=== PATIENT | female | born 1990 | race Caucasian/White ===

== ENCOUNTER 2016-12-13 16:06 | Emergency (ER) | payer BC ==
[2016-12-13] MEDS ORDERED: Sodium Chloride 0.9% 1000 ML 1,000 ML IV STA (16:27)
[2016-12-13 16:33] LABS: BASOPHIL % 0.3 % (0.0-0.4); Eosinophil % 1.6 % (0.00-5.0); Granulocytes % 73.7 % (36.0-66.0); Lymphocytes % 18.1 % (24.0-44.0); Mean Cell Volume 72.4 fl (78-100); Mean Platelet Volume 9.4 fl (6-9.5); Monocytes % 6.3 % (0.0-12.0); Platelet Count 329 K/mm3 (150-450); Red Blood Count 5.21 M/mm3 (4.1-5.4); White Blood Count 7.4 K/mm3 (4.0-10.5)
[2016-12-13 16:35] LABS: Mean Corpuscular Hemoglobin 22.4 pg (26-32)
[2016-12-13] MEDS ORDERED: Sodium Chloride 0.9% 1000 ML 1,000 ML ONE (16:43)
[2016-12-13] MEDS ORDERED: TORAdol 30 mg Injection IV ONE (16:50)
[2016-12-13 16:59] LABS: ALBUMIN 3.8 g/dL (3.4-5.0); ALKALINE PHOSPHATASE 100 U/L (46-116); ANION GAP 15.5 MEQ/L (5-15); BILIRUBIN,TOTAL 0.2 mg/dL (0.2-1.0); BLOOD UREA NITROGEN 15 mg/dL (9-20); CHLORIDE 106 mEq/L (98-107); Carbon Dioxide 26.1 mEq/L (21-32); Glucose 62 MG/DL (70-110); Potassium 3.8 mEq/L (3.5-5.1); SGOT/AST 14 U/L (15-37); SGPT/ALT 21 U/L (12-78); SODIUM 144 mEq/L (136-145); Total Protein 8.3 gm/dL (6.4-8.2)
--- NOTE | 2016-12-13 17:23 | ERPHSYRPT ---
- History of Present Illness Time Seen by Provider: 12/13/16 16:26 Source: patient Patient Subjective Stated Complaint: pt here for vaginal bleeding for 3 months, she states not bleed for only 9 days out of the 3 months, has seen collective bargaining specialist and put on hormones for almost 2 months, today she states she has been weak,got dizzy and fell today, and sob the last 2 hours Triage Nursing Assessment: pt states today is going through a eliezer of tampons and a box of pads in last 36 hours with clots, also co abd cramping. 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 She had prior C/S and BTL. She had a baby in Jul. Has had intermittent but mostly continued vaginal bleeding since then. She has had OCP manipulation as well as provera trial. She states the bleeding is worse, not getting better. She felt more tired and dizzy today. She is upset she can not go on like this. Could not get into office today so came to ER. Some lower abd pain for which she occasionally uses APAP. No fever or chills. Normal urination. Not . No hx of DM or sugar problems. She has been using multiple pads and tampons (was counselled against tampons by nurse). She has no chest pain or dyspnea but feels tired when up and with exertion. No injury. Timing/Duration: week(s) Severity of Pain-Max: severe Severity of Pain-Current: severe Allergies/Adverse Reactions: aspirin Adverse Reaction (Verified 12/13/16 16:28) pt states transcriber told her not to take Home Medications: Ferrous Sulfate [Ferosul] 325 mg PO BID 06/07/14 [History] Medroxyprogesterone Acetate [Provera] 5 mg DAILY 12/13/16 [History] Tranexamic Acid [Lysteda] 650 mg DAILY 12/13/16 [History] Hx Tetanus, Diphtheria Vaccination/Date Given: No Hx Influenza Vaccination/Date Given: No Hx Pneumococcal Vaccination/Date Given: No - Review of Systems Constitutional: Fatigue, Malaise, Weakness, No Fever, No Chills Eyes: No Symptoms Ears, Nose, & Throat: No Symptoms Respiratory: No Cough, No Dyspnea Cardiac: No Chest Pain Abdominal/Gastrointestinal: Abdominal Pain (lower), No Vomiting, No Diarrhea Genitourinary Symptoms: Vaginal Bleeding, No Dysuria, No Hematuria, No Musculoskeletal: No Back Pain Skin: No Rash Neurological: No Headache All Other Systems: Reviewed and Negative - Past Medical History Pertinent Past Medical History: Yes Neurological History: No Pertinent History ENT History: No Pertinent History Cardiac History: Congenital Heart Disease Respiratory History: No Pertinent History Endocrine Medical History: No Pertinent History Musculoskeletal History: Other GI Medical History: No Pertinent History History: No Pertinent History Psycho-Social History: No Pertinent History Female Reproductive Disorders: No Pertinent History Other Medical History: OPEN HEART WITH REPAIR OF HOLE--4 yrs old. anemia - Past Surgical History Past Surgical History: Yes Neuro Surgical History: No Pertinent History Cardiac: Other Respiratory: No Pertinent History Gastrointestinal: No Pertinent History Genitourinary: No Pertinent History Musculoskeletal: No Pertinent History Female Surgical History: No Pertinent History, Section, Tubal Ligation Other Surgical History: REPAIR OF HOLE IN THE HEART - Social History Smoking Status: Never smoker Exposure to second hand smoke: No Drug Use: none Patient Lives Alone: No - Female History Hx Last Menstrual Period: maurilio was last normal menstrual period Hx Now: No - Nursing Vital Signs Nursing Vital Signs: Initial Vital Signs Temperature 98.2 F Temperature Source Oral Pulse Rate 89 Respiratory Rate 16 Blood Pressure [Left Arm] 130/82 Pain Intensity 4 - Physical Exam General Appearance: alert, obese, other (pleasant lady) Eye Exam: PERRL/EOMI Ears, Nose, Throat Exam: normal ENT inspection, moist mucous membranes Neck Exam: normal inspection, non-tender, supple Respiratory Exam: normal breath sounds, lungs clear Cardiovascular Exam: regular rate/rhythm Gastrointestinal/Abdomen Exam: soft, No tenderness, No distention, No mass, No guarding Pelvic Exam: vaginal bleeding (performed by medical student with RN Minda: slow cervical bleeding consistent with heavy menses, no hermorrhage, no discharge, mild suprapubic pain.) Back Exam: normal inspection Extremity Exam: normal inspection, normal range of motion Neurologic Exam: alert, oriented x 3, cooperative, payroll coordinator II-XII nml as tested, sensation nml, No motor deficits Skin Exam: warm, dry, No rash SpO2 Interpretation: normal SpO2: 100 Oxygen Delivery: Room Air - Course Nursing assessment & vital signs reviewed: Yes Ordered Tests: Active Orders 24 hr Category Date Time Status ACCUCHECK [Accucheck] STAT Care 12/13/16 18:17 Active IV Insertion STAT Care 12/13/16 16:27 Active Orthostatic Vital Signs STAT Care 12/13/16 16:50 Active Pelvic Exam Assist STAT Care 12/13/16 16:51 Active CBC W DIFF Stat Lab 12/13/16 16:25 Completed CMP Stat Lab 12/13/16 16:25 Completed HCG QUALITATIVE,SERUM Stat Lab 12/13/16 16:25 Completed TSH [TSH, 3RD Generation] Stat Lab 12/13/16 17:03 Completed Medication Summary Discontinued Medications Generic Name Dose Route Start Last Admin Trade Name Freq PRN Reason Stop Dose Admin Sodium Chloride 1,000 mls @ 999 mls/hr 12/13/16 16:27 12/13/16 16:45 Sodium Chloride 0.9% 1000 Ml IV 12/13/16 17:27 999 mls/hr .Q1H1M STA Administration Sodium Chloride Confirm 12/13/16 16:43 Sodium Chloride 0.9% 1000 Ml Administered 12/13/16 16:44 Dose 1,000 mls @ ud .ROUTE .STK-MED ONE Ketorolac Tromethamine 30 mg 12/13/16 16:50 12/13/16 17:29 Toradol 30 Mg Injection IV 12/13/16 16:51 30 mg STAT ONE Administration Ketorolac Tromethamine Confirm 12/13/16 17:28 Toradol 30 Mg Injection Administered 12/13/16 17:29 Dose 30 mg .ROUTE .STK-MED ONE Lab/Rad Data: Laboratory Result Diagrams 12/13/16 16:25 12/13/16 16:25 Laboratory Results 12/13/16 12/13/16 12/13/16 Range/Units 17:03 16:25 16:25 WBC (4.0-10.5) K/mm3 RBC (4.1-5.4) M/mm3 Hgb (12.0-16.0) gm/dl Hct (35-47) % MCV (78-100) fl MCH (26-32) pg MCHC (32-36) g/dl RDW (11.5-14.0) % Plt Count (150-450) K/mm3 MPV (6-9.5) fl Gran % (36.0-66.0) % Lymphocytes % (24.0-44.0) % Monocytes % (0.0-12.0) % Eosinophils % (0.00-5.0) % Basophils % (0.0-0.4) % Basophils # (0-0.4) Sodium (136-145) mEq/L Potassium (3.5-5.1) mEq/L Chloride (98-107) mEq/L Carbon Dioxide (21-32) mEq/L Anion Gap (5-15) MEQ/L BUN (9-20) mg/dL Creatinine (0.55-1.30) mg/dl Estimated GFR ML/MIN Glucose (70-110) MG/DL Calcium (8.5-10.1) mg/dL Total Bilirubin (0.2-1.0) mg/dL AST (15-37) U/L ALT (12-78) U/L Alkaline Phosphatase (46-116) U/L Serum Total Protein (6.4-8.2) gm/dL Albumin (3.4-5.0) g/dL TSH 3rd Generation 1.444 (0.358-3.740) mIU/L Serum , Qual NEGATIVE (Negative) ABO Group O Rh Factor POSITIVE Antibody Screen NEGATIVE (NEGATIVE) 12/13/16 12/13/16 Range/Units 16:25 16:25 WBC 7.4 (4.0-10.5) K/mm3 RBC 5.21 (4.1-5.4) M/mm3 Hgb 11.7 L (12.0-16.0) gm/dl Hct 37.7 (35-47) % MCV 72.4 L (78-100) fl MCH 22.4 L (26-32) pg MCHC 31.0 L (32-36) g/dl RDW 17.0 H (11.5-14.0) % Plt Count 329 (150-450) K/mm3 MPV 9.4 (6-9.5) fl Gran % 73.7 H (36.0-66.0) % Lymphocytes % 18.1 L (24.0-44.0) % Monocytes % 6.3 (0.0-12.0) % Eosinophils % 1.6 (0.00-5.0) % Basophils % 0.3 (0.0-0.4) % Basophils # 0.02 (0-0.4) Sodium 144 (136-145) mEq/L Potassium 3.8 (3.5-5.1) mEq/L Chloride 106 (98-107) mEq/L Carbon Dioxide 26.1 (21-32) mEq/L Anion Gap 15.5 H (5-15) MEQ/L BUN 15 (9-20) mg/dL Creatinine 0.95 (0.55-1.30) mg/dl Estimated GFR > 60 ML/MIN Glucose 62 L (70-110) MG/DL Calcium 9.5 (8.5-10.1) mg/dL Total Bilirubin 0.2 (0.2-1.0) mg/dL AST 14 L (15-37) U/L ALT 21 (12-78) U/L Alkaline Phosphatase 100 (46-116) U/L Serum Total Protein 8.3 H (6.4-8.2) gm/dL Albumin 3.8 (3.4-5.0) g/dL TSH 3rd Generation (0.358-3.740) mIU/L Serum , Qual (Negative) ABO Group Rh Factor Antibody Screen (NEGATIVE) - Progress Progress Note: 12/13/16 17:23 Hg ok. Vitals ok. Sugar somewhat low. IVF bolus, toradol, and snack given. Advised she will need close a p supervisor follow up to consider further hormonal manipulation, D&C, ablation, hysterectomy, etc. TSH pending. 12/13/16 18:34 TSH normal. Normal orthostatics. She has ambulated to the bathroom several times. Accu check improved with snack. She now is nauseated and dizzy. She felt this way after the orange juice. Discussed her history again. She is tired of the bleeding. She felt like she would pass out this AM and fell but did not black out. No vomiting. Normal urination. Discussed her test results so far. With further symptoms advised she have EKG due to hx of congenital heart issues and dizziness, check cath UA, and phenergan for nausea/dizziness as well as addl IVF. She decided she wants to go home. She declined addl tests. She has her mother in law here to help her with kids. She lives at home with her who works rn shift mgr. She agreed to phenergan but declines other tests. She states she feels like she has a film over her eyes with some blurriness. She will be released AMA at her request. Counseled pt/family regarding: lab results, diagnosis, need for follow-up, rad results - Departure Time of Disposition: 18:40 Departure Disposition: AMA Clinical Impression: Menorrhagia, Hypoglycemia, Dizziness Condition: Stable Critical Care Time: No Instructions: Menorrhagia, Hypoglycemia Additional Instructions: No driving and stay with adult family member. Eat frequent small meals and drink plenty of fluids. Call your [employer] a p supervisor in AM for close follow up. Continue the hormone treatments as already prescribed by your graduate research assistant. Return for problems or concerns.
[2016-12-13] MEDS ORDERED: TORAdol 30 mg Injection ONE (17:28)
[2016-12-13 18:17] VITALS: BP 130/82; PULSE 89
[2016-12-13] MEDS ORDERED: Phenergan 25 MG INJ IM ONE (18:34)
[2016-12-13] MEDS ORDERED: Phenergan 25 MG INJ ONE (18:35)
[2016-12-13 18:40] VITALS: O2SAT 100
== END 2016-12-13 19:05 | disposition home or self-care (01) ==
LOC: ED 16:06
DX: N92.0 Excessive and frequent menstruation with regular cycle (principal); E16.2 Hypoglycemia, unspecified; R42 Dizziness and giddiness
CPT/HCPCS: 36000; 36415; 80053; 82962; 84443; 84703; 85025; 86850; 86900; 86901; 96360; 96361; 96372; 96374; 99284; 99285; J1885; J2550

== ENCOUNTER 2017-12-25 13:12 | Emergency (ER) | payer BC, OTHER ==
[2017-12-25 13:23] VITALS: BP 164/106; PULSE 85; O2SAT 100
[2017-12-25] MEDS ORDERED: Augmentin 875-125 Tablet PO ONE (13:48)
--- NOTE | 2017-12-25 13:54 | ERPHSYRPT ---
- History of Present Illness Time Seen by Provider: 12/25/17 13:35 Source: patient Exam Limitations: clinical condition Patient Subjective Stated Complaint: Dental Pain beginning after tooth extraction x1 week ago. Triage Nursing Assessment: Pt presents to the ED with complaints of lower dental pain. Pt states wisdom tooth extraction x4 1 week ago. Pt states pain worsening since removal. No distress noted. Denies fevers or other complaints. Physician History: PATIENT UNDERWENT MULTIPLE WISDOM TEETH EXTRACTED 1 WEEK AGO AND HAS PERSISTENT PAIN, STATES ONLY HAS A FEW NORCO LEFT. DENIES FEVER, DIFFICULTY BREATHING OR SWALLOWING. ADMITS TO ONLY HAVING 2 ANTIBIOTICS OF AMOXICILLIN LEFT. Timing/Duration: gradual onset Severity: moderate ENT Location: dental Prearrival Treatment: prescription meds Modifying Factors: Improves With: nothing Associated Symptoms: jaw pain Allergies/Adverse Reactions: aspirin Adverse Reaction (Verified 12/13/16 16:28) pt states elevator erector told her not to take Home Medications: Ferrous Sulfate [Ferosul] 325 mg PO BID 06/07/14 [History] Amoxicillin 500 mg Cap [Amoxil 500 mg] 500 mg PO TID 12/25/17 [History] Hydrocodone/Acetaminophen [Hydrocodone-Acetamin 5-325 mg] 1 each PO Q6HPRN PRN 12/25/17 [History] Hx Tetanus, Diphtheria Vaccination/Date Given: No Hx Influenza Vaccination/Date Given: No Hx Pneumococcal Vaccination/Date Given: No Immunizations Up to Date: No - Review of Systems Constitutional: No Fever, No Chills Eyes: No Symptoms Ears, Nose, & Throat: No Symptoms, Other (JAW PAIN AFTER DENTAL EXTRACTION) Respiratory: No Cough, No Dyspnea Cardiac: No Symptoms, No Chest Pain, No Edema, No Syncope Abdominal/Gastrointestinal: No Symptoms, No Abdominal Pain, No Nausea, No Vomiting, No Diarrhea Genitourinary Symptoms: No Dysuria Musculoskeletal: No Back Pain, No Neck Pain Skin: No Rash Neurological: No Dizziness, No Focal Weakness, No Sensory Changes Psychological: No Symptoms Endocrine: No Symptoms All Other Systems: Reviewed and Negative - Past Medical History Pertinent Past Medical History: Yes Neurological History: No Pertinent History ENT History: No Pertinent History Cardiac History: Congenital Heart Disease Respiratory History: No Pertinent History Endocrine Medical History: No Pertinent History Musculoskeletal History: Other GI Medical History: No Pertinent History History: No Pertinent History Psycho-Social History: No Pertinent History Female Reproductive Disorders: No Pertinent History Other Medical History: OPEN HEART WITH REPAIR OF HOLE--4 yrs old. anemia - Past Surgical History Past Surgical History: Yes Neuro Surgical History: No Pertinent History Cardiac: Other Respiratory: No Pertinent History Gastrointestinal: No Pertinent History Genitourinary: No Pertinent History Musculoskeletal: No Pertinent History Female Surgical History: No Pertinent History, Section, Tubal Ligation Other Surgical History: REPAIR OF HOLE IN THE HEART - Social History Smoking Status: Never smoker Exposure to second hand smoke: No Drug Use: none Patient Lives Alone: No - Female History Hx Last Menstrual Period: 12/10/2017 Hx Now: No - Nursing Vital Signs Nursing Vital Signs: Initial Vital Signs Temperature 98.5 F 12/25/17 13:19 Pulse Rate 85 12/25/17 13:19 Respiratory Rate 16 12/25/17 13:19 Blood Pressure 164/106 12/25/17 13:19 O2 Sat by Pulse Oximetry 100 12/25/17 13:19 Pain Scale Pain Intensity 8 - Physical Exam General Appearance: no apparent distress, alert Eye Exam: bilateral eye: PERRL, EOMI Ear Exam: bilateral ear: auricle normal, canal normal Nasal Exam: normal inspection Throat Exam: normal (BILAT UPPER AND LOWER GINGIVA TENDERNESS SITES OF WISDOM EXTRACTIONS, NO GINGIVAL SWELLING), pharynx normal (AIRWAY PATENT, NO SOFT PALATE OR UVULA SWELLING ), moist mucus membranes, No tonsillar exudate Neck Exam: normal inspection, non-tender, supple Cardiovascular/Respiratory Exam: chest non-tender, normal breath sounds, regular rate/rhythm Neurologic Exam: No motor deficits SpO2: 100 Oxygen Delivery: Room Air Ordered Tests: Medication Summary Generic Name Dose Route Start Last Admin Trade Name Chuckq PRN Reason Stop Dose Admin Amoxicillin/Clavulanate Potassium 875 mg 12/25/17 13:48 Augmentin 875-125 Tablet PO 12/25/17 13:49 STAT ONE - Progress Progress Note: 12/25/17 13:54 AUGMENTIN 875MG ORALLY Counseled pt/family regarding: diagnosis - Departure Time of Disposition: 14:10 Departure Disposition: Home Clinical Impression: POST EXTRACTION DENTALGIA Condition: Stable Critical Care Time: No Referrals: MEIR VANEGAS [Primary Care Provider] - Additional Instructions: CALL A DENTIST OR YOUR PREVIOUS DENTIST FROM LAST WEEK FOR EVALUATION AND TREATMENT. DISCONTINUE AMOXICILLIN AND BEGIN AUGMENTIN 875MG TWICE DAILY FOR 10 DAYS. PERCOGESIC EVERY 4 HOURS FOR PAIN. CONSULT YOUR PRIMARY CARE PROVIDER TOMORROW FOR A DENTAL REFERRAL. Prescriptions: Acetaminophen/Diphenhydramine [Percogesic 325-12.5 mg Tablet] 2 each PO Q4- 6HPRN PRN #20 tablet PRN Reason: Pain Amox Tr/Potass Clav. 875 mg [Augmentin 875-125 Tablet] 1 each PO BID #20 tablet
[2017-12-25] MEDS ORDERED: Augmentin 875-125 Tablet ONE (13:55)
== END 2017-12-25 14:09 | disposition home or self-care (01) ==
LOC: ED 13:12
DX: K08.89 Other specified disorders of teeth and supporting structures (principal); Z98.818 Other dental procedure status
CPT/HCPCS: 99283; A9270-GY

== ENCOUNTER 2018-01-02 20:17 | Emergency (ER) | payer OTHER ==
[2018-01-02 20:51] LABS: Lactic Acid 1.9 (0.4-2.0)
[2018-01-02] MEDS ORDERED: DUONEB 0.5-3 MG/3 ml Neb IH (20:56)
[2018-01-02] MEDS: DUONEB 0.5-3 MG/3 ml Neb IH (20:57)
[2018-01-02 20:58] LABS: BASOPHIL % 0.3 % (0.0-0.4); Basophil (Absolute #) 0.03 (0-0.4); Eosinophil (Absolute #) 0.22 (0-0.5); Granulocyte Absolute (ANC) 8.01 (1.4-6.9); Granulocytes % 73.1 % (36.0-66.0); Hemoglobin 10.5 gm/dl (12.0-16.0); Lymphocyte (Absolute #) 2.26 (1.0-4.6); Lymphocytes % 20.6 % (24.0-44.0); Mean Cell Volume 67.5 fl (78-100); Mean Corpuscular Hemoglobin 20.8 pg (26-32); Mean Corpuscular Hgb Concent. 30.9 g/dl (32-36); Monocyte (Absolute #) 0.44 (0.0-1.3); Platelet Count 383 K/mm3 (150-450); Red Blood Count 5.04 M/mm3 (4.1-5.4); Red Cell Distribution Width 16.4 % (11.5-14.0)
[2018-01-02] MEDS ORDERED: Robitussin AC Syrup Unit Dose Cup (21:00)
[2018-01-02] MEDS: Robitussin AC Syrup Unit Dose Cup PO (21:06)
[2018-01-02 21:11] LABS: ALKALINE PHOSPHATASE 100 U/L (38-126); ANION GAP 16.2 MEQ/L (5-15); BILIRUBIN,TOTAL < 0.10 mg/dL (0.2-1.3); BLOOD UREA NITROGEN 12 mg/dL (7-17); CHLORIDE 103 mmol/L (98-107); Calcium 9.2 mg/dL (8.4-10.2); Carbon Dioxide 24 mmol/L (22-30); Creatinine 1 0.77 mg/dL (0.52-1.04); EST GLOMERULAR FILTRATION RATE > 60.0 ML/MIN; Glucose 117 mg/dL (74-106); MAGNESIUM 1.9 mg/dL (1.6-2.3); Potassium 4.1 mmol/L (3.5-5.1); SGOT/AST 15 U/L (14-36); SGPT/ALT 18 U/L (0-35); SODIUM 140 mmol/L (137-145); Total Protein 7.3 g/dL (6.3-8.2)
[2018-01-02 21:19] LABS: NT PRO BNP 143 pg/mL (0-450)
[2018-01-02 21:21] LABS: INR 1.03 (0.8-3.0)
[2018-01-02 21:22] LABS: D-DIMER QUANTITATION 262 ng/mL (215-500)
[2018-01-02 21:24] LABS: TROPONIN < 0.012 ng/mL (0.000-0.034)
[2018-01-02 21:32] LABS: ADD MANUAL DIFF? NO (NO)
[2018-01-02 23:11] LABS: Lactic Acid 1.2 (0.4-2.0)
[2018-01-02 23:42] LABS: TROPONIN < 0.012 ng/mL (0.000-0.034)
== END 2018-01-03 00:39 | disposition home or self-care (01) ==
LOC: ED 01-03 00:39
CPT/HCPCS: 36000; 36415; 71046; 80053; 83605; 83735; 83880; 84484; 85025; 85379; 85610; 93005; 94150; 94640

== ENCOUNTER 2018-01-09 19:05 | Observation (INO) | payer OTHER ==
[2018-01-09] MEDS ORDERED: TYLENOL 325 MG PO PRN (19:36)
[2018-01-09] MEDS ORDERED: DUONEB 0.5-3 MG/3 ml Neb IH ONE (19:46)
[2018-01-09] MEDS ORDERED: DUONEB 0.5-3 MG/3 ml Neb IH PRN (20:11)
[2018-01-09] MEDS: Sodium Chloride 0.9% 1000 ML 1,000 ML IV SCH (20:13)
[2018-01-09] MEDS: ROCEPHIN 1 Gm-D5w 50 ml Bag** 1 G/50 ML IVPB IV SCH ×2 (20:13→22:05)
[2018-01-09] MEDS: solu-MEDROL 125 MG IV SCH (20:14)
[2018-01-09 20:23] LABS: Hematocrit 30.9 % (35-47); Hemoglobin 9.3 gm/dl (12.0-16.0); Mean Cell Volume 68.7 fl (78-100); Mean Corpuscular Hgb Concent. 30.1 g/dl (32-36); Platelet Count 302 K/mm3 (150-450); White Blood Count 8.7 K/mm3 (4.0-10.5)
[2018-01-09 20:27] LABS: Mean Corpuscular Hemoglobin 20.6 pg (26-32)
[2018-01-09 20:31] LABS: INFLUENZA A NEGATIVE (NEGATIVE); INFLUENZA B NEGATIVE (NEGATIVE); RESPIRATORY SYNCTIAL VIRUS NEGATIVE (Negative)
[2018-01-09 21:18] LABS: ALBUMIN 3.8 g/dL (3.5-5.0); ALKALINE PHOSPHATASE 88 U/L (38-126); ANION GAP 13.4 MEQ/L (5-15); BILIRUBIN,TOTAL < 0.10 mg/dL (0.2-1.3); BLOOD UREA NITROGEN 13 mg/dL (7-17); CHLORIDE 110 mmol/L (98-107); Calcium 8.9 mg/dL (8.4-10.2); Carbon Dioxide 24 mmol/L (22-30); Creatinine 1 0.78 mg/dL (0.52-1.04); Glucose 127 mg/dL (74-106); Potassium 3.7 mmol/L (3.5-5.1); SGOT/AST 16 U/L (14-36); SODIUM 143 mmol/L (137-145)
[2018-01-09 21:21] LABS: A-aADO2 29; ABG HEMOGLOBIN 9.4; ABG POTASSIUM 3.6 (3.5-5.1); ARTERIAL BLD GAS O2 SATURATION 97.4 % (95-100); ARTERIAL BLOOD GAS BASE EXCESS -0.3 (-2.0-2.0); ARTERIAL BLOOD GAS FIO2 21 %; ARTERIAL BLOOD GAS PCO2 37 mmHg (35-45); ARTERIAL BLOOD GAS PO2 74 mmHg (75-100); ARTERIAL BLOOD GAS pH 7.42 (7.35-7.45); HGB O2 SAT 93.2 g/dF (94-100); Methhemoglobin 1.3 % (1.4-1.5); paO2 pAO1 0.72
[2018-01-09 21:22] LABS: ABG SITE LEFT BRACHIAL
[2018-01-09 21:25] LABS: SGPT/ALT 18 U/L (0-35)
[2018-01-09 21:29] LABS: TROPONIN < 0.012 ng/mL (0.000-0.034)
[2018-01-09 23:20] LABS: Slide Review YES
[2018-01-10] MEDS: solu-MEDROL 125 MG IV SCH (06:43)
[2018-01-10] MEDS: Sodium Chloride 0.9% 1000 ML 1,000 ML IV SCH (06:43)
[2018-01-10 07:33] VITALS: BP 129/59; PULSE 87; O2SAT 97
--- NOTE | 2018-01-10 08:37 | XRAY ---
Indication: Bronchopneumonia. Comparison: January 02, 2018. PA/lateral chest again demonstrates normal heart and lungs with sternotomy wires. No new/acute findings.
--- NOTE | 2018-01-10 08:55 | PCM.SSS ---
History of Present Illness - Chief Complaint Chief Complaint: cough for 3 weeks History of Present Illness: see H&P - Review of Systems Constitutional: No Fever, No Chills Eyes: No Symptoms Ears, Nose, & Throat: No Symptoms Respiratory: No Cough, No Short Of Breath Cardiac: No Chest Pain, No Edema, No Syncope Abdominal/Gastrointestinal: No Abdominal Pain, No Nausea, No Vomiting, No Diarrhea Genitourinary Symptoms: No Dysuria Musculoskeletal: No Back Pain, No Neck Pain Skin: No Rash Neurological: No Dizziness, No Focal Weakness, No Sensory Changes Psychological: No Symptoms Endocrine: No Symptoms Hematologic/Lymphatic: No Symptoms Immunological/Allergic: No Symptoms Medications & Allergies Home Medications: Home Medication List Ferrous Sulfate [Ferosul] 325 mg PO BID 06/07/14 [History Confirmed 01/09/18] Codeine Phosphate/Guaifenesin [Cheratussin AC Syrup] 5 ml PO QID #120 liquid [Rx] Prednisone 5 mg [Deltasone 5 mg] 5 mg PO BID #20 tablet 01/10/18 [Rx] Allergies/Adverse Reactions: Allergies Allergy/AdvReac Type Severity Reaction Status Date / Time aspirin AdvReac Verified 01/02/18 20:38 - Past Medical History Past Medical History: Yes Neurological History: No Pertinent History ENT History: No Pertinent History Cardiac History: Congenital Heart Disease Respiratory History: Bronchitis Endocrine Medical History: No Pertinent History Musculoskelatal History: Other GI Medical History: No Pertinent History History: No Pertinent History Pyscho-Social History: No Pertinent History Reproductive Disorders: No Pertinent History Comment: OPEN HEART WITH REPAIR OF HOLE--4 yrs old. anemia - Female History Are you now?: (unknown) - Past Surgical History Past Surgical History: Yes Neuro Surgical History: No Pertinent History Cardiac History: Other Respiratory Surgery: No Pertinent History GI Surgical History: No Pertinent History Genitourinary Surgical Hx: No Pertinent History Musculskeletal Surgical Hx: No Pertinent History Female Surgical History: No Pertinent History, Section, Tubal Ligation Other Surgical History: REPAIR OF HOLE IN THE HEART - Social History Smoking Status: Never smoker Exposure to second hand smoke: Yes Alcohol: None Drug Use: none - Physical Exam Vital Signs: Vital Signs - 24 hr Temp Pulse Resp BP Pulse Ox 01/10/18 07:32 97.5 F 87 20 129/59 97 01/10/18 06:57 98 H 16 96 01/10/18 03:00 98.1 F 89 17 132/63 96 01/09/18 23:06 98.7 F 94 H 19 121/63 96 01/09/18 22:46 100 H 22 97 01/09/18 20:29 98.4 F 103 H 20 138/67 98 01/09/18 19:06 98.4 F 103 H 20 138/67 98 General Appearance: no apparent distress, alert Neurologic Exam: alert, oriented x 3, cooperative, normal mood/affect, nml cerebellar function, nml station & gait, sensation nml, No motor deficits Eye Exam: PERRL/EOMI, eyes nml inspection Ears, Nose, Throat Exam: normal ENT inspection, TMs normal, pharynx normal, moist mucous membranes Neck Exam: normal inspection, non-tender, supple, full range of motion Respiratory Exam: normal breath sounds, lungs clear, No respiratory distress Cardiovascular Exam: regular rate/rhythm, normal heart sounds, normal peripheral pulses Gastrointestinal/Abdomen Exam: soft, normal bowel sounds, No tenderness, No mass Back Exam: normal inspection, normal range of motion, No CVA tenderness, No vertebral tenderness Extremity Exam: normal inspection, normal range of motion, pelvis stable Skin Exam: normal color, warm, dry, No rash Lymphatic Exam: No adenopathy Results - Labs Lab/Micro Results: Lab Results-Last 24 Hours 01/09/18 01/09/18 01/09/18 Range/Units 19:20 20:15 20:15 WBC 8.7 (4.0-10.5) K/mm3 RBC 4.50 (4.1-5.4) M/mm3 Hgb 9.3 L (12.0-16.0) gm/dl Hct 30.9 L (35-47) % MCV 68.7 L (78-100) fl MCH 20.6 L (26-32) pg MCHC 30.1 L (32-36) g/dl RDW 17.0 H (11.5-14.0) % Plt Count 302 (150-450) K/mm3 MPV 9.0 (6-9.5) fl Puncture Site pCO2 (35-45) mmHg pO2 (75-100) mmHg Base Excess (-2.0-2.0) O2 Saturation (94-100) g/dF ABG pH (7.35-7.45) ABG HCO3 (22-28) ABG O2 Sat (Measured) (95-100) % Gonsalo Test A-a Gradient a/A Ratio Hemoglobin Carboxyhemoglobin (0.0-6.9) % THgb Methemoglobin (1.4-1.5) % Temperature C POC O2 Flow Rate % Sodium 143 (137-145) mmol/L Potassium 3.7 (3.5-5.1) mmol/L Chloride 110 H (98-107) mmol/L Carbon Dioxide 24 (22-30) mmol/L Anion Gap 13.4 (5-15) MEQ/L BUN 13 (7-17) mg/dL Creatinine 0.78 (0.52-1.04) mg/dL Estimated GFR > 60.0 ML/MIN Glucose 127 H (74-106) mg/dL Calcium 8.9 (8.4-10.2) mg/dL Total Bilirubin < 0.10 L (0.2-1.3) mg/dL AST 16 (14-36) U/L ALT 18 (0-35) U/L Alkaline Phosphatase 88 (38-126) U/L Troponin I < 0.012 (0.000-0.034) ng/mL Serum Total Protein 7.0 (6.3-8.2) g/dL Albumin 3.8 (3.5-5.0) g/dL Beta HCG, Quant mIU/ml Serum , Qual (Negative) Influenza Type A Ag NEGATIVE (NEGATIVE) Influenza Type B Ag NEGATIVE (NEGATIVE) RSV (PCR) NEGATIVE (Negative) Slides for Path Review YES 01/09/18 01/09/18 01/10/18 Range/Units 20:15 20:55 20:15 WBC (4.0-10.5) K/mm3 RBC (4.1-5.4) M/mm3 Hgb (12.0-16.0) gm/dl Hct (35-47) % MCV (78-100) fl MCH (26-32) pg MCHC (32-36) g/dl RDW (11.5-14.0) % Plt Count (150-450) K/mm3 MPV (6-9.5) fl Puncture Site LEFT BRACHIAL pCO2 37 (35-45) mmHg pO2 74 L (75-100) mmHg Base Excess -0.3 (-2.0-2.0) O2 Saturation 93.2 L (94-100) g/dF ABG pH 7.42 (7.35-7.45) ABG HCO3 24.0 (22-28) ABG O2 Sat (Measured) 97.4 (95-100) % Gonsalo Test NOT APPLICABLE A-a Gradient 29 a/A Ratio 0.72 Hemoglobin 9.4 Carboxyhemoglobin 3.0 (0.0-6.9) % THgb Methemoglobin 1.3 L (1.4-1.5) % Temperature 37.0 C POC O2 Flow Rate 21 % Sodium (137-145) mmol/L Potassium 3.6 (3.5-5.1) mmol/L Chloride (98-107) mmol/L Carbon Dioxide (22-30) mmol/L Anion Gap (5-15) MEQ/L BUN (7-17) mg/dL Creatinine (0.52-1.04) mg/dL Estimated GFR ML/MIN Glucose (74-106) mg/dL Calcium (8.4-10.2) mg/dL Total Bilirubin (0.2-1.3) mg/dL AST (14-36) U/L ALT (0-35) U/L Alkaline Phosphatase (38-126) U/L Troponin I (0.000-0.034) ng/mL Serum Total Protein (6.3-8.2) g/dL Albumin (3.5-5.0) g/dL Beta HCG, Quant < 2.39 mIU/ml Serum , Qual POSITIVE (Negative) Influenza Type A Ag (NEGATIVE) Influenza Type B Ag (NEGATIVE) RSV (PCR) (Negative) Slides for Path Review - Radiology Impressions Radiology Exams & Impressions: Radiology Procedures Category Date Time Status CHEST 2 VIEWS (PA AND LAT) Routine Exams 01/09/18 19:45 Completed - Other Procedures and Tests Respiratory Therapy 01/09/18 19:13 Respiratory Nebulizer UD Assessment/Plan (1) Bronchitis Current Visit: No Status: Acute Assessment & Plan: Patient all labs and xray are normal. it appears to be viral bronchitis, patient test for urine was positive. quantitative (2.39) will repeat serum test Code(s): J40 - BRONCHITIS, NOT SPECIFIED ACUTE OR CHRONIC Hospital Summary - Hospital Course Hospital Course: Chief Complaint Diagnosis cough for 3 weeks Allergies Allergy/AdvReac Type Severity Reaction Status Date / Time aspirin AdvReac Verified 01/02/18 20:38 Vital Signs (Last 24 hours) Temp Pulse Resp BP Pulse Ox 01/10/18 07:32 97.5 F 87 20 129/59 97 01/10/18 06:57 98 H 16 96 01/10/18 03:00 98.1 F 89 17 132/63 96 01/09/18 23:06 98.7 F 94 H 19 121/63 96 01/09/18 22:46 100 H 22 97 01/09/18 20:29 98.4 F 103 H 20 138/67 98 01/09/18 19:06 98.4 F 103 H 20 138/67 98 Current Medications Generic Name Dose Route Start Last Admin Trade Name Freq PRN Reason Stop Dose Admin Acetaminophen 650 mg 01/09/18 19:36 01/09/18 22:05 Tylenol 325 Mg PO 02/08/18 19:35 650 mg Q4H PRN PRN Administration PAIN AND/OR FEVER Albuterol/Ipratropium 3 ml 01/09/18 20:11 01/09/18 19:54 Duoneb 0.5-3 Mg/3 Ml Neb IH 02/08/18 20:10 3 ml QID PRN PRN Administration SHORTNESS OF BREATH Ceftriaxone Sodium/Dextrose 1 g in 50 mls @ 100 mls/hr 01/09/18 22:00 22:05 Rocephin 1 Gm-D5w 50 Ml Bag IV 02/08/18 21:59 100 mls/hr Q24H10 TIM Administration Sodium Chloride 1,000 mls @ 100 mls/hr 01/09/18 19:45 01/10/18 06:43 Sodium Chloride 0.9% 1000 Ml IV 02/08/18 19:44 100 mls/hr .Q10H TIM Administration Methylprednisolone Sodium Succinate 60 mg 01/09/18 21:00 01/10/18 06:43 Solu-Medrol 125 Mg IV 02/08/18 20:59 60 mg Q8H TIM Administration Discontinued Medications Generic Name Dose Route Start Last Admin Trade Name Freq PRN Reason Stop Dose Admin Albuterol/Ipratropium Confirm 01/09/18 19:46 Duoneb 0.5-3 Mg/3 Ml Neb Administered 01/09/18 19:47 Dose 3 ml IH .STK-MED ONE Intake & Output (Last 24 hours) 01/07/18 01/08/18 01/09/18 01/10/18 11:59 11:59 11:59 11:59 Intake Total 1697 Output Total 900 Balance 797 Weight 129.3 kg Microbiology Results (Last 24 hours) 01/09/18 21:00 Blood Blood Culture Gram Stain - Pending 01/09/18 21:00 Blood Blood Culture - Pending 01/09/18 20:15 Blood Blood Culture Gram Stain - Pending 01/09/18 20:15 Blood Blood Culture - Pending Laboratory Results (Last 24 hours) 01/10/18 01/09/18 01/09/18 20:15 20:55 20:15 WBC RBC Hgb Hct MCV MCH MCHC RDW Plt Count MPV Puncture Site LEFT BRACHIAL pCO2 37 pO2 74 L Base Excess -0.3 O2 Saturation 93.2 L ABG pH 7.42 ABG HCO3 24.0 ABG O2 Sat (Measured) 97.4 Gonsalo Test NOT APPLICABLE A-a Gradient 29 a/A Ratio 0.72 Hemoglobin 9.4 Carboxyhemoglobin 3.0 Methemoglobin 1.3 L Temperature 37.0 POC O2 Flow Rate 21 Sodium Potassium 3.6 Chloride Carbon Dioxide Anion Gap BUN Creatinine Estimated GFR Glucose Calcium Total Bilirubin AST ALT Alkaline Phosphatase Troponin I Serum Total Protein Albumin Beta HCG, Quant < 2.39 Serum , Qual POSITIVE Influenza Type A Ag Influenza Type B Ag RSV (PCR) Slides for Path Review 01/09/18 01/09/18 01/09/18 20:15 20:15 19:20 WBC 8.7 RBC 4.50 Hgb 9.3 L Hct 30.9 L MCV 68.7 L MCH 20.6 L MCHC 30.1 L RDW 17.0 H Plt Count 302 MPV 9.0 Puncture Site pCO2 pO2 Base Excess O2 Saturation ABG pH ABG HCO3 ABG O2 Sat (Measured) Gonsalo Test A-a Gradient a/A Ratio Hemoglobin Carboxyhemoglobin Methemoglobin Temperature POC O2 Flow Rate Sodium 143 Potassium 3.7 Chloride 110 H Carbon Dioxide 24 Anion Gap 13.4 BUN 13 Creatinine 0.78 Estimated GFR > 60.0 Glucose 127 H Calcium 8.9 Total Bilirubin < 0.10 L AST 16 ALT 18 Alkaline Phosphatase 88 Troponin I < 0.012 Serum Total Protein 7.0 Albumin 3.8 Beta HCG, Quant Serum , Qual Influenza Type A Ag NEGATIVE Influenza Type B Ag NEGATIVE RSV (PCR) NEGATIVE Slides for Path Review YES Orders (Last 24 hours) Category Date Time Status IV Insertion ROUTINE Care 01/09/18 19:13 Active Miscellaneous Nursing Order ROUTINE Care 01/09/18 19:[address] in Observation Care 01/09/18 19:05 Active SCD's [Sequential Compression Device] Q6H Care 01/09/18 19:16 Active Regular Diet Diet 01/09/18 Dinner Active CHEST 2 VIEWS (PA AND LAT) Routine Exams 01/09/18 19:45 Completed ARTERIAL BLOOD GASES Urgent Lab 01/09/18 20:55 Completed BLOOD CULTURE Urgent Lab 01/09/18 21:00 Received CBC Urgent Lab 01/09/18 20:15 Completed CMP Urgent Lab 01/09/18 20:15 Completed HCG QUALITATIVE,SERUM Urgent Lab 01/09/18 20:15 Completed HCG, Quantitative (Inhouse) Routine Lab 01/10/18 20:15 Completed HCG,QUALITATIVE SERUM Stat Lab 01/10/18 Ordered Respiratory Panel Urgent Lab 01/09/18 19:20 Completed TROPONIN Urgent Lab 01/09/18 20:15 Completed Acetaminophen 325 mg [Tylenol 325 mg] Med 01/09/18 19:36 Active 650 mg PO Q4H PRN PRN Albuterol/Ipratropium 3ml Neb* [DUONEB 0.5-3 MG/3 ml Med 01/09/18 19:46 Discontinued Neb] 3 ml IH .STK-MED ONE Albuterol/Ipratropium 3ml Neb* [DUONEB 0.5-3 MG/3 ml Med 01/09/18 20:11 Active Neb] 3 ml IH QID PRN PRN Ceftriaxone 1 GM/50 ML PREMIX* [ROCEPHIN 1 Gm-D5w 50 ml Med 01/09/18 22:00 Active Bag] 1 g in 50 ml IV Q24H10 Methylprednis Sod Succ 125 mg* [solu-MEDROL 125 MG] Med 01/09/18 21:00 Active 60 mg IV Q8H NaCl 0.9% 1000 ml [Sodium Chloride 0.9% 1000 ML] 1,000 Med 01/09/18 19:45 Active ml IV 100 mls/hr EKG ROUTINE RT 01/09/18 19:20 Completed Respiratory Nebulizer UD RT 01/09/18 19:13 Active Patient Care Notes (Last 24 hours) 01/10/18 06:22 Nursing Note by Tory Rubin Dr. (investigation manager for Dr. Vanegas) to report positive serum qualitative test. Initialized on 01/10/18 06:22 - END OF NOTE all labs are WNL, plan to d/c home after repeat serum test. - Vitals & Intake/Output Vital Signs: Vital Signs Temperature 97.5 F 01/10/18 07:32 Pulse Rate 87 01/10/18 07:32 Respiratory Rate 20 01/10/18 07:32 Blood Pressure 129/59 01/10/18 07:32 O2 Sat by Pulse Oximetry 97 01/10/18 07:32 Intake & Output: Intake & Output 01/07/18 01/08/18 01/09/18 01/10/18 11:59 11:59 11:59 11:59 Intake Total 1697 Output Total 900 Balance 797 Weight 129.3 kg - Lab Result Diagrams: 01/09/18 20:15 01/09/18 20:15 Lab Results-Last 24 Hrs: Lab Results-Last 24 Hours 01/09/18 01/09/18 01/09/18 Range/Units 19:20 20:15 20:15 WBC 8.7 (4.0-10.5) K/mm3 RBC 4.50 (4.1-5.4) M/mm3 Hgb 9.3 L (12.0-16.0) gm/dl Hct 30.9 L (35-47) % MCV 68.7 L (78-100) fl MCH 20.6 L (26-32) pg MCHC 30.1 L (32-36) g/dl RDW 17.0 H (11.5-14.0) % Plt Count 302 (150-450) K/mm3 MPV 9.0 (6-9.5) fl Puncture Site pCO2 (35-45) mmHg pO2 (75-100) mmHg Base Excess (-2.0-2.0) O2 Saturation (94-100) g/dF ABG pH (7.35-7.45) ABG HCO3 (22-28) ABG O2 Sat (Measured) (95-100) % Gonsalo Test A-a Gradient a/A Ratio Hemoglobin Carboxyhemoglobin (0.0-6.9) % THgb Methemoglobin (1.4-1.5) % Temperature C POC O2 Flow Rate % Sodium 143 (137-145) mmol/L Potassium 3.7 (3.5-5.1) mmol/L Chloride 110 H (98-107) mmol/L Carbon Dioxide 24 (22-30) mmol/L Anion Gap 13.4 (5-15) MEQ/L BUN 13 (7-17) mg/dL Creatinine 0.78 (0.52-1.04) mg/dL Estimated GFR > 60.0 ML/MIN Glucose 127 H (74-106) mg/dL Calcium 8.9 (8.4-10.2) mg/dL Total Bilirubin < 0.10 L (0.2-1.3) mg/dL AST 16 (14-36) U/L ALT 18 (0-35) U/L Alkaline Phosphatase 88 (38-126) U/L Troponin I < 0.012 (0.000-0.034) ng/mL Serum Total Protein 7.0 (6.3-8.2) g/dL Albumin 3.8 (3.5-5.0) g/dL Beta HCG, Quant mIU/ml Serum , Qual (Negative) Influenza Type A Ag NEGATIVE (NEGATIVE) Influenza Type B Ag NEGATIVE (NEGATIVE) RSV (PCR) NEGATIVE (Negative) Slides for Path Review YES 01/09/18 01/09/18 01/10/18 Range/Units 20:15 20:55 20:15 WBC (4.0-10.5) K/mm3 RBC (4.1-5.4) M/mm3 Hgb (12.0-16.0) gm/dl Hct (35-47) % MCV (78-100) fl MCH (26-32) pg MCHC (32-36) g/dl RDW (11.5-14.0) % Plt Count (150-450) K/mm3 MPV (6-9.5) fl Puncture Site LEFT BRACHIAL pCO2 37 (35-45) mmHg pO2 74 L (75-100) mmHg Base Excess -0.3 (-2.0-2.0) O2 Saturation 93.2 L (94-100) g/dF ABG pH 7.42 (7.35-7.45) ABG HCO3 24.0 (22-28) ABG O2 Sat (Measured) 97.4 (95-100) % Gonsalo Test NOT APPLICABLE A-a Gradient 29 a/A Ratio 0.72 Hemoglobin 9.4 Carboxyhemoglobin 3.0 (0.0-6.9) % THgb Methemoglobin 1.3 L (1.4-1.5) % Temperature 37.0 C POC O2 Flow Rate 21 % Sodium (137-145) mmol/L Potassium 3.6 (3.5-5.1) mmol/L Chloride (98-107) mmol/L Carbon Dioxide (22-30) mmol/L Anion Gap (5-15) MEQ/L BUN (7-17) mg/dL Creatinine (0.52-1.04) mg/dL Estimated GFR ML/MIN Glucose (74-106) mg/dL Calcium (8.4-10.2) mg/dL Total Bilirubin (0.2-1.3) mg/dL AST (14-36) U/L ALT (0-35) U/L Alkaline Phosphatase (38-126) U/L Troponin I (0.000-0.034) ng/mL Serum Total Protein (6.3-8.2) g/dL Albumin (3.5-5.0) g/dL Beta HCG, Quant < 2.39 mIU/ml Serum , Qual POSITIVE (Negative) Influenza Type A Ag (NEGATIVE) Influenza Type B Ag (NEGATIVE) RSV (PCR) (Negative) Slides for Path Review - Radiology Exams Ordered Rad Exams-Entire Visit: Radiology Procedures Category Date Time Status CHEST 2 VIEWS (PA AND LAT) Routine Exams 01/09/18 19:45 Completed - Procedures and Test Procedures and Tests throughout Hospitalization: Therapy Orders & Screens 01/09/18 19:13 Respiratory Nebulizer UD Comment: Dionne QID PRN Diagnosis: Bronchopneumonia 01/09/18 19:20 EKG ROUTINE Comment: Diagnosis: Bronchopneumonia - Discharge Discharge Date: 01/10/18 Disposition: Home, Self-Care Condition: Stable Prescriptions: New Prednisone 5 mg [Deltasone 5 mg] 5 mg PO BID #20 tablet Codeine Phosphate/Guaifenesin [Cheratussin AC Syrup] 5 ml PO QID #120 liquid Continue Ferrous Sulfate [Ferosul] 325 mg PO BID Follow up with: MEIR VANEGAS [Primary Care Provider] - 1 Week
[2018-01-10] MEDS: ROCEPHIN 1 Gm-D5w 50 ml Bag** 1 G/50 ML IVPB IV SCH (09:07)
[2018-01-10] MEDS ORDERED: FEOSOL 325 MG PO SCH (10:00)
== END 2018-01-10 11:20 | disposition home or self-care (01) ==
LOC: MED SURG 19:05
PROVIDERS: ADMIT General Practice; ATTEND General Practice
DX: J40 Bronchitis, not specified as acute or chronic (principal)
CPT/HCPCS: 36415; 36600; 71046; 80053; 82375; 82803; 84484; 84702; 84703; 85027; 87040; 87631; 93005; 94150; 94640; 94760; G0378; J0696; J2930; A9270-GY

== ENCOUNTER 2019-01-23 22:09 | Emergency (ER) | payer SELFPAY ==
[2019-01-23] MEDS ORDERED: Nitrostat 0.4 MG (ED) SL ONE ×2 (22:39→22:50)
[2019-01-23] MEDS ORDERED: Zofran 4 MG/2 ML VIAL IV ONE (22:41)
--- NOTE | 2019-01-23 22:43 | ERPHSYRPT ---
- History of Present Illness Time Seen by Provider: 01/23/19 22:30 Historian: patient Exam Limitations: clinical condition Patient Subjective Stated Complaint: Chest pain Triage Nursing Assessment: Patient ambulated back to ED and transferred self to bed. Patient A+O X 3. Patient's skin pink, warm and dry. Patient complains of sharp, stabbing chest pain for one hour and half. Patient states she is nauseous. Patient denies sob. Patient's lungs clear a/p edgardo. Patients Heart tones audible. Physician History: PATIENT WITH A HISTORY OF TETRALOGY OF FALLOT SURGICAL AT AGE 4, COMPLAINS OF SUBSTERNAL CHEST TIGHTNESS, AND SHARP PAINS UPON INSPIRATION. DENIES DYSPNEA, COUGH, FEVER, DIAPHORESIS OR PALPITATIONS, RADIATION OF PAIN TO NECK, JAW OR ARMS. 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 Home Medications: Ferrous Sulfate [Ferosul] 325 mg PO BID 06/07/14 [History] Hx Tetanus, Diphtheria Vaccination/Date Given: No Hx Influenza Vaccination/Date Given: No Hx Pneumococcal Vaccination/Date Given: No Immunizations Up to Date: Yes - Review of Systems Constitutional: No Fever, No Chills Eyes: No Symptoms Ears, Nose, & Throat: No Symptoms Respiratory: No Symptoms, No Cough, No Dyspnea Cardiac: No Chest Pain, No Edema, No Syncope Abdominal/Gastrointestinal: No Symptoms, No Abdominal Pain, No Nausea, No Vomiting, No Diarrhea Genitourinary Symptoms: No Symptoms, No Dysuria Musculoskeletal: No Symptoms, No Back Pain, No Neck Pain Skin: No Symptoms, No Rash Neurological: No Dizziness, No Focal Weakness, No Sensory Changes Psychological: No Symptoms Endocrine: No Symptoms All Other Systems: Reviewed and Negative - Past Medical History Pertinent Past Medical History: Yes Neurological History: No Pertinent History ENT History: No Pertinent History Cardiac History: Congenital Heart Disease Respiratory History: Bronchitis Endocrine Medical History: No Pertinent History Musculoskeletal History: Other GI Medical History: No Pertinent History History: No Pertinent History Psycho-Social History: No Pertinent History Female Reproductive Disorders: No Pertinent History Other Medical History: OPEN HEART WITH REPAIR OF HOLE--4 yrs old. anemia - Past Surgical History Past Surgical History: Yes Neuro Surgical History: No Pertinent History Cardiac: Other Respiratory: No Pertinent History Gastrointestinal: No Pertinent History Genitourinary: No Pertinent History Musculoskeletal: No Pertinent History Female Surgical History: Dilation & Curettage, Section, Tubal Ligation Other Surgical History: REPAIR OF HOLE IN THE HEART - Social History Smoking Status: Never smoker Exposure to second hand smoke: No Drug Use: none Patient Lives Alone: No - Female History Hx Last Menstrual Period: few weeks ago Hx Now: (NO, TUBAL LIGATION) - Nursing Vital Signs Nursing Vital Signs: Initial Vital Signs Temperature 98.2 F 01/23/19 22:18 Pulse Rate 91 H 01/23/19 22:18 Respiratory Rate 18 01/23/19 22:18 Blood Pressure 132/96 01/23/19 22:18 O2 Sat by Pulse Oximetry 96 01/23/19 22:18 Pain Scale Pain Intensity 7 - Physical Exam General Appearance: no apparent distress, alert Eye Exam: PERRL/EOMI, eyes nml inspection Ears, Nose, Throat Exam: normal ENT inspection, moist mucous membranes Neck Exam: normal inspection, non-tender, supple, full range of motion Respiratory Exam: normal breath sounds, chest tenderness (LEFT PARASTERNAL CHEST WALL TENDERNESSS), lungs clear, No respiratory distress Cardiovascular Exam: regular rate/rhythm, normal heart sounds Gastrointestinal/Abdomen Exam: soft, normal bowel sounds, No tenderness, No mass Back Exam: normal inspection, No CVA tenderness, No vertebral tenderness Extremity Exam: normal inspection, normal range of motion Neurologic Exam: alert, oriented x 3, cooperative, normal mood/affect, sensation nml, No motor deficits Skin Exam: normal color, warm, dry SpO2: 96 - Course EKG Interpreted by Me: RATE, Sinus Rhythm, NORMAL AXIS (RATE 78, INCOMPLETE RIGHT BUNDLE BRANCH BLOCK) - Radiology Exams Chest X-ray Interpretation: Interpreted by me, Negative, No Infiltrates (MILD CARDIOMEGALY, PREVIOUS STERNOTOMY) Ordered Tests: Active Orders 24 hr Category Date Time Status Financial Services Specialist STAT Care 01/23/19 22:41 Active EKG-ER Only STAT Care 01/23/19 22:39 Active IV Insertion STAT Care 01/23/19 22:39 Active Oxygen-ED Only Nasal Cannula 2 lpm Care 01/23/19 22:39 Active CHEST 1 VIEW (PORTABLE) Stat Exams 01/23/19 22:40 Taken CBC W DIFF Stat Lab 01/23/19 22:45 Completed CMP Stat Lab 01/23/19 22:45 Completed D-DIMER QUANTITATION Stat Lab 01/23/19 23:40 Completed NT PRO BNP Stat Lab 01/23/19 22:45 Completed PROTIME WITH INR Stat Lab 01/23/19 22:45 Completed TROPONIN Q3H Lab 01/23/19 22:45 Completed TROPONIN Q3H Lab 01/24/19 01:45 Ordered TROPONIN Q3H Lab 01/24/19 04:45 Ordered TROPONIN Q3H Lab 01/24/19 07:45 Ordered TROPONIN Q3H Lab 01/24/19 10:45 Ordered Peak Expiratory Flow Rate ONCE RT 01/23/19 23:37 Active Respiratory Therapy Assessment DAILY RT 01/23/19 23:47 Active Medication Summary Generic Name Dose Route Start Last Admin Trade Name Freq PRN Reason Stop Dose Admin Sodium Chloride 1,000 mls @ 100 mls/hr 01/23/19 22:45 01/23/19 23:00 Sodium Chloride 0.9% 1000 Ml IV 02/22/19 22:44 100 mls/hr .Q10H TIM Administration Discontinued Medications Generic Name Dose Route Start Last Admin Trade Name Freq PRN Reason Stop Dose Admin Albuterol/Ipratropium 3 ml 01/23/19 23:37 01/23/19 23:47 Duoneb 0.5-3 Mg/3 Ml Neb IH 01/23/19 23:38 3 ml STAT ONE Administration Albuterol/Ipratropium Confirm 01/23/19 23:42 Duoneb 0.5-3 Mg/3 Ml Neb Administered 01/23/19 23:43 Dose 3 ml IH .STK-MED ONE Nitroglycerin 0.4 mg 01/23/19 22:39 01/23/19 22:55 Nitrostat 0.4 Mg (Ed) SL 01/23/19 22:40 0.4 mg STAT ONE Administration Nitroglycerin Confirm 01/23/19 22:50 Nitrostat 0.4 Mg (Ed) Administered 01/23/19 22:51 Dose 0.4 mg SL .STK-MED ONE Ondansetron HCl 4 mg 01/23/19 22:41 01/23/19 22:54 Zofran 4 Mg/2 Ml Vial IV 01/23/19 22:42 4 mg STAT ONE Administration Ondansetron HCl Confirm 01/23/19 22:50 Zofran 4 Mg/2 Ml Vial Administered 01/23/19 22:51 Dose 4 mg .ROUTE .STK-MED ONE Lab/Rad Data: Laboratory Result Diagrams 01/23/19 22:45 01/23/19 22:45 Laboratory Results 01/23/19 01/23/19 01/23/19 Range/Units 23:40 22:45 22:45 WBC (4.0-10.5) K/mm3 RBC (4.1-5.4) M/mm3 Hgb (12.0-16.0) gm/dl Hct (35-47) % MCV (78-100) fl MCH (26-32) pg MCHC (32-36) g/dl RDW (11.5-14.0) % Plt Count (150-450) K/mm3 MPV (6-9.5) fl Gran % (36.0-66.0) % Eos # (Auto) (0-0.5) Absolute Lymphs (auto) (1.0-4.6) Absolute Monos (auto) (0.0-1.3) Lymphocytes % (24.0-44.0) % Monocytes % (0.0-12.0) % Eosinophils % (0.00-5.0) % Basophils % (0.0-0.4) % Absolute Granulocytes (1.4-6.9) Basophils # (0-0.4) PT 12.4 H (9.95-12.35) SECONDS INR 1.07 (0.8-3.0) D-Dimer < 123 L (215-500) ng/mL Sodium (137-145) mmol/L Potassium (3.5-5.1) mmol/L Chloride (98-107) mmol/L Carbon Dioxide (22-30) mmol/L Anion Gap (5-15) MEQ/L BUN (7-17) mg/dL Creatinine (0.52-1.04) mg/dL Estimated GFR ML/MIN Glucose (74-106) mg/dL Calcium (8.4-10.2) mg/dL Total Bilirubin (0.2-1.3) mg/dL AST (14-36) U/L ALT (0-35) U/L Alkaline Phosphatase (38-126) U/L Troponin I < 0.012 (0.000-0.034) ng/mL NT-Pro-B Natriuret Pep (0-450) pg/mL Serum Total Protein (6.3-8.2) g/dL Albumin (3.5-5.0) g/dL 01/23/19 01/23/19 Range/Units 22:45 22:45 WBC 9.4 (4.0-10.5) K/mm3 RBC 4.91 (4.1-5.4) M/mm3 Hgb 12.8 (12.0-16.0) gm/dl Hct 39.5 (35-47) % MCV 80.4 (78-100) fl MCH 26.1 (26-32) pg MCHC 32.4 (32-36) g/dl RDW 15.4 H (11.5-14.0) % Plt Count 315 (150-450) K/mm3 MPV 9.6 H (6-9.5) fl Gran % 70.2 H (36.0-66.0) % Eos # (Auto) 0.12 (0-0.5) Absolute Lymphs (auto) 2.16 (1.0-4.6) Absolute Monos (auto) 0.49 (0.0-1.3) Lymphocytes % 23.1 L (24.0-44.0) % Monocytes % 5.2 (0.0-12.0) % Eosinophils % 1.3 (0.00-5.0) % Basophils % 0.2 (0.0-0.4) % Absolute Granulocytes 6.58 (1.4-6.9) Basophils # 0.02 (0-0.4) PT (9.95-12.35) SECONDS INR (0.8-3.0) D-Dimer (215-500) ng/mL Sodium 142 (137-145) mmol/L Potassium 4.0 (3.5-5.1) mmol/L Chloride 104 (98-107) mmol/L Carbon Dioxide 26 (22-30) mmol/L Anion Gap 15.6 H (5-15) MEQ/L BUN 15 (7-17) mg/dL Creatinine 0.79 (0.52-1.04) mg/dL Estimated GFR > 60.0 ML/MIN Glucose 101 (74-106) mg/dL Calcium 9.3 (8.4-10.2) mg/dL Total Bilirubin 0.30 (0.2-1.3) mg/dL AST 18 (14-36) U/L ALT 20 (0-35) U/L Alkaline Phosphatase 93 (38-126) U/L Troponin I (0.000-0.034) ng/mL NT-Pro-B Natriuret Pep 60.2 (0-450) pg/mL Serum Total Protein 7.9 (6.3-8.2) g/dL Albumin 4.1 (3.5-5.0) g/dL - Progress Progress Note: 01/24/19 00:35 PEAK FLOW 320, DUONEB AEROSOL Blood Culture(s) Obtained: No Antibiotics given: No - Departure Departure Disposition: Home Clinical Impression: PLEURISY Condition: Stable Critical Care Time: No Referrals: MEIR VANEGAS [Primary Care Provider] - Additional Instructions: [place]CO 5/325 EVERY 6 HOURS NEEDED FOR PAIN. FOLLOWUP WITH YOUR PRIMARY CARE PROVIDER AND SHIPPING LEAD PERSON IN 3-4 DAYS. Prescriptions: Hydrocodone/APAP 10/325 mg [[place] 10/325 MG Tablet] 1 tab PO Q6H PRN PRN # 6 tablet MDD 4 PRN Reason: Pain
[2019-01-23] MEDS ORDERED: Sodium Chloride 0.9% 1000 ML 1,000 ML IV SCH (22:45)
[2019-01-23 22:47] LABS: BASOPHIL % 0.2 % (0.0-0.4); Basophil (Absolute #) 0.02 (0-0.4); Eosinophil % 1.3 % (0.00-5.0); Eosinophil (Absolute #) 0.12 (0-0.5); Granulocyte Absolute (ANC) 6.58 (1.4-6.9); Granulocytes % 70.2 % (36.0-66.0); Hematocrit 39.5 % (35-47); Hemoglobin 12.8 gm/dl (12.0-16.0); Lymphocyte (Absolute #) 2.16 (1.0-4.6); Lymphocytes % 23.1 % (24.0-44.0); Mean Cell Volume 80.4 fl (78-100); Mean Corpuscular Hemoglobin 26.1 pg (26-32); Mean Corpuscular Hgb Concent. 32.4 g/dl (32-36); Mean Platelet Volume 9.6 fl (6-9.5); Monocyte (Absolute #) 0.49 (0.0-1.3); Monocytes % 5.2 % (0.0-12.0); Platelet Count 315 K/mm3 (150-450); Red Blood Count 4.91 M/mm3 (4.1-5.4); Red Cell Distribution Width 15.4 % (11.5-14.0); White Blood Count 9.4 K/mm3 (4.0-10.5)
[2019-01-23] MEDS ORDERED: Zofran 4 MG/2 ML VIAL ONE (22:50)
[2019-01-23] MEDS ORDERED: Sodium Chloride 0.9% 1000 ML 1,000 ML ONE (22:50)
[2019-01-23 22:53] LABS: INR 1.07 (0.8-3.0); PROTIME 12.4 SECONDS (9.95-12.35)
[2019-01-23 23:07] LABS: ALBUMIN 4.1 g/dL (3.5-5.0); ALKALINE PHOSPHATASE 93 U/L (38-126); ANION GAP 15.6 MEQ/L (5-15); BLOOD UREA NITROGEN 15 mg/dL (7-17); CHLORIDE 104 mmol/L (98-107); Calcium 9.3 mg/dL (8.4-10.2); Carbon Dioxide 26 mmol/L (22-30); Creatinine 1 0.79 mg/dL (0.52-1.04); Glucose 101 mg/dL (74-106); NT PRO BNP 60.2 pg/mL (0-450); SGOT/AST 18 U/L (14-36); SGPT/ALT 20 U/L (0-35); SODIUM 142 mmol/L (137-145); Total Protein 7.9 g/dL (6.3-8.2)
[2019-01-23] MEDS ORDERED: DUONEB 0.5-3 MG/3 ml Neb IH ONE ×2 (23:37→23:42)
[2019-01-23 23:50] VITALS: PULSE 81
[2019-01-24 00:35] VITALS: BP 107/77; O2SAT 96
[2019-01-24] MEDS ORDERED: NORCO 5/325 MG PO ONE (00:39)
[2019-01-24] MEDS ORDERED: NORCO 5/325 MG ONE (00:40)
--- NOTE | 2019-01-24 08:16 | XRAY ---
Indication: Chest pain/tightness. Comparison: January 09, 2018. Portable chest remains clear. Heart is upper limits normal for AP portable technique. Bony thorax intact again with sternotomy wires. No new/acute findings.
== END 2019-01-24 00:50 | disposition home or self-care (01) ==
LOC: ED 22:09
DX: R09.1 Pleurisy (principal); R07.9 Chest pain, unspecified; Z86.79 Personal history of other diseases of the circulatory system
CPT/HCPCS: 36000; 36415; 71045; 80053; 83880; 84484; 85025; 85379; 85610; 93005; 93041; 94150; 94640; 96360; 96361; 99284; J2405; A9270-GY

== ENCOUNTER 2019-02-17 11:37 | Emergency (ER) | payer SELFPAY ==
--- NOTE | 2019-02-17 11:46 | ERPHSYRPT ---
- History of Present Illness Time Seen by Provider: 02/17/19 11:46 Historian: patient Exam Limitations: no limitations Physician History: 28 y/o white female who completed her lmp 2 days ago, presents with 2 episodes of lower abd cramping followed by small amt diarrheal stools and blood clots. pt with h/o post hemorrhoids in past. no perianal pain. pt has no h/o colitis or diverticulitis. pt is not taking any new medications. no anticoag tx , no asa or ibuprofen and no liver dz. no bleeding or clotting d/o Timing/Duration: day(s) (1) Quality: cramping Abdominal Pain Onset Location: suprapubic Pain Radiation: no radiation Severity of Pain-Max: mild Severity of Pain-Current: none Modifying Factors: Improves With: defecating. 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 Home Medications: Ferrous Sulfate [Ferosul] 325 mg PO BID 06/07/14 [History] Hx Tetanus, Diphtheria Vaccination/Date Given: No Hx Influenza Vaccination/Date Given: No Hx Pneumococcal Vaccination/Date Given: No - Review of Systems Constitutional: No Symptoms Eyes: No Symptoms Ears, Nose, & Throat: No Symptoms Respiratory: No Symptoms Cardiac: No Symptoms Abdominal/Gastrointestinal: Abdominal Pain (lower suprapubic cramping), Hematochezia Genitourinary Symptoms: No Symptoms Musculoskeletal: No Symptoms Skin: No Symptoms Neurological: No Symptoms Psychological: No Symptoms Endocrine: No Symptoms Hematologic/Lymphatic: No Symptoms Immunological/Allergic: No Symptoms All Other Systems: Reviewed and Negative - Past Medical History Pertinent Past Medical History: Yes Neurological History: No Pertinent History ENT History: No Pertinent History Cardiac History: Congenital Heart Disease Respiratory History: Bronchitis Endocrine Medical History: No Pertinent History Musculoskeletal History: Other GI Medical History: No Pertinent History History: No Pertinent History Psycho-Social History: No Pertinent History Female Reproductive Disorders: No Pertinent History Other Medical History: OPEN HEART WITH REPAIR OF HOLE--4 yrs old. anemia - Past Surgical History Past Surgical History: Yes Neuro Surgical History: No Pertinent History Cardiac: Other Respiratory: No Pertinent History Gastrointestinal: No Pertinent History Genitourinary: No Pertinent History Musculoskeletal: No Pertinent History Female Surgical History: Dilation & Curettage, Section, Tubal Ligation Other Surgical History: REPAIR OF HOLE IN THE HEART - Social History Smoking Status: Never smoker Exposure to second hand smoke: No Drug Use: none Patient Lives Alone: No - Nursing Vital Signs Nursing Vital Signs: Initial Vital Signs Temperature 98.9 F 02/17/19 11:37 Pulse Rate 87 02/17/19 11:37 Respiratory Rate 16 02/17/19 11:37 Blood Pressure 153/90 02/17/19 11:37 O2 Sat by Pulse Oximetry 98 02/17/19 11:37 Pain Scale Pain Intensity 4 - Physical Exam General Appearance: no apparent distress, alert, anxiety Eye Exam: PERRL/EOMI, eyes nml inspection Ears, Nose, Throat Exam: normal ENT inspection, moist mucous membranes Neck Exam: normal inspection, non-tender, supple, full range of motion Respiratory Exam: normal breath sounds, lungs clear, airway intact, No chest tenderness, No respiratory distress Cardiovascular Exam: regular rate/rhythm, normal heart sounds, normal peripheral pulses Gastrointestinal/Abdomen Exam: soft, normal bowel sounds, No tenderness, No guarding Pelvic Exam: not done Rectal Exam: not done Back Exam: normal inspection, normal range of motion, No CVA tenderness, No vertebral tenderness Extremity Exam: normal inspection, normal range of motion, pelvis stable Neurologic Exam: alert, oriented x 3, cooperative, 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 Skin Exam: normal color, warm, dry Lymphatic Exam: No adenopathy SpO2 Interpretation: normal O2 Delivery: Room Air - Course Nursing assessment & vital signs reviewed: Yes Ordered Tests: Active Orders 24 hr Category Date Time Status Senior Svp STAT Care 02/17/19 12:03 Active IV Insertion STAT Care 02/17/19 12:02 Active ABDOMEN AND PELVIS W/0 CONTRAS [CT] Stat Exams 02/17/19 12:02 Ordered CBC W DIFF Stat Lab 02/17/19 12:15 Completed CMP Stat Lab 02/17/19 12:15 Completed HCG QUALITATIVE,SERUM Stat Lab 02/17/19 12:15 Completed PROTIME WITH INR Stat Lab 02/17/19 12:15 Completed Lab/Rad Data: Laboratory Result Diagrams 02/17/19 12:15 02/17/19 12:15 Laboratory Results 07/10/0702/17/19 02/17/19 Range/Units 12:15 12:15 12:15 WBC (4.0-10.5) K/mm3 RBC (4.1-5.4) M/mm3 Hgb (12.0-16.0) gm/dl Hct (35-47) % MCV (78-100) fl MCH (26-32) pg MCHC (32-36) g/dl RDW (11.5-14.0) % Plt Count (150-450) K/mm3 MPV (6-9.5) fl Gran % (36.0-66.0) % Eos # (Auto) (0-0.5) Absolute Lymphs (auto) (1.0-4.6) Absolute Monos (auto) (0.0-1.3) Lymphocytes % (24.0-44.0) % Monocytes % (0.0-12.0) % Eosinophils % (0.00-5.0) % Basophils % (0.0-0.4) % Absolute Granulocytes (1.4-6.9) Basophils # (0-0.4) PT 11.7 (9.95-12.35) SECONDS INR 1.03 (0.8-3.0) Sodium 142 (137-145) mmol/L Potassium 4.2 (3.5-5.1) mmol/L Chloride 106 (98-107) mmol/L Carbon Dioxide 25 (22-30) mmol/L Anion Gap 15.6 H (5-15) MEQ/L BUN 13 (7-17) mg/dL Creatinine 0.77 (0.52-1.04) mg/dL Estimated GFR > 60.0 ML/MIN Glucose 91 (74-106) mg/dL Calcium 9.5 (8.4-10.2) mg/dL Total Bilirubin 0.50 (0.2-1.3) mg/dL AST 19 (14-36) U/L ALT 24 (0-35) U/L Alkaline Phosphatase 91 (38-126) U/L Serum Total Protein 8.2 (6.3-8.2) g/dL Albumin 4.3 (3.5-5.0) g/dL Serum , Qual POSITIVE (Negative) 02/17/19 Range/Units 12:15 WBC 8.3 (4.0-10.5) K/mm3 RBC 5.03 (4.1-5.4) M/mm3 Hgb 13.1 (12.0-16.0) gm/dl Hct 40.0 (35-47) % MCV 79.5 (78-100) fl MCH 26.0 (26-32) pg MCHC 32.8 (32-36) g/dl RDW 15.1 H (11.5-14.0) % Plt Count 311 (150-450) K/mm3 MPV 9.3 (6-9.5) fl Gran % 73.2 H (36.0-66.0) % Eos # (Auto) 0.11 (0-0.5) Absolute Lymphs (auto) 1.69 (1.0-4.6) Absolute Monos (auto) 0.42 (0.0-1.3) Lymphocytes % 20.3 L (24.0-44.0) % Monocytes % 5.0 (0.0-12.0) % Eosinophils % 1.3 (0.00-5.0) % Basophils % 0.2 (0.0-0.4) % Absolute Granulocytes 6.08 (1.4-6.9) Basophils # 0.02 (0-0.4) PT (9.95-12.35) SECONDS INR (0.8-3.0) Sodium (137-145) mmol/L Potassium (3.5-5.1) mmol/L Chloride (98-107) mmol/L Carbon Dioxide (22-30) mmol/L Anion Gap (5-15) MEQ/L BUN (7-17) mg/dL Creatinine (0.52-1.04) mg/dL Estimated GFR ML/MIN Glucose (74-106) mg/dL Calcium (8.4-10.2) mg/dL Total Bilirubin (0.2-1.3) mg/dL AST (14-36) U/L ALT (0-35) U/L Alkaline Phosphatase (38-126) U/L Serum Total Protein (6.3-8.2) g/dL Albumin (3.5-5.0) g/dL Serum , Qual (Negative) - Progress Progress: unchanged Progress Note: 02/17/19 13:26 had d/w pt regarding positive serum test. i discussed risks, benefits and alternatives of and for the ct scan of abd/pelvis. she has had a btl and uterine ablation and does not see how she could be . i told her this could be a false positive test. this is the second time this has occurred. pt desires to cancel ct abd/pelvis and will follow up with her pcp. Counseled pt/family regarding: lab results, diagnosis, need for follow-up - Departure Departure Disposition: Home Clinical Impression: Rectal bleeding Condition: Stable Critical Care Time: No Referrals: JOSE ROQUE MD [Primary Care Provider] - Additional Instructions: drink plenty of fluids. increase fiber in your diet. follow up with primary doctor today to arrange appointment. return to ED if symptoms worsen.
[2019-02-17 12:05] VITALS: O2SAT 98
[2019-02-17 12:31] LABS: INR 1.03 (0.8-3.0); PROTIME 11.7 SECONDS (9.95-12.35)
[2019-02-17 12:37] LABS: ALBUMIN 4.3 g/dL (3.5-5.0); ALKALINE PHOSPHATASE 91 U/L (38-126); ANION GAP 15.6 MEQ/L (5-15); BLOOD UREA NITROGEN 13 mg/dL (7-17); CHLORIDE 106 mmol/L (98-107); Calcium 9.5 mg/dL (8.4-10.2); Carbon Dioxide 25 mmol/L (22-30); Creatinine 1 0.77 mg/dL (0.52-1.04); Glucose 91 mg/dL (74-106); Potassium 4.2 mmol/L (3.5-5.1); SGOT/AST 19 U/L (14-36); SGPT/ALT 24 U/L (0-35); SODIUM 142 mmol/L (137-145); Total Protein 8.2 g/dL (6.3-8.2)
[2019-02-17 12:38] LABS: BASOPHIL % 0.2 % (0.0-0.4); Basophil (Absolute #) 0.02 (0-0.4); Eosinophil % 1.3 % (0.00-5.0); Eosinophil (Absolute #) 0.11 (0-0.5); Granulocyte Absolute (ANC) 6.08 (1.4-6.9); Granulocytes % 73.2 % (36.0-66.0); Hemoglobin 13.1 gm/dl (12.0-16.0); Lymphocyte (Absolute #) 1.69 (1.0-4.6); Lymphocytes % 20.3 % (24.0-44.0); Mean Cell Volume 79.5 fl (78-100); Mean Corpuscular Hgb Concent. 32.8 g/dl (32-36); Mean Platelet Volume 9.3 fl (6-9.5); Monocyte (Absolute #) 0.42 (0.0-1.3); Platelet Count 311 K/mm3 (150-450); Red Blood Count 5.03 M/mm3 (4.1-5.4); Red Cell Distribution Width 15.1 % (11.5-14.0); White Blood Count 8.3 K/mm3 (4.0-10.5)
[2019-02-17 13:08] VITALS: BP 142/79; PULSE 86
[2019-02-17 14:51] LABS: Appearance SLIGHTLY CLOUDY (CLEAR); Bacteria FEW /HPF (NEGATIVE); Bilirubin NEGATIVE (NEGATIVE); Blood SMALL Ery/ul (0-5); Epithelial Cells FEW /HPF (FEW); Glucose NEGATIVE (NEGATIVE); Ketones NEGATIVE (NEGATIVE); Leukocyte Esterase NEGATIVE (NEGATIVE); Mucus MODERATE /HPF (NEGATIVE); Nitrite NEGATIVE (NEGATIVE); Protein,Urine Dip NEGATIVE (Negative); RBC 0-2 /HPF (0-2); Specific Gravity 1.025 (1.005-1.025); Urobilinogen NEGATIVE mg/dL (0-1); WBC 0-2 /HPF (0-5)
== END 2019-02-17 13:45 | disposition home or self-care (01) ==
LOC: ED 11:37
DX: K62.5 Hemorrhage of anus and rectum (principal); R10.30 Lower abdominal pain, unspecified
CPT/HCPCS: 36000; 36415; 80053; 81001; 81025; 84703; 85025; 85610; 93041; 99284

== ENCOUNTER 2019-06-25 16:39 | Observation (INO) | payer OTHER ==
[2019-06-25] MEDS ORDERED: Sodium Chloride 0.9% 1000 ML 1,000 ML IV STA (19:53)
--- NOTE | 2019-06-25 19:57 | PCM.HP.ADD ---
Addendum to History & Physical - History & Physical Addendum Addendum to History & Physical: This certifies that the History & Physical in the electronic chart reflects the current health status of the patient. If there are changes in the H&P these changes/exceptions are listed as follows.
[2019-06-25 20:46] LABS: Absolute Neutrophil Ct (ANC) 8.37 (1.4-6.9); BASOPHIL % 0.2 % (0.0-0.4); Basophil (Absolute #) 0.02 (0-0.4); Eosinophil % 1.4 % (0.00-5.0); Eosinophil (Absolute #) 0.16 (0-0.5); Hemoglobin 12.9 gm/dl (12.0-16.0); Lymphocyte (Absolute #) 2.06 (1.0-4.6); Lymphocytes % 18.5 % (24.0-44.0); Mean Cell Volume 81.9 fl (78-100); Mean Corpuscular Hemoglobin 27.1 pg (26-32); Mean Corpuscular Hgb Concent. 33.1 g/dl (32-36); Monocyte (Absolute #) 0.52 (0.0-1.3); Monocytes % 4.7 % (0.0-12.0); Neutrophil % 75.2 % (36.0-66.0); Platelet Count 336 K/mm3 (150-450); Red Blood Count 4.76 M/mm3 (4.1-5.4); White Blood Count 11.1 K/mm3 (4.0-10.5)
[2019-06-25 21:00] LABS: ALBUMIN 4.3 g/dL (3.5-5.0); ALKALINE PHOSPHATASE 80 U/L (38-126); ANION GAP 15.6 MEQ/L (5-15); BLOOD UREA NITROGEN 16 mg/dL (7-17); CHLORIDE 105 mmol/L (98-107); Calcium 9.5 mg/dL (8.4-10.2); Carbon Dioxide 24 mmol/L (22-30); Creatinine 1 0.82 mg/dL (0.52-1.04); Glucose 119 mg/dL (74-106); Potassium 4.2 mmol/L (3.5-5.1); SGOT/AST 30 U/L (14-36); SGPT/ALT 25 U/L (0-35); SODIUM 141 mmol/L (137-145)
[2019-06-25] MEDS ORDERED: ROCEPHIN 1 Gm-D5w 50 ml Bag** 1 G/50 ML IVPB IV ONE (21:01)
[2019-06-25] MEDS: solu-MEDROL 40 MG IV SCH (21:19)
[2019-06-25] MEDS: Sodium Chloride 0.9% 1000 ML 1,000 ML IV SCH (22:17)
[2019-06-25] MEDS ORDERED: DUONEB 0.5-3 MG/3 ml Neb IH ONE (22:50)
[2019-06-25 22:52] LABS: Appearance CLEAR (CLEAR); Bilirubin NEGATIVE (NEGATIVE); Blood MODERATE Ery/ul (0-5); Epithelial Cells RARE /HPF (FEW); Glucose NEGATIVE (NEGATIVE); Ketones NEGATIVE (NEGATIVE); Leukocyte Esterase NEGATIVE (NEGATIVE); Mucus SLIGHT /HPF (NEGATIVE); Nitrite NEGATIVE (NEGATIVE); Protein,Urine Dip NEGATIVE (Negative); Specific Gravity 1.012 (1.005-1.025); Urobilinogen NEGATIVE mg/dL (0-1)
[2019-06-25] MEDS: DUONEB 0.5-3 MG/3 ml Neb IH SCH (23:10)
[2019-06-26] MEDS ORDERED: DUONEB 0.5-3 MG/3 ml Neb IH SCH (01:00)
[2019-06-26] MEDS: solu-MEDROL 40 MG IV SCH ×3 (04:32→20:37)
[2019-06-26] MEDS: DUONEB 0.5-3 MG/3 ml Neb IH SCH ×4 (07:24→19:21)
[2019-06-26] MEDS: PATIENT OWN MEDICATION IH SCH ×6 (07:30→19:20)
--- NOTE | 2019-06-26 08:31 | PCM.NOTE ---
Date and Time: 06/26/19827 Subjective Assessment: doing little better - Review of Systems Constitutional: No Fever, No Chills Eyes: No Symptoms Ears, Nose, & Throat: No Symptoms Respiratory: Cough, Orthopnea, Wheezing, No Short Of Breath Cardiac: No Chest Pain, No Edema, No Syncope Abdominal/Gastrointestinal: No Abdominal Pain, No Nausea, No Vomiting, No Diarrhea Genitourinary Symptoms: No Dysuria Musculoskeletal: No Back Pain, No Neck Pain Skin: No Rash Neurological: No Dizziness, No Focal Weakness, No Sensory Changes Psychological: No Symptoms Endocrine: No Symptoms Hematologic/Lymphatic: No Symptoms Immunological/Allergic: No Symptoms Objective Exam General Appearance: no apparent distress, alert Neurologic Exam: alert, oriented x 3, cooperative, normal mood/affect, nml cerebellar function, sensation nml, No motor deficits Skin Exam: normal color, warm, dry Eye Exam: PERRL, EOMI, eyes nml inspection Ears, Nose, Throat Exam: normal ENT inspection, pharynx normal, moist mucous membranes Neck Exam: normal inspection, non-tender, supple, full range of motion Respiratory Exam: diminished breath sounds, crackles/rales, rhonchi, wheezing, No respiratory distress Cardiovascular Exam: regular rate/rhythm, normal heart sounds Gastrointestinal/Abdomen Exam: soft, No tenderness, No mass Extremity Exam: normal inspection, normal range of motion Back Exam: normal inspection, normal range of motion, No CVA tenderness, No vertebral tenderness Pelvic Exam: deferred Rectal Exam: deferred OBJECTIVE DATA Vital Signs: Vital Signs - 24 hr Temp Pulse Resp BP Pulse Ox 06/26/19 08:00 97.7 F 93 H 16 116/71 94 L 06/26/19 07:32 92 H 18 98 06/26/19 04:00 97.9 F 86 18 124/70 95 06/25/19 23:59 98.1 F 88 18 121/74 94 L 06/25/19 23:16 87 20 97 06/25/19 20:41 97.9 F 93 H 20 131/63 95 Pain Assessment - Last Documented Pain Intensity 5 Pain Scale Used [facility] Intake and Output: Intake & Output 06/23/19 06/24/19 06/25/19 06/26/19 11:59 11:59 11:59 11:59 Intake Total 2861 Output Total 700 Balance 2161 Weight 131.1 kg Lab Results: Lab Results-Last 24 Hours 06/25/19 06/25/19 06/25/19 Range/Units 20:40 20:40 21:00 WBC 11.1 H (4.0-10.5) K/mm3 RBC 4.76 (4.1-5.4) M/mm3 Hgb 12.9 (12.0-16.0) gm/dl Hct 39.0 (35-47) % MCV 81.9 (78-100) fl MCH 27.1 (26-32) pg MCHC 33.1 (32-36) g/dl RDW 15.0 H (11.5-14.0) % Plt Count 336 (150-450) K/mm3 MPV 9.0 (6-9.5) fl Gran % 75.2 H (36.0-66.0) % Eos # (Auto) 0.16 (0-0.5) Absolute Lymphs (auto) 2.06 (1.0-4.6) Absolute Monos (auto) 0.52 (0.0-1.3) Lymphocytes % 18.5 L (24.0-44.0) % Monocytes % 4.7 (0.0-12.0) % Eosinophils % 1.4 (0.00-5.0) % Basophils % 0.2 (0.0-0.4) % Absolute Granulocytes 8.37 H (1.4-6.9) Basophils # 0.02 (0-0.4) Sodium 141 (137-145) mmol/L Potassium 4.2 (3.5-5.1) mmol/L Chloride 105 (98-107) mmol/L Carbon Dioxide 24 (22-30) mmol/L Anion Gap 15.6 H (5-15) MEQ/L BUN 16 (7-17) mg/dL Creatinine 0.82 (0.52-1.04) mg/dL Estimated GFR > 60.0 ML/MIN Glucose 119 H (74-106) mg/dL Calcium 9.5 (8.4-10.2) mg/dL Total Bilirubin 0.30 (0.2-1.3) mg/dL AST 30 (14-36) U/L ALT 25 (0-35) U/L Alkaline Phosphatase 80 (38-126) U/L Serum Total Protein 8.0 (6.3-8.2) g/dL Albumin 4.3 (3.5-5.0) g/dL Urine Color STRAW (YELLOW) Urine Appearance CLEAR (CLEAR) Urine pH 7.0 (5-6) Ur Specific [place] 1.012 (1.005-1.025) Urine Protein NEGATIVE (Negative) Urine Ketones NEGATIVE (NEGATIVE) Urine Blood MODERATE (0-5) [place]/ul Urine Nitrite NEGATIVE (NEGATIVE) Urine Bilirubin NEGATIVE (NEGATIVE) Urine Urobilinogen NEGATIVE (0-1) mg/dL Ur Leukocyte Esterase NEGATIVE (NEGATIVE) Urine WBC (Auto) NONE (0-5) /HPF Urine RBC (Auto) 3-5 (0-2) /HPF U Epithel Cells (Auto) RARE (FEW) /HPF Urine Bacteria (Auto) NONE (NEGATIVE) /HPF Urine Mucus (Auto) SLIGHT (NEGATIVE) /HPF Urine Culture Reflexed NO (NO) Urine Glucose NEGATIVE (NEGATIVE) mg/dL Radiology Exams: Radiology Procedures Category Date Time Status CHEST 2 VIEWS (PA AND LAT) Stat Exams 06/25/19 20:21 Taken Assessment/Plan (1) Acute exacerbation of chronic bronchitis Current Visit: Yes Status: Acute Assessment & Plan: Chief Complaint Diagnosis bronchitis Allergies Allergy/AdvReac Type Severity Reaction Status Date / Time aspirin AdvReac Verified 01/23/19 22:17 Vital Signs (Last 24 hours) Temp Pulse Resp BP Pulse Ox 06/26/19 08:00 97.7 F 93 H 16 116/71 94 L 06/26/19 07:32 92 H 18 98 06/26/19 04:00 97.9 F 86 18 124/70 95 06/25/19 23:59 98.1 F 88 18 121/74 94 L 06/25/19 23:16 87 20 97 06/25/19 20:41 97.9 F 93 H 20 131/63 95 Home Medications Medication Instructions Recorded Confirmed Last Taken Type No Reportable Medications [No 06/26/19 06/26/19 Unknown History Reported Medications] Current Medications Generic Name Dose Route Start Last Admin Trade Name Freq PRN Reason Stop Dose Admin Acetaminophen 325 mg 06/25/19 19:53 Tylenol 325 Mg PO 07/25/19 19:52 Q4H PRN PRN PAIN, FEVER, HEADACHE Albuterol/Ipratropium 3 ml 06/26/19 07:00 06/26/19 07:24 Duoneb 0.5-3 Mg/3 Ml Neb IH 07/26/19 06:59 3 ml QIDRT TIM Administration Sodium Chloride 1,000 mls @ 100 mls/hr 06/25/19 20:00 06/25/19 22:17 Sodium Chloride 0.9% 1000 Ml IV 07/25/19 19:59 100 mls/hr .Q10H TIM Administration Ceftriaxone Sodium/Dextrose 1 g in 50 mls @ 100 mls/hr 06/26/19 22:00 Rocephin 1 Gm-D5w 50 Ml Bag IV 07/26/19 21:59 Q24H22 TIM Methylprednisolone Sodium Succinate 40 mg 06/25/19 20:00 06/26/19 04:32 Solu-Medrol 40 Mg IV 07/25/19 19:59 40 mg Q8H TIM Administration Patient Own Med : 0 each 06/26/19 07:00 06/26/19 07:31 Albuterol Hfa IH 07/26/19 06:59 Not Given QID TIM Patient Own Med : 0 each 06/26/19 07:00 06/26/19 07:30 Spiriva Respimat IH 07/26/19 06:59 Not Given DAILY TIM Discontinued Medications Generic Name Dose Route Start Last Admin Trade Name Freq PRN Reason Stop Dose Admin Albuterol/Ipratropium 3 ml 06/26/19 01:00 Duoneb 0.5-3 Mg/3 Ml Neb IH 07/26/19 00:59 Q6HRT TIM Albuterol/Ipratropium Confirm 06/25/19 22:50 Duoneb 0.5-3 Mg/3 Ml Neb Administered 06/25/19 22:51 Dose 3 ml IH .STK-MED ONE Ceftriaxone Sodium/Dextrose 1 g in 50 mls @ 100 mls/hr 06/26/19 10:00 21:20 Rocephin 1 Gm-D5w 50 Ml Bag IV 07/26/19 09:59 100 mls/hr Q24H10 TIM Administration Sodium Chloride 1,000 mls @ 999 mls/hr 06/25/19 19:53 06/25/19 21:19 Sodium Chloride 0.9% 1000 Ml IV 06/25/19 20:53 999 mls/hr .Q1H1M STA Administration Ceftriaxone Sodium/Dextrose Confirm 06/25/19 21:01 Rocephin 1 Gm-D5w 50 Ml Bag Administered 06/25/19 21:02 Dose 1 g in 50 mls @ ud IV .STK-MED ONE Intake & Output (Last 24 hours) 06/23/19 06/24/19 06/25/19 06/26/19 11:59 11:59 11:59 11:59 Intake Total 2861 Output Total 700 Balance 2161 Weight 131.1 kg Laboratory Results (Last 24 hours) 06/25/19 06/25/19 06/25/19 21:00 20:40 20:40 WBC 11.1 H RBC 4.76 Hgb 12.9 Hct 39.0 MCV 81.9 MCH 27.1 MCHC 33.1 RDW 15.0 H Plt Count 336 MPV 9.0 Gran % 75.2 H Eos # (Auto) 0.16 Absolute Lymphs (auto) 2.06 Absolute Monos (auto) 0.52 Lymphocytes % 18.5 L Monocytes % 4.7 Eosinophils % 1.4 Basophils % 0.2 Absolute Granulocytes 8.37 H Basophils # 0.02 Sodium 141 Potassium 4.2 Chloride 105 Carbon Dioxide 24 Anion Gap 15.6 H BUN 16 Creatinine 0.82 Estimated GFR > 60.0 Glucose 119 H Calcium 9.5 Total Bilirubin 0.30 AST 30 ALT 25 Alkaline Phosphatase 80 Serum Total Protein 8.0 Albumin 4.3 Urine Color STRAW Urine Appearance CLEAR Urine pH 7.0 Ur Specific [place] 1.012 Urine Protein NEGATIVE Urine Ketones NEGATIVE Urine Blood MODERATE Urine Nitrite NEGATIVE Urine Bilirubin NEGATIVE Urine Urobilinogen NEGATIVE Ur Leukocyte Esterase NEGATIVE Urine WBC (Auto) NONE Urine RBC (Auto) 3-5 U Epithel Cells (Auto) RARE Urine Bacteria (Auto) NONE Urine Mucus (Auto) SLIGHT Urine Culture Reflexed NO Urine Glucose NEGATIVE Orders (Last 24 hours) Category Date Time Status Up Ad Beba TOLERATED Activity 06/25/19 19:[address] in Observation ROUTINE Care 06/25/19 19:53 Active Regular Diet Diet 06/26/19 Breakfast Active CHEST 2 VIEWS (PA AND LAT) Stat Exams 06/25/19 20:21 Taken CBC W DIFF Stat Lab 06/25/19 20:40 Completed CMP Stat Lab 06/25/19 20:40 Completed UA W/RFX UR CULTURE Stat Lab 06/25/19 21:00 Completed Acetaminophen 325 mg [Tylenol 325 mg] Med 06/25/19 19:53 Active 325 mg PO Q4H PRN PRN Albuterol/Ipratropium 3ml Neb* [DUONEB 0.5-3 MG/3 ml Med 06/25/19 22:50 Discontinued Neb] 3 ml IH .STK-MED ONE Albuterol/Ipratropium 3ml Neb* [DUONEB 0.5-3 MG/3 ml Med 06/26/19 01:00 Discontinued Neb] 3 ml IH Q6HRT Albuterol/Ipratropium 3ml Neb* [DUONEB 0.5-3 MG/3 ml Med 06/26/19 07:00 Active Neb] 3 ml IH QIDRT Ceftriaxone 1 GM/50 ML PREMIX* [ROCEPHIN 1 Gm-D5w 50 ml Med 06/26/19 10:00 Discontinued Bag] 1 g in 50 ml IV Q24H10 Ceftriaxone 1 GM/50 ML PREMIX* [ROCEPHIN 1 Gm-D5w 50 ml Med 06/26/19 22:00 Active Bag] 1 g in 50 ml IV Q24H22 Ceftriaxone 1 GM/50 ML PREMIX* [ROCEPHIN 1 Gm-D5w 50 ml Med 06/25/19 21:01 Discontinued Bag] 1 g in 50 ml IV UD Methylprednisolone Sod Suc 40M [solu-MEDROL 40 MG] Med 06/25/19 20:00 Active 40 mg IV Q8H NaCl 0.9% 1000 ml [Sodium Chloride 0.9% 1000 ML] 1,000 Med 06/25/19 20:00 Active ml IV 100 mls/hr NaCl 0.9% 1000 ml [Sodium Chloride 0.9% 1000 ML] 1,000 Med 06/25/19 19:53 Discontinued ml IV 999 mls/hr Patient Own Med [Patient Own Medication] Med 06/26/19 07:00 Active See Dose Instructions IH DAILY Patient Own Med [Patient Own Medication] Med 06/26/19 07:00 Active See Dose Instructions IH QID Oxygen Nasal Cannula 2 lpm RT 06/25/19 19:53 Active Peak Expiratory Flow Rate ONCE RT 06/25/19 22:10 Active Pulse Oximetry .spot check RT 06/25/19 22:10 Active Respiratory MDI DAILY RT 06/26/19 07:00 Active Respiratory MDI QID RT 06/26/19 07:00 Active Respiratory Therapy Assessment DAILY RT 06/25/19 22:10 Active Respiratory Therapy Consult ROUTINE RT 06/25/19 19:53 Completed Code(s): J20.9 - ACUTE BRONCHITIS, UNSPECIFIED; J42 - UNSPECIFIED CHRONIC BRONCHITIS (2) Bronchitis Current Visit: Yes Status: Acute Code(s): J40 - BRONCHITIS, NOT SPECIFIED ACUTE OR CHRONIC
--- NOTE | 2019-06-26 08:41 | XRAY ---
Indication: Cough and asthma. Comparison: January 23, 2019. PA/lateral chest remains clear. Heart and mediastinal structures within normal limits. Bony thorax intact again with sternotomy wires. No new/acute findings.
[2019-06-26] MEDS ORDERED: ROCEPHIN 1 Gm-D5w 50 ml Bag** 1 G/50 ML IVPB IV SCH ×2 (10:00→22:00)
--- NOTE | 2019-06-26 10:33 | XRAY ---
Indication: Back spasms. Comparison: None 5 views of the lumbar spine demonstrates 5 lumbar vertebral segments with minimal levoscoliosis, minimal chronic appearing L1 anterior wedging, minimal L5-S1 disc space narrowing, and minimal bilateral L5 and S1 degenerative facet hypertrophy. No other bony, articular, or soft tissue abnormalities. Impression: Nonacute lumbar spine with chronic features.
[2019-06-26] MEDS: Cyclobenzaprine 10 MG PO SCH ×3 (10:49→23:20)
[2019-06-26] MEDS: Sodium Chloride 0.9% 1000 ML 1,000 ML IV SCH ×2 (11:00→20:37)
[2019-06-26] MEDS: TYLENOL 325 MG PO PRN ×2 (15:37→20:44)
[2019-06-26] MEDS: MOTRIN 600 MG PO PRN (22:19)
[2019-06-27] MEDS: solu-MEDROL 40 MG IV SCH (03:29)
[2019-06-27 07:24] VITALS: BP 116/65
--- NOTE | 2019-06-27 08:18 | PCM.DS ---
Discharge Summary Date of Admission: 06/25/19 19:31 Admitting Physician: JOSE ROQUE Primary Care Provider: JOSE ROQUE Allergies Allergies aspirin Adverse Reaction (Verified 01/23/19 22:17) pt states switchboard clerk told her not to take Hospital Summary - Hospital Course Hospital Course: Chief Complaint Diagnosis bronchitis Allergies Allergy/AdvReac Type Severity Reaction Status Date / Time aspirin AdvReac Verified 01/23/19 22:17 Vital Signs (Last 24 hours) Temp Pulse Resp BP Pulse Ox 06/27/19 07:23 97.7 F 90 20 116/65 94 L 06/27/19 04:15 98.2 F 98 H 18 111/62 94 L 06/26/19 23:37 98.1 F 101 H 17 120/60 96 06/26/19 20:00 98.1 F 112 H 18 138/55 94 L 06/26/19 19:23 114 H 18 96 06/26/19 16:00 98 F 113 H 20 122/58 92 L 06/26/19 15:43 106 H 18 95 06/26/19 14:39 102 H 18 96 06/26/19 11:56 97.8 F 107 H 20 127/60 90 L Home Medications Medication Instructions Recorded Confirmed Last Taken Type No Reportable Medications [No 06/26/19 06/26/19 Unknown History Reported Medications] Current Medications Generic Name Dose Route Start Last Admin Trade Name Freq PRN Reason Stop Dose Admin Acetaminophen 325 mg 06/25/19 19:53 06/26/19 20:44 Tylenol 325 Mg PO 07/25/19 19:52 325 mg Q4H PRN PRN Administration PAIN, FEVER, HEADACHE Albuterol/Ipratropium 3 ml 06/26/19 07:00 06/26/19 19:21 Duoneb 0.5-3 Mg/3 Ml Neb IH 07/26/19 06:59 Not Given QIDRT TIM Cyclobenzaprine HCl 5 mg 06/26/19 10:00 06/26/19 23:20 Cyclobenzaprine 10 Mg PO 07/26/19 09:59 Not Given TID TIM Sodium Chloride 1,000 mls @ 100 mls/hr 06/25/19 20:00 06/26/19 20:37 Sodium Chloride 0.9% 1000 Ml IV 07/25/19 19:59 100 mls/hr .Q10H TIM Administration Ceftriaxone Sodium/Dextrose 1 g in 50 mls @ 100 mls/hr 06/26/19 22:00 22:20 Rocephin 1 Gm-D5w 50 Ml Bag IV 07/26/19 21:59 100 mls/hr Q24H22 TIM Administration Ibuprofen 600 mg 06/26/19 20:59 06/26/19 22:19 Motrin 600 Mg PO 07/26/19 20:58 600 mg Q6H PRN PRN Administration MODERATE PAIN Methylprednisolone Sodium Succinate 40 mg 06/25/19 20:00 06/27/19 03:29 Solu-Medrol 40 Mg IV 07/25/19 19:59 40 mg Q8H TIM Administration Patient Own Med : 0 each 06/26/19 07:00 06/26/19 19:20 Albuterol Hfa IH 07/26/19 06:59 2 each QID TIM Administration Patient Own Med : 0 each 06/26/19 07:00 06/26/19 10:00 Spiriva Respimat IH 07/26/19 06:59 Not Given DAILY TIM Discontinued Medications Generic Name Dose Route Start Last Admin Trade Name Freq PRN Reason Stop Dose Admin Albuterol/Ipratropium 3 ml 06/26/19 01:00 Duoneb 0.5-3 Mg/3 Ml Neb IH 07/26/19 00:59 Q6HRT TIM Albuterol/Ipratropium Confirm 06/25/19 22:50 Duoneb 0.5-3 Mg/3 Ml Neb Administered 06/25/19 22:51 Dose 3 ml IH .STK-MED ONE Ceftriaxone Sodium/Dextrose 1 g in 50 mls @ 100 mls/hr 06/26/19 10:00 21:20 Rocephin 1 Gm-D5w 50 Ml Bag IV 07/26/19 09:59 100 mls/hr Q24H10 TIM Administration Sodium Chloride 1,000 mls @ 999 mls/hr 06/25/19 19:53 06/25/19 21:19 Sodium Chloride 0.9% 1000 Ml IV 06/25/19 20:53 999 mls/hr .Q1H1M STA Administration Ceftriaxone Sodium/Dextrose Confirm 06/25/19 21:01 Rocephin 1 Gm-D5w 50 Ml Bag Administered 06/25/19 21:02 Dose 1 g in 50 mls @ ud IV .STK-MED ONE Intake & Output (Last 24 hours) 06/24/19 06/25/19 06/26/19 06/27/19 11:59 11:59 11:59 11:59 Intake Total 3341 3382 Output Total 1300 1650 Balance 2040 1732 Weight 131.1 kg Orders (Last 24 hours) Category Date Time Status LUMBAR COMPLETE (MIN 4 VIEWS) Routine Exams 06/26/19 10:20 Completed Ceftriaxone 1 GM/50 ML PREMIX* [ROCEPHIN 1 Gm-D5w 50 ml Med 06/26/19 10:00 Discontinued Bag] 1 g in 50 ml IV Q24H10 Ceftriaxone 1 GM/50 ML PREMIX* [ROCEPHIN 1 Gm-D5w 50 ml Med 06/26/19 22:00 Active Bag] 1 g in 50 ml IV Q24H22 Cyclobenzaprine HCl 10 mg [Cyclobenzaprine 10 MG] Med 06/26/19 10:00 Active 5 mg PO TID Ibuprofen 600 mg [Motrin 600 mg] Med 06/26/19 20:59 Active 600 mg PO Q6H PRN PRN - Vitals & Intake/Output Vital Signs: Vital Signs Temperature 97.7 F 06/27/19 07:23 Pulse Rate 90 06/27/19 07:23 Respiratory Rate 20 06/27/19 07:23 Blood Pressure 116/65 06/27/19 07:23 O2 Sat by Pulse Oximetry 94 L 06/27/19 07:23 Intake & Output: Intake & Output 06/24/19 06/25/19 06/26/19 06/27/19 11:59 11:59 11:59 11:59 Intake Total 3341 3382 Output Total 1300 1650 Balance 2040 1732 Weight 131.1 kg - Lab Result Diagrams: 06/25/19 20:40 06/25/19 20:40 - Radiology Exams Ordered Rad Exams-Entire Visit: Radiology Procedures Category Date Time Status CHEST 2 VIEWS (PA AND LAT) Stat Exams 06/25/19 20:21 Completed LUMBAR COMPLETE (MIN 4 VIEWS) Routine Exams 06/26/19 10:20 Completed - Procedures and Test Procedures and Tests throughout Hospitalization: Therapy Orders & Screens 06/25/19 19:53 Oxygen Nasal Cannula 2 lpm Comment: Respiratory Therapy Consult ROUTINE Comment: Reason For Exam: 06/25/19 22:10 Peak Expiratory Flow Rate ONCE Comment: Reason For Exam: Diagnosis: bronchitis Respiratory Therapy Assessment DAILY Comment: Diagnosis: bronchitis 06/26/19 07:00 Respiratory MDI DAILY Comment: SPIRIVA - PT OWN Diagnosis: bronchitis Respiratory MDI QID Comment: ALBUTEROL MDI - PT OWN Diagnosis: bronchitis Discharge Exam General Appearance: no apparent distress, alert Neurologic Exam: alert, oriented x 3, cooperative, normal mood/affect, nml cerebellar function, sensation nml, No motor deficits Eye Exam: PERRL, EOMI, eyes nml inspection Ears, Nose, Throat Exam: normal ENT inspection, pharynx normal, moist mucous membranes Neck Exam: normal inspection, non-tender, supple, full range of motion Respiratory Exam: normal breath sounds, lungs clear, No respiratory distress Cardiovascular Exam: regular rate/rhythm, normal heart sounds Gastrointestinal/Abdomen Exam: soft, No tenderness, No mass Pelvic Exam: deferred Rectal Exam: deferred Back Exam: normal inspection, normal range of motion, No CVA tenderness, No vertebral tenderness Extremity Exam: normal inspection, normal range of motion Skin Exam: normal color, warm, dry Final Diagnosis/Problem List - Final Discharge Diagnosis/Problem (1) Acute exacerbation of chronic bronchitis Current Visit: Yes Status: Resolved Assessment & Plan: Last Vital Signs Temp 97.7 F 06/27/19 07:23 Pulse 90 06/27/19 07:23 Resp 20 06/27/19 07:23 BP 116/65 06/27/19 07:23 Pulse Ox 94 L 06/27/19 07:23 Allergies aspirin Adverse Reaction (Verified 01/23/19 22:17) pt states switchboard clerk told her not to take Active Medications Acetaminophen (Tylenol 325 Mg) 325 mg PO Q4H PRN PRN PRN Reason: PAIN, FEVER, HEADACHE Stop: 07/25/19 19:52 Last Admin: 06/26/19 20:44 Dose: 325 mg Albuterol/Ipratropium (Duoneb 0.5-3 Mg/3 Ml Neb) 3 ml IH QIDRT [facility] Stop: 07/26/19 06:59 Last Admin: 06/26/19 19:21 Dose: Not Given Cyclobenzaprine HCl (Cyclobenzaprine 10 Mg) 5 mg PO TID [facility] Stop: 07/26/19 09:59 Last Admin: 06/26/19 23:20 Dose: Not Given Sodium Chloride (Sodium Chloride 0.9% 1000 Ml) 1,000 mls @ 100 mls/hr IV .Q10H [facility] Stop: 07/25/19 19:59 Last Admin: 06/26/19 20:37 Dose: 100 mls/hr Ceftriaxone Sodium/Dextrose (Rocephin 1 Gm-D5w 50 Ml Bag) 1 g in 50 mls @ 100 mls/hr IV Q24H22 [facility] Stop: 07/26/19 21:59 Last Admin: 06/26/19 22:20 Dose: 100 mls/hr Ibuprofen (Motrin 600 Mg) 600 mg PO Q6H PRN PRN PRN Reason: MODERATE PAIN Stop: 07/26/19 20:58 Last Admin: 06/26/19 22:19 Dose: 600 mg Methylprednisolone Sodium Succinate (Solu-Medrol 40 Mg) 40 mg IV Q8H [facility] Stop: 07/25/19 19:59 Last Admin: 06/27/19 03:29 Dose: 40 mg Patient Own Med : (Albuterol Hfa) 0 each IH QID [facility] Stop: 07/26/19 06:59 Last Admin: 06/26/19 19:20 Dose: 2 each Patient Own Med : (Spiriva Respimat) 0 each IH DAILY [facility] Stop: 07/26/19 06:59 Last Admin: 06/26/19 10:00 Dose: Not Given Intake & Output 06/26/19 06/27/19 11:59 11:59 Intake Total 3341 3382 Output Total 1300 1650 Balance 2041 1732 Weight 131.1 kg Orders 06/26/19 10:00 Cyclobenzaprine HCl 10 mg [Cyclobenzaprine 10 MG] 5 mg PO TID 06/26/19 20:59 Ibuprofen 600 mg [Motrin 600 mg] 600 mg PO Q6H PRN PRN 06/26/19 22:00 Ceftriaxone 1 GM/50 ML PREMIX* [ROCEPHIN 1 Gm-D5w 50 ml Bag] 1 g in 50 ml IV Q24H22 Code(s): J20.9 - ACUTE BRONCHITIS, UNSPECIFIED; J42 - UNSPECIFIED CHRONIC BRONCHITIS (2) Bronchitis Current Visit: Yes Status: Resolved Code(s): J40 - BRONCHITIS, NOT SPECIFIED ACUTE OR CHRONIC - Discharge Discharge Date: 06/27/19 Disposition: Home, Self-Care Condition: Stable Prescriptions: New Methylprednisolone Packet [Medrol Dosepack] 4 mg PO UD #30 packet Azithromycin [Zithromax Tri-Danny] 500 mg PO DAILY #3 tablet Follow up with: JOSE ROQUE MD [Primary Care Provider] - 07/03/19 10:15 am (at [place])
[2019-06-27] MEDS: MOTRIN 600 MG PO PRN (08:24)
[2019-06-27 10:59] VITALS: PULSE 86; O2SAT 97
== END 2019-06-27 10:58 | disposition home or self-care (01) ==
LOC: MED SURG 19:31
PROVIDERS: ADMIT General Practice; ATTEND General Practice
DX: J20.9 Acute bronchitis, unspecified (principal); J42 Unspecified chronic bronchitis
CPT/HCPCS: 36415; 71046; 72110; 80053; 81001; 85025; 94150; 94640; 94760; G0378; J0696; J2920; A9270-GY

== ENCOUNTER 2019-08-14 22:25 | Emergency (ER) | payer OTHER ==
[2019-08-14] MEDS ORDERED: BUMEX 1 MG PO STA (22:49)
--- NOTE | 2019-08-14 22:54 | ERPHSYRPT ---
- History of Present Illness Time Seen by Provider: 08/14/19 22:52 Source: patient Exam Limitations: no limitations Patient Subjective Stated Complaint: pt states that she has had increased swelling to rt leg since saturday, pt states that swelling increases around 2300, pt states that yesterday she had to cut her pants off due to increase swelling to rt leg, pt states that rt calf is sore, pt states that she has been having migrains, pt states that she is to have a valve replacement next year Triage Nursing Assessment: pt ambulated into the ER, pt is axo x4, pt is hypertensive, pt has edema to BLE, rt calf measures 48 cm and left calf 51 cm Physician History: patient is a 29 years old female states that she has had increased swelling to right leg since saturday, She states that swelling increases around 2300, pt states that yesterday she had to cut her pants off due to increase swelling to rt leg, pt states that rt calf is sore, pt states that she has been having migraines, pt states that she is to have a valve replacement next year Timing/Duration: today Associated Symptoms: denies symptoms Allergies/Adverse Reactions: aspirin Adverse Reaction (Verified 01/23/19 22:17) 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 Home Medications: Albuterol Sulfate [Albuterol Sulfate Hfa] 2 puff IH Q4H PRN 08/14/19 [History] Budesonide/Formoterol Fumarate [Symbicort 160-4.5 Mcg Inhaler] 2 puff IH HS [History] Tiotropium [place] [Spiriva Respimat] 2 puff IH DAILY 08/14/19 [History] Hx Tetanus, Diphtheria Vaccination/Date Given: Yes Hx Influenza Vaccination/Date Given: No Hx Pneumococcal Vaccination/Date Given: No - Review of Systems Constitutional: No Fever, No Chills Eyes: No Symptoms Ears, Nose, & Throat: No Symptoms Respiratory: No Cough, No Dyspnea Cardiac: Edema, No Chest Pain, No Syncope Abdominal/Gastrointestinal: No Abdominal Pain, No Nausea, No Vomiting, No Diarrhea Genitourinary Symptoms: No Dysuria Musculoskeletal: No Back Pain, No Neck Pain Skin: No Rash Neurological: No Dizziness, No Focal Weakness, No Sensory Changes Psychological: No Symptoms Endocrine: No Symptoms All Other Systems: Reviewed and Negative - Past Medical History Pertinent Past Medical History: Yes Neurological History: No Pertinent History ENT History: No Pertinent History Cardiac History: Congenital Heart Disease, Hypertension Respiratory History: Bronchitis Endocrine Medical History: No Pertinent History Musculoskeletal History: Osteoarthritis, Other GI Medical History: No Pertinent History History: No Pertinent History Psycho-Social History: No Pertinent History Female Reproductive Disorders: No Pertinent History Other Medical History: OPEN HEART WITH REPAIR OF HOLE--4 yrs old. anemia - Past Surgical History Past Surgical History: Yes Neuro Surgical History: No Pertinent History Cardiac: Other Respiratory: No Pertinent History Gastrointestinal: No Pertinent History Genitourinary: No Pertinent History Musculoskeletal: No Pertinent History Female Surgical History: Dilation & Curettage, Section, Tubal Ligation Other Surgical History: REPAIR OF HOLE IN THE HEART - Social History Smoking Status: Never smoker Exposure to second hand smoke: No Drug Use: none Patient Lives Alone: No - Female History Hx Last Menstrual Period: 07/31/19 Hx Now: No - Nursing Vital Signs Nursing Vital Signs: Initial Vital Signs Temperature 98.0 F 08/14/19 22:31 Pulse Rate 102 H 08/14/19 22:31 Blood Pressure 147/103 08/14/19 22:31 O2 Sat by Pulse Oximetry 99 08/14/19 22:31 - Physical Exam General Appearance: no apparent distress, alert Eye Exam: PERRL/EOMI, eyes nml inspection Ears, Nose, Throat Exam: normal ENT inspection, TMs normal, pharynx normal, moist mucous membranes Neck Exam: normal inspection, non-tender, supple, full range of motion Respiratory Exam: normal breath sounds, lungs clear, No respiratory distress Cardiovascular Exam: regular rate/rhythm, normal heart sounds, normal peripheral pulses, edema (1+ right leg up to mid ankle) Gastrointestinal/Abdomen Exam: soft, normal bowel sounds, No tenderness, No mass Back Exam: normal inspection, normal range of motion, No CVA tenderness, No vertebral tenderness Extremity Exam: normal inspection, normal range of motion, pelvis stable Neurologic Exam: alert, oriented x 3, cooperative, normal mood/affect, nml cerebellar function, nml station & gait, sensation nml, No motor deficits Skin Exam: normal color, warm, dry, No rash Lymphatic Exam: No adenopathy SpO2: 99 - Course Nursing assessment & vital signs reviewed: Yes - Radiology Exams Chest X-ray Interpretation: Reviewed by me Ordered Tests: Active Orders 24 hr Category Date Time Status EKG-ER Only STAT Care 08/14/19 22:55 Active CHEST 2 VIEWS (PA AND LAT) Stat Exams 08/14/19 23:38 Taken CBC W DIFF Stat Lab 08/14/19 23:18 Completed CMP Stat Lab 08/14/19 23:18 Completed D-DIMER QUANTITATIVE Stat Lab 08/14/19 23:18 Completed MAGNESIUM Stat Lab 08/14/19 23:18 Completed NT PRO BNP Stat Lab 08/14/19 23:18 Completed TROPONIN Q3H Lab 08/14/19 23:18 Completed UA W/RFX UR CULTURE Stat Lab 08/15/19 00:15 Ordered Urine Triage Profile Stat Lab 08/15/19 00:15 Ordered Medication Summary Discontinued Medications Generic Name Dose Route Start Last Admin Trade Name Freq PRN Reason Stop Dose Admin Bumetanide 1 mg 08/14/19 22:49 08/14/19 23:16 Bumex 1 Mg PO 08/14/19 22:50 1 mg DAILY STA Administration Lab/Rad Data: Laboratory Result Diagrams 08/14/19 23:18 08/14/19 23:18 Laboratory Results 08/14/19 08/14/19 08/14/19 Range/Units 23:18 23:18 23:18 WBC (4.0-10.5) K/mm3 RBC (4.1-5.4) M/mm3 Hgb (12.0-16.0) gm/dl Hct (35-47) % MCV (78-100) fl MCH (26-32) pg MCHC (32-36) g/dl RDW (11.5-14.0) % Plt Count (150-450) K/mm3 MPV (6-9.5) fl Gran % (36.0-66.0) % Eos # (Auto) (0-0.5) Absolute Lymphs (auto) (1.0-4.6) Absolute Monos (auto) (0.0-1.3) Lymphocytes % (24.0-44.0) % Monocytes % (0.0-12.0) % Eosinophils % (0.00-5.0) % Basophils % (0.0-0.4) % Absolute Granulocytes (1.4-6.9) Basophils # (0-0.4) D-Dimer < 132 L (215-500) ng/mL Sodium 140 (137-145) mmol/L Potassium 3.8 (3.5-5.1) mmol/L Chloride 104 (98-107) mmol/L Carbon Dioxide 29 (22-30) mmol/L Anion Gap 11.0 (5-15) MEQ/L BUN 12 (7-17) mg/dL Creatinine 0.72 (0.52-1.04) mg/dL Estimated GFR > 60.0 ML/MIN Glucose 103 (74-106) mg/dL Calcium 9.6 (8.4-10.2) mg/dL Magnesium 2.0 (1.6-2.3) mg/dL Total Bilirubin 0.40 (0.2-1.3) mg/dL AST 22 (14-36) U/L ALT 22 (0-35) U/L Alkaline Phosphatase 68 (38-126) U/L Troponin I < 0.012 (0.000-0.034) ng/mL NT-Pro-B Natriuret Pep 65.8 (0-450) pg/mL Serum Total Protein 8.0 (6.3-8.2) g/dL Albumin 4.3 (3.5-5.0) g/dL 08/14/19 Range/Units 23:18 WBC 9.1 (4.0-10.5) K/mm3 RBC 4.75 (4.1-5.4) M/mm3 Hgb 12.8 (12.0-16.0) gm/dl Hct 39.3 (35-47) % MCV 82.7 (78-100) fl MCH 26.9 (26-32) pg MCHC 32.6 (32-36) g/dl RDW 15.2 H (11.5-14.0) % Plt Count 341 (150-450) K/mm3 MPV 9.4 (6-9.5) fl Gran % 74.2 H (36.0-66.0) % Eos # (Auto) 0.12 (0-0.5) Absolute Lymphs (auto) 1.73 (1.0-4.6) Absolute Monos (auto) 0.47 (0.0-1.3) Lymphocytes % 19.1 L (24.0-44.0) % Monocytes % 5.2 (0.0-12.0) % Eosinophils % 1.3 (0.00-5.0) % Basophils % 0.2 (0.0-0.4) % Absolute Granulocytes 6.74 (1.4-6.9) Basophils # 0.02 (0-0.4) D-Dimer (215-500) ng/mL Sodium (137-145) mmol/L Potassium (3.5-5.1) mmol/L Chloride (98-107) mmol/L Carbon Dioxide (22-30) mmol/L Anion Gap (5-15) MEQ/L BUN (7-17) mg/dL Creatinine (0.52-1.04) mg/dL Estimated GFR ML/MIN Glucose (74-106) mg/dL Calcium (8.4-10.2) mg/dL Magnesium (1.6-2.3) mg/dL Total Bilirubin (0.2-1.3) mg/dL AST (14-36) U/L ALT (0-35) U/L Alkaline Phosphatase (38-126) U/L Troponin I (0.000-0.034) ng/mL NT-Pro-B Natriuret Pep (0-450) pg/mL Serum Total Protein (6.3-8.2) g/dL Albumin (3.5-5.0) g/dL - Progress Progress: improved Counseled pt/family regarding: lab results, diagnosis, need for follow-up, rad results - Departure Departure Disposition: Home Clinical Impression: Leg edema, right Condition: Stable Critical Care Time: No Referrals: JOSE ROQUE MD [Primary Care Provider] - Instructions: Dependent Edema (DC), Peripheral Edema -- Bilateral Additional Instructions: Discharge/Care Plan IVANNA STEIN was seen on 08/15/19 in the Emergency Room. The patient was counseled regarding Diagnosis,Lab results, Imaging studies, need for follow up and when to return to the Emergency Room. Prescriptions given: Discharge Note I have spoken with the patient and/or caregivers. I have explained the patient' s condition, diagnosis and treatment plan based on the information available to me at this time. I have answered the patient's and/or caregiver's questions and addressed any concerns. The patient and/or caregivers have as good understanding of the patient's diagnosis, condition and treatment plan as can be expected at this point. The vital signs have been stable. The patient's condition is stable and appropriate for discharge from the emergency department. The patient will pursue further outpatient evaluation with the primary care physician or other designated or consulting physician as outlined in the discharge instructions. The patient and/or caregivers are agreeable to this plan of care and follow-up instructions have been explained in detail. The patient and/or caregivers have received these instruction. The patient/and or caregivers are aware that any significant change in condition or worsening of symptoms should prompt an immediate return to this or the closest emergency department or call 911. Prescriptions: Bumetanide 1 mg [Bumex 1 mg] 1 mg PO DAILY #30 tablet
[2019-08-14 23:19] LABS: Absolute Neutrophil Ct (ANC) 6.74 (1.4-6.9); BASOPHIL % 0.2 % (0.0-0.4); Basophil (Absolute #) 0.02 (0-0.4); Eosinophil % 1.3 % (0.00-5.0); Eosinophil (Absolute #) 0.12 (0-0.5); Hematocrit 39.3 % (35-47); Hemoglobin 12.8 gm/dl (12.0-16.0); Lymphocyte (Absolute #) 1.73 (1.0-4.6); Lymphocytes % 19.1 % (24.0-44.0); Mean Cell Volume 82.7 fl (78-100); Mean Corpuscular Hemoglobin 26.9 pg (26-32); Mean Corpuscular Hgb Concent. 32.6 g/dl (32-36); Mean Platelet Volume 9.4 fl (6-9.5); Monocyte (Absolute #) 0.47 (0.0-1.3); Monocytes % 5.2 % (0.0-12.0); Neutrophil % 74.2 % (36.0-66.0); Platelet Count 341 K/mm3 (150-450); Red Blood Count 4.75 M/mm3 (4.1-5.4); Red Cell Distribution Width 15.2 % (11.5-14.0); White Blood Count 9.1 K/mm3 (4.0-10.5)
[2019-08-14 23:33] VITALS: PULSE 84
[2019-08-14 23:39] LABS: ALBUMIN 4.3 g/dL (3.5-5.0); ALKALINE PHOSPHATASE 68 U/L (38-126); BLOOD UREA NITROGEN 12 mg/dL (7-17); CHLORIDE 104 mmol/L (98-107); Calcium 9.6 mg/dL (8.4-10.2); Carbon Dioxide 29 mmol/L (22-30); Creatinine 1 0.72 mg/dL (0.52-1.04); Glucose 103 mg/dL (74-106); NT PRO BNP 65.8 pg/mL (0-450); Potassium 3.8 mmol/L (3.5-5.1); SGOT/AST 22 U/L (14-36); SGPT/ALT 22 U/L (0-35); SODIUM 140 mmol/L (137-145)
[2019-08-15 01:03] LABS: Appearance CLEAR (CLEAR); Bilirubin NEGATIVE (NEGATIVE); Blood SMALL Ery/ul (0-5); Epithelial Cells RARE /HPF (FEW); Glucose NEGATIVE (NEGATIVE); Ketones NEGATIVE (NEGATIVE); Leukocyte Esterase NEGATIVE (NEGATIVE); Mucus SLIGHT /HPF (NEGATIVE); Nitrite NEGATIVE (NEGATIVE); Protein,Urine Dip NEGATIVE (Negative); Specific Gravity 1.005 (1.005-1.025); Urobilinogen NEGATIVE mg/dL (0-1)
[2019-08-15 01:05] VITALS: BP 133/87; O2SAT 98
[2019-08-15 01:15] LABS: Amphetamine,Urine NEGATIVE (NEGATIVE); Barbiturate,Urine NEGATIVE (NEGATIVE); Benzodiazepine,Urine NEGATIVE (NEGATIVE); Cocaine,Urine NEGATIVE (NEGATIVE); Methadone,Urine NEGATIVE (NEGATIVE); Opiate,Urine NEGATIVE (NEGATIVE); PCP,Urine NEGATIVE (NEGATIVE); THC,Urine NEGATIVE (NEGATIVE)
--- NOTE | 2019-08-15 11:32 | XRAY ---
Indication: Right leg swelling. Comparison: June 25, 2019. PA/lateral chest again demonstrates normal heart, lungs, and bony thorax with sternotomy wires. No new/acute findings.
== END 2019-08-15 01:00 | disposition home or self-care (01) ==
LOC: ED 22:25
DX: M79.89 Other specified soft tissue disorders (principal); I10 Essential (primary) hypertension
CPT/HCPCS: 36415; 71046; 80053; 80307; 81001; 83735; 83880; 84484; 85025; 85379; 93005; 99284; A9270-GY

== ENCOUNTER 2019-11-17 03:21 | Emergency (ER) | payer OTHER ==
[2019-11-17] MEDS ORDERED: Sodium Chloride 0.9% 1000 ML 1,000 ML IV STA (03:58)
[2019-11-17] MEDS ORDERED: Sodium Chloride 0.9% 1000 ML 1,000 ML ONE (03:59)
[2019-11-17 04:15] LABS: Appearance SLIGHTLY CLOUDY (CLEAR); Bacteria RARE /HPF (NEGATIVE); Bilirubin NEGATIVE (NEGATIVE); Blood NEGATIVE Ery/ul (0-5); Epithelial Cells MANY /HPF (FEW); Glucose NEGATIVE (NEGATIVE); Ketones NEGATIVE (NEGATIVE); Leukocyte Esterase NEGATIVE (NEGATIVE); Mucus SLIGHT /HPF (NEGATIVE); Nitrite NEGATIVE (NEGATIVE); Protein,Urine Dip NEGATIVE (Negative); Specific Gravity 1.021 (1.005-1.025); Urobilinogen NEGATIVE mg/dL (0-1)
[2019-11-17 04:24] LABS: ALKALINE PHOSPHATASE 108 U/L (38-126); ANION GAP 11.1 MEQ/L (5-15); BLOOD UREA NITROGEN 13 mg/dL (7-17); CHLORIDE 106 mmol/L (98-107); Calcium 8.9 mg/dL (8.4-10.2); Carbon Dioxide 25 mmol/L (22-30); Creatinine 1 0.66 mg/dL (0.52-1.04); Glucose 176 mg/dL (74-106); SGOT/AST 20 U/L (14-36); SGPT/ALT 20 U/L (0-35); SODIUM 138 mmol/L (137-145); Total Protein 7.6 g/dL (6.3-8.2)
[2019-11-17 04:27] LABS: Absolute Neutrophil Ct (ANC) 8.33 (1.4-6.9); BASOPHIL % 0.2 % (0.0-0.4); Basophil (Absolute #) 0.02 (0-0.4); Eosinophil % 1.8 % (0.00-5.0); Eosinophil (Absolute #) 0.21 (0-0.5); Hematocrit 38.2 % (35-47); Hemoglobin 12.5 gm/dl (12.0-16.0); Lymphocyte (Absolute #) 2.48 (1.0-4.6); Lymphocytes % 21.2 % (24.0-44.0); Mean Cell Volume 83.4 fl (78-100); Mean Corpuscular Hemoglobin 27.3 pg (26-32); Mean Corpuscular Hgb Concent. 32.7 g/dl (32-36); Mean Platelet Volume 9.7 fl (7.5-11.0); Monocyte (Absolute #) 0.67 (0.0-1.3); Monocytes % 5.7 % (0.0-12.0); Neutrophil % 71.1 % (36.0-66.0); Platelet Count 304 K/mm3 (150-450); Red Blood Count 4.58 M/mm3 (4.1-5.4); White Blood Count 11.7 K/mm3 (4.0-10.5)
[2019-11-17 05:00] VITALS: O2SAT 97
--- NOTE | 2019-11-17 05:23 | ERPHSYRPT ---
- History of Present Illness Time Seen by Provider: 11/17/19 04:17 Source: patient Patient Subjective Stated Complaint: pt c/o dizziness x2 days, syncopal episode at 0130, short of breath, chest pain to left side of chest which is not new. Triage Nursing Assessment: pt arrived to ER c/o dizziness x2 days. Pt went on to inform me that she had a syncopal episode at 0130 going down her stairs but caught herself. Pt denies hitting her head, she landed on her back. Pt now c/ o chest pain to left side of chest, non radiating but pt states this is not new. Pt has hx of tertalogy of fallot. Pt c/o sob as well. Physician History: 29 years old female with history of tetralogy of Fallot repair in the past needing another repair soon presented in the ER with chief complaint of dizziness/lightheadedness for the last 2 to 3 days. Patient reports she has been recently started on Lasix and lisinopril and since then [place] and is feeling lightheaded occasionally. It is progressively worsening for 2 days. Prior to arrival around 1:30 AM she was coming down a stair, felt lightheaded and fell with near syncopal episode. No loss of consciousness. She was able to get up and ambulate, denies any spinning sensation. No numbness tingling or focal weakness reported. Patient reports dizziness is more with ambulation and whenever he tries to stand up. She has occasional chest pain which is not any different than usual. Denies any shortness of breath. No abdominal pain nausea or vomiting. Denies any visual disturbance. 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 Home Medications: Albuterol Sulfate [Albuterol Sulfate Hfa] 2 puff IH Q4H PRN 08/14/19 [History] Budesonide/Formoterol Fumarate [Symbicort 160-4.5 Mcg Inhaler] 2 puff IH DAILY PRN PRN 08/14/19 [History] Tiotropium [place] [Spiriva Respimat] 2 puff IH DAILY 08/14/19 [History] Ferrous Sulfate 325 mg PO BID 11/17/19 [History] Furosemide [Lasix] 20 mg PO DAILY 11/17/19 [History] Ibuprofen 800 mg PO TID 11/17/19 [History] lisinopriL [Lisinopril] 5 mg PO DAILY 11/17/19 [History] Hx Tetanus, Diphtheria Vaccination/Date Given: Yes Hx Influenza Vaccination/Date Given: No Hx Pneumococcal Vaccination/Date Given: No Immunizations Up to Date: Yes Travel Risk - International Travel Have you traveled outside of the country in past 3 weeks: No Have you or anyone close to you been diagnosed with or: No Do your reside in a community with a known COVID-19 case?: Yes If Yes where:: [facility] - Coronavirus Screening Has patient experienced Coronavirus symptoms: No - Review of Systems Constitutional: Fatigue Eyes: No Symptoms Ears, Nose, & Throat: No Symptoms Respiratory: No Symptoms Cardiac: Chest Pain Abdominal/Gastrointestinal: No Symptoms Genitourinary Symptoms: No Symptoms Musculoskeletal: No Symptoms Skin: No Symptoms Neurological: No Symptoms Psychological: No Symptoms Endocrine: No Symptoms Hematologic/Lymphatic: No Symptoms Immunological/Allergic: No Symptoms - Past Medical History Pertinent Past Medical History: Yes Neurological History: No Pertinent History ENT History: No Pertinent History Cardiac History: Congenital Heart Disease, Hypertension Respiratory History: Bronchitis Endocrine Medical History: No Pertinent History Musculoskeletal History: Osteoarthritis, Other GI Medical History: No Pertinent History History: No Pertinent History Psycho-Social History: No Pertinent History Female Reproductive Disorders: No Pertinent History Other Medical History: OPEN HEART WITH REPAIR OF HOLE--4 yrs old. anemia - Past Surgical History Past Surgical History: Yes Neuro Surgical History: No Pertinent History Cardiac: Other Respiratory: No Pertinent History Gastrointestinal: No Pertinent History Genitourinary: No Pertinent History Musculoskeletal: No Pertinent History Female Surgical History: Dilation & Curettage, Section, Tubal Ligation Other Surgical History: REPAIR OF HOLE IN THE HEART - Social History Smoking Status: Never smoker Exposure to second hand smoke: No Drug Use: none Patient Lives Alone: No - Female History Hx Now: No - Nursing Vital Signs Nursing Vital Signs: Initial Vital Signs Temperature 98.6 F 11/17/19 03:27 Pulse Rate 95 H 11/17/19 03:27 Respiratory Rate 22 11/17/19 03:27 Blood Pressure 116/69 11/17/19 03:27 O2 Sat by Pulse Oximetry 98 11/17/19 03:27 Pain Scale Pain Intensity 4 - [place] Coma Scale Best Eye Response (Irvin): (4) open spontaneously Best Verbal Response (Irvin): (5) oriented Best Motor Response (Irvin): (6) obeys commands Irvin Total: 15 - Physical Exam General Appearance: no apparent distress Eye Exam: bilateral eye: normal inspection, PERRL, EOMI Ears, Nose, Throat Exam: normal ENT inspection, TMs normal, pharynx normal, moist mucous membranes Neck Exam: normal inspection, non-tender, supple, full range of motion Respiratory: normal breath sounds, lungs clear, No respiratory distress Cardiovascular: regular rate/rhythm, normal heart sounds, normal peripheral pulses Gastrointestinal: soft, normal bowel sounds, No tenderness, No distention Pelvic Exam: not done Back Exam: normal inspection, normal range of motion Extremity Exam: normal inspection, normal range of motion Mental Status: alert, oriented x 3, 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 Exam: normal hearing, normal speech, PERRL Coordination/Gait: normal finger to nose, normal cerebellar function Motor/Sensory: no motor deficit, no sensory deficit, no pronator drift, negative Babinski's sign Skin Exam: normal color SpO2 Interpretation: normal SpO2: 97 O2 Delivery: Room Air - Course Nursing assessment & vital signs reviewed: Yes EKG Interpreted by Me: RATE (91), NORMAL INTERVALS, Right Bundle Branch Block, Non-specific ST Changes Ordered Tests: Active Orders 24 hr Category Date Time Status CHEST 1 VIEW (PORTABLE) Stat Exams 11/17/19 04:00 Taken CBC W DIFF Stat Lab 11/17/19 03:50 Completed CMP Stat Lab 11/17/19 03:50 Completed CULTURE,URINE Stat Lab 11/17/19 03:50 Received HCG,QUALITATIVE URINE Stat Lab 11/17/19 03:20 Completed TROPONIN Q3H Lab 11/17/19 03:50 Completed TROPONIN Q3H Lab 11/17/19 07:00 Ordered TROPONIN Q3H Lab 11/17/19 10:00 Ordered TROPONIN Q3H Lab 11/17/19 13:00 Ordered TROPONIN Q3H Lab 11/17/19 16:00 Ordered TROPONIN Q3H Lab 11/17/19 19:00 Ordered TROPONIN Q3H Lab 11/17/19 22:00 Ordered UA W/RFX UR CULTURE Stat Lab 11/17/19 03:50 Completed Medication Summary Discontinued Medications Generic Name Dose Route Start Last Admin Trade Name Dhara PRN Reason Stop Dose Admin Sodium Chloride 1,000 mls @ 999 mls/hr 11/17/19 03:58 11/17/19 04:04 Sodium Chloride 0.9% 1000 Ml IV 11/17/19 04:58 999 mls/hr .Q1H1M STA Administration Sodium Chloride Confirm 11/17/19 03:59 Sodium Chloride 0.9% 1000 Ml Administered 11/17/19 04:00 Dose 1,000 mls @ ud .ROUTE .STK-MED ONE Lab/Rad Data: Laboratory Result Diagrams 11/17/19 03:50 11/17/19 03:50 Laboratory Results 11/17/19 11/17/19 11/17/19 Range/Units 03:50 03:50 03:50 WBC (4.0-10.5) K/mm3 RBC (4.1-5.4) M/mm3 Hgb (12.0-16.0) gm/dl Hct (35-47) % MCV (78-100) fl MCH (26-32) pg MCHC (32-36) g/dl RDW (11.5-14.0) % Plt Count (150-450) K/mm3 MPV (7.5-11.0) fl Gran % (36.0-66.0) % Eos # (Auto) (0-0.5) Absolute Lymphs (auto) (1.0-4.6) Absolute Monos (auto) (0.0-1.3) Lymphocytes % (24.0-44.0) % Monocytes % (0.0-12.0) % Eosinophils % (0.00-5.0) % Basophils % (0.0-0.4) % Absolute Granulocytes (1.4-6.9) Basophils # (0-0.4) Sodium 138 (137-145) mmol/L Potassium 4.0 (3.5-5.1) mmol/L Chloride 106 (98-107) mmol/L Carbon Dioxide 25 (22-30) mmol/L Anion Gap 11.1 (5-15) MEQ/L BUN 13 (7-17) mg/dL Creatinine 0.66 (0.52-1.04) mg/dL Estimated GFR > 60.0 ML/MIN Glucose 176 H (74-106) mg/dL Calcium 8.9 (8.4-10.2) mg/dL Total Bilirubin 0.30 (0.2-1.3) mg/dL AST 20 (14-36) U/L ALT 20 (0-35) U/L Alkaline Phosphatase 108 (38-126) U/L Troponin I < 0.012 (0.000-0.034) ng/mL Serum Total Protein 7.6 (6.3-8.2) g/dL Albumin 4.0 (3.5-5.0) g/dL Urine Color YELLOW (YELLOW) Urine Appearance SLIGHTLY CLOUDY (CLEAR) Urine pH 6.0 (5-6) Ur Specific [place] 1.021 (1.005-1.025) Urine Protein NEGATIVE (Negative) Urine Ketones NEGATIVE (NEGATIVE) Urine Blood NEGATIVE (0-5) Dalton/ul Urine Nitrite NEGATIVE (NEGATIVE) Urine Bilirubin NEGATIVE (NEGATIVE) Urine Urobilinogen NEGATIVE (0-1) mg/dL Ur Leukocyte Esterase NEGATIVE (NEGATIVE) Urine WBC (Auto) 6-10 (0-5) /HPF U Epithel Cells (Auto) MANY (FEW) /HPF Urine Bacteria (Auto) RARE (NEGATIVE) /HPF Urine Mucus (Auto) SLIGHT (NEGATIVE) /HPF Urine Culture Reflexed YES (NO) Urine Glucose NEGATIVE (NEGATIVE) mg/dL Urine HCG, Qual (Negative) 11/17/19 11/17/19 Range/Units 03:50 03:20 WBC 11.7 H (4.0-10.5) K/mm3 RBC 4.58 (4.1-5.4) M/mm3 Hgb 12.5 (12.0-16.0) gm/dl Hct 38.2 (35-47) % MCV 83.4 (78-100) fl MCH 27.3 (26-32) pg MCHC 32.7 (32-36) g/dl RDW 15.0 H (11.5-14.0) % Plt Count 304 (150-450) K/mm3 MPV 9.7 (7.5-11.0) fl Gran % 71.1 H (36.0-66.0) % Eos # (Auto) 0.21 (0-0.5) Absolute Lymphs (auto) 2.48 (1.0-4.6) Absolute Monos (auto) 0.67 (0.0-1.3) Lymphocytes % 21.2 L (24.0-44.0) % Monocytes % 5.7 (0.0-12.0) % Eosinophils % 1.8 (0.00-5.0) % Basophils % 0.2 (0.0-0.4) % Absolute Granulocytes 8.33 H (1.4-6.9) Basophils # 0.02 (0-0.4) Sodium (137-145) mmol/L Potassium (3.5-5.1) mmol/L Chloride (98-107) mmol/L Carbon Dioxide (22-30) mmol/L Anion Gap (5-15) MEQ/L BUN (7-17) mg/dL Creatinine (0.52-1.04) mg/dL Estimated GFR ML/MIN Glucose (74-106) mg/dL Calcium (8.4-10.2) mg/dL Total Bilirubin (0.2-1.3) mg/dL AST (14-36) U/L ALT (0-35) U/L Alkaline Phosphatase (38-126) U/L Troponin I (0.000-0.034) ng/mL Serum Total Protein (6.3-8.2) g/dL Albumin (3.5-5.0) g/dL Urine Color (YELLOW) Urine Appearance (CLEAR) Urine pH (5-6) Ur Specific Ferdinand (1.005-1.025) Urine Protein (Negative) Urine Ketones (NEGATIVE) Urine Blood (0-5) Dalton/ul Urine Nitrite (NEGATIVE) Urine Bilirubin (NEGATIVE) Urine Urobilinogen (0-1) mg/dL Ur Leukocyte Esterase (NEGATIVE) Urine WBC (Auto) (0-5) /HPF U Epithel Cells (Auto) (FEW) /HPF Urine Bacteria (Auto) (NEGATIVE) /HPF Urine Mucus (Auto) (NEGATIVE) /HPF Urine Culture Reflexed (NO) Urine Glucose (NEGATIVE) mg/dL Urine HCG, Qual NEGATIVE (Negative) - Progress Progress: improved, re-examined Progress Note: 11/17/19 05:58 29 years old is evaluated for lightheadedness/dizziness with presyncopal episode. Her symptoms are more with standing up/ambulation and started after she was placed on lisinopril/Lasix. She is given fluid and feeling better on reevaluation. EKG did not show any acute ST elevations and is not any change from previous. Negative initial troponins. No acute electrolyte abnormality. Her symptoms I believe are secondary to recent start of these medications causing her to have some orthostatics and some element of dehydration. I have advised to continue with these medications as it would help her with fluid retention which she seems to have some with cardiomegaly and pulmonary venous congestion. She has a nonfocal neuro exam, do not think she needs a CT head. I do not think patient needs any further work-up and is stable for discharge with outpatient cardiology follow-up. Signs symptoms of worsening needing return to ER which he seems understanding. Stable for discharge. 11/17/19 06:03 Counseled pt/family regarding: lab results, diagnosis, need for follow-up, rad results - Departure Departure Disposition: Home Clinical Impression: Intermittent lightheadedness Condition: Stable Critical Care Time: No Referrals: JOSE ROQUE MD [Primary Care Provider] - (1-2 days for re evaluation) Instructions: Dizziness, Nonvertigo, (DC) Additional Instructions: Follow-up with your paper supervisor in 1 to 2 days for reevaluation. Return to ER for any worsening. Continue with Lasix and lisinopril as recommended by cardiology.
[2019-11-17 06:06] VITALS: BP 90/77; PULSE 86
--- NOTE | 2019-11-17 08:51 | XRAY ---
Indication: Short of breath. Comparison: August 14, 2019. Portable chest again demonstrates borderline cardiomegaly. Lungs are inflated and clear. Bony thorax intact again with sternotomy wires. Impression: Nonacute chest with chronic features.
== END 2019-11-17 06:11 | disposition home or self-care (01) ==
LOC: ED 03:21
DX: R42 Dizziness and giddiness (principal); I51.9 Heart disease, unspecified; I51.7 Cardiomegaly; I10 Essential (primary) hypertension
CPT/HCPCS: 36000; 36415; 71045; 80053; 81001; 84484; 84703; 85025; 87086; 93005; 96360; 99284

== ENCOUNTER 2020-04-06 12:50 | Emergency (ER) | payer OTHER ==
--- NOTE | 2020-04-06 12:54 | ERPHSYRPT ---
- History of Present Illness Time Seen by Provider: 04/06/20 12:54 Historian: patient Exam Limitations: no limitations Physician History: This is a morbidly obese white female who is 30 years of age and has a history of asthma and presents with 5-day history of fever, cough and vomiting. She denies headache and she denies neck pain. She denies chest pain. She has mild shortness of breath and associated wheezing. This mild shortness of breath and wheezing is chronic for her. She has not been exposed anyone that she is aware of with COVID-19 virus. She had the COVID-19 test on Saturday prior to this evaluation and it returned negative. Patient symptoms have not improved. She did take ibuprofen approximately 8:00 this morning. She presents with the above symptoms and a fever of 101 F. 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 Home Medications: Albuterol Sulfate [Albuterol Sulfate Hfa] 2 puff IH Q4H PRN 08/14/19 [History] Tiotropium [place] [Spiriva Respimat] 2 puff IH DAILY 08/14/19 [History] Furosemide [Lasix] 20 mg PO DAILY 11/17/19 [History] Ibuprofen 800 mg PO TID 11/17/19 [History] lisinopriL [Lisinopril] 10 mg PO DAILY 11/17/19 [History] Gabapentin 1 tab PO BID 04/06/20 [History] Hx Tetanus, Diphtheria Vaccination/Date Given: Yes Hx Influenza Vaccination/Date Given: No Hx Pneumococcal Vaccination/Date Given: No Travel Risk - International Travel Have you traveled outside of the country in past 3 weeks: No - Coronavirus Screening Are you exhibiting any of the following symptoms?: Yes Symptoms: Cough: New Onset, Vomiting/Diarrhea - Review of Systems Constitutional: Fever, Weakness Eyes: No Symptoms Ears, Nose, & Throat: No Symptoms Respiratory: Cough, Wheezing (Mild bilateral) Cardiac: No Symptoms Abdominal/Gastrointestinal: Nausea, Vomiting Genitourinary Symptoms: No Symptoms Musculoskeletal: No Symptoms Skin: No Symptoms Neurological: No Symptoms Psychological: No Symptoms Endocrine: No Symptoms Hematologic/Lymphatic: No Symptoms Immunological/Allergic: No Symptoms All Other Systems: Reviewed and Negative - Past Medical History Pertinent Past Medical History: Yes Neurological History: No Pertinent History ENT History: No Pertinent History Cardiac History: Congenital Heart Disease, Hypertension Respiratory History: Bronchitis Endocrine Medical History: No Pertinent History Musculoskeletal History: Osteoarthritis, Other GI Medical History: No Pertinent History History: No Pertinent History Psycho-Social History: No Pertinent History Female Reproductive Disorders: No Pertinent History Other Medical History: OPEN HEART WITH REPAIR OF HOLE--4 yrs old. anemia - Past Surgical History Past Surgical History: Yes Neuro Surgical History: No Pertinent History Cardiac: Other Respiratory: No Pertinent History Gastrointestinal: No Pertinent History Genitourinary: No Pertinent History Musculoskeletal: No Pertinent History Female Surgical History: Dilation & Curettage, Section, Tubal Ligation Other Surgical History: REPAIR OF HOLE IN THE HEART - Social History Smoking Status: Never smoker Exposure to second hand smoke: No Drug Use: none Patient Lives Alone: No - Nursing Vital Signs Nursing Vital Signs: Initial Vital Signs Temperature 100.7 F 04/06/20 13:17 Pulse Rate 98 H 04/06/20 13:17 Respiratory Rate 20 04/06/20 13:17 Blood Pressure 119/85 04/06/20 13:17 O2 Sat by Pulse Oximetry 97 04/06/20 13:17 Pain Scale Pain Intensity 0 - Physical Exam General Appearance: mild distress, alert, anxiety, obese Eye Exam: PERRL/EOMI Ears, Nose, Throat Exam: normal ENT inspection, moist mucous membranes Neck Exam: normal inspection, non-tender, supple, full range of motion, No meningismus Respiratory Exam: airway intact, wheezing, No chest tenderness, No respiratory distress Cardiovascular Exam: regular rate/rhythm (Wound bilateral), normal heart sounds, normal peripheral pulses Gastrointestinal/Abdomen Exam: soft, normal bowel sounds, No tenderness, No guarding, No rebound Pelvic Exam: not done Rectal Exam: not done Back Exam: normal inspection, normal range of motion, No CVA tenderness, No vertebral tenderness Extremity Exam: normal inspection, normal range of motion, pelvis stable Neurologic Exam: alert, oriented x 3, cooperative, clay grinder II-XII nml as tested, normal mood/affect, nml cerebellar function, nml station & gait, sensation nml Skin Exam: normal color, warm, dry Lymphatic Exam: No adenopathy SpO2 Interpretation: normal O2 Delivery: Room Air Ordered Tests: Active Orders 24 hr Category Date Time Status IV Insertion STAT Care 04/06/20 13:29 Active Pulse Oximetry (ED) STAT Care 04/06/20 13:29 Active CHEST 1 VIEW (PORTABLE) Stat Exams 04/06/20 13:30 Completed BLOOD CULTURE Stat Lab 04/06/20 13:50 Received CBC W DIFF Stat Lab 04/06/20 13:30 Completed CMP Stat Lab 04/06/20 13:30 Completed CULTURE,URINE Stat Lab 04/06/20 13:36 Received HCG,QUALITATIVE URINE Stat Lab 04/06/20 13:36 Completed Lactic Acid Stat Lab 04/06/20 13:29 Completed [place] Screen Stat Lab 04/06/20 13:30 Completed UA W/RFX UR CULTURE Stat Lab 04/06/20 13:36 Completed Medication Summary Generic Name Dose Route Start Last Admin Trade Name Freq PRN Reason Stop Dose Admin Ceftriaxone Sodium/Dextrose 1 g in 50 mls @ 100 mls/hr 04/06/20 15:36 04/06/20 15:42 Rocephin 1 Gm-D5w 50 Ml Bag IV 04/06/20 16:05 100 ml/hr STAT STA 100 mls/hr Administration Discontinued Medications Generic Name Dose Route Start Last Admin Trade Name Freq PRN Reason Stop Dose Admin Hydrocodone Bitart/Acetaminophen 15 ml 04/06/20 13:31 04/06/20 13:44 Hydrocodone-Acetamin 2.5-108/5 Ml Solution PO 04/06/20 13:32 15 ml STAT STA Administration Hydrocodone Bitart/Acetaminophen Confirm 04/06/20 13:38 Hydrocodone-Acetamin 2.5-108/5 Ml Solution Administered 04/06/20 13:39 Dose 15 ml .ROUTE .STK-MED ONE Sodium Chloride 1,000 mls @ 999 mls/hr 04/06/20 13:29 04/06/20 14:50 Sodium Chloride 0.9% 1000 Ml IV 04/06/20 14:29 Infused .Q1H1M STA Infusion Sodium Chloride Confirm 04/06/20 13:38 Sodium Chloride 0.9% 1000 Ml Administered 04/06/20 13:39 Dose 1,000 mls @ ud .ROUTE .STK-MED ONE Ceftriaxone Sodium/Dextrose Confirm 04/06/20 15:39 Rocephin 1 Gm-D5w 50 Ml Bag Administered 04/06/20 15:40 Dose 1 g in 50 mls @ ud IV .STK-MED ONE Ibuprofen 600 mg 04/06/20 13:29 04/06/20 13:43 Motrin 600 Mg PO 04/06/20 13:30 600 mg STAT STA Administration Ibuprofen Confirm 04/06/20 13:37 Motrin 600 Mg Administered 04/06/20 13:38 Dose 600 mg .ROUTE .STK-MED ONE Ondansetron HCl 4 mg 04/06/20 13:29 04/06/20 13:44 Zofran 4 Mg/2 Ml Vial IV 04/06/20 13:30 4 mg STAT STA Administration Ondansetron HCl Confirm 04/06/20 13:37 Zofran 4 Mg/2 Ml Vial Administered 04/06/20 13:38 Dose 4 mg .ROUTE .STK-MED ONE Lab/Rad Data: Laboratory Result Diagrams 04/06/20 13:30 04/06/20 13:30 Laboratory Results 04/06/20 04/06/20 04/06/20 Range/Units 14:00 13:36 13:36 WBC (4.0-10.5) K/mm3 RBC (4.1-5.4) M/mm3 Hgb (12.0-16.0) gm/dl Hct (35-47) % MCV (78-100) fl MCH (26-32) pg MCHC (32-36) g/dl RDW (11.5-14.0) % Plt Count (150-450) K/mm3 MPV (7.5-11.0) fl Gran % (36.0-66.0) % Eos # (Auto) (0-0.5) Absolute Lymphs (auto) (1.0-4.6) Absolute Monos (auto) (0.0-1.3) Lymphocytes % (24.0-44.0) % Monocytes % (0.0-12.0) % Eosinophils % (0.00-5.0) % Basophils % (0.0-0.4) % Absolute Granulocytes (1.4-6.9) Basophils # (0-0.4) Sodium (137-145) mmol/L Potassium (3.5-5.1) mmol/L Chloride (98-107) mmol/L Carbon Dioxide (22-30) mmol/L Anion Gap (5-15) MEQ/L BUN (7-17) mg/dL Creatinine (0.52-1.04) mg/dL Estimated GFR ML/MIN Glucose (74-106) mg/dL Lactic Acid (0.4-2.0) Calcium (8.4-10.2) mg/dL Total Bilirubin (0.2-1.3) mg/dL AST (14-36) U/L ALT (0-35) U/L Alkaline Phosphatase (38-126) U/L Serum Total Protein (6.3-8.2) g/dL Albumin (3.5-5.0) g/dL Urine Color YELLOW (YELLOW) Urine Appearance SLIGHTLY CLOUDY (CLEAR) Urine pH 5.0 (5-6) Ur Specific [place] 1.020 (1.005-1.025) Urine Protein NEGATIVE (Negative) Urine Ketones NEGATIVE (NEGATIVE) Urine Blood LARGE (0-5) Dalton/ul Urine Nitrite NEGATIVE (NEGATIVE) Urine Bilirubin NEGATIVE (NEGATIVE) Urine Urobilinogen NEGATIVE (0-1) mg/dL Ur Leukocyte Esterase TRACE (NEGATIVE) Urine WBC (Auto) 3-5 (0-5) /HPF Urine RBC (Auto) 0-2 (0-2) /HPF U Epithel Cells (Auto) FEW (FEW) /HPF Urine Bacteria (Auto) NONE (NEGATIVE) /HPF Urine Mucus (Auto) SLIGHT (NEGATIVE) /HPF Urine Culture Reflexed YES (NO) Urine Glucose NEGATIVE (NEGATIVE) mg/dL Urine HCG, Qual NEGATIVE (Negative) Monoscreen (Negative) Influenza Type A Ag NEGATIVE (NEGATIVE) Influenza Type B Ag NEGATIVE (NEGATIVE) RSV (PCR) NEGATIVE (Negative) Group A Strep Antibody NOT DETECTED (NEGATIVE) 04/06/20 04/06/20 04/06/20 Range/Units 13:30 13:30 13:30 WBC 9.3 (4.0-10.5) K/mm3 RBC 4.89 (4.1-5.4) M/mm3 Hgb 13.0 (12.0-16.0) gm/dl Hct 40.6 (35-47) % MCV 83.0 (78-100) fl MCH 26.6 (26-32) pg MCHC 32.0 (32-36) g/dl RDW 15.1 H (11.5-14.0) % Plt Count 293 (150-450) K/mm3 MPV 9.4 (7.5-11.0) fl Gran % 74.4 H (36.0-66.0) % Eos # (Auto) 0.25 (0-0.5) Absolute Lymphs (auto) 1.45 (1.0-4.6) Absolute Monos (auto) 0.66 (0.0-1.3) Lymphocytes % 15.6 L (24.0-44.0) % Monocytes % 7.1 (0.0-12.0) % Eosinophils % 2.7 (0.00-5.0) % Basophils % 0.2 (0.0-0.4) % Absolute Granulocytes 6.92 H (1.4-6.9) Basophils # 0.02 (0-0.4) Sodium 139 (137-145) mmol/L Potassium 4.1 (3.5-5.1) mmol/L Chloride 105 (98-107) mmol/L Carbon Dioxide 26 (22-30) mmol/L Anion Gap 12.3 (5-15) MEQ/L BUN 8 (7-17) mg/dL Creatinine 0.75 (0.52-1.04) mg/dL Estimated GFR > 60.0 ML/MIN Glucose 105 (74-106) mg/dL Lactic Acid (0.4-2.0) Calcium 9.2 (8.4-10.2) mg/dL Total Bilirubin 0.50 (0.2-1.3) mg/dL AST 26 (14-36) U/L ALT 27 (0-35) U/L Alkaline Phosphatase 83 (38-126) U/L Serum Total Protein 7.8 (6.3-8.2) g/dL Albumin 4.1 (3.5-5.0) g/dL Urine Color (YELLOW) Urine Appearance (CLEAR) Urine pH (5-6) Ur Specific [place] (1.005-1.025) Urine Protein (Negative) Urine Ketones (NEGATIVE) Urine Blood (0-5) Dalton/ul Urine Nitrite (NEGATIVE) Urine Bilirubin (NEGATIVE) Urine Urobilinogen (0-1) mg/dL Ur Leukocyte Esterase (NEGATIVE) Urine WBC (Auto) (0-5) /HPF Urine RBC (Auto) (0-2) /HPF U Epithel Cells (Auto) (FEW) /HPF Urine Bacteria (Auto) (NEGATIVE) /HPF Urine Mucus (Auto) (NEGATIVE) /HPF Urine Culture Reflexed (NO) Urine Glucose (NEGATIVE) mg/dL Urine HCG, Qual (Negative) Monoscreen NEGATIVE (Negative) Influenza Type A Ag (NEGATIVE) Influenza Type B Ag (NEGATIVE) RSV (PCR) (Negative) Group A Strep Antibody (NEGATIVE) 04/06/20 Range/Units 13:29 WBC (4.0-10.5) K/mm3 RBC (4.1-5.4) M/mm3 Hgb (12.0-16.0) gm/dl Hct (35-47) % MCV (78-100) fl MCH (26-32) pg MCHC (32-36) g/dl RDW (11.5-14.0) % Plt Count (150-450) K/mm3 MPV (7.5-11.0) fl Gran % (36.0-66.0) % Eos # (Auto) (0-0.5) Absolute Lymphs (auto) (1.0-4.6) Absolute Monos (auto) (0.0-1.3) Lymphocytes % (24.0-44.0) % Monocytes % (0.0-12.0) % Eosinophils % (0.00-5.0) % Basophils % (0.0-0.4) % Absolute Granulocytes (1.4-6.9) Basophils # (0-0.4) Sodium (137-145) mmol/L Potassium (3.5-5.1) mmol/L Chloride (98-107) mmol/L Carbon Dioxide (22-30) mmol/L Anion Gap (5-15) MEQ/L BUN (7-17) mg/dL Creatinine (0.52-1.04) mg/dL Estimated GFR ML/MIN Glucose (74-106) mg/dL Lactic Acid 1.5 (0.4-2.0) Calcium (8.4-10.2) mg/dL Total Bilirubin (0.2-1.3) mg/dL AST (14-36) U/L ALT (0-35) U/L Alkaline Phosphatase (38-126) U/L Serum Total Protein (6.3-8.2) g/dL Albumin (3.5-5.0) g/dL Urine Color (YELLOW) Urine Appearance (CLEAR) Urine pH (5-6) Ur Specific [place] (1.005-1.025) Urine Protein (Negative) Urine Ketones (NEGATIVE) Urine Blood (0-5) Dalton/ul Urine Nitrite (NEGATIVE) Urine Bilirubin (NEGATIVE) Urine Urobilinogen (0-1) mg/dL Ur Leukocyte Esterase (NEGATIVE) Urine WBC (Auto) (0-5) /HPF Urine RBC (Auto) (0-2) /HPF U Epithel Cells (Auto) (FEW) /HPF Urine Bacteria (Auto) (NEGATIVE) /HPF Urine Mucus (Auto) (NEGATIVE) /HPF Urine Culture Reflexed (NO) Urine Glucose (NEGATIVE) mg/dL Urine HCG, Qual (Negative) Monoscreen (Negative) Influenza Type A Ag (NEGATIVE) Influenza Type B Ag (NEGATIVE) RSV (PCR) (Negative) Group A Strep Antibody (NEGATIVE) - Progress Progress: improved, pain not gone completely, re-examined Progress Note: 04/06/20 14:46 cxr-no acute process 04/06/20 15:45 Patient clinically is feeling better. She is afebrile. Her test results are negative for mono and influenza a and B as well as negative for RSV. She does have a mild urinary tract infection. I believe she also has bronchitis. We will discharge her to home with a prescription that will cover both urinary tract infection and bronchitis, hydrocodone for her cough, steroid for her cough and Zofran as an antiemetic. Counseled pt/family regarding: lab results, diagnosis, need for follow-up, rad results - Departure Departure Disposition: Home Clinical Impression: UTI (urinary tract infection), Bronchitis Condition: Stable Critical Care Time: No Referrals: JOSE ROQUE MD [Primary Care Provider] - Additional Instructions: Drink plenty of clear liquids prior to advancing your diet. Take your medication as prescribed. Follow-up with your primary care for persistent symptoms. Return to the emergency department if your symptoms worsen. Prescriptions: Smz/Tmp Ds Tablet [Bactrim Ds Tablet] 1 udtab PO BID #14 tablet Prednisone 10 mg [Deltasone 10 mg] 10 mg PO TID #12 tablet Hydrocodone Bit/Acetaminophen [Hydrocodone-Acetaminophen Soln] 10 ml PO Q6H #120 ml Ondansetron HCl [Zofran] 4 mg PO TID PRN #10 tablet PRN Reason: Nausea/Vomiting
[2020-04-06] MEDS ORDERED: Zofran 4 MG/2 ML VIAL IV STA (13:29)
[2020-04-06] MEDS ORDERED: MOTRIN 600 MG PO STA (13:29)
[2020-04-06] MEDS ORDERED: Sodium Chloride 0.9% 1000 ML 1,000 ML IV STA (13:29)
[2020-04-06] MEDS ORDERED: HYDROCODONE-ACETAMIN 2.5-108/5 ML SOLUTION PO STA (13:31)
[2020-04-06] MEDS ORDERED: Zofran 4 MG/2 ML VIAL ONE (13:37)
[2020-04-06] MEDS ORDERED: MOTRIN 600 MG ONE (13:37)
[2020-04-06] MEDS ORDERED: HYDROCODONE-ACETAMIN 2.5-108/5 ML SOLUTION ONE (13:38)
[2020-04-06] MEDS ORDERED: Sodium Chloride 0.9% 1000 ML 1,000 ML ONE (13:38)
[2020-04-06 14:02] LABS: Appearance SLIGHTLY CLOUDY (CLEAR); Bilirubin NEGATIVE (NEGATIVE); Blood LARGE Ery/ul (0-5); Epithelial Cells FEW /HPF (FEW); Glucose NEGATIVE (NEGATIVE); Ketones NEGATIVE (NEGATIVE); Leukocyte Esterase TRACE (NEGATIVE); Mucus SLIGHT /HPF (NEGATIVE); Nitrite NEGATIVE (NEGATIVE); Protein,Urine Dip NEGATIVE (Negative); RBC 0-2 /HPF (0-2); Urobilinogen NEGATIVE mg/dL (0-1)
[2020-04-06 14:05] LABS: Absolute Neutrophil Ct (ANC) 6.92 (1.4-6.9); BASOPHIL % 0.2 % (0.0-0.4); Basophil (Absolute #) 0.02 (0-0.4); Eosinophil % 2.7 % (0.00-5.0); Eosinophil (Absolute #) 0.25 (0-0.5); Hematocrit 40.6 % (35-47); Lymphocyte (Absolute #) 1.45 (1.0-4.6); Lymphocytes % 15.6 % (24.0-44.0); Mean Corpuscular Hemoglobin 26.6 pg (26-32); Mean Platelet Volume 9.4 fl (7.5-11.0); Monocyte (Absolute #) 0.66 (0.0-1.3); Monocytes % 7.1 % (0.0-12.0); Neutrophil % 74.4 % (36.0-66.0); Platelet Count 293 K/mm3 (150-450); Red Blood Count 4.89 M/mm3 (4.1-5.4); Red Cell Distribution Width 15.1 % (11.5-14.0); White Blood Count 9.3 K/mm3 (4.0-10.5)
[2020-04-06 14:07] VITALS: O2SAT 97
[2020-04-06 14:25] LABS: ALBUMIN 4.1 g/dL (3.5-5.0); ALKALINE PHOSPHATASE 83 U/L (38-126); ANION GAP 12.3 MEQ/L (5-15); BLOOD UREA NITROGEN 8 mg/dL (7-17); CHLORIDE 105 mmol/L (98-107); Calcium 9.2 mg/dL (8.4-10.2); Carbon Dioxide 26 mmol/L (22-30); Creatinine 1 0.75 mg/dL (0.52-1.04); Glucose 105 mg/dL (74-106); Potassium 4.1 mmol/L (3.5-5.1); SGOT/AST 26 U/L (14-36); SGPT/ALT 27 U/L (0-35); SODIUM 139 mmol/L (137-145); Total Protein 7.8 g/dL (6.3-8.2)
[2020-04-06 14:41] LABS: INFLUENZA A NEGATIVE (NEGATIVE); INFLUENZA B NEGATIVE (NEGATIVE); RESPIRATORY SYNCTIAL VIRUS NEGATIVE (Negative)
--- NOTE | 2020-04-06 14:45 | XRAY ---
Indication: Fever, cough, congestion, and short of breath. Comparison: November 17, 2019. Portable chest remains clear. Heart remains borderline enlarged. Bony thorax intact again with sternotomy wires. Impression: Continued nonacute chest with chronic features.
[2020-04-06] MEDS ORDERED: ROCEPHIN 1 Gm-D5w 50 ml Bag** 1 G/50 ML IVPB IV STA (15:36)
[2020-04-06] MEDS ORDERED: ROCEPHIN 1 Gm-D5w 50 ml Bag** 1 G/50 ML IVPB IV ONE (15:39)
[2020-04-06 15:53] VITALS: BP 109/59; PULSE 84
== END 2020-04-06 16:01 | disposition home or self-care (01) ==
LOC: ED 12:50
DX: N39.0 Urinary tract infection, site not specified (principal); J40 Bronchitis, not specified as acute or chronic
CPT/HCPCS: 36000; 36415; 71045; 80053; 81001; 83605; 84703; 85025; 86308; 87040; 87086; 87631; 87651; 94760; 96360; 96374; 99284; J0696; J2405; A9270-GY

== ENCOUNTER 2020-04-12 21:21 | Emergency (ER) | payer OTHER ==
--- NOTE | 2020-04-12 22:03 | ERPHSYRPT ---
- History of Present Illness Time Seen by Provider: 04/12/20 22:10 Exam Limitations: no limitations Physician History: Patient is a 30-year-old female who presents to our ED with complaints of cough and shortness of breath that has been ongoing for 1 week. Patient has been treated with antibiotics and steroids and states that her symptoms have not improved. Patient was tested for COVID. Testing occurred on April 01 and resulted as negative. Patient states that her symptoms are ongoing. Patient states she is coughing so much that her chest wall is becoming sore. Patient's throat feels scratchy. No posttussive emesis. No fever. No tachycardia. No heart palpitations. Patient states she is otherwise healthy. Patient up-to-date with all vaccinations. Patient voices no other complaints at this time. 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 maid told her not to take Home Medications: Albuterol Sulfate [Albuterol Sulfate Hfa] 2 puff IH Q4H PRN 08/14/19 [History] Tiotropium [place] [Spiriva Respimat] 2 puff IH DAILY 08/14/19 [History] Furosemide [Lasix] 20 mg PO DAILY 11/17/19 [History] Ibuprofen 800 mg PO TID 11/17/19 [History] lisinopriL [Lisinopril] 10 mg PO DAILY 11/17/19 [History] Gabapentin 1 tab PO BID 04/06/20 [History] Amlodipine Besylate 5 mg [Norvasc 5 mg] 2.5 mg PO DAILY 04/12/20 [History] Cyclobenzaprine HCl 5 mg PO HS 04/12/20 [History] Montelukast Sodium 10 mg [Singulair 10 MG] 10 mg PO DAILY 04/12/20 [History] Hx Tetanus, Diphtheria Vaccination/Date Given: Yes Hx Influenza Vaccination/Date Given: No Hx Pneumococcal Vaccination/Date Given: No Travel Risk - International Travel Have you traveled outside of the country in past 3 weeks: No - Coronavirus Screening Are you exhibiting any of the following symptoms?: Yes - Review of Systems Constitutional: No Symptoms, No Fever, No Chills Eyes: No Symptoms Ears, Nose, & Throat: No Symptoms Respiratory: No Symptoms, No Cough, No Dyspnea Cardiac: No Symptoms, No Chest Pain, No Edema, No Syncope Abdominal/Gastrointestinal: No Symptoms, No Abdominal Pain, No Nausea, No Vomiting, No Diarrhea Genitourinary Symptoms: No Symptoms, No Dysuria Musculoskeletal: No Symptoms, No Back Pain, No Neck Pain Skin: No Symptoms, No Rash Neurological: No Symptoms, No Dizziness, No Focal Weakness, No Sensory Changes Psychological: No Symptoms Endocrine: No Symptoms Hematologic/Lymphatic: No Symptoms Immunological/Allergic: No Symptoms All Other Systems: Reviewed and Negative - Past Medical History Pertinent Past Medical History: Yes Neurological History: No Pertinent History ENT History: No Pertinent History Cardiac History: Congenital Heart Disease, Hypertension Respiratory History: Bronchitis Endocrine Medical History: No Pertinent History Musculoskeletal History: Osteoarthritis, Other GI Medical History: No Pertinent History History: No Pertinent History Psycho-Social History: No Pertinent History Female Reproductive Disorders: No Pertinent History Other Medical History: OPEN HEART WITH REPAIR OF HOLE--4 yrs old. anemia - Past Surgical History Past Surgical History: Yes Neuro Surgical History: No Pertinent History Cardiac: Other Respiratory: No Pertinent History Gastrointestinal: No Pertinent History Genitourinary: No Pertinent History Musculoskeletal: No Pertinent History Female Surgical History: Dilation & Curettage, Section, Tubal Ligation Other Surgical History: REPAIR OF HOLE IN THE HEART - Social History Smoking Status: Never smoker Exposure to second hand smoke: No Drug Use: none Patient Lives Alone: No - Nursing Vital Signs Nursing Vital Signs: Initial Vital Signs Temperature 98.4 F 04/12/20 22:02 Pulse Rate 93 H 04/12/20 22:02 Respiratory Rate 20 04/12/20 22:02 Blood Pressure 126/85 04/12/20 22:02 O2 Sat by Pulse Oximetry 97 04/12/20 22:02 Pain Scale Pain Intensity 5 - Physical Exam General Appearance: no apparent distress, alert Eye Exam: PERRL/EOMI, eyes nml inspection Ears, Nose, Throat Exam: normal ENT inspection, TMs normal, pharynx normal, moist mucous membranes Neck Exam: normal inspection, non-tender, supple, full range of motion Respiratory Exam: normal breath sounds, lungs clear, No respiratory distress Cardiovascular Exam: regular rate/rhythm, normal heart sounds Gastrointestinal/Abdomen Exam: soft, No tenderness Back Exam: normal inspection, No CVA tenderness, No vertebral tenderness Extremity Exam: normal inspection, normal range of motion Neurologic Exam: alert, oriented x 3, cooperative, normal mood/affect, sensation nml, No motor deficits Skin Exam: normal color, warm, dry, No rash Lymphatic Exam: No adenopathy SpO2 Interpretation: normal SpO2: 97 O2 Delivery: Room Air - Course Nursing assessment & vital signs reviewed: Yes EKG Interpreted by Me: RATE (92), Sinus Rhythm, NORMAL AXIS, NORMAL INTERVALS Ordered Tests: Active Orders 24 hr Category Date Time Status Director Of Radio Services STAT Care 04/12/20 22:31 Active IV Insertion STAT Care 04/12/20 22:30 Active Pulse Oximetry (ED) STAT Care 04/12/20 22:30 Active CHEST 1 VIEW (PORTABLE) Stat Exams 04/12/20 22:26 Taken CBC W DIFF Stat Lab 04/12/20 22:37 Completed CMP Stat Lab 04/12/20 22:37 Completed D-DIMER QUANTITATIVE Stat Lab 04/12/20 22:37 Completed HCG,QUALITATIVE URINE Stat Lab 04/12/20 22:45 Completed MAGNESIUM Stat Lab 04/12/20 22:37 Completed TROPONIN Q3H Lab 04/12/20 22:37 Completed TROPONIN Q3H Lab 04/13/20 01:45 Ordered TROPONIN Q3H Lab 04/13/20 04:45 Ordered TROPONIN Q3H Lab 04/13/20 07:45 Ordered TROPONIN Q3H Lab 04/13/20 10:45 Ordered UA W/RFX UR CULTURE Stat Lab 04/12/20 22:45 Completed Respiratory Therapy Assessment DAILY RT 04/13/20 00:33 Active Medication Summary Discontinued Medications Generic Name Dose Route Start Last Admin Trade Name Freq PRN Reason Stop Dose Admin Albuterol/Ipratropium 3 ml 04/12/20 22:30 04/12/20 22:51 Duoneb 0.5-3 Mg/3 Ml Neb IH 04/12/20 22:31 3 ml STAT ONE Administration Albuterol/Ipratropium Confirm 04/12/20 22:49 Duoneb 0.5-3 Mg/3 Ml Neb Administered 04/12/20 22:50 Dose 3 ml IH .STK-MED ONE Lab/Rad Data: Laboratory Result Diagrams 04/12/20 22:37 04/12/20 22:37 Laboratory Results 04/12/20 04/12/20 04/12/20 Range/Units 22:52 22:45 22:45 WBC (4.0-10.5) K/mm3 RBC (4.1-5.4) M/mm3 Hgb (12.0-16.0) gm/dl Hct (35-47) % MCV (78-100) fl MCH (26-32) pg MCHC (32-36) g/dl RDW (11.5-14.0) % Plt Count (150-450) K/mm3 MPV (7.5-11.0) fl Gran % (36.0-66.0) % Eos # (Auto) (0-0.5) Absolute Lymphs (auto) (1.0-4.6) Absolute Monos (auto) (0.0-1.3) Lymphocytes % (24.0-44.0) % Monocytes % (0.0-12.0) % Eosinophils % (0.00-5.0) % Basophils % (0.0-0.4) % Absolute Granulocytes (1.4-6.9) Basophils # (0-0.4) D-Dimer (215-500) ng/mL Sodium (137-145) mmol/L Potassium (3.5-5.1) mmol/L Chloride (98-107) mmol/L Carbon Dioxide (22-30) mmol/L Anion Gap (5-15) MEQ/L BUN (7-17) mg/dL Creatinine (0.52-1.04) mg/dL Estimated GFR ML/MIN Glucose (74-106) mg/dL Calcium (8.4-10.2) mg/dL Magnesium (1.6-2.3) mg/dL Total Bilirubin (0.2-1.3) mg/dL AST (14-36) U/L ALT (0-35) U/L Alkaline Phosphatase (38-126) U/L Troponin I (0.000-0.034) ng/mL Serum Total Protein (6.3-8.2) g/dL Albumin (3.5-5.0) g/dL Urine Color YELLOW (YELLOW) Urine Appearance SLIGHTLY CLOUDY (CLEAR) Urine pH 7.0 (5-6) Ur Specific Douglas 1.016 (1.005-1.025) Urine Protein NEGATIVE (Negative) Urine Ketones NEGATIVE (NEGATIVE) Urine Blood NEGATIVE (0-5) Dalton/ul Urine Nitrite NEGATIVE (NEGATIVE) Urine Bilirubin NEGATIVE (NEGATIVE) Urine Urobilinogen NEGATIVE (0-1) mg/dL Ur Leukocyte Esterase NEGATIVE (NEGATIVE) Urine WBC (Auto) 3-5 (0-5) /HPF Urine RBC (Auto) 0-2 (0-2) /HPF U Epithel Cells (Auto) RARE (FEW) /HPF Urine Bacteria (Auto) NONE (NEGATIVE) /HPF Urine Mucus (Auto) SLIGHT (NEGATIVE) /HPF Urine Culture Reflexed NO (NO) Urine Glucose NEGATIVE (NEGATIVE) mg/dL Urine HCG, Qual NEGATIVE (Negative) Influenza Type A Ag NEGATIVE (NEGATIVE) Influenza Type B Ag NEGATIVE (NEGATIVE) RSV (PCR) NEGATIVE (Negative) 04/12/20 04/12/20 04/12/20 Range/Units 22:37 22:37 22:37 WBC (4.0-10.5) K/mm3 RBC (4.1-5.4) M/mm3 Hgb (12.0-16.0) gm/dl Hct (35-47) % MCV (78-100) fl MCH (26-32) pg MCHC (32-36) g/dl RDW (11.5-14.0) % Plt Count (150-450) K/mm3 MPV (7.5-11.0) fl Gran % (36.0-66.0) % Eos # (Auto) (0-0.5) Absolute Lymphs (auto) (1.0-4.6) Absolute Monos (auto) (0.0-1.3) Lymphocytes % (24.0-44.0) % Monocytes % (0.0-12.0) % Eosinophils % (0.00-5.0) % Basophils % (0.0-0.4) % Absolute Granulocytes (1.4-6.9) Basophils # (0-0.4) D-Dimer 320 (215-500) ng/mL Sodium 139 (137-145) mmol/L Potassium 4.1 (3.5-5.1) mmol/L Chloride 102 (98-107) mmol/L Carbon Dioxide 27 (22-30) mmol/L Anion Gap 13.0 (5-15) MEQ/L BUN 12 (7-17) mg/dL Creatinine 0.82 (0.52-1.04) mg/dL Estimated GFR > 60.0 ML/MIN Glucose 106 (74-106) mg/dL Calcium 9.6 (8.4-10.2) mg/dL Magnesium 2.3 (1.6-2.3) mg/dL Total Bilirubin 0.40 (0.2-1.3) mg/dL AST 30 (14-36) U/L ALT 29 (0-35) U/L Alkaline Phosphatase 91 (38-126) U/L Troponin I < 0.012 (0.000-0.034) ng/mL Serum Total Protein 8.1 (6.3-8.2) g/dL Albumin 4.4 (3.5-5.0) g/dL Urine Color (YELLOW) Urine Appearance (CLEAR) Urine pH (5-6) Ur Specific Douglas (1.005-1.025) Urine Protein (Negative) Urine Ketones (NEGATIVE) Urine Blood (0-5) Dalton/ul Urine Nitrite (NEGATIVE) Urine Bilirubin (NEGATIVE) Urine Urobilinogen (0-1) mg/dL Ur Leukocyte Esterase (NEGATIVE) Urine WBC (Auto) (0-5) /HPF Urine RBC (Auto) (0-2) /HPF U Epithel Cells (Auto) (FEW) /HPF Urine Bacteria (Auto) (NEGATIVE) /HPF Urine Mucus (Auto) (NEGATIVE) /HPF Urine Culture Reflexed (NO) Urine Glucose (NEGATIVE) mg/dL Urine HCG, Qual (Negative) Influenza Type A Ag (NEGATIVE) Influenza Type B Ag (NEGATIVE) RSV (PCR) (Negative) 04/12/20 Range/Units 22:37 WBC 11.5 H (4.0-10.5) K/mm3 RBC 5.15 (4.1-5.4) M/mm3 Hgb 13.6 (12.0-16.0) gm/dl Hct 42.0 (35-47) % MCV 81.6 (78-100) fl MCH 26.4 (26-32) pg MCHC 32.4 (32-36) g/dl RDW 14.9 H (11.5-14.0) % Plt Count 390 (150-450) K/mm3 MPV 9.1 (7.5-11.0) fl Gran % 72.2 H (36.0-66.0) % Eos # (Auto) 0.27 (0-0.5) Absolute Lymphs (auto) 2.27 (1.0-4.6) Absolute Monos (auto) 0.64 (0.0-1.3) Lymphocytes % 19.7 L (24.0-44.0) % Monocytes % 5.5 (0.0-12.0) % Eosinophils % 2.3 (0.00-5.0) % Basophils % 0.3 (0.0-0.4) % Absolute Granulocytes 8.33 H (1.4-6.9) Basophils # 0.03 (0-0.4) D-Dimer (215-500) ng/mL Sodium (137-145) mmol/L Potassium (3.5-5.1) mmol/L Chloride (98-107) mmol/L Carbon Dioxide (22-30) mmol/L Anion Gap (5-15) MEQ/L BUN (7-17) mg/dL Creatinine (0.52-1.04) mg/dL Estimated GFR ML/MIN Glucose (74-106) mg/dL Calcium (8.4-10.2) mg/dL Magnesium (1.6-2.3) mg/dL Total Bilirubin (0.2-1.3) mg/dL AST (14-36) U/L ALT (0-35) U/L Alkaline Phosphatase (38-126) U/L Troponin I (0.000-0.034) ng/mL Serum Total Protein (6.3-8.2) g/dL Albumin (3.5-5.0) g/dL Urine Color (YELLOW) Urine Appearance (CLEAR) Urine pH (5-6) Ur Specific [place] (1.005-1.025) Urine Protein (Negative) Urine Ketones (NEGATIVE) Urine Blood (0-5) Dalton/ul Urine Nitrite (NEGATIVE) Urine Bilirubin (NEGATIVE) Urine Urobilinogen (0-1) mg/dL Ur Leukocyte Esterase (NEGATIVE) Urine WBC (Auto) (0-5) /HPF Urine RBC (Auto) (0-2) /HPF U Epithel Cells (Auto) (FEW) /HPF Urine Bacteria (Auto) (NEGATIVE) /HPF Urine Mucus (Auto) (NEGATIVE) /HPF Urine Culture Reflexed (NO) Urine Glucose (NEGATIVE) mg/dL Urine HCG, Qual (Negative) Influenza Type A Ag (NEGATIVE) Influenza Type B Ag (NEGATIVE) RSV (PCR) (Negative) - Progress Progress: improved Air Movement: good Progress Note: 04/13/20 00:58 Patient reassessed. Work-up essentially negative. D-dimer negative. Troponin negative. X-ray negative for acute pathology. Patient continues to cough. Patient completed a course of antibiotics. Patient has inhaler at home. Patient has taken [id number] antitussives. Patient also just recently completed a course of steroids. No further indication for work-up at this time. Patient follow-up with her primary care doctor within 48 hours for evaluation. Blood Culture(s) Obtained: No Antibiotics given: No Counseled pt/family regarding: lab results, diagnosis, need for follow-up, rad results - Departure Departure Disposition: Home Clinical Impression: Bronchitis, Cough Condition: Stable Critical Care Time: No Referrals: JOSE ROQUE MD [Primary Care Provider] - Additional Instructions: Discharge/Care Plan IVANNA STEIN was seen on 04/13/20 in the Emergency Room. The patient was counseled regarding Diagnosis,Lab results, Imaging studies, need for follow up and when to return to the Emergency Room. Prescriptions given: Discharge Note I have spoken with the patient and/or caregivers. I have explained the patient's condition, diagnosis and treatment plan based on the information available to me at this time. I have answered the patient's and/or caregiver's questions and addressed any concerns. The patient and/or caregivers have as good understanding of the patient's diagnosis, condition and treatment plan as can be expected at this point. The vital signs have been stable. The patient's condition is stable and appropriate for discharge from the emergency department. The patient will pursue further outpatient evaluation with the primary care physician or other designated or consulting physician as outlined in the discharge instructions. The patient and/or caregivers are agreeable to this plan of care and follow-up instructions have been explained in detail. The patient and/or caregivers have received these instruction. The patient/and or caregivers are aware that any significant change in condition or worsening of symptoms should prompt an immediate return to this or the closest emergency department or call 911. Prescriptions: Benzonatate [Tessalon Perle] 200 mg PO TID #12 capsule
[2020-04-12] MEDS ORDERED: DUONEB 0.5-3 MG/3 ml Neb IH ONE ×2 (22:30→22:49)
[2020-04-12 22:41] LABS: Absolute Neutrophil Ct (ANC) 8.33 (1.4-6.9); BASOPHIL % 0.3 % (0.0-0.4); Basophil (Absolute #) 0.03 (0-0.4); Eosinophil % 2.3 % (0.00-5.0); Eosinophil (Absolute #) 0.27 (0-0.5); Hemoglobin 13.6 gm/dl (12.0-16.0); Lymphocyte (Absolute #) 2.27 (1.0-4.6); Lymphocytes % 19.7 % (24.0-44.0); Mean Cell Volume 81.6 fl (78-100); Mean Corpuscular Hemoglobin 26.4 pg (26-32); Mean Corpuscular Hgb Concent. 32.4 g/dl (32-36); Mean Platelet Volume 9.1 fl (7.5-11.0); Monocyte (Absolute #) 0.64 (0.0-1.3); Monocytes % 5.5 % (0.0-12.0); Neutrophil % 72.2 % (36.0-66.0); Platelet Count 390 K/mm3 (150-450); Red Blood Count 5.15 M/mm3 (4.1-5.4); Red Cell Distribution Width 14.9 % (11.5-14.0); White Blood Count 11.5 K/mm3 (4.0-10.5)
[2020-04-12 22:51] LABS: ALBUMIN 4.4 g/dL (3.5-5.0); ALKALINE PHOSPHATASE 91 U/L (38-126); BLOOD UREA NITROGEN 12 mg/dL (7-17); CHLORIDE 102 mmol/L (98-107); Calcium 9.6 mg/dL (8.4-10.2); Carbon Dioxide 27 mmol/L (22-30); Creatinine 1 0.82 mg/dL (0.52-1.04); EST GLOMERULAR FILTRATION RATE > 60.0 ML/MIN; Glucose 106 mg/dL (74-106); MAGNESIUM 2.3 mg/dL (1.6-2.3); Potassium 4.1 mmol/L (3.5-5.1); SGOT/AST 30 U/L (14-36); SGPT/ALT 29 U/L (0-35); SODIUM 139 mmol/L (137-145); Total Protein 8.1 g/dL (6.3-8.2)
[2020-04-12 23:02] LABS: Appearance SLIGHTLY CLOUDY (CLEAR); Bilirubin NEGATIVE (NEGATIVE); Blood NEGATIVE Ery/ul (0-5); Epithelial Cells RARE /HPF (FEW); Glucose NEGATIVE (NEGATIVE); Ketones NEGATIVE (NEGATIVE); Leukocyte Esterase NEGATIVE (NEGATIVE); Mucus SLIGHT /HPF (NEGATIVE); Nitrite NEGATIVE (NEGATIVE); Protein,Urine Dip NEGATIVE (Negative); RBC 0-2 /HPF (0-2); Specific Gravity 1.016 (1.005-1.025); Urobilinogen NEGATIVE mg/dL (0-1)
[2020-04-12 23:29] LABS: INFLUENZA A NEGATIVE (NEGATIVE); INFLUENZA B NEGATIVE (NEGATIVE); RESPIRATORY SYNCTIAL VIRUS NEGATIVE (Negative)
[2020-04-13 01:09] VITALS: BP 120/69; PULSE 85; O2SAT 100
--- NOTE | 2020-04-13 09:05 | XRAY ---
Indication: Fever and cough. Suspect Covid 19. Comparison: April 06, 2020. Portable apical lordotic chest again demonstrates normal heart and lungs. Bony thorax intact again with sternotomy wires. Comment: Preliminary interpretation was made by [facility]. No critical discrepancy.
== END 2020-04-13 01:13 | disposition home or self-care (01) ==
LOC: ED 21:21
DX: J40 Bronchitis, not specified as acute or chronic (principal); R05 Cough
CPT/HCPCS: 36000; 36415; 71045; 80053; 81001; 83735; 84484; 84703; 85025; 85379; 87631; 93005; 93041; 94640; 94760; 99284; A9270-GY

== ENCOUNTER 2020-08-15 15:33 | Observation (INO) | payer OTHER ==
[2020-08-15 16:05] LABS: BASOPHIL % 0.1 % (0.0-0.4); Basophil (Absolute #) 0.01 (0-0.4); Eosinophil % 1.4 % (0.00-5.0); Eosinophil (Absolute #) 0.12 (0-0.5); Hematocrit 37.1 % (35-47); Lymphocyte (Absolute #) 1.55 (1.0-4.6); Lymphocytes % 18.1 % (24.0-44.0); Mean Corpuscular Hemoglobin 26.2 pg (26-32); Mean Corpuscular Hgb Concent. 32.3 g/dl (32-36); Mean Platelet Volume 9.1 fl (7.5-11.0); Monocyte (Absolute #) 0.29 (0.0-1.3); Monocytes % 3.4 % (0.0-12.0); Platelet Count 323 K/mm3 (150-450); Red Blood Count 4.58 M/mm3 (4.1-5.4); Red Cell Distribution Width 14.9 % (11.5-14.0); White Blood Count 8.6 K/mm3 (4.0-10.5)
[2020-08-15 16:13] LABS: ALBUMIN 3.9 g/dL (3.5-5.0); ALKALINE PHOSPHATASE 76 U/L (38-126); ANION GAP 10.2 MEQ/L (5-15); BLOOD UREA NITROGEN 10 mg/dL (7-17); CHLORIDE 105 mmol/L (98-107); Carbon Dioxide 26 mmol/L (22-30); Creatinine 1 0.64 mg/dL (0.52-1.04); EST GLOMERULAR FILTRATION RATE > 60.0 ML/MIN; Glucose 130 mg/dL (74-106); Potassium 3.7 mmol/L (3.5-5.1); SGOT/AST 22 U/L (14-36); SGPT/ALT 22 U/L (0-35); SODIUM 138 mmol/L (137-145); Total Protein 7.5 g/dL (6.3-8.2)
--- NOTE | 2020-08-15 16:20 | XRAY ---
Indication: Chest pain. Comparison: April 12, 2020. Portable chest demonstrates new bilateral hazy interstitial alveolar opacities without consolidation/large effusion. Heart is not enlarged. Bony thorax intact again with sternotomy wires.
--- NOTE | 2020-08-15 16:35 | ERPHSYRPT ---
- History of Present Illness Time Seen by Provider: 08/15/20 15:40 Historian: patient Exam Limitations: no limitations Patient Subjective Stated Complaint: pt here for chest pain and sob since last night,she was here last month for same thing, she had testing done, and she has sleep apnea Triage Nursing Assessment: pt alert, walked in, resp labored with excertion, face mask in place, abd soft, able to undress self Physician History: Patient is a 30-year-old female with a history of Tetralogy of Fallot who presents to our ED with complaints of chest pain shortness of breath. Symptoms started last night. Patient states when she attempted to walk up her stairs she was extremely fatigued. Patient called her operations plant attendant who advised her to come to our ED for an evaluation. Patient states that her shortness of breath is significantly worse with exertion. No associated nausea or vomiting. No diaphoresis. No fever. No rash. Symptoms are progressive. Symptoms are moderate in intensity. Patient voices no other complaints or concerns at this time. Timing/Duration: yesterday, day(s) Quality: aching Location: substernal Chest Pain Radiation: no radiation Severity of Pain-Max: moderate Severity of Pain-Current: mild Modifying Factors: Improves With: movement Associated Symptoms: shortness of breath, No nausea, No vomiting, No palpitations, No abdominal pain, No cough, No hurts to breathe, No diaphoresis, No fever, No fatigue, No weakness, No swelling/lump in chest, No syncope, No rash, No headache, No dizziness Prior Chest Pain/Cardiac Workup: no prior chest pain Nitro Today/Relief: no nitro taken today Aspirin Treatment Today: no aspirin today Allergies/Adverse Reactions: No Known Drug Allergies Allergy (Unverified 08/15/20 15:48) Home Medications: Albuterol Sulfate [Albuterol Sulfate Hfa] 2 puff IH Q4H PRN 08/14/19 [History] Tiotropium [place] [Spiriva Respimat] 2 puff IH DAILY 08/14/19 [History] Furosemide [Lasix] 20 mg PO DAILY 11/17/19 [History] Ibuprofen 800 mg PO TID 11/17/19 [History] lisinopriL [Lisinopril] 10 mg PO DAILY 11/17/19 [History] Gabapentin 1 tab PO BID 04/06/20 [History] Amlodipine Besylate 5 mg [Norvasc 5 mg] 2.5 mg PO DAILY 04/12/20 [History] Cyclobenzaprine HCl 5 mg PO HS 04/12/20 [History] Montelukast Sodium 10 mg [Singulair 10 MG] 10 mg PO DAILY 04/12/20 [History] Hx Tetanus, Diphtheria Vaccination/Date Given: Yes Hx Influenza Vaccination/Date Given: No Hx Pneumococcal Vaccination/Date Given: No Immunizations Up to Date: Yes Travel Risk - International Travel Have you traveled outside of the country in past 3 weeks: No - Coronavirus Screening Are you exhibiting any of the following symptoms?: No Close contact with a COVID-19 positive Pt in past 14-21 Days: No - Review of Systems Constitutional: No Symptoms, No Fever, No Chills Eyes: No Symptoms Ears, Nose, & Throat: No Symptoms Respiratory: No Symptoms, No Cough, No Dyspnea Cardiac: No Symptoms, No Chest Pain, No Edema, No Syncope Abdominal/Gastrointestinal: No Symptoms, No Abdominal Pain, No Nausea, No Vomiting, No Diarrhea Genitourinary Symptoms: No Symptoms, No Dysuria Musculoskeletal: No Symptoms, No Back Pain, No Neck Pain Skin: No Symptoms, No Rash Neurological: No Symptoms, No Dizziness, No Focal Weakness, No Sensory Changes Psychological: No Symptoms Endocrine: No Symptoms Hematologic/Lymphatic: No Symptoms Immunological/Allergic: No Symptoms All Other Systems: Reviewed and Negative - Past Medical History Pertinent Past Medical History: Yes Neurological History: No Pertinent History ENT History: No Pertinent History Cardiac History: Congenital Heart Disease, Hypertension Respiratory History: Bronchitis, Sleep Apnea Endocrine Medical History: No Pertinent History Musculoskeletal History: Osteoarthritis, Other GI Medical History: No Pertinent History History: No Pertinent History Psycho-Social History: No Pertinent History Female Reproductive Disorders: No Pertinent History Other Medical History: OPEN HEART WITH REPAIR OF HOLE--4 yrs old. anemia - Past Surgical History Past Surgical History: Yes Neuro Surgical History: No Pertinent History Cardiac: Other Respiratory: No Pertinent History Gastrointestinal: No Pertinent History Genitourinary: No Pertinent History Musculoskeletal: No Pertinent History Female Surgical History: Dilation & Curettage, Section, Tubal Ligation Other Surgical History: REPAIR OF HOLE IN THE HEART - Social History Smoking Status: Never smoker Exposure to second hand smoke: No Drug Use: none Patient Lives Alone: No - Female History Hx Last Menstrual Period: 2 weeks ago Hx Now: No - Nursing Vital Signs Nursing Vital Signs: Initial Vital Signs Temperature 97.0 F 08/15/20 15:34 Pulse Rate 94 H 08/15/20 15:34 Respiratory Rate 20 08/15/20 15:34 Blood Pressure 118/83 08/15/20 15:34 O2 Sat by Pulse Oximetry 98 08/15/20 15:34 Pain Scale Pain Intensity 5 - Physical Exam General Appearance: no apparent distress, alert Eye Exam: PERRL/EOMI, eyes nml inspection Ears, Nose, Throat Exam: normal ENT inspection, moist mucous membranes Neck Exam: normal inspection, non-tender, supple, full range of motion Respiratory Exam: normal breath sounds, wheezing (Faint expiratory wheezing bilateral bases.), No respiratory distress Cardiovascular Exam: regular rate/rhythm, normal heart sounds Gastrointestinal/Abdomen Exam: soft, No tenderness, No mass Back Exam: normal inspection, No CVA tenderness, No vertebral tenderness Extremity Exam: normal inspection, normal range of motion Neurologic Exam: alert, oriented x 3, cooperative, normal mood/affect, sensation nml, No motor deficits Skin Exam: normal color, warm, dry SpO2 Interpretation: normal SpO2: 98 O2 Delivery: Room Air - Course Nursing assessment & vital signs reviewed: Yes EKG Interpreted by Me: RATE (95), Sinus Rhythm, NORMAL AXIS, NORMAL INTERVALS, Right Bundle Branch Block - Radiology Exams Chest X-ray Interpretation: Teleradiologist Report (Lateral hazy interstitial alveolar opacities without consolidation or large effusion.) Ordered Tests: Active Orders 24 hr Category Date Time Status Glove Operator STAT Care 08/15/20 15:42 Active EKG-ER Only STAT Care 08/15/20 15:41 Active IV Insertion STAT Care 08/15/20 15:41 Active Pulse Oximetry (ED) STAT Care 08/15/20 15:41 Active CHEST 1 VIEW (PORTABLE) Stat Exams 08/15/20 15:42 Completed CBC W DIFF Stat Lab 08/15/20 15:40 Completed CMP Stat Lab 08/15/20 15:40 Completed MAGNESIUM Stat Lab 08/15/20 15:40 Completed TROPONIN Q3H Lab 08/15/20 15:40 Completed TROPONIN Q3H Lab 08/15/20 19:15 Completed TROPONIN Q3H Lab 08/15/20 21:45 Ordered TROPONIN Q3H Lab 08/16/20 00:45 Ordered TROPONIN Q3H Lab 08/16/20 03:45 Ordered UA W/RFX UR CULTURE Stat Lab 08/15/20 15:42 Completed Urine Triage Profile Stat Lab 08/15/20 15:42 Completed Transfer Order Routine Transfer 08/15/20 Ordered Medication Summary Discontinued Medications Generic Name Dose Route Start Last Admin Trade Name Chuckq PRN Reason Stop Dose Admin Albuterol/Ipratropium 3 ml 08/15/20 20:13 Duoneb 0.5-3 Mg/3 Ml Neb IH 08/15/20 20:14 STAT ONE Methylprednisolone Sodium Succinate 125 mg 08/15/20 20:13 08/15/20 20:20 Solu-Medrol 125 Mg IV 08/15/20 20:14 125 mg STAT ONE Administration Methylprednisolone Sodium Succinate Confirm 08/15/20 20:16 Solu-Medrol 125 Mg Administered 08/15/20 20:17 Dose 125 mg .ROUTE .STK-MED ONE Lab/Rad Data: Laboratory Result Diagrams 08/15/20 15:40 08/15/20 15:40 Laboratory Results 08/15/20 08/15/20 08/15/20 Range/Units 19:15 18:15 15:42 WBC (4.0-10.5) K/mm3 RBC (4.1-5.4) M/mm3 Hgb (12.0-16.0) gm/dl Hct (35-47) % MCV (78-100) fl MCH (26-32) pg MCHC (32-36) g/dl RDW (11.5-14.0) % Plt Count (150-450) K/mm3 MPV (7.5-11.0) fl Gran % (36.0-66.0) % Eos # (Auto) (0-0.5) Absolute Lymphs (auto) (1.0-4.6) Absolute Monos (auto) (0.0-1.3) Lymphocytes % (24.0-44.0) % Monocytes % (0.0-12.0) % Eosinophils % (0.00-5.0) % Basophils % (0.0-0.4) % Absolute Granulocytes (1.4-6.9) Basophils # (0-0.4) Sodium (137-145) mmol/L Potassium (3.5-5.1) mmol/L Chloride (98-107) mmol/L Carbon Dioxide (22-30) mmol/L Anion Gap (5-15) MEQ/L BUN (7-17) mg/dL Creatinine (0.52-1.04) mg/dL Estimated GFR ML/MIN Glucose (74-106) mg/dL Calcium (8.4-10.2) mg/dL Magnesium (1.6-2.3) mg/dL Total Bilirubin (0.2-1.3) mg/dL AST (14-36) U/L ALT (0-35) U/L Alkaline Phosphatase (38-126) U/L Troponin I < 0.012 (0.000-0.034) ng/mL Serum Total Protein (6.3-8.2) g/dL Albumin (3.5-5.0) g/dL Urine Color (YELLOW) Urine Appearance (CLEAR) Urine pH (5-6) Ur Specific [place] (1.005-1.025) Urine Protein (Negative) Urine Ketones (NEGATIVE) Urine Blood (0-5) Dalton/ul Urine Nitrite (NEGATIVE) Urine Bilirubin (NEGATIVE) Urine Urobilinogen (0-1) mg/dL Ur Leukocyte Esterase (NEGATIVE) Urine WBC (Auto) (0-5) /HPF Urine RBC (Auto) (0-2) /HPF U Epithel Cells (Auto) (FEW) /HPF Urine Bacteria (Auto) (NEGATIVE) /HPF Amorphous Crystals (NEGATIVE) /HPF Urine Mucus (Auto) (NEGATIVE) /HPF Urine Culture Reflexed (NO) Urine Glucose (NEGATIVE) mg/dL Urine Opiates Level NEGATIVE (NEGATIVE) Ur Methadone NEGATIVE (NEGATIVE) Urine Barbiturates NEGATIVE (NEGATIVE) Ur Phencyclidine (PCP) NEGATIVE (NEGATIVE) Urine Amphetamine NEGATIVE (NEGATIVE) U Benzodiazepine Level NEGATIVE (NEGATIVE) Urine Cocaine NEGATIVE (NEGATIVE) Urine Marijuana (THC) NEGATIVE (NEGATIVE) SARS-CoV-2 (PCR) NEGATIVE (NEGATIVE) 08/15/20 08/15/20 08/15/20 Range/Units 15:42 15:40 15:40 WBC (4.0-10.5) K/mm3 RBC (4.1-5.4) M/mm3 Hgb (12.0-16.0) gm/dl Hct (35-47) % MCV (78-100) fl MCH (26-32) pg MCHC (32-36) g/dl RDW (11.5-14.0) % Plt Count (150-450) K/mm3 MPV (7.5-11.0) fl Gran % (36.0-66.0) % Eos # (Auto) (0-0.5) Absolute Lymphs (auto) (1.0-4.6) Absolute Monos (auto) (0.0-1.3) Lymphocytes % (24.0-44.0) % Monocytes % (0.0-12.0) % Eosinophils % (0.00-5.0) % Basophils % (0.0-0.4) % Absolute Granulocytes (1.4-6.9) Basophils # (0-0.4) Sodium 138 (137-145) mmol/L Potassium 3.7 (3.5-5.1) mmol/L Chloride 105 (98-107) mmol/L Carbon Dioxide 26 (22-30) mmol/L Anion Gap 10.2 (5-15) MEQ/L BUN 10 (7-17) mg/dL Creatinine 0.64 (0.52-1.04) mg/dL Estimated GFR > 60.0 ML/MIN Glucose 130 H (74-106) mg/dL Calcium 9.0 (8.4-10.2) mg/dL Magnesium 2.0 (1.6-2.3) mg/dL Total Bilirubin 0.30 (0.2-1.3) mg/dL AST 22 (14-36) U/L ALT 22 (0-35) U/L Alkaline Phosphatase 76 (38-126) U/L Troponin I < 0.012 (0.000-0.034) ng/mL Serum Total Protein 7.5 (6.3-8.2) g/dL Albumin 3.9 (3.5-5.0) g/dL Urine Color YELLOW (YELLOW) Urine Appearance CLOUDY (CLEAR) Urine pH 7.0 (5-6) Ur Specific [place] 1.017 (1.005-1.025) Urine Protein NEGATIVE (Negative) Urine Ketones NEGATIVE (NEGATIVE) Urine Blood NEGATIVE (0-5) Dalton/ul Urine Nitrite NEGATIVE (NEGATIVE) Urine Bilirubin NEGATIVE (NEGATIVE) Urine Urobilinogen NEGATIVE (0-1) mg/dL Ur Leukocyte Esterase NEGATIVE (NEGATIVE) Urine WBC (Auto) 3-5 (0-5) /HPF Urine RBC (Auto) 11-15 (0-2) /HPF U Epithel Cells (Auto) FEW (FEW) /HPF Urine Bacteria (Auto) FEW (NEGATIVE) /HPF Amorphous Crystals FEW (NEGATIVE) /HPF Urine Mucus (Auto) SLIGHT (NEGATIVE) /HPF Urine Culture Reflexed NO (NO) Urine Glucose NEGATIVE (NEGATIVE) mg/dL Urine Opiates Level (NEGATIVE) Ur Methadone (NEGATIVE) Urine Barbiturates (NEGATIVE) Ur Phencyclidine (PCP) (NEGATIVE) Urine Amphetamine (NEGATIVE) U Benzodiazepine Level (NEGATIVE) Urine Cocaine (NEGATIVE) Urine Marijuana (THC) (NEGATIVE) SARS-CoV-2 (PCR) (NEGATIVE) 08/15/20 Range/Units 15:40 WBC 8.6 (4.0-10.5) K/mm3 RBC 4.58 (4.1-5.4) M/mm3 Hgb 12.0 (12.0-16.0) gm/dl Hct 37.1 (35-47) % MCV 81.0 (78-100) fl MCH 26.2 (26-32) pg MCHC 32.3 (32-36) g/dl RDW 14.9 H (11.5-14.0) % Plt Count 323 (150-450) K/mm3 MPV 9.1 (7.5-11.0) fl Gran % 77.0 H (36.0-66.0) % Eos # (Auto) 0.12 (0-0.5) Absolute Lymphs (auto) 1.55 (1.0-4.6) Absolute Monos (auto) 0.29 (0.0-1.3) Lymphocytes % 18.1 L (24.0-44.0) % Monocytes % 3.4 (0.0-12.0) % Eosinophils % 1.4 (0.00-5.0) % Basophils % 0.1 (0.0-0.4) % Absolute Granulocytes 6.60 (1.4-6.9) Basophils # 0.01 (0-0.4) Sodium (137-145) mmol/L Potassium (3.5-5.1) mmol/L Chloride (98-107) mmol/L Carbon Dioxide (22-30) mmol/L Anion Gap (5-15) MEQ/L BUN (7-17) mg/dL Creatinine (0.52-1.04) mg/dL Estimated GFR ML/MIN Glucose (74-106) mg/dL Calcium (8.4-10.2) mg/dL Magnesium (1.6-2.3) mg/dL Total Bilirubin (0.2-1.3) mg/dL AST (14-36) U/L ALT (0-35) U/L Alkaline Phosphatase (38-126) U/L Troponin I (0.000-0.034) ng/mL Serum Total Protein (6.3-8.2) g/dL Albumin (3.5-5.0) g/dL Urine Color (YELLOW) Urine Appearance (CLEAR) Urine pH (5-6) Ur Specific [place] (1.005-1.025) Urine Protein (Negative) Urine Ketones (NEGATIVE) Urine Blood (0-5) Dalton/ul Urine Nitrite (NEGATIVE) Urine Bilirubin (NEGATIVE) Urine Urobilinogen (0-1) mg/dL Ur Leukocyte Esterase (NEGATIVE) Urine WBC (Auto) (0-5) /HPF Urine RBC (Auto) (0-2) /HPF U Epithel Cells (Auto) (FEW) /HPF Urine Bacteria (Auto) (NEGATIVE) /HPF Amorphous Crystals (NEGATIVE) /HPF Urine Mucus (Auto) (NEGATIVE) /HPF Urine Culture Reflexed (NO) Urine Glucose (NEGATIVE) mg/dL Urine Opiates Level (NEGATIVE) Ur Methadone (NEGATIVE) Urine Barbiturates (NEGATIVE) Ur Phencyclidine (PCP) (NEGATIVE) Urine Amphetamine (NEGATIVE) U Benzodiazepine Level (NEGATIVE) Urine Cocaine (NEGATIVE) Urine Marijuana (THC) (NEGATIVE) SARS-CoV-2 (PCR) (NEGATIVE) - Progress Progress: improved Air Movement: fair Progress Note: 08/15/20 20:27 Covid negative. We tried contacting patient's operations plant attendant [phone]. Physician responded. He states that no indication to transfer patient at this time. However his group is available 24 hours a day if they have any questions or if we decided to transfer patient. Case discussed with Dr. Roque, our patient's primary care physician who accepts admission to observation. Plan of care discussed with patient who accepts admission to observation. Patient received a treatment of albuterol and a dose of Solu- Medrol.. Her vital stable. No tachycardia or hypotension observed. Oxygen saturation at rest is on room air 08/15/20 20:29 08/15/20 20:31 Blood Culture(s) Obtained: No Antibiotics given: No Discussed with : Neo Will see patient in: hospital (observation) Counseled pt/family regarding: lab results, diagnosis, rad results - Departure Departure Disposition: Observation Clinical Impression: SOB (shortness of breath), Asthma exacerbation Condition: Stable Critical Care Time: No Referrals: JOSE ROQUE MD [Primary Care Provider] -
[2020-08-15 16:37] LABS: Amphetamine,Urine NEGATIVE (NEGATIVE); Barbiturate,Urine NEGATIVE (NEGATIVE); Benzodiazepine,Urine NEGATIVE (NEGATIVE); Cocaine,Urine NEGATIVE (NEGATIVE); Methadone,Urine NEGATIVE (NEGATIVE); Opiate,Urine NEGATIVE (NEGATIVE); PCP,Urine NEGATIVE (NEGATIVE); THC,Urine NEGATIVE (NEGATIVE)
[2020-08-15 16:40] LABS: Amourphous Crystal FEW /HPF (NEGATIVE); Appearance CLOUDY (CLEAR); Bacteria FEW /HPF (NEGATIVE); Bilirubin NEGATIVE (NEGATIVE); Blood NEGATIVE Ery/ul (0-5); Epithelial Cells FEW /HPF (FEW); Glucose NEGATIVE (NEGATIVE); Ketones NEGATIVE (NEGATIVE); Leukocyte Esterase NEGATIVE (NEGATIVE); Mucus SLIGHT /HPF (NEGATIVE); Nitrite NEGATIVE (NEGATIVE); Protein,Urine Dip NEGATIVE (Negative); Specific Gravity 1.017 (1.005-1.025); Urobilinogen NEGATIVE mg/dL (0-1)
[2020-08-15] MEDS ORDERED: solu-MEDROL 125 MG IV ONE (20:13)
[2020-08-15] MEDS ORDERED: DUONEB 0.5-3 MG/3 ml Neb IH ONE ×2 (20:13→20:42)
[2020-08-15] MEDS ORDERED: solu-MEDROL 125 MG ONE (20:16)
[2020-08-15] MEDS ORDERED: MOTRIN 400 MG PO PRN (22:08)
[2020-08-15] MEDS ORDERED: ZOFRAN ODT 4 MG PO PRN (22:08)
[2020-08-15] MEDS ORDERED: DUONEB 0.5-3 MG/3 ml Neb IH PRN (22:10)
[2020-08-15] MEDS: NEURONTIN 300 MG PO SCH (22:50)
[2020-08-15] MEDS: Cyclobenzaprine 10 MG PO SCH (22:50)
[2020-08-16] MEDS: solu-MEDROL 125 MG IV SCH ×3 (04:20→21:04)
[2020-08-16 04:32] LABS: Hematocrit 40.5 % (35-47); Hemoglobin 12.9 gm/dl (12.0-16.0); Mean Cell Volume 81.2 fl (78-100); Mean Corpuscular Hemoglobin 25.9 pg (26-32); Mean Corpuscular Hgb Concent. 31.9 g/dl (32-36); Mean Platelet Volume 9.1 fl (7.5-11.0); Platelet Count 352 K/mm3 (150-450); Red Blood Count 4.99 M/mm3 (4.1-5.4); Red Cell Distribution Width 14.9 % (11.5-14.0); White Blood Count 10.6 K/mm3 (4.0-10.5)
[2020-08-16 04:38] LABS: BLOOD UREA NITROGEN 10 mg/dL (7-17); CHLORIDE 104 mmol/L (98-107); Calcium 9.5 mg/dL (8.4-10.2); Carbon Dioxide 23 mmol/L (22-30); Creatinine 1 0.59 mg/dL (0.52-1.04); EST GLOMERULAR FILTRATION RATE > 60.0 ML/MIN; Glucose 190 mg/dL (74-106); Potassium 4.3 mmol/L (3.5-5.1); SODIUM 135 mmol/L (137-145)
[2020-08-16] MEDS ORDERED: PROVENTIL 2.5 MG/3 ML NEB IH SCH (07:00)
[2020-08-16] MEDS ORDERED: PATIENT OWN MEDICATION IH SCH ×3 (07:00→10:00)
[2020-08-16] MEDS ORDERED: PATIENT OWN MEDICATION IH PRN (07:00)
[2020-08-16] MEDS ORDERED: PROVENTIL 2.5 MG/3 ML NEB IH ONE (07:12)
[2020-08-16] MEDS ORDERED: TIOTROPIUM BROMIDE IH SCH (10:00)
[2020-08-16] MEDS ORDERED: Spiriva 18 Mcg/Cap Inhaler IH SCH (10:00)
--- NOTE | 2020-08-16 10:24 | PCM.HP ---
History of Present Illness - Chief Complaint Chief Complaint: ASTHMA, SHORTNESS OF BREATH History of Present Illness: is a 30-year-old female with a history of Tetralogy of Fallot who presents to our ED with complaints of chest pain shortness of breath. Symptoms started last night. Patient states when she attempted to walk up her stairs she was extremely fatigued. 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 Patient states that her shortness of breath is significantly worse with exertion. No associated nausea or vomiting. No diaphoresis. No fever. No rash. Symptoms are progressive. Symptoms are moderate in intensity. Patient voices no other complaints or concerns at this time. - Review of Systems Constitutional: No Fever, No Chills Eyes: No Symptoms Ears, Nose, & Throat: No Symptoms Respiratory: Cough, Orthopnea, Short Of Breath, Wheezing Cardiac: No Chest Pain, No Edema, No Syncope Abdominal/Gastrointestinal: No Abdominal Pain, No Nausea, No Vomiting, No Diarrhea Genitourinary Symptoms: No Dysuria Musculoskeletal: No Back Pain, No Neck Pain Skin: No Rash Neurological: No Dizziness, No Focal Weakness, No Sensory Changes Psychological: No Symptoms Endocrine: No Symptoms Hematologic/Lymphatic: No Symptoms Immunological/Allergic: No Symptoms Medications & Allergies Home Medications: Home Medication List Albuterol Sulfate [Albuterol Sulfate Hfa] 2 puff IH Q4HPRN PRN 08/14/19 [History Confirmed 08/15/20] Tiotropium [place] [Spiriva Respimat] 2 puff IH DAILY 08/14/19 [History Confirmed 08/15/20] Furosemide [Lasix] 20 mg PO DAILY 11/17/19 [History Confirmed 08/15/20] Ibuprofen 800 mg PO TIDPRN PRN 11/17/19 [History Confirmed 08/15/20] lisinopriL [Lisinopril] 10 mg PO DAILY 11/17/19 [History Confirmed 08/15/20] Gabapentin 300 tab PO BID 04/06/20 [History Confirmed 08/15/20] Cyclobenzaprine HCl 5 mg PO HS 04/12/20 [History Confirmed 08/15/20] Montelukast Sodium 10 mg [Singulair 10 MG] 10 mg PO DAILY 04/12/20 [History Confirmed 08/15/20] Albuterol/Ipratropium 3ml Neb* [DUONEB 0.5-3 MG/3 ml Neb] 1 neb IH BID 08/15/20 [History Confirmed 08/15/20] Budesonide/Formoterol Fumarate [Symbicort 160-4.5 Mcg Inhaler] 1 puff IH DAILY 08/15/20 [History Confirmed 08/15/20] Ondansetron HCl [Zofran] 4 mg PO TIDPRN PRN 08/15/20 [History Confirmed 08/15/20] Allergies/Adverse Reactions: Allergies Allergy/AdvReac Type Severity Reaction Status Date / Time No Known Drug Allergies Allergy Verified 08/15/20 21:44 - Past Medical History Past Medical History: Yes Neurological History: No Pertinent History ENT History: No Pertinent History Cardiac History: Congenital Heart Disease, Hypertension Respiratory History: Asthma, Bronchitis, Sleep Apnea Endocrine Medical History: No Pertinent History Musculoskelatal History: Osteoarthritis, Other GI Medical History: No Pertinent History History: No Pertinent History Pyscho-Social History: No Pertinent History Reproductive Disorders: No Pertinent History Comment: OPEN HEART WITH REPAIR OF HOLE--4 yrs old. anemia - Female History Hx Last Menstrual Period: 2 weeks ago Are you now?: No - Past Surgical History Past Surgical History: Yes Neuro Surgical History: No Pertinent History Cardiac History: Other Respiratory Surgery: No Pertinent History GI Surgical History: No Pertinent History Genitourinary Surgical Hx: No Pertinent History Musculskeletal Surgical Hx: No Pertinent History Female Surgical History: Dilation & Curettage, Section, Tubal Ligation Other Surgical History: REPAIR OF HOLE IN THE HEART - Social History Smoking Status: Never smoker Exposure to second hand smoke: No Alcohol: Rarely Drug Use: none - Physical Exam Vital Signs: Vital Signs - 24 hr Temp Pulse Resp BP Pulse Ox 08/16/20 07:26 97.8 F 90 16 131/75 94 L 08/16/20 07:05 93 L 08/16/20 04:00 98.6 F 87 18 124/68 95 08/16/20 01:00 93 H 20 96 08/16/20 00:00 97.4 F 93 H 20 123/64 96 08/15/20 21:30 98.2 F 86 20 128/70 92 L 08/15/20 20:54 83 20 113/82 98 12/28/20 20:45 83 24 98 08/15/20 20:33 98 08/15/20 19:25 92 H 18 120/76 100 08/15/20 18:36 93 H 15 127/78 99 08/15/20 17:07 88 16 139/67 99 08/15/20 16:46 95 H 16 115/85 96 08/15/20 15:45 97 08/15/20 15:34 97.0 F 94 H 20 118/83 98 General Appearance: no apparent distress, alert Neurologic Exam: alert, oriented x 3, cooperative, normal mood/affect, nml cerebellar function, nml station & gait, sensation nml, No motor deficits Eye Exam: PERRL/EOMI, eyes nml inspection Ears, Nose, Throat Exam: normal ENT inspection, TMs normal, pharynx normal, moist mucous membranes Neck Exam: normal inspection, non-tender, supple, full range of motion Respiratory Exam: diminished breath sounds, crackles/rales, rhonchi, wheezing, No respiratory distress Cardiovascular Exam: regular rate/rhythm, normal heart sounds, normal peripheral pulses Gastrointestinal/Abdomen Exam: soft, normal bowel sounds, No tenderness, No mass Back Exam: normal inspection, normal range of motion, No CVA tenderness, No vertebral tenderness Extremity Exam: normal inspection, normal range of motion, pelvis stable Skin Exam: normal color, warm, dry, No rash Lymphatic Exam: No adenopathy Results - Labs Lab/Micro Results: Lab Results-Last 24 Hours 08/15/20 08/15/20 08/15/20 Range/Units 15:40 15:40 15:40 WBC 8.6 (4.0-10.5) K/mm3 RBC 4.58 (4.1-5.4) M/mm3 Hgb 12.0 (12.0-16.0) gm/dl Hct 37.1 (35-47) % MCV 81.0 (78-100) fl MCH 26.2 (26-32) pg MCHC 32.3 (32-36) g/dl RDW 14.9 H (11.5-14.0) % Plt Count 323 (150-450) K/mm3 MPV 9.1 (7.5-11.0) fl Gran % 77.0 H (36.0-66.0) % Eos # (Auto) 0.12 (0-0.5) Absolute Lymphs (auto) 1.55 (1.0-4.6) Absolute Monos (auto) 0.29 (0.0-1.3) Lymphocytes % 18.1 L (24.0-44.0) % Monocytes % 3.4 (0.0-12.0) % Eosinophils % 1.4 (0.00-5.0) % Basophils % 0.1 (0.0-0.4) % Absolute Granulocytes 6.60 (1.4-6.9) Basophils # 0.01 (0-0.4) Sodium 138 (137-145) mmol/L Potassium 3.7 (3.5-5.1) mmol/L Chloride 105 (98-107) mmol/L Carbon Dioxide 26 (22-30) mmol/L Anion Gap 10.2 (5-15) MEQ/L BUN 10 (7-17) mg/dL Creatinine 0.64 (0.52-1.04) mg/dL Estimated GFR > 60.0 ML/MIN Glucose 130 H (74-106) mg/dL Calcium 9.0 (8.4-10.2) mg/dL Magnesium 2.0 (1.6-2.3) mg/dL Total Bilirubin 0.30 (0.2-1.3) mg/dL AST 22 (14-36) U/L ALT 22 (0-35) U/L Alkaline Phosphatase 76 (38-126) U/L Troponin I < 0.012 (0.000-0.034) ng/mL Serum Total Protein 7.5 (6.3-8.2) g/dL Albumin 3.9 (3.5-5.0) g/dL Urine Color (YELLOW) Urine Appearance (CLEAR) Urine pH (5-6) Ur Specific Turner (1.005-1.025) Urine Protein (Negative) Urine Ketones (NEGATIVE) Urine Blood (0-5) Dalton/ul Urine Nitrite (NEGATIVE) Urine Bilirubin (NEGATIVE) Urine Urobilinogen (0-1) mg/dL Ur Leukocyte Esterase (NEGATIVE) Urine WBC (Auto) (0-5) /HPF Urine RBC (Auto) (0-2) /HPF U Epithel Cells (Auto) (FEW) /HPF Urine Bacteria (Auto) (NEGATIVE) /HPF Amorphous Crystals (NEGATIVE) /HPF Urine Mucus (Auto) (NEGATIVE) /HPF Urine Culture Reflexed (NO) Urine Glucose (NEGATIVE) mg/dL Urine Opiates Level (NEGATIVE) Ur Methadone (NEGATIVE) Urine Barbiturates (NEGATIVE) Ur Phencyclidine (PCP) (NEGATIVE) Urine Amphetamine (NEGATIVE) U Benzodiazepine Level (NEGATIVE) Urine Cocaine (NEGATIVE) Urine Marijuana (THC) (NEGATIVE) SARS-CoV-2 (PCR) (NEGATIVE) 08/15/20 08/15/20 08/15/20 Range/Units 15:42 15:42 18:15 WBC (4.0-10.5) K/mm3 RBC (4.1-5.4) M/mm3 Hgb (12.0-16.0) gm/dl Hct (35-47) % MCV (78-100) fl MCH (26-32) pg MCHC (32-36) g/dl RDW (11.5-14.0) % Plt Count (150-450) K/mm3 MPV (7.5-11.0) fl Gran % (36.0-66.0) % Eos # (Auto) (0-0.5) Absolute Lymphs (auto) (1.0-4.6) Absolute Monos (auto) (0.0-1.3) Lymphocytes % (24.0-44.0) % Monocytes % (0.0-12.0) % Eosinophils % (0.00-5.0) % Basophils % (0.0-0.4) % Absolute Granulocytes (1.4-6.9) Basophils # (0-0.4) Sodium (137-145) mmol/L Potassium (3.5-5.1) mmol/L Chloride (98-107) mmol/L Carbon Dioxide (22-30) mmol/L Anion Gap (5-15) MEQ/L BUN (7-17) mg/dL Creatinine (0.52-1.04) mg/dL Estimated GFR ML/MIN Glucose (74-106) mg/dL Calcium (8.4-10.2) mg/dL Magnesium (1.6-2.3) mg/dL Total Bilirubin (0.2-1.3) mg/dL AST (14-36) U/L ALT (0-35) U/L Alkaline Phosphatase (38-126) U/L Troponin I (0.000-0.034) ng/mL Serum Total Protein (6.3-8.2) g/dL Albumin (3.5-5.0) g/dL Urine Color YELLOW (YELLOW) Urine Appearance CLOUDY (CLEAR) Urine pH 7.0 (5-6) Ur Specific Turner 1.017 (1.005-1.025) Urine Protein NEGATIVE (Negative) Urine Ketones NEGATIVE (NEGATIVE) Urine Blood NEGATIVE (0-5) Dalton/ul Urine Nitrite NEGATIVE (NEGATIVE) Urine Bilirubin NEGATIVE (NEGATIVE) Urine Urobilinogen NEGATIVE (0-1) mg/dL Ur Leukocyte Esterase NEGATIVE (NEGATIVE) Urine WBC (Auto) 3-5 (0-5) /HPF Urine RBC (Auto) 11-15 (0-2) /HPF U Epithel Cells (Auto) FEW (FEW) /HPF Urine Bacteria (Auto) FEW (NEGATIVE) /HPF Amorphous Crystals FEW (NEGATIVE) /HPF Urine Mucus (Auto) SLIGHT (NEGATIVE) /HPF Urine Culture Reflexed NO (NO) Urine Glucose NEGATIVE (NEGATIVE) mg/dL Urine Opiates Level NEGATIVE (NEGATIVE) Ur Methadone NEGATIVE (NEGATIVE) Urine Barbiturates NEGATIVE (NEGATIVE) Ur Phencyclidine (PCP) NEGATIVE (NEGATIVE) Urine Amphetamine NEGATIVE (NEGATIVE) U Benzodiazepine Level NEGATIVE (NEGATIVE) Urine Cocaine NEGATIVE (NEGATIVE) Urine Marijuana (THC) NEGATIVE (NEGATIVE) SARS-CoV-2 (PCR) NEGATIVE (NEGATIVE) 08/15/20 08/15/20 08/16/20 Range/Units 19:15 22:40 00:50 WBC (4.0-10.5) K/mm3 RBC (4.1-5.4) M/mm3 Hgb (12.0-16.0) gm/dl Hct (35-47) % MCV (78-100) fl MCH (26-32) pg MCHC (32-36) g/dl RDW (11.5-14.0) % Plt Count (150-450) K/mm3 MPV (7.5-11.0) fl Gran % (36.0-66.0) % Eos # (Auto) (0-0.5) Absolute Lymphs (auto) (1.0-4.6) Absolute Monos (auto) (0.0-1.3) Lymphocytes % (24.0-44.0) % Monocytes % (0.0-12.0) % Eosinophils % (0.00-5.0) % Basophils % (0.0-0.4) % Absolute Granulocytes (1.4-6.9) Basophils # (0-0.4) Sodium (137-145) mmol/L Potassium (3.5-5.1) mmol/L Chloride (98-107) mmol/L Carbon Dioxide (22-30) mmol/L Anion Gap (5-15) MEQ/L BUN (7-17) mg/dL Creatinine (0.52-1.04) mg/dL Estimated GFR ML/MIN Glucose (74-106) mg/dL Calcium (8.4-10.2) mg/dL Magnesium (1.6-2.3) mg/dL Total Bilirubin (0.2-1.3) mg/dL AST (14-36) U/L ALT (0-35) U/L Alkaline Phosphatase (38-126) U/L Troponin I < 0.012 < 0.012 < 0.012 (0.000-0.034) ng/mL Serum Total Protein (6.3-8.2) g/dL Albumin (3.5-5.0) g/dL Urine Color (YELLOW) Urine Appearance (CLEAR) Urine pH (5-6) Ur Specific Turner (1.005-1.025) Urine Protein (Negative) Urine Ketones (NEGATIVE) Urine Blood (0-5) Dalton/ul Urine Nitrite (NEGATIVE) Urine Bilirubin (NEGATIVE) Urine Urobilinogen (0-1) mg/dL Ur Leukocyte Esterase (NEGATIVE) Urine WBC (Auto) (0-5) /HPF Urine RBC (Auto) (0-2) /HPF U Epithel Cells (Auto) (FEW) /HPF Urine Bacteria (Auto) (NEGATIVE) /HPF Amorphous Crystals (NEGATIVE) /HPF Urine Mucus (Auto) (NEGATIVE) /HPF Urine Culture Reflexed (NO) Urine Glucose (NEGATIVE) mg/dL Urine Opiates Level (NEGATIVE) Ur Methadone (NEGATIVE) Urine Barbiturates (NEGATIVE) Ur Phencyclidine (PCP) (NEGATIVE) Urine Amphetamine (NEGATIVE) U Benzodiazepine Level (NEGATIVE) Urine Cocaine (NEGATIVE) Urine Marijuana (THC) (NEGATIVE) SARS-CoV-2 (PCR) (NEGATIVE) 08/16/20 08/16/20 08/16/20 Range/Units 04:08 04:08 04:08 WBC 10.6 H (4.0-10.5) K/mm3 RBC 4.99 (4.1-5.4) M/mm3 Hgb 12.9 (12.0-16.0) gm/dl Hct 40.5 (35-47) % MCV 81.2 (78-100) fl MCH 25.9 L (26-32) pg MCHC 31.9 L (32-36) g/dl RDW 14.9 H (11.5-14.0) % Plt Count 352 (150-450) K/mm3 MPV 9.1 (7.5-11.0) fl Gran % (36.0-66.0) % Eos # (Auto) (0-0.5) Absolute Lymphs (auto) (1.0-4.6) Absolute Monos (auto) (0.0-1.3) Lymphocytes % (24.0-44.0) % Monocytes % (0.0-12.0) % Eosinophils % (0.00-5.0) % Basophils % (0.0-0.4) % Absolute Granulocytes (1.4-6.9) Basophils # (0-0.4) Sodium 135 L (137-145) mmol/L Potassium 4.3 (3.5-5.1) mmol/L Chloride 104 (98-107) mmol/L Carbon Dioxide 23 (22-30) mmol/L Anion Gap 12.0 (5-15) MEQ/L BUN 10 (7-17) mg/dL Creatinine 0.59 (0.52-1.04) mg/dL Estimated GFR > 60.0 ML/MIN Glucose 190 H (74-106) mg/dL Calcium 9.5 (8.4-10.2) mg/dL Magnesium (1.6-2.3) mg/dL Total Bilirubin (0.2-1.3) mg/dL AST (14-36) U/L ALT (0-35) U/L Alkaline Phosphatase (38-126) U/L Troponin I < 0.012 (0.000-0.034) ng/mL Serum Total Protein (6.3-8.2) g/dL Albumin (3.5-5.0) g/dL Urine Color (YELLOW) Urine Appearance (CLEAR) Urine pH (5-6) Ur Specific [place] (1.005-1.025) Urine Protein (Negative) Urine Ketones (NEGATIVE) Urine Blood (0-5) Dalton/ul Urine Nitrite (NEGATIVE) Urine Bilirubin (NEGATIVE) Urine Urobilinogen (0-1) mg/dL Ur Leukocyte Esterase (NEGATIVE) Urine WBC (Auto) (0-5) /HPF Urine RBC (Auto) (0-2) /HPF U Epithel Cells (Auto) (FEW) /HPF Urine Bacteria (Auto) (NEGATIVE) /HPF Amorphous Crystals (NEGATIVE) /HPF Urine Mucus (Auto) (NEGATIVE) /HPF Urine Culture Reflexed (NO) Urine Glucose (NEGATIVE) mg/dL Urine Opiates Level (NEGATIVE) Ur Methadone (NEGATIVE) Urine Barbiturates (NEGATIVE) Ur Phencyclidine (PCP) (NEGATIVE) Urine Amphetamine (NEGATIVE) U Benzodiazepine Level (NEGATIVE) Urine Cocaine (NEGATIVE) Urine Marijuana (THC) (NEGATIVE) SARS-CoV-2 (PCR) (NEGATIVE) - Radiology Impressions Radiology Exams & Impressions: Radiology Procedures Category Date Time Status CHEST 1 VIEW (PORTABLE) Stat Exams 08/15/20 15:42 Completed - Other Procedures and Tests Respiratory Therapy 08/15/20 20:54 Respiratory Therapy Assessment DAILY Assessment/Plan (1) Asthma exacerbation Current Visit: Yes Status: Acute Qualifiers: Asthma severity: moderate Assessment & Plan: Chief Complaint Diagnosis ASTHMA, SHORTNESS OF BREATH Allergies Allergy/AdvReac Type Severity Reaction Status Date / Time No Known Drug Allergies Allergy Verified 08/15/20 21:44 Vital Signs (Last 24 hours) Temp Pulse Resp BP Pulse Ox 08/16/20 07:26 97.8 F 90 16 131/75 94 L 08/16/20 07:05 93 L 08/16/20 04:00 98.6 F 87 18 124/68 95 08/16/20 01:00 93 H 20 96 08/16/20 00:00 97.4 F 93 H 20 123/64 96 08/15/20 21:30 98.2 F 86 20 128/70 92 L 08/15/20 20:54 83 20 113/82 98 08/15/20 20:45 83 24 98 08/15/20 20:33 98 08/15/20 19:25 92 H 18 120/76 100 08/15/20 18:36 93 H 15 127/78 99 08/15/20 17:07 88 16 139/67 99 08/15/20 16:46 95 H 16 115/85 96 08/15/20 15:45 97 08/15/20 15:34 97.0 F 94 H 20 118/83 98 Home Medications Medication Instructions Recorded Confirmed Last Taken Type Albuterol/Ipratropium 3ml Neb* 1 neb IH BID 08/15/20 08/15/20 08/15/20 History [DUONEB 0.5-3 MG/3 ml Neb] Budesonide/Formoterol Fumarate 1 puff IH DAILY 08/15/20 08/15/20 08/15/20 History [Symbicort 160-4.5 Mcg Inhaler] Ondansetron HCl [Zofran] 4 mg PO TIDPRN PRN 08/15/20 08/15/20 Unknown History Current Medications Generic Name Dose Route Start Last Admin Trade Name Freq PRN Reason Stop Dose Admin Albuterol Sulfate 2.5 mg 08/16/20 07:00 08/16/20 07:05 Proventil 2.5 Mg/3 Ml Neb IH 09/15/20 06:59 2.5 mg BIDRT TIM Administration Albuterol/Ipratropium 3 ml 08/15/20 22:10 Duoneb 0.5-3 Mg/3 Ml Neb IH 09/14/20 22:09 Q4HPRN PRN SHORTNESS OF BREATH/WHEEZING Cyclobenzaprine HCl 5 mg 08/15/20 22:30 08/15/20 22:50 Cyclobenzaprine 10 Mg PO 09/14/20 22:29 5 mg HS TIM Administration Furosemide 20 mg 08/16/20 10:00 Lasix 20 Mg PO 09/15/20 09:59 DAILY TIM Gabapentin 300 mg 08/15/20 22:30 08/15/20 22:50 Neurontin 300 Mg PO 09/14/20 22:29 300 mg BID TIM Administration Ibuprofen 800 mg 08/15/20 22:08 08/16/20 07:46 Motrin 400 Mg PO 09/14/20 22:07 800 mg TIDP PRN Administration PAIN Lisinopril 10 mg 08/16/20 10:00 Zestril 5 Mg PO 09/15/20 09:59 DAILY TIM Methylprednisolone Sodium Succinate 80 mg 08/16/20 04:00 08/16/20 04:20 Solu-Medrol 125 Mg IV 09/15/20 03:59 80 mg Q8H TIM Administration Montelukast Sodium 10 mg 08/16/20 10:00 Singulair 10 Mg PO 09/15/20 09:59 DAILY TIM Ondansetron HCl 4 mg 08/15/20 22:08 Zofran Odt 4 Mg PO 09/14/20 22:07 TID PRN PRN NAUSEA/VOMITING Patient Own Med ( 0 each 08/16/20 07:00 Albuterol) 09/15/20 06:59 Q4HPRN PRN SHORTNESS OF BREATH Patient Own Med ( 0 each 08/16/20 08:15 Synbicort) 09/15/20 06:59 DAILY TIM Tiotropium [place] 1 ea 08/16/20 10:00 Spiriva 18 Mcg/Cap Inhaler 09/15/20 09:59 DAILY TIM Discontinued Medications Generic Name Dose Route Start Last Admin Trade Name Freq PRN Reason Stop Dose Admin Albuterol Sulfate Confirm 08/16/20 07:12 Proventil 2.5 Mg/3 Ml Neb Administered 08/16/20 07:13 Dose 2.5 mg IH .STK-MED ONE Albuterol/Ipratropium 3 ml 08/15/20 20:13 08/15/20 20:45 Duoneb 0.5-3 Mg/3 Ml Neb IH 08/15/20 20:14 3 ml STAT ONE Administration Albuterol/Ipratropium Confirm 08/15/20 20:42 Duoneb 0.5-3 Mg/3 Ml Neb Administered 08/15/20 20:43 Dose 3 ml IH .STK-MED ONE Methylprednisolone Sodium Succinate 125 mg 08/15/20 20:13 08/15/20 20:20 Solu-Medrol 125 Mg IV 08/15/20 20:14 125 mg STAT ONE Administration Methylprednisolone Sodium Succinate Confirm 08/15/20 20:16 Solu-Medrol 125 Mg Administered 08/15/20 20:17 Dose 125 mg .ROUTE .STK-MED ONE Patient Own Medication 1 each 08/16/20 10:00 Patient Own Medication 09/15/20 09:59 DAILY TIM Patient Own Medication 1 each 08/16/20 07:00 08/16/20 07:05 Patient Own Medication 09/15/20 06:59 2 each DAILY TIM Administration Intake & Output (Last 24 hours) 08/13/20 08/14/20 08/15/20 08/16/20 11:59 11:59 11:59 11:59 Intake Total 1320 Balance 1320 Weight 139.9 kg Laboratory Results (Last 24 hours) 08/16/20 08/16/20 08/16/20 04:08 04:08 04:08 WBC 10.6 H RBC 4.99 Hgb 12.9 Hct 40.5 MCV 81.2 MCH 25.9 L MCHC 31.9 L RDW 14.9 H Plt Count 352 MPV 9.1 Gran % Eos # (Auto) Absolute Lymphs (auto) Absolute Monos (auto) Lymphocytes % Monocytes % Eosinophils % Basophils % Absolute Granulocytes Basophils # Sodium 135 L Potassium 4.3 Chloride 104 Carbon Dioxide 23 Anion Gap 12.0 BUN 10 Creatinine 0.59 Estimated GFR > 60.0 Glucose 190 H Calcium 9.5 Magnesium Total Bilirubin AST ALT Alkaline Phosphatase Troponin I < 0.012 Serum Total Protein Albumin Urine Color Urine Appearance Urine pH Ur Specific Turner Urine Protein Urine Ketones Urine Blood Urine Nitrite Urine Bilirubin Urine Urobilinogen Ur Leukocyte Esterase Urine WBC (Auto) Urine RBC (Auto) U Epithel Cells (Auto) Urine Bacteria (Auto) Amorphous Crystals Urine Mucus (Auto) Urine Culture Reflexed Urine Glucose Urine Opiates Level Ur Methadone Urine Barbiturates Ur Phencyclidine (PCP) Urine Amphetamine U Benzodiazepine Level Urine Cocaine Urine Marijuana (THC) SARS-CoV-2 (PCR) 08/16/20 08/15/20 08/15/20 00:50 22:40 19:15 WBC RBC Hgb Hct MCV MCH MCHC RDW Plt Count MPV Gran % Eos # (Auto) Absolute Lymphs (auto) Absolute Monos (auto) Lymphocytes % Monocytes % Eosinophils % Basophils % Absolute Granulocytes Basophils # Sodium Potassium Chloride Carbon Dioxide Anion Gap BUN Creatinine Estimated GFR Glucose Calcium Magnesium Total Bilirubin AST ALT Alkaline Phosphatase Troponin I < 0.012 < 0.012 < 0.012 Serum Total Protein Albumin Urine Color Urine Appearance Urine pH Ur Specific Turner Urine Protein Urine Ketones Urine Blood Urine Nitrite Urine Bilirubin Urine Urobilinogen Ur Leukocyte Esterase Urine WBC (Auto) Urine RBC (Auto) U Epithel Cells (Auto) Urine Bacteria (Auto) Amorphous Crystals Urine Mucus (Auto) Urine Culture Reflexed Urine Glucose Urine Opiates Level Ur Methadone Urine Barbiturates Ur Phencyclidine (PCP) Urine Amphetamine U Benzodiazepine Level Urine Cocaine Urine Marijuana (THC) SARS-CoV-2 (PCR) 08/15/20 08/15/20 08/15/20 18:15 15:42 15:42 WBC RBC Hgb Hct MCV MCH MCHC RDW Plt Count MPV Gran % Eos # (Auto) Absolute Lymphs (auto) Absolute Monos (auto) Lymphocytes % Monocytes % Eosinophils % Basophils % Absolute Granulocytes Basophils # Sodium Potassium Chloride Carbon Dioxide Anion Gap BUN Creatinine Estimated GFR Glucose Calcium Magnesium Total Bilirubin AST ALT Alkaline Phosphatase Troponin I Serum Total Protein Albumin Urine Color YELLOW Urine Appearance CLOUDY Urine pH 7.0 Ur Specific Turner 1.017 Urine Protein NEGATIVE Urine Ketones NEGATIVE Urine Blood NEGATIVE Urine Nitrite NEGATIVE Urine Bilirubin NEGATIVE Urine Urobilinogen NEGATIVE Ur Leukocyte Esterase NEGATIVE Urine WBC (Auto) 3-5 Urine RBC (Auto) 11-15 U Epithel Cells (Auto) FEW Urine Bacteria (Auto) FEW Amorphous Crystals FEW Urine Mucus (Auto) SLIGHT Urine Culture Reflexed NO Urine Glucose NEGATIVE Urine Opiates Level NEGATIVE Ur Methadone NEGATIVE Urine Barbiturates NEGATIVE Ur Phencyclidine (PCP) NEGATIVE Urine Amphetamine NEGATIVE U Benzodiazepine Level NEGATIVE Urine Cocaine NEGATIVE Urine Marijuana (THC) NEGATIVE SARS-CoV-2 (PCR) NEGATIVE 08/15/20 08/15/20 08/15/20 15:40 15:40 15:40 WBC 8.6 RBC 4.58 Hgb 12.0 Hct 37.1 MCV 81.0 MCH 26.2 MCHC 32.3 RDW 14.9 H Plt Count 323 MPV 9.1 Gran % 77.0 H Eos # (Auto) 0.12 Absolute Lymphs (auto) 1.55 Absolute Monos (auto) 0.29 Lymphocytes % 18.1 L Monocytes % 3.4 Eosinophils % 1.4 Basophils % 0.1 Absolute Granulocytes 6.60 Basophils # 0.01 Sodium 138 Potassium 3.7 Chloride 105 Carbon Dioxide 26 Anion Gap 10.2 BUN 10 Creatinine 0.64 Estimated GFR > 60.0 Glucose 130 H Calcium 9.0 Magnesium 2.0 Total Bilirubin 0.30 AST 22 ALT 22 Alkaline Phosphatase 76 Troponin I < 0.012 Serum Total Protein 7.5 Albumin 3.9 Urine Color Urine Appearance Urine pH Ur Specific Turner Urine Protein Urine Ketones Urine Blood Urine Nitrite Urine Bilirubin Urine Urobilinogen Ur Leukocyte Esterase Urine WBC (Auto) Urine RBC (Auto) U Epithel Cells (Auto) Urine Bacteria (Auto) Amorphous Crystals Urine Mucus (Auto) Urine Culture Reflexed Urine Glucose Urine Opiates Level Ur Methadone Urine Barbiturates Ur Phencyclidine (PCP) Urine Amphetamine U Benzodiazepine Level Urine Cocaine Urine Marijuana (THC) SARS-CoV-2 (PCR) Orders (Last 24 hours) Category Date Time Status Up With Assistance ROUTINE Activity 08/15/20 21:23 Active Novelties Sales Representative STAT Care 08/15/20 15:42 Completed Code Status Order ROUTINE Care 08/15/20 21:23 Active EKG-ER Only STAT Care 08/15/20 15:41 Completed IV Care Q6H Care 08/15/20 21:23 Active IV Insertion STAT Care 08/15/20 15:[address] in Observation ROUTINE Care 08/15/20 21:23 Active Pulse Oximetry (ED) STAT Care 08/15/20 15:41 Completed Adis Joe, Apply ROUTINE Care 08/15/20 21:23 Active Telemetry Q12H Care 08/15/20 21:23 Active Weight,Daily 0600 Care 08/15/20 21:23 Active Clear Liquid Diet 08/15/20 Dinner Completed House Regular Diet Diet 08/15/20 Dinner Active CHEST 1 VIEW (PORTABLE) Stat Exams 08/15/20 15:42 Completed BMP AM.LAB Lab 08/16/20 04:08 Completed CBC AM.LAB Lab 08/16/20 04:08 Completed CBC W DIFF Stat Lab 08/15/20 15:40 Completed CMP Stat Lab 08/15/20 15:40 Completed MAGNESIUM Stat Lab 08/15/20 15:40 Completed TROPONIN Q3H Lab 08/15/20 15:40 Completed TROPONIN Q3H Lab 08/15/20 19:15 Completed TROPONIN Q3H Lab 08/15/20 22:40 Completed TROPONIN Q3H Lab 08/16/20 00:50 Completed TROPONIN Q3H Lab 08/16/20 04:08 Completed UA W/RFX UR CULTURE Stat Lab 08/15/20 15:42 Completed Urine Triage Profile Stat Lab 08/15/20 15:42 Completed Albuterol 2.5 mg/3 ml Neb [Proventil 2.5 mg/3 ml Neb Med 08/16/20 07:12 Discontinued ] 2.5 mg IH .STK-MED ONE Albuterol 2.5 mg/3 ml Neb [Proventil 2.5 mg/3 ml Neb Med 08/16/20 07:00 Active ] 2.5 mg IH BIDRT Albuterol/Ipratropium 3ml Neb* [DUONEB 0.5-3 MG/3 ml Med 08/15/20 20:42 Discontinued Neb] 3 ml IH .STK-MED ONE Albuterol/Ipratropium 3ml Neb* [DUONEB 0.5-3 MG/3 ml Med 08/15/20 22:10 Active Neb] 3 ml IH Q4HPRN PRN Albuterol/Ipratropium 3ml Neb* [DUONEB 0.5-3 MG/3 ml Med 08/15/20 20:13 Discontinued Neb] 3 ml IH STAT ONE Cyclobenzaprine HCl 10 mg [Cyclobenzaprine 10 MG] Med 08/15/20 22:30 Active 5 mg PO HS Furosemide 20 mg [Lasix 20 mg] Med 08/16/20 10:00 Active 20 mg PO DAILY Gabapentin 300 mg [Neurontin 300 mg] Med 08/15/20 22:30 Active 300 mg PO BID Ibuprofen 400 mg [Motrin 400 mg] Med 08/15/20 22:08 Active 800 mg PO TIDP PRN Lisinopril 5 mg [Zestril 5 MG] Med 08/16/20 10:00 Active 10 mg PO DAILY Methylprednis Sod Succ 125 mg* [solu-MEDROL 125 MG] Med 08/15/20 20:16 Discontinued 125 mg .ROUTE .STK-MED ONE Methylprednis Sod Succ 125 mg* [solu-MEDROL 125 MG] Med 08/15/20 20:13 Discontinued 125 mg IV STAT ONE Methylprednis Sod Succ 125 mg* [solu-MEDROL 125 MG] Med 08/16/20 04:00 Active 80 mg IV Q8H Montelukast Sodium 10 mg [Singulair 10 MG] Med 08/16/20 10:00 Active 10 mg PO DAILY Ondansetron ODT 4 MG [Zofran Odt 4 mg] Med 08/15/20 22:08 Active 4 mg PO TID PRN PRN Patient Own Med [Patient Own Medication] Med 08/16/20 08:15 Active 0 each IH DAILY Patient Own Med [Patient Own Medication] Med 08/16/20 07:00 Active 0 each IH Q4HPRN PRN Patient Own Med [Patient Own Medication] Med 08/16/20 07:00 Discontinued 1 each IH DAILY Patient Own Med [Patient Own Medication] Med 08/16/20 10:00 Discontinued 1 each IH DAILY Tiotropium [place] Inhaler [Spiriva 18 Mcg/Cap Med 08/16/20 10:00 Active Inhaler] 1 ea IH DAILY Pulse Oximetry Q4H RT 08/15/20 21:23 Active Respiratory Therapy Assessment DAILY RT 08/15/20 20:54 Active Code(s): J45.901 - UNSPECIFIED ASTHMA WITH (ACUTE) EXACERBATION (2) SOB (shortness of breath) Current Visit: Yes Status: Acute Code(s): R06.02 - SHORTNESS OF BREATH
[2020-08-16] MEDS: NEURONTIN 300 MG PO SCH ×2 (11:11→21:07)
[2020-08-16] MEDS: LASIX 20 MG PO SCH (11:11)
[2020-08-16] MEDS: Zestril 5 MG PO SCH (11:12)
[2020-08-16] MEDS: Singulair 10 MG PO SCH (11:12)
[2020-08-16] MEDS ORDERED: DUONEB 0.5-3 MG/3 ml Neb IH ONE (13:27)
[2020-08-16] MEDS ORDERED: TORAdol 30 mg Injection IV ONE (14:36)
[2020-08-16] MEDS ORDERED: MORPHINE SULFATE 4 MG INJ IV PRN (16:45)
[2020-08-16] MEDS ORDERED: Ativan 2 MG/1 ML VIAL IV PRN (17:59)
[2020-08-16] MEDS ORDERED: Sodium Chloride 3 ML UD NEBULES IH ONE (18:59)
[2020-08-16] MEDS ORDERED: Xopenex 1.25 MG/0.5 ML UD NEBULE IH ONE (18:59)
[2020-08-16] MEDS ORDERED: Xopenex 1.25 MG/0.5 ML UD NEBULE IH SCH (19:00)
[2020-08-16] MEDS: Cyclobenzaprine 10 MG PO SCH (21:02)
[2020-08-17] MEDS: solu-MEDROL 125 MG IV SCH (05:47)
[2020-08-17] MEDS ORDERED: PATIENT OWN MEDICATION IH SCH (07:00)
[2020-08-17 07:37] VITALS: O2SAT 97
[2020-08-17 08:09] VITALS: PULSE 98
[2020-08-17 09:14] LABS: Hemoglobin 12.3 gm/dl (12.0-16.0); Mean Cell Volume 84.2 fl (78-100); Mean Corpuscular Hemoglobin 26.6 pg (26-32); Mean Corpuscular Hgb Concent. 31.5 g/dl (32-36); Mean Platelet Volume 9.3 fl (7.5-11.0); Platelet Count 389 K/mm3 (150-450); Red Blood Count 4.63 M/mm3 (4.1-5.4); Red Cell Distribution Width 15.3 % (11.5-14.0); White Blood Count 19.8 K/mm3 (4.0-10.5)
[2020-08-17 09:48] LABS: ALKALINE PHOSPHATASE 74 U/L (38-126); ANION GAP 13.7 MEQ/L (5-15); BLOOD UREA NITROGEN 16 mg/dL (7-17); CHLORIDE 109 mmol/L (98-107); Calcium 9.1 mg/dL (8.4-10.2); Carbon Dioxide 22 mmol/L (22-30); Creatinine 1 0.61 mg/dL (0.52-1.04); EST GLOMERULAR FILTRATION RATE > 60.0 ML/MIN; Glucose 199 mg/dL (74-106); Potassium 4.6 mmol/L (3.5-5.1); SGOT/AST 18 U/L (14-36); SGPT/ALT 24 U/L (0-35); SODIUM 139 mmol/L (137-145); Total Protein 7.5 g/dL (6.3-8.2)
[2020-08-17] MEDS ORDERED: ROCEPHIN 1 Gm-D5w 50 ml Bag** 1 G/50 ML IVPB IV SCH (10:00)
--- NOTE | 2020-08-17 10:11 | XRAY ---
Indication: Left chest pain, short of breath, and lightheaded. Multiple contiguous axial images obtained through the chest prior to and following 80 cc Isovue 370 contrast as ordered. Comparison: None Lungs are inflated and clear. Heart is not enlarged. Aorta is normal in course and caliber. No pathologic mediastinal lymphadenopathy. Bony thorax intact with incidental sternotomy wires. Limited upper abdomen demonstrates fatty hepatomegaly and 15 cm splenomegaly. Impression: 1. Incidental fatty hepatomegaly and splenomegaly. 2. Remaining CT chest with and without contrast exam is negative.
[2020-08-17] MEDS: NEURONTIN 300 MG PO SCH (10:27)
[2020-08-17] MEDS: Zestril 5 MG PO SCH (10:27)
[2020-08-17] MEDS: LASIX 20 MG PO SCH (10:27)
[2020-08-17] MEDS: Singulair 10 MG PO SCH (10:27)
--- NOTE | 2020-08-17 10:52 | PCM.DS ---
Discharge Summary Date of Admission: 08/15/20 20:44 Admitting Physician: JOSE CARRERA Primary Care Provider: JOSE CARRERA Allergies Allergies No Known Drug Allergies Allergy (Verified 08/15/20 21:44) Hospital Summary - Hospital Course Hospital Course: Chief Complaint Diagnosis ASTHMA, SHORTNESS OF BREATH Allergies Allergy/AdvReac Type Severity Reaction Status Date / Time No Known Drug Allergies Allergy Verified 08/15/20 21:44 Vital Signs (Last 24 hours) Temp Pulse Resp BP Pulse Ox 08/17/20 07:35 97 08/17/20 07:00 98.6 F 98 H 16 115/62 96 08/17/20 03:00 98.5 F 103 H 19 103/59 95 08/16/20 23:00 98.3 F 108 H 20 92/50 94 L 08/16/20 19:48 98.3 F 110 H 23 120/59 97 08/16/20 19:02 110 H 23 97 08/16/20 19:00 97 08/16/20 17:53 113 H 134/60 08/16/20 16:00 97.2 F 111 H 16 94/45 98 08/16/20 15:00 98 08/16/20 13:31 107 H 20 97 08/16/20 12:00 97.8 F 101 H 16 127/75 96 08/16/20 11:00 98 Home Medications Medication Instructions Recorded Confirmed Last Taken Type Albuterol/Ipratropium 3ml Neb* 1 neb IH BID 08/15/20 08/15/20 08/15/20 History [DUONEB 0.5-3 MG/3 ml Neb] Budesonide/Formoterol Fumarate 1 puff IH DAILY 08/15/20 08/15/20 08/15/20 History [Symbicort 160-4.5 Mcg Inhaler] Ondansetron HCl [Zofran] 4 mg PO TIDPRN PRN 08/15/20 08/15/20 Unknown History Current Medications Generic Name Dose Route Start Last Admin Trade Name Freq PRN Reason Stop Dose Admin Cyclobenzaprine HCl 5 mg 08/15/20 22:30 08/16/20 21:02 Cyclobenzaprine 10 Mg PO 09/14/20 22:29 5 mg HS TIM Administration Furosemide 20 mg 08/16/20 10:00 08/17/20 10:27 Lasix 20 Mg PO 09/15/20 09:59 20 mg DAILY TIM Administration Gabapentin 300 mg 08/15/20 22:30 08/17/20 10:27 Neurontin 300 Mg PO 09/14/20 22:29 300 mg BID TIM Administration Ceftriaxone Sodium/Dextrose 1 g in 50 mls @ 100 mls/hr 08/17/20 10:00 08/17/20 10:27 Rocephin 1 Gm-D5w 50 Ml Bag IV 09/16/20 09:59 100 mls/hr Q24H10 TIM Administration Ibuprofen 800 mg 08/15/20 22:08 08/16/20 07:46 Motrin 400 Mg PO 09/14/20 22:07 800 mg TIDP PRN Administration PAIN Lisinopril 10 mg 08/16/20 10:00 08/17/20 10:27 Zestril 5 Mg PO 09/15/20 09:59 10 mg DAILY TIM Administration Lorazepam 1 mg 08/16/20 17:59 08/16/20 18:05 Ativan 2 Mg/1 Ml Vial IV 09/15/20 17:58 1 mg Q4H PRN PRN Administration ANXIETY/AGITATION Methylprednisolone Sodium Succinate 80 mg 08/16/20 04:00 08/17/20 05:47 Solu-Medrol 125 Mg IV 09/15/20 03:59 80 mg Q8H TIM Administration Montelukast Sodium 10 mg 08/16/20 10:00 08/17/20 10:27 Singulair 10 Mg PO 09/15/20 09:59 10 mg DAILY TIM Administration Morphine Sulfate 4 mg 08/16/20 16:45 08/16/20 17:03 Morphine Sulfate 4 Mg Inj IV 08/21/20 16:44 4 mg Q4H PRN PRN Administration PAIN Ondansetron HCl 4 mg 08/15/20 22:08 Zofran Odt 4 Mg PO 09/14/20 22:07 TID PRN PRN NAUSEA/VOMITING Patient Own Med ( 0 each 08/16/20 07:00 Albuterol) IH 09/15/20 06:59 Q4HPRN PRN SHORTNESS OF BREATH Patient Own Med ( 0 each 08/16/20 08:15 08/17/20 07:15 Synbicort) 09/15/20 06:59 1 each DAILY TIM Administration Patient Own Med ( 2 each 08/17/20 07:00 08/17/20 07:15 Albuterol Mdi) IH 09/16/20 06:59 2 each BIDRT TIM Administration Tiotropium [place] 1 ea 08/16/20 10:00 Spiriva 18 Mcg/Cap Inhaler 09/15/20 09:59 DAILY TIM Discontinued Medications Generic Name Dose Route Start Last Admin Trade Name Freq PRN Reason Stop Dose Admin Albuterol Sulfate Confirm 08/16/20 07:12 Proventil 2.5 Mg/3 Ml Neb Administered 08/16/20 07:13 Dose 2.5 mg IH .STK-MED ONE Albuterol Sulfate 2.5 mg 08/16/20 07:00 08/16/20 07:05 Proventil 2.5 Mg/3 Ml Neb 09/15/20 06:59 2.5 mg BIDRT TIM Administration Albuterol/Ipratropium 3 ml 08/15/20 20:13 08/15/20 20:45 Duoneb 0.5-3 Mg/3 Ml Neb IH 08/15/20 20:14 3 ml STAT ONE Administration Albuterol/Ipratropium Confirm 08/15/20 20:42 Duoneb 0.5-3 Mg/3 Ml Neb Administered 08/15/20 20:43 Dose 3 ml IH .STK-MED ONE Albuterol/Ipratropium 3 ml 08/15/20 22:10 08/16/20 13:30 Duoneb 0.5-3 Mg/3 Ml Neb IH 09/14/20 22:09 3 ml Q4HPRN PRN Administration SHORTNESS OF BREATH/WHEEZING Albuterol/Ipratropium Confirm 08/16/20 13:27 Duoneb 0.5-3 Mg/3 Ml Neb Administered 08/16/20 13:28 Dose 3 ml IH .STK-MED ONE Ketorolac Tromethamine 30 mg 08/16/20 14:36 08/16/20 14:45 Toradol 30 Mg Injection IV 08/16/20 14:37 30 mg 1XONLY ONE Administration Levalbuterol HCl 1.25 mg 08/16/20 19:00 08/16/20 19:02 Xopenex 1.25 Mg/0.5 Ml Ud Nebule 09/15/20 18:59 1.25 mg BIDRT TIM Administration Levalbuterol HCl Confirm 08/16/20 18:59 Xopenex 1.25 Mg/0.5 Ml Ud Nebule Administered 08/16/20 19:00 Dose 1.25 mg IH .STK-MED ONE Methylprednisolone Sodium Succinate 125 mg 08/15/20 20:13 08/15/20 20:20 Solu-Medrol 125 Mg IV 08/15/20 20:14 125 mg STAT ONE Administration Methylprednisolone Sodium Succinate Confirm 08/15/20 20:16 Solu-Medrol 125 Mg Administered 08/15/20 20:17 Dose 125 mg .ROUTE .STK-MED ONE Patient Own Medication 1 each 08/16/20 10:00 Patient Own Medication 09/15/20 09:59 DAILY TIM Patient Own Medication 1 each 08/16/20 07:00 08/16/20 07:05 Patient Own Medication 09/15/20 06:59 2 each DAILY TIM Administration Sodium Chloride Confirm 08/16/20 18:59 Sodium Chloride 3 Ml Ud Nebules Administered 08/16/20 19:00 Dose 3 ml IH .STK-MED ONE Intake & Output (Last 24 hours) 08/14/20 08/15/20 08/16/20 08/17/20 11:59 11:59 11:59 11:59 Intake Total 1320 2400 Output Total 400 Balance 1320 2000 Weight 139.9 kg 140.5 kg Laboratory Results (Last 24 hours) 08/17/20 08/17/20 08/17/20 09:06 09:06 09:06 WBC 19.8 H RBC 4.63 Hgb 12.3 Hct 39.0 MCV 84.2 MCH 26.6 MCHC 31.5 L RDW 15.3 H Plt Count 389 MPV 9.3 D-Dimer < 215 L Sodium 139 Potassium 4.6 Chloride 109 H Carbon Dioxide 22 Anion Gap 13.7 BUN 16 Creatinine 0.61 Estimated GFR > 60.0 Glucose 199 H Calcium 9.1 Total Bilirubin 0.20 AST 18 ALT 24 Alkaline Phosphatase 74 Troponin I Serum Total Protein 7.5 Albumin 4.0 08/16/20 14:42 WBC RBC Hgb Hct MCV MCH MCHC RDW Plt Count MPV D-Dimer Sodium Potassium Chloride Carbon Dioxide Anion Gap BUN Creatinine Estimated GFR Glucose Calcium Total Bilirubin AST ALT Alkaline Phosphatase Troponin I < 0.012 Serum Total Protein Albumin Orders (Last 24 hours) Category Date Time Status NPO Diet 08/17/20 08:58 Active CHEST W/WO CONTRAST [CT] Urgent Exams 08/17/20 09:15 Completed CBC Urgent Lab 08/17/20 09:06 Completed CMP Urgent Lab 08/17/20 09:06 Completed D-DIMER QUANTITATIVE Urgent Lab 08/17/20 09:06 Completed TROPONIN Stat Lab 08/16/20 14:42 Completed Albuterol/Ipratropium 3ml Neb* [DUONEB 0.5-3 MG/3 ml Med 08/16/20 13:27 Discontinued Neb] 3 ml IH .STK-MED ONE Ceftriaxone 1 GM/50 ML PREMIX* [ROCEPHIN 1 Gm-D5w 50 ml Med 08/17/20 10:00 Active Bag] 1 g in 50 ml IV Q24H10 Furosemide 20 mg [Lasix 20 mg] Med 08/16/20 10:00 Active 20 mg PO DAILY KETOROLAC trometh 30 mg Inj [TORAdol 30 mg Injection Med 08/16/20 14:36 Discontinued ] 30 mg IV 1XONLY ONE Levalbuterol HCl 1.25 MG/0.5M* [Xopenex 1.25 MG/0.5 ML Med 08/16/20 18:59 Discontinued UD NEBULE] 1.25 mg IH .STK-MED ONE Levalbuterol HCl 1.25 MG/0.5M* [Xopenex 1.25 MG/0.5 ML Med 08/16/20 19:00 Discontinued UD NEBULE] 1.25 mg IH BIDRT Lisinopril 5 mg [Zestril 5 MG] Med 08/16/20 10:00 Active 10 mg PO DAILY Lorazepam 2 mg/1 ml [Ativan 2 MG/1 ML VIAL] Med 08/16/20 17:59 Active 1 mg IV Q4H PRN PRN Montelukast Sodium 10 mg [Singulair 10 MG] Med 08/16/20 10:00 Active 10 mg PO DAILY Morphine Sulfate 4 mg Inj Med 08/16/20 16:45 Active 4 mg IV Q4H PRN PRN NaCl 3Ml For Inhalation [Sodium Chloride 3 ML UD Med 08/16/20 18:59 Discontinued NEBULES] 3 ml IH .STK-MED ONE Patient Own Med [Patient Own Medication] Med 08/16/20 10:00 Discontinued 1 each IH DAILY Patient Own Med [Patient Own Medication] Med 08/17/20 07:00 Active 2 each IH BIDRT Tiotropium [place] Inhaler [Spiriva 18 Mcg/Cap Med 08/16/20 10:00 Active Inhaler] 1 ea IH DAILY EKG ROUTINE RT 08/16/20 14:04 Completed Respiratory MDI BID RT 08/17/20 07:00 Active Patient Care Notes (Last 24 hours) 08/16/20 23:20 Respiratory Note by Vandana Meza 08/16/20 19:15 I WENT IN TO GIVE THIS PATIENT A NEBULIZER TX, AND SHE STATED THAT THE NEB TX SHE WAS GIVEN THIS MORNING WITH ALBUTEROL MADE HER HEART RATE INCREASE AND MADE HER SHAKY. SHE HAD TOLD A PREVIOUS THERAPIST THAT SHE TAKES ALBUTEROL NEB TXS BID AT HOME, SO THAT WAS THE ORDER WRITTEN IN HER CHART FOR TREATMENTS. I DISCUSSED XOPENEX WITH HER, AND SHE AGREED TO TRY IT IN HOPES THAT IT WOULD BE EASIER ON HER HEART RATE. SHE DID GREAT WITH THE XOPENEX, AND HER H EART RATE STAYED WITHIN 5 BEATS OF HER INITIAL HEART RATE. NO SHAKINESS WAS NOTED. HOWEVER, SHE LATER TOLD SELINA, HER RN, THAT THE XOPENEX GAVE HER ANXIETY. FOR THESE REASONS, I DISCONTINUED HER NEBULIZER TXS PER R.T. PROTOCOL AND JUST ORDERED HER HOME ALBUTEROL MDI TO BID AND PRN. Initialized on 08/16/20 23:20 - END OF NOTE 08/16/20 20:24 SBAR Note by Ruthie Pepper I am calling about IVANNA STEIN the patient's code status is Full Code The problem I am calling about is: pt wants to be transferred to [facility] where her property controller is, stated that it is nothing against us, that we have done all we could, and that she just knows how she feels and it is "not right" and would be more comfortable to be where her property controller is. ASSESSMENT RECOMMENDATION Physician notified at 2023 New Orders received: stated that was not possible tonight, we could work on that in the morning if they had beds available. spoke with pt and she is ok with that for now as long as she does not get to feeling any worse. Vital Signs (Last 4 hours) Temp Pulse Resp BP Pulse Ox 08/16/20 19:48 98.3 F 110 H 23 120/59 97 08/16/20 17:53 113 H 134/60 Diagnois, Code Status Date of Arrival on Unit 08/15/20 Admitted From Emergency Dept Diagnosis ASTHMA, SHORTNESS OF BREATH Resucitation Status Full Code Intake and Output 24 Hours 08/16/20 08/17/20 06:59 06:59 Intake Total 840 1440 Output Total 400 Balance 840 1040 Weight 139.9 kg Intake: Intake, Oral Amount 840 1440 Output: Output, Urine Amount 400 Other: Number of Voids 1 Physical Assessment Anxiety Level None,at ease,Awake,Calm Mental Status Alert Patient Orientation Person,Place,Time Coma Scale Total 15 Breath Sounds [Anterior/ Clear Posterior Bilateral Throughout ] Cardiac Rhythm-[facility] Sinus Rhythm Change from Baseline: No Bowel Sounds [All Quadrants] Present,Active Abdomen Description Soft,Large,Non-Tender Urine Appearance Not Assessed Skin Color [place] Skin Temperature Warm Pain Scale (Last 24 Hours) Pain Intensity 8 Pain Intensity 8 Pain Intensity 7 Pain Intensity 4 Pain Intensity 7 Pain Intensity 7 Pain Intensity 0 Pain Intensity 0 Pain Intensity 0 Pain Intensity 5 Pain Intensity 5 Pain Intensity 3 PAST MEDICAL HISTORY Neurological History No Pertinent History ENT History No Pertinent History Endocrine Medical History No Pertinent History Respiratory History Asthma,Bronchitis,Sleep Apnea Cardiac History Congenital Heart Disease,Hypertension GI Medical History No Pertinent History History No Pertinent History Reproductive Disorders No Pertinent History Pyscho-Social History No Pertinent History Communicable Disease No Pertinent History Comment OPEN HEART WITH REPAIR OF HOLE--4 yrs old anemia Lab Results (Last 24 Hours) 08/16/20 08/16/20 08/16/20 Range/Units 14:42 04:08 04:08 WBC 10.6 H (4.0-10.5) K/mm3 RBC 4.99 (4.1-5.4) M/mm3 Hgb 12.9 (12.0-16.0) gm/dl Hct 40.5 (35-47) % MCV 81.2 (78-100) fl MCH 25.9 L (26-32) pg MCHC 31.9 L (32-36) g/dl RDW 14.9 H (11.5-14.0) % Plt Count 352 (150-450) K/mm3 MPV 9.1 (7.5-11.0) fl Sodium 135 L (137-145) mmol/L Potassium 4.3 (3.5-5.1) mmol/L Chloride 104 (98-107) mmol/L Carbon Dioxide 23 (22-30) mmol/L Anion Gap 12.0 (5-15) MEQ/L BUN 10 (7-17) mg/dL Creatinine 0.59 (0.52-1.04) mg/dL Estimated GFR > 60.0 ML/MIN Glucose 190 H (74-106) mg/dL Calcium 9.5 (8.4-10.2) mg/dL Troponin I < 0.012 (0.000-0.034) ng/mL 08/16/20 08/16/20 08/15/20 Range/Units 04:08 00:50 22:40 WBC (4.0-10.5) K/mm3 RBC (4.1-5.4) M/mm3 Hgb (12.0-16.0) gm/dl Hct (35-47) % MCV (78-100) fl MCH (26-32) pg MCHC (32-36) g/dl RDW (11.5-14.0) % Plt Count (150-450) K/mm3 MPV (7.5-11.0) fl Sodium (137-145) mmol/L Potassium (3.5-5.1) mmol/L Chloride (98-107) mmol/L Carbon Dioxide (22-30) mmol/L Anion Gap (5-15) MEQ/L BUN (7-17) mg/dL Creatinine (0.52-1.04) mg/dL Estimated GFR ML/MIN Glucose (74-106) mg/dL Calcium (8.4-10.2) mg/dL Troponin I < 0.012 < 0.012 < 0.012 (0.000-0.034) ng/mL Orders (Last 24 Hours) Category Date Time Status Up With Assistance ROUTINE Activity 08/15/20 21:23 Active Code Status Order ROUTINE Care 08/15/20 21:23 Active IV Care Q6H Care 08/15/20 21:[address] in Observation ROUTINE Care 08/15/20 21:23 Active Adis Joe, Apply ROUTINE Care 08/15/20 21:23 Active Telemetry Q12H Care 08/15/20 21:23 Active Weight,Daily 0600 Care 08/15/20 21:23 Active Cyclobenzaprine HCl 10 mg [Cyclobenzaprine 10 MG] Med 08/15/20 22:30 Active 5 mg PO HS Furosemide 20 mg [Lasix 20 mg] Med 08/16/20 10:00 Active 20 mg PO DAILY Gabapentin 300 mg [Neurontin 300 mg] Med 08/15/20 22:30 Active 300 mg PO BID Ibuprofen 400 mg [Motrin 400 mg] Med 08/15/20 22:08 Active 800 mg PO TIDP PRN Levalbuterol HCl 1.25 MG/0.5M* [Xopenex 1.25 MG/0.5 ML Med 08/16/20 19:00 Ordered UD NEBULE] 1.25 mg IH BIDRT Lisinopril 5 mg [Zestril 5 MG] Med 08/16/20 10:00 Active 10 mg PO DAILY Lorazepam 2 mg/1 ml [Ativan 2 MG/1 ML VIAL] Med 08/16/20 17:59 Ordered 1 mg IV Q4H PRN PRN Methylprednis Sod Succ 125 mg* [solu-MEDROL 125 MG] Med 08/16/20 04:00 Active 80 mg IV Q8H Montelukast Sodium 10 mg [Singulair 10 MG] Med 08/16/20 10:00 Active 10 mg PO DAILY Morphine Sulfate 4 mg Inj Med 08/16/20 16:45 Active 4 mg IV Q4H PRN PRN Ondansetron ODT 4 MG [Zofran Odt 4 mg] Med 08/15/20 22:08 Active 4 mg PO TID PRN PRN Patient Own Med [Patient Own Medication] Med 08/16/20 08:15 Active 0 each IH DAILY Patient Own Med [Patient Own Medication] Med 08/16/20 07:00 Active 0 each IH Q4HPRN PRN Tiotropium [place] Inhaler [Spiriva 18 Mcg/Cap Med 08/16/20 10:00 Active Inhaler] 1 ea IH DAILY Pulse Oximetry Q4H RT 08/15/20 21:23 Active Respiratory Therapy Assessment DAILY RT 08/15/20 20:54 Active Nursing Notes (Last 12 hours) 08/16/20 17:58 SBAR Note by Selina Valente SITUATION I am calling about IVANNA STEIN the patient's code status is Full Code The problem I am calling about is: pt reports morphine has not helped her discomfort at all. pt breathing does appear a little more relaxed but pt states pain is still 8 of 10 and heart is still "pounding out of my chest". ASSESSMENT RECOMMENDATION Physician notified at 1758 New Orders received: ativan 1mg iv q4hprn for anxiety Vital Signs (Last 4 hours) Temp Pulse Resp BP Pulse Ox 08/16/20 17:53 113 H 134/60 08/16/20 16:00 97.2 F 111 H 16 94/45 98 08/16/20 15:00 98 Diagnois, Code Status Date of Arrival on Unit 08/15/20 Admitted From Emergency Dept Diagnosis ASTHMA, SHORTNESS OF BREATH Resucitation Status Full Code Intake and Output 24 Hours 08/16/20 08/17/20 06:59 06:59 Intake Total 840 960 Balance 840 960 Weight 139.9 kg Intake: Intake, Oral Amount 840 960 Other: Number of Voids 1 Physical Assessment Anxiety Level None,at ease,Awake,Calm Mental Status Alert Patient Orientation Person,Place,Time Coma Scale Total 15 Breath Sounds [Anterior/ Clear Posterior Bilateral Throughout ] Cardiac Rhythm-[facility] Sinus Rhythm Change from Baseline: No Bowel Sounds [All Quadrants] Present,Active Abdomen Description Soft,Large,Non-Tender Urine Appearance Not Assessed Skin Color [place] Skin Temperature Warm Pain Scale (Last 24 Hours) Pain Intensity 8 Pain Intensity 8 Pain Intensity 7 Pain Intensity 4 Pain Intensity 7 Pain Intensity 7 Pain Intensity 0 Pain Intensity 0 Pain Intensity 0 Pain Intensity 5 Pain Intensity 5 Pain Intensity 3 Pain Intensity 5 Pain Intensity 7 Pain Intensity 7 PAST MEDICAL HISTORY Neurological History No Pertinent History ENT History No Pertinent History Endocrine Medical History No Pertinent History Respiratory History Asthma,Bronchitis,Sleep Apnea Cardiac History Congenital Heart Disease,Hypertension GI Medical History No Pertinent History History No Pertinent History Reproductive Disorders No Pertinent History Pyscho-Social History No Pertinent History Communicable Disease No Pertinent History Comment OPEN HEART WITH REPAIR OF HOLE--4 yrs old anemia Lab Results (Last 24 Hours) 08/16/20 08/16/20 08/16/20 Range/Units 14:42 04:08 04:08 WBC 10.6 H (4.0-10.5) K/mm3 RBC 4.99 (4.1-5.4) M/mm3 Hgb 12.9 (12.0-16.0) gm/dl Hct 40.5 (35-47) % MCV 81.2 (78-100) fl MCH 25.9 L (26-32) pg MCHC 31.9 L (32-36) g/dl RDW 14.9 H (11.5-14.0) % Plt Count 352 (150-450) K/mm3 MPV 9.1 (7.5-11.0) fl Sodium 135 L (137-145) mmol/L Potassium 4.3 (3.5-5.1) mmol/L Chloride 104 (98-107) mmol/L Carbon Dioxide 23 (22-30) mmol/L Anion Gap 12.0 (5-15) MEQ/L BUN 10 (7-17) mg/dL Creatinine 0.59 (0.52-1.04) mg/dL Estimated GFR > 60.0 ML/MIN Glucose 190 H (74-106) mg/dL Calcium 9.5 (8.4-10.2) mg/dL Troponin I < 0.012 (0.000-0.034) ng/mL SARS-CoV-2 (PCR) (NEGATIVE) 08/16/20 08/16/20 08/15/20 Range/Units 04:08 00:50 22:40 WBC (4.0-10.5) K/mm3 RBC (4.1-5.4) M/mm3 Hgb (12.0-16.0) gm/dl Hct (35-47) % MCV (78-100) fl MCH (26-32) pg MCHC (32-36) g/dl RDW (11.5-14.0) % Plt Count (150-450) K/mm3 MPV (7.5-11.0) fl Sodium (137-145) mmol/L Potassium (3.5-5.1) mmol/L Chloride (98-107) mmol/L Carbon Dioxide (22-30) mmol/L Anion Gap (5-15) MEQ/L BUN (7-17) mg/dL Creatinine (0.52-1.04) mg/dL Estimated GFR ML/MIN Glucose (74-106) mg/dL Calcium (8.4-10.2) mg/dL Troponin I < 0.012 < 0.012 < 0.012 (0.000-0.034) ng/mL SARS-CoV-2 (PCR) (NEGATIVE) 08/15/20 08/15/20 Range/Units 19:15 18:15 WBC (4.0-10.5) K/mm3 RBC (4.1-5.4) M/mm3 Hgb (12.0-16.0) gm/dl Hct (35-47) % MCV (78-100) fl MCH (26-32) pg MCHC (32-36) g/dl RDW (11.5-14.0) % Plt Count (150-450) K/mm3 MPV (7.5-11.0) fl Sodium (137-145) mmol/L Potassium (3.5-5.1) mmol/L Chloride (98-107) mmol/L Carbon Dioxide (22-30) mmol/L Anion Gap (5-15) MEQ/L BUN (7-17) mg/dL Creatinine (0.52-1.04) mg/dL Estimated GFR ML/MIN Glucose (74-106) mg/dL Calcium (8.4-10.2) mg/dL Troponin I < 0.012 (0.000-0.034) ng/mL SARS-CoV-2 (PCR) NEGATIVE (NEGATIVE) Orders (Last 24 Hours) Category Date Time Status Up With Assistance ROUTINE Activity 08/15/20 21:23 Active Code Status Order ROUTINE Care 08/15/20 21:23 Active IV Care Q6H Care 08/15/20 21:[address] in Observation ROUTINE Care 08/15/20 21:23 Active Adis Joe, Apply ROUTINE Care 08/15/20 21:23 Active Telemetry Q12H Care 08/15/20 21:23 Active Weight,Daily 0600 Care 08/15/20 21:23 Active Albuterol 2.5 mg/3 ml Neb [Proventil 2.5 mg/3 ml Neb Med 08/16/20 07:00 Active ] 2.5 mg IH BIDRT Albuterol/Ipratropium 3ml Neb* [DUONEB 0.5-3 MG/3 ml Med 08/15/20 22:10 Active Neb] 3 ml IH Q4HPRN PRN Cyclobenzaprine HCl 10 mg [Cyclobenzaprine 10 MG] Med 08/15/20 22:30 Active 5 mg PO HS Furosemide 20 mg [Lasix 20 mg] Med 08/16/20 10:00 Active 20 mg PO DAILY Gabapentin 300 mg [Neurontin 300 mg] Med 08/15/20 22:30 Active 300 mg PO BID Ibuprofen 400 mg [Motrin 400 mg] Med 08/15/20 22:08 Active 800 mg PO TIDP PRN Lisinopril 5 mg [Zestril 5 MG] Med 08/16/20 10:00 Active 10 mg PO DAILY Methylprednis Sod Succ 125 mg* [solu-MEDROL 125 MG] Med 08/16/20 04:00 Active 80 mg IV Q8H Montelukast Sodium 10 mg [Singulair 10 MG] Med 08/16/20 10:00 Active 10 mg PO DAILY Morphine Sulfate 4 mg Inj Med 08/16/20 16:45 Active 4 mg IV Q4H PRN PRN Ondansetron ODT 4 MG [Zofran Odt 4 mg] Med 08/15/20 22:08 Active 4 mg PO TID PRN PRN Patient Own Med [Patient Own Medication] Med 08/16/20 08:15 Active 0 each IH DAILY Patient Own Med [Patient Own Medication] Med 08/16/20 07:00 Active 0 each IH Q4HPRN PRN Tiotropium [place] Inhaler [Spiriva 18 Mcg/Cap Med 08/16/20 10:00 Active Inhaler] 1 ea IH DAILY Pulse Oximetry Q4H RT 08/15/20 21:23 Active Respiratory Therapy Assessment DAILY RT 08/15/20 20:54 Active Nursing Notes (Last 12 hours) 08/16/20 16:47 SBAR Note by Selina Valente SITUATION I am calling about IVANNA STEIN the patient's code status is Full Code The problem I am calling about is: pt reports pain is not any better and she is now having dizziness. ctni was negative ASSESSMENT RECOMMENDATION Physician notified at 1647 New Orders received: morphine 4mg iv q4hprn Vital Signs (Last 4 hours) Temp Pulse Resp BP Pulse Ox 08/16/20 16:00 97.2 F 111 H 16 94/45 98 08/16/20 13:31 107 H 20 97 Diagnois, Code Status Date of Arrival on Unit 08/15/20 Admitted From Emergency Dept Diagnosis ASTHMA, SHORTNESS OF BREATH Resucitation Status Full Code Intake and Output 24 Hours 08/16/20 08/17/20 06:59 06:59 Intake Total 840 960 Balance 840 960 Weight 139.9 kg Intake: Intake, Oral Amount 840 960 Other: Number of Voids 1 Physical Assessment Anxiety Level None,at ease,Awake,Calm Mental Status Alert Patient Orientation Person,Place,Time Coma Scale Total 15 Breath Sounds [Anterior/ Clear Posterior Bilateral Throughout ] Cardiac Rhythm-[facility] Sinus Rhythm Change from Baseline: No Bowel Sounds [All Quadrants] Present,Active Abdomen Description Soft,Large,Non-Tender Urine Appearance Not Assessed Skin Color [place] Skin Temperature Warm Pain Scale (Last 24 Hours) Pain Intensity 7 Pain Intensity 4 Pain Intensity 7 Pain Intensity 7 Pain Intensity 0 Pain Intensity 0 Pain Intensity 0 Pain Intensity 5 Pain Intensity 5 Pain Intensity 3 Pain Intensity 5 Pain Intensity 7 Pain Intensity 7 Pain Intensity 7 Pain Intensity 7 PAST MEDICAL HISTORY Neurological History No Pertinent History ENT History No Pertinent History Endocrine Medical History No Pertinent History Respiratory History Asthma,Bronchitis,Sleep Apnea Cardiac History Congenital Heart Disease,Hypertension GI Medical History No Pertinent History History No Pertinent History Reproductive Disorders No Pertinent History Pyscho-Social History No Pertinent History Communicable Disease No Pertinent History Comment OPEN HEART WITH REPAIR OF HOLE--4 yrs old anemia Diet Order (Last 24 Hours) 08/15/20 Dinner House Regular Diet Lab Results (Last 24 Hours) 08/16/20 08/16/20 08/16/20 Range/Units 14:42 04:08 04:08 WBC 10.6 H (4.0-10.5) K/mm3 RBC 4.99 (4.1-5.4) M/mm3 Hgb 12.9 (12.0-16.0) gm/dl Hct 40.5 (35-47) % MCV 81.2 (78-100) fl MCH 25.9 L (26-32) pg MCHC 31.9 L (32-36) g/dl RDW 14.9 H (11.5-14.0) % Plt Count 352 (150-450) K/mm3 MPV 9.1 (7.5-11.0) fl Sodium 135 L (137-145) mmol/L Potassium 4.3 (3.5-5.1) mmol/L Chloride 104 (98-107) mmol/L Carbon Dioxide 23 (22-30) mmol/L Anion Gap 12.0 (5-15) MEQ/L BUN 10 (7-17) mg/dL Creatinine 0.59 (0.52-1.04) mg/dL Estimated GFR > 60.0 ML/MIN Glucose 190 H (74-106) mg/dL Calcium 9.5 (8.4-10.2) mg/dL Troponin I < 0.012 (0.000-0.034) ng/mL SARS-CoV-2 (PCR) (NEGATIVE) 08/16/20 08/16/20 08/15/20 Range/Units 04:08 00:50 22:40 WBC (4.0-10.5) K/mm3 RBC (4.1-5.4) M/mm3 Hgb (12.0-16.0) gm/dl Hct (35-47) % MCV (78-100) fl MCH (26-32) pg MCHC (32-36) g/dl RDW (11.5-14.0) % Plt Count (150-450) K/mm3 MPV (7.5-11.0) fl Sodium (137-145) mmol/L Potassium (3.5-5.1) mmol/L Chloride (98-107) mmol/L Carbon Dioxide (22-30) mmol/L Anion Gap (5-15) MEQ/L BUN (7-17) mg/dL Creatinine (0.52-1.04) mg/dL Estimated GFR ML/MIN Glucose (74-106) mg/dL Calcium (8.4-10.2) mg/dL Troponin I < 0.012 < 0.012 < 0.012 (0.000-0.034) ng/mL SARS-CoV-2 (PCR) (NEGATIVE) 08/15/20 08/15/20 Range/Units 19:15 18:15 WBC (4.0-10.5) K/mm3 RBC (4.1-5.4) M/mm3 Hgb (12.0-16.0) gm/dl Hct (35-47) % MCV (78-100) fl MCH (26-32) pg MCHC (32-36) g/dl RDW (11.5-14.0) % Plt Count (150-450) K/mm3 MPV (7.5-11.0) fl Sodium (137-145) mmol/L Potassium (3.5-5.1) mmol/L Chloride (98-107) mmol/L Carbon Dioxide (22-30) mmol/L Anion Gap (5-15) MEQ/L BUN (7-17) mg/dL Creatinine (0.52-1.04) mg/dL Estimated GFR ML/MIN Glucose (74-106) mg/dL Calcium (8.4-10.2) mg/dL Troponin I < 0.012 (0.000-0.034) ng/mL SARS-CoV-2 (PCR) NEGATIVE (NEGATIVE) Orders (Last 24 Hours) Category Date Time Status Up With Assistance ROUTINE Activity 08/15/20 21:23 Active Code Status Order ROUTINE Care 08/15/20 21:23 Active IV Care Q6H Care 08/15/20 21:[address] in Observation ROUTINE Care 08/15/20 21:23 Active Catarina Alarcon ROUTINE Care 08/15/20 21:23 Active Telemetry Q12H Care 08/15/20 21:23 Active Weight,Daily 0600 Care 08/15/20 21:23 Active House Regular Diet Diet 08/15/20 Dinner Active Albuterol 2.5 mg/3 ml Neb [Proventil 2.5 mg/3 ml Neb Med 08/16/20 07:00 Active ] 2.5 mg IH BIDRT Albuterol/Ipratropium 3ml Neb* [DUONEB 0.5-3 MG/3 ml Med 08/15/20 22:10 Active Neb] 3 ml IH Q4HPRN PRN Cyclobenzaprine HCl 10 mg [Cyclobenzaprine 10 MG] Med 08/15/20 22:30 Active 5 mg PO HS Furosemide 20 mg [Lasix 20 mg] Med 08/16/20 10:00 Active 20 mg PO DAILY Gabapentin 300 mg [Neurontin 300 mg] Med 08/15/20 22:30 Active 300 mg PO BID Ibuprofen 400 mg [Motrin 400 mg] Med 08/15/20 22:08 Active 800 mg PO TIDP PRN Lisinopril 5 mg [Zestril 5 MG] Med 08/16/20 10:00 Active 10 mg PO DAILY Methylprednis Sod Succ 125 mg* [solu-MEDROL 125 MG] Med 08/16/20 04:00 Active 80 mg IV Q8H Montelukast Sodium 10 mg [Singulair 10 MG] Med 08/16/20 10:00 Active 10 mg PO DAILY Morphine Sulfate 4 mg Inj Med 08/16/20 16:45 Ordered 4 mg IV Q4H PRN PRN Ondansetron ODT 4 MG [Zofran Odt 4 mg] Med 08/15/20 22:08 Active 4 mg PO TID PRN PRN Patient Own Med [Patient Own Medication] Med 08/16/20 08:15 Active 0 each IH DAILY Patient Own Med [Patient Own Medication] Med 08/16/20 07:00 Active 0 each IH Q4HPRN PRN Tiotropium [place] Inhaler [Spiriva 18 Mcg/Cap Med 08/16/20 10:00 Active Inhaler] 1 ea IH DAILY Pulse Oximetry Q4H RT 08/15/20 21:23 Active Respiratory Therapy Assessment DAILY RT 08/15/20 20:54 Active Nursing Notes (Last 12 hours) 08/16/20 14:36 Nursing Note by Selina Valente pt c/o heaviness in chest that radiates up left neck. pt reports her heart is pounding and she is short of breath. 115/56, 119, 95% on ra. ekg and troponin ordered stat. ekg faxed to dr. carrera's office and doesn't appear to have any changes from previous one. reported all symptoms and interventions to dr. carrera and new order obtained for toradol 30mg iv 1xonly Initialized on 08/16/20 14:36 - END OF NOTE 08/16/20 14:25 Nursing Note by Tessa Vazquez I FAXED EKG TO OFFICE AT [place]. Initialized on 08/16/20 14:25 - END OF NOTE Active Visit Medications Generic Name Dose Route Start Last Admin Trade Name Freq PRN Reason Stop Dose Admin Albuterol Sulfate 2.5 mg 08/16/20 07:00 08/16/20 07:05 Proventil 2.5 Mg/3 Ml Neb IH 09/15/20 06:59 2.5 mg BIDRT TIM Administration Albuterol/Ipratropium 3 ml 08/15/20 22:10 08/16/20 13:30 Duoneb 0.5-3 Mg/3 Ml Neb IH 09/14/20 22:09 3 ml Q4HPRN PRN Administration SHORTNESS OF BREATH/WHEEZING Cyclobenzaprine HCl 5 mg 08/15/20 22:30 08/15/20 22:50 Cyclobenzaprine 10 Mg PO 09/14/20 22:29 5 mg HS TIM Administration Furosemide 20 mg 08/16/20 10:00 08/16/20 11:11 Lasix 20 Mg PO 09/15/20 09:59 20 mg DAILY TIM Administration Gabapentin 300 mg 08/15/20 22:30 08/16/20 11:11 Neurontin 300 Mg PO 09/14/20 22:29 300 mg BID TIM Administration Ibuprofen 800 mg 08/15/20 22:08 08/16/20 07:46 Motrin 400 Mg PO 09/14/20 22:07 800 mg TIDP PRN Administration PAIN Lisinopril 10 mg 08/16/20 10:00 08/16/20 11:12 Zestril 5 Mg PO 09/15/20 09:59 10 mg DAILY [facility] Administration Methylprednisolone Sodium Succinate 80 mg 08/16/20 04:00 08/16/20 11:15 Solu-Medrol 125 Mg IV 09/15/20 03:59 80 mg Q8H TIM Administration Montelukast Sodium 10 mg 08/16/20 10:00 08/16/20 11:12 Singulair 10 Mg PO 09/15/20 09:59 10 mg DAILY TIM Administration Morphine Sulfate 4 mg 08/16/20 16:45 Morphine Sulfate 4 Mg Inj IV 08/21/20 16:44 Q4H PRN PRN PAIN Ondansetron HCl 4 mg 08/15/20 22:08 Zofran Odt 4 Mg PO 09/14/20 22:07 TID PRN PRN NAUSEA/VOMITING Patient Own Med ( 0 each 08/16/20 07:00 Albuterol) 09/15/20 06:59 Q4HPRN PRN SHORTNESS OF BREATH Patient Own Med ( 0 each 08/16/20 08:15 Synbicort) 09/15/20 06:59 DAILY [facility] Tiotropium [place] 1 ea 08/16/20 10:00 Spiriva 18 Mcg/Cap Inhaler 09/15/20 09:59 DAILY [facility] Home Medications Medication Instructions Recorded Confirmed Last Taken Type Albuterol/Ipratropium 3ml Neb* 1 neb IH BID 08/15/20 08/15/20 08/15/20 History [DUONEB 0.5-3 MG/3 ml Neb] Budesonide/Formoterol Fumarate 1 puff IH DAILY 08/15/20 08/15/20 08/15/20 History [Symbicort 160-4.5 Mcg Inhaler] Ondansetron HCl [Zofran] 4 mg PO TIDPRN PRN 08/15/20 08/15/20 Unknown History Initialized on 08/16/20 16:47 - END OF NOTE 08/16/20 14:36 Nursing Note by Selina Valente pt c/o heaviness in chest that radiates up left neck. pt reports her heart is pounding and she is short of breath. 115/56, 119, 95% on ra. ekg and troponin ordered stat. ekg faxed to dr. carrera's office and doesn't appear to have any changes from previous one. reported all symptoms and interventions to dr. carrera and new order obtained for toradol 30mg iv 1xonly Initialized on 08/16/20 14:36 - END OF NOTE 08/16/20 14:25 Nursing Note by Tessa Vazquez I FAXED EKG TO OFFICE AT [place]. Initialized on 08/16/20 14:25 - END OF NOTE Active Visit Medications Generic Name Dose Route Start Last Admin Trade Name Freq PRN Reason Stop Dose Admin Albuterol Sulfate 2.5 mg 08/16/20 07:00 08/16/20 07:05 Proventil 2.5 Mg/3 Ml Neb IH 09/15/20 06:59 2.5 mg BIDRT TIM Administration Albuterol/Ipratropium 3 ml 08/15/20 22:10 08/16/20 13:30 Duoneb 0.5-3 Mg/3 Ml Neb IH 09/14/20 22:09 3 ml Q4HPRN PRN Administration SHORTNESS OF BREATH/WHEEZING Cyclobenzaprine HCl 5 mg 08/15/20 22:30 08/15/20 22:50 Cyclobenzaprine 10 Mg PO 09/14/20 22:29 5 mg HS TIM Administration Furosemide 20 mg 08/16/20 10:00 08/16/20 11:11 Lasix 20 Mg PO 09/15/20 09:59 20 mg DAILY TIM Administration Gabapentin 300 mg 08/15/20 22:30 08/16/20 11:11 Neurontin 300 Mg PO 09/14/20 22:29 300 mg BID TIM Administration Ibuprofen 800 mg 08/15/20 22:08 08/16/20 07:46 Motrin 400 Mg PO 09/14/20 22:07 800 mg TIDP PRN Administration PAIN Lisinopril 10 mg 08/16/20 10:00 08/16/20 11:12 Zestril 5 Mg PO 09/15/20 09:59 10 mg DAILY TIM Administration Methylprednisolone Sodium Succinate 80 mg 08/16/20 04:00 08/16/20 11:15 Solu-Medrol 125 Mg IV 09/15/20 03:59 80 mg Q8H TIM Administration Montelukast Sodium 10 mg 08/16/20 10:00 08/16/20 11:12 Singulair 10 Mg PO 09/15/20 09:59 10 mg DAILY TIM Administration Morphine Sulfate 4 mg 08/16/20 16:45 08/16/20 17:03 Morphine Sulfate 4 Mg Inj IV 08/21/20 16:44 4 mg Q4H PRN PRN Administration PAIN Ondansetron HCl 4 mg 08/15/20 22:08 Zofran Odt 4 Mg PO 09/14/20 22:07 TID PRN PRN NAUSEA/VOMITING Patient Own Med ( 0 each 08/16/20 07:00 Albuterol) 09/15/20 06:59 Q4HPRN PRN SHORTNESS OF BREATH Patient Own Med ( 0 each 08/16/20 08:15 Synbicort) 09/15/20 06:59 DAILY [facility] Tiotropium [place] 1 ea 08/16/20 10:00 Spiriva 18 Mcg/Cap Inhaler IH 09/15/20 09:59 DAILY [facility] Home Medications Medication Instructions Recorded Confirmed Last Taken Type Albuterol/Ipratropium 3ml Neb* 1 neb IH BID 08/15/20 08/15/20 08/15/20 History [DUONEB 0.5-3 MG/3 ml Neb] Budesonide/Formoterol Fumarate 1 puff IH DAILY 08/15/20 08/15/20 08/15/20 History [Symbicort 160-4.5 Mcg Inhaler] Ondansetron HCl [Zofran] 4 mg PO TIDPRN PRN 08/15/20 08/15/20 Unknown History Initialized on 08/16/20 17:58 - END OF NOTE 08/16/20 16:47 SBAR Note by Selina Valente SITUATION I am calling about IVANNA STEIN the patient's code status is Full Code The problem I am calling about is: pt reports pain is not any better and she is now having dizziness. ctni was negative ASSESSMENT RECOMMENDATION Physician notified at 1647 New Orders received: morphine 4mg iv q4hprn Vital Signs (Last 4 hours) Temp Pulse Resp BP Pulse Ox 08/16/20 16:00 97.2 F 111 H 16 94/45 98 08/16/20 13:31 107 H 20 97 Diagnois, Code Status Date of Arrival on Unit 08/15/20 Admitted From Emergency Dept Diagnosis ASTHMA, SHORTNESS OF BREATH Resucitation Status Full Code Intake and Output 24 Hours 08/16/20 08/17/20 06:59 06:59 Intake Total 840 960 Balance 840 960 Weight 139.9 kg Intake: Intake, Oral Amount 840 960 Other: Number of Voids 1 Physical Assessment Anxiety Level None,at ease,Awake,Calm Mental Status Alert Patient Orientation Person,Place,Time Coma Scale Total 15 Breath Sounds [Anterior/ Clear Posterior Bilateral Throughout ] Cardiac Rhythm-SCCH Sinus Rhythm Change from Baseline: No Bowel Sounds [All Quadrants] Present,Active Abdomen Description Soft,Large,Non-Tender Urine Appearance Not Assessed Skin Color [place] Skin Temperature Warm Pain Scale (Last 24 Hours) Pain Intensity 7 Pain Intensity 4 Pain Intensity 7 Pain Intensity 7 Pain Intensity 0 Pain Intensity 0 Pain Intensity 0 Pain Intensity 5 Pain Intensity 5 Pain Intensity 3 Pain Intensity 5 Pain Intensity 7 Pain Intensity 7 Pain Intensity 7 Pain Intensity 7 PAST MEDICAL HISTORY Neurological History No Pertinent History ENT History No Pertinent History Endocrine Medical History No Pertinent History Respiratory History Asthma,Bronchitis,Sleep Apnea Cardiac History Congenital Heart Disease,Hypertension GI Medical History No Pertinent History History No Pertinent History Reproductive Disorders No Pertinent History Pyscho-Social History No Pertinent History Communicable Disease No Pertinent History Comment OPEN HEART WITH REPAIR OF HOLE--4 yrs old anemia Diet Order (Last 24 Hours) 08/15/20 Dinner House Regular Diet Lab Results (Last 24 Hours) 08/16/20 08/16/20 08/16/20 Range/Units 14:42 04:08 04:08 WBC 10.6 H (4.0-10.5) K/mm3 RBC 4.99 (4.1-5.4) M/mm3 Hgb 12.9 (12.0-16.0) gm/dl Hct 40.5 (35-47) % MCV 81.2 (78-100) fl MCH 25.9 L (26-32) pg MCHC 31.9 L (32-36) g/dl RDW 14.9 H (11.5-14.0) % Plt Count 352 (150-450) K/mm3 MPV 9.1 (7.5-11.0) fl Sodium 135 L (137-145) mmol/L Potassium 4.3 (3.5-5.1) mmol/L Chloride 104 (98-107) mmol/L Carbon Dioxide 23 (22-30) mmol/L Anion Gap 12.0 (5-15) MEQ/L BUN 10 (7-17) mg/dL Creatinine 0.59 (0.52-1.04) mg/dL Estimated GFR > 60.0 ML/MIN Glucose 190 H (74-106) mg/dL Calcium 9.5 (8.4-10.2) mg/dL Troponin I < 0.012 (0.000-0.034) ng/mL SARS-CoV-2 (PCR) (NEGATIVE) 08/16/20 08/16/20 08/15/20 Range/Units 04:08 00:50 22:40 WBC (4.0-10.5) K/mm3 RBC (4.1-5.4) M/mm3 Hgb (12.0-16.0) gm/dl Hct (35-47) % MCV (78-100) fl MCH (26-32) pg MCHC (32-36) g/dl RDW (11.5-14.0) % Plt Count (150-450) K/mm3 MPV (7.5-11.0) fl Sodium (137-145) mmol/L Potassium (3.5-5.1) mmol/L Chloride (98-107) mmol/L Carbon Dioxide (22-30) mmol/L Anion Gap (5-15) MEQ/L BUN (7-17) mg/dL Creatinine (0.52-1.04) mg/dL Estimated GFR ML/MIN Glucose (74-106) mg/dL Calcium (8.4-10.2) mg/dL Troponin I < 0.012 < 0.012 < 0.012 (0.000-0.034) ng/mL SARS-CoV-2 (PCR) (NEGATIVE) 08/15/20 08/15/20 Range/Units 19:15 18:15 WBC (4.0-10.5) K/mm3 RBC (4.1-5.4) M/mm3 Hgb (12.0-16.0) gm/dl Hct (35-47) % MCV (78-100) fl MCH (26-32) pg MCHC (32-36) g/dl RDW (11.5-14.0) % Plt Count (150-450) K/mm3 MPV (7.5-11.0) fl Sodium (137-145) mmol/L Potassium (3.5-5.1) mmol/L Chloride (98-107) mmol/L Carbon Dioxide (22-30) mmol/L Anion Gap (5-15) MEQ/L BUN (7-17) mg/dL Creatinine (0.52-1.04) mg/dL Estimated GFR ML/MIN Glucose (74-106) mg/dL Calcium (8.4-10.2) mg/dL Troponin I < 0.012 (0.000-0.034) ng/mL SARS-CoV-2 (PCR) NEGATIVE (NEGATIVE) Orders (Last 24 Hours) Category Date Time Status Up With Assistance ROUTINE Activity 08/15/20 21:23 Active Code Status Order ROUTINE Care 08/15/20 21:23 Active IV Care Q6H Care 08/15/20 21:[address] in Observation ROUTINE Care 08/15/20 21:23 Active Catarina Alarcon ROUTINE Care 08/15/20 21:23 Active Telemetry Q12H Care 08/15/20 21:23 Active Weight,Daily 0600 Care 08/15/20 21:23 Active House Regular Diet Diet 08/15/20 Dinner Active Albuterol 2.5 mg/3 ml Neb [Proventil 2.5 mg/3 ml Neb Med 08/16/20 07:00 Active ] 2.5 mg IH BIDRT Albuterol/Ipratropium 3ml Neb* [DUONEB 0.5-3 MG/3 ml Med 08/15/20 22:10 Active Neb] 3 ml IH Q4HPRN PRN Cyclobenzaprine HCl 10 mg [Cyclobenzaprine 10 MG] Med 08/15/20 22:30 Active 5 mg PO HS Furosemide 20 mg [Lasix 20 mg] Med 08/16/20 10:00 Active 20 mg PO DAILY Gabapentin 300 mg [Neurontin 300 mg] Med 08/15/20 22:30 Active 300 mg PO BID Ibuprofen 400 mg [Motrin 400 mg] Med 08/15/20 22:08 Active 800 mg PO TIDP PRN Lisinopril 5 mg [Zestril 5 MG] Med 08/16/20 10:00 Active 10 mg PO DAILY Methylprednis Sod Succ 125 mg* [solu-MEDROL 125 MG] Med 08/16/20 04:00 Active 80 mg IV Q8H Montelukast Sodium 10 mg [Singulair 10 MG] Med 08/16/20 10:00 Active 10 mg PO DAILY Morphine Sulfate 4 mg Inj Med 08/16/20 16:45 Ordered 4 mg IV Q4H PRN PRN Ondansetron ODT 4 MG [Zofran Odt 4 mg] Med 08/15/20 22:08 Active 4 mg PO TID PRN PRN Patient Own Med [Patient Own Medication] Med 08/16/20 08:15 Active 0 each IH DAILY Patient Own Med [Patient Own Medication] Med 08/16/20 07:00 Active 0 each IH Q4HPRN PRN Tiotropium [place] Inhaler [Spiriva 18 Mcg/Cap Med 08/16/20 10:00 Active Inhaler] 1 ea IH DAILY Pulse Oximetry Q4H RT 08/15/20 21:23 Active Respiratory Therapy Assessment DAILY RT 08/15/20 20:54 Active Nursing Notes (Last 12 hours) 08/16/20 14:36 Nursing Note by Selina Valente pt c/o heaviness in chest that radiates up left neck. pt reports her heart is pounding and she is short of breath. 115/56, 119, 95% on ra. ekg and troponin ordered stat. ekg faxed to dr. carrera's office and doesn't appear to have any changes from previous one. reported all symptoms and interventions to dr. carrera and new order obtained for toradol 30mg iv 1xonly Initialized on 08/16/20 14:36 - END OF NOTE 08/16/20 14:25 Nursing Note by Tessa Vazquez I FAXED EKG TO OFFICE AT [place]. Initialized on 08/16/20 14:25 - END OF NOTE Active Visit Medications Generic Name Dose Route Start Last Admin Trade Name Freq PRN Reason Stop Dose Admin Albuterol Sulfate 2.5 mg 08/16/20 07:00 08/16/20 07:05 Proventil 2.5 Mg/3 Ml Neb IH 09/15/20 06:59 2.5 mg BIDRT TIM Administration Albuterol/Ipratropium 3 ml 08/15/20 22:10 08/16/20 13:30 Duoneb 0.5-3 Mg/3 Ml Neb IH 09/14/20 22:09 3 ml Q4HPRN PRN Administration SHORTNESS OF BREATH/WHEEZING Cyclobenzaprine HCl 5 mg 08/15/20 22:30 08/15/20 22:50 Cyclobenzaprine 10 Mg PO 09/14/20 22:29 5 mg HS TIM Administration Furosemide 20 mg 08/16/20 10:00 08/16/20 11:11 Lasix 20 Mg PO 09/15/20 09:59 20 mg DAILY TIM Administration Gabapentin 300 mg 08/15/20 22:30 08/16/20 11:11 Neurontin 300 Mg PO 09/14/20 22:29 300 mg BID TIM Administration Ibuprofen 800 mg 08/15/20 22:08 08/16/20 07:46 Motrin 400 Mg PO 09/14/20 22:07 800 mg TIDP PRN Administration PAIN Lisinopril 10 mg 08/16/20 10:00 08/16/20 11:12 Zestril 5 Mg PO 09/15/20 09:59 10 mg DAILY TIM Administration Methylprednisolone Sodium Succinate 80 mg 08/16/20 04:00 08/16/20 11:15 Solu-Medrol 125 Mg IV 09/15/20 03:59 80 mg Q8H TIM Administration Montelukast Sodium 10 mg 08/16/20 10:00 08/16/20 11:12 Singulair 10 Mg PO 09/15/20 09:59 10 mg DAILY TIM Administration Morphine Sulfate 4 mg 08/16/20 16:45 Morphine Sulfate 4 Mg Inj IV 08/21/20 16:44 Q4H PRN PRN PAIN Ondansetron HCl 4 mg 08/15/20 22:08 Zofran Odt 4 Mg PO 09/14/20 22:07 TID PRN PRN NAUSEA/VOMITING Patient Own Med ( 0 each 08/16/20 07:00 Albuterol) 09/15/20 06:59 Q4HPRN PRN SHORTNESS OF BREATH Patient Own Med ( 0 each 08/16/20 08:15 Synbicort) 09/15/20 06:59 DAILY [facility] Tiotropium [place] 1 ea 08/16/20 10:00 Spiriva 18 Mcg/Cap Inhaler IH 09/15/20 09:59 DAILY [facility] Home Medications Medication Instructions Recorded Confirmed Last Taken Type Albuterol/Ipratropium 3ml Neb* 1 neb IH BID 08/15/20 08/15/20 08/15/20 History [DUONEB 0.5-3 MG/3 ml Neb] Budesonide/Formoterol Fumarate 1 puff IH DAILY 08/15/20 08/15/20 08/15/20 History [Symbicort 160-4.5 Mcg Inhaler] Ondansetron HCl [Zofran] 4 mg PO TIDPRN PRN 08/15/20 08/15/20 Unknown History Initialized on 08/16/20 16:47 - END OF NOTE 08/16/20 14:36 Nursing Note by Selina Valente pt c/o heaviness in chest that radiates up left neck. pt reports her heart is pounding and she is short of breath. 115/56, 119, 95% on ra. ekg and troponin ordered stat. ekg faxed to dr. carrera's office and doesn't appear to have any changes from previous one. reported all symptoms and interventions to dr. carrera and new order obtained for toradol 30mg iv 1xonly Initialized on 08/16/20 14:36 - END OF NOTE 08/16/20 14:25 Nursing Note by Tessa Vazquez I FAXED EKG TO OFFICE AT [place]. Initialized on 08/16/20 14:25 - END OF NOTE Active Visit Medications Generic Name Dose Route Start Last Admin Trade Name Freq PRN Reason Stop Dose Admin Cyclobenzaprine HCl 5 mg 08/15/20 22:30 08/15/20 22:50 Cyclobenzaprine 10 Mg PO 09/14/20 22:29 5 mg HS TIM Administration Furosemide 20 mg 08/16/20 10:00 08/16/20 11:11 Lasix 20 Mg PO 09/15/20 09:59 20 mg DAILY TIM Administration Gabapentin 300 mg 08/15/20 22:30 08/16/20 11:11 Neurontin 300 Mg PO 09/14/20 22:29 300 mg BID TIM Administration Ibuprofen 800 mg 08/15/20 22:08 08/16/20 07:46 Motrin 400 Mg PO 09/14/20 22:07 800 mg TIDP PRN Administration PAIN Levalbuterol HCl 1.25 mg 08/16/20 19:00 08/16/20 19:02 Xopenex 1.25 Mg/0.5 Ml Ud Nebule IH 09/15/20 18:59 1.25 mg BIDRT TIM Administration Lisinopril 10 mg 08/16/20 10:00 08/16/20 11:12 Zestril 5 Mg PO 09/15/20 09:59 10 mg DAILY TIM Administration Lorazepam 1 mg 08/16/20 17:59 08/16/20 18:05 Ativan 2 Mg/1 Ml Vial IV 09/15/20 17:58 1 mg Q4H PRN PRN Administration ANXIETY/AGITATION Methylprednisolone Sodium Succinate 80 mg 08/16/20 04:00 08/16/20 11:15 Solu-Medrol 125 Mg IV 09/15/20 03:59 80 mg Q8H TIM Administration Montelukast Sodium 10 mg 08/16/20 10:00 08/16/20 11:12 Singulair 10 Mg PO 09/15/20 09:59 10 mg DAILY TIM Administration Morphine Sulfate 4 mg 08/16/20 16:45 08/16/20 17:03 Morphine Sulfate 4 Mg Inj IV 08/21/20 16:44 4 mg Q4H PRN PRN Administration PAIN Ondansetron HCl 4 mg 08/15/20 22:08 Zofran Odt 4 Mg PO 09/14/20 22:07 TID PRN PRN NAUSEA/VOMITING Patient Own Med ( 0 each 08/16/20 07:00 Albuterol) 09/15/20 06:59 Q4HPRN PRN SHORTNESS OF BREATH Patient Own Med ( 0 each 08/16/20 08:15 Synbicort) 09/15/20 06:59 DAILY TIM Tiotropium [place] 1 ea 08/16/20 10:00 Spiriva 18 Mcg/Cap Inhaler IH 09/15/20 09:59 DAILY [facility] Home Medications Medication Instructions Recorded Confirmed Last Taken Type Albuterol/Ipratropium 3ml Neb* 1 neb IH BID 08/15/20 08/15/20 08/15/20 History [DUONEB 0.5-3 MG/3 ml Neb] Budesonide/Formoterol Fumarate 1 puff IH DAILY 08/15/20 08/15/20 08/15/20 History [Symbicort 160-4.5 Mcg Inhaler] Ondansetron HCl [Zofran] 4 mg PO TIDPRN PRN 08/15/20 08/15/20 Unknown History Initialized on 08/16/20 20:24 - END OF NOTE 08/16/20 17:58 SBAR Note by Selina Valente SITUATION I am calling about IVANNA VELA SARITA the patient's code status is Full Code The problem I am calling about is: pt reports morphine has not helped her discomfort at all. pt breathing does appear a little more relaxed but pt states pain is still 8 of 10 and heart is still "pounding out of my chest". ASSESSMENT RECOMMENDATION Physician notified at 1758 New Orders received: ativan 1mg iv q4hprn for anxiety Vital Signs (Last 4 hours) Temp Pulse Resp BP Pulse Ox 08/16/20 17:53 113 H 134/60 08/16/20 16:00 97.2 F 111 H 16 94/45 98 08/16/20 15:00 98 Martin, Code Status Date of Arrival on Unit 08/15/20 Admitted From Emergency Dept Diagnosis ASTHMA, SHORTNESS OF BREATH Resucitation Status Full Code Intake and Output 24 Hours 08/16/20 08/17/20 06:59 06:59 Intake Total 840 960 Balance 840 960 Weight 139.9 kg Intake: Intake, Oral Amount 840 960 Other: Number of Voids 1 Physical Assessment Anxiety Level None,at ease,Awake,Calm Mental Status Alert Patient Orientation Person,Place,Time Coma Scale Total 15 Breath Sounds [Anterior/ Clear Posterior Bilateral Throughout ] Cardiac Rhythm-S[facility]H Sinus Rhythm Change from Baseline: No Bowel Sounds [All Quadrants] Present,Active Abdomen Description Soft,Large,Non-Tender Urine Appearance Not Assessed Skin Color [place] Skin Temperature Warm Pain Scale (Last 24 Hours) Pain Intensity 8 Pain Intensity 8 Pain Intensity 7 Pain Intensity 4 Pain Intensity 7 Pain Intensity 7 Pain Intensity 0 Pain Intensity 0 Pain Intensity 0 Pain Intensity 5 Pain Intensity 5 Pain Intensity 3 Pain Intensity 5 Pain Intensity 7 Pain Intensity 7 PAST MEDICAL HISTORY Neurological History No Pertinent History ENT History No Pertinent History Endocrine Medical History No Pertinent History Respiratory History Asthma,Bronchitis,Sleep Apnea Cardiac History Congenital Heart Disease,Hypertension GI Medical History No Pertinent History History No Pertinent History Reproductive Disorders No Pertinent History Pyscho-Social History No Pertinent History Communicable Disease No Pertinent History Comment OPEN HEART WITH REPAIR OF HOLE--4 yrs old anemia Lab Results (Last 24 Hours) 08/16/20 08/16/20 08/16/20 Range/Units 14:42 04:08 04:08 WBC 10.6 H (4.0-10.5) K/mm3 RBC 4.99 (4.1-5.4) M/mm3 Hgb 12.9 (12.0-16.0) gm/dl Hct 40.5 (35-47) % MCV 81.2 (78-100) fl MCH 25.9 L (26-32) pg MCHC 31.9 L (32-36) g/dl RDW 14.9 H (11.5-14.0) % Plt Count 352 (150-450) K/mm3 MPV 9.1 (7.5-11.0) fl Sodium 135 L (137-145) mmol/L Potassium 4.3 (3.5-5.1) mmol/L Chloride 104 (98-107) mmol/L Carbon Dioxide 23 (22-30) mmol/L Anion Gap 12.0 (5-15) MEQ/L BUN 10 (7-17) mg/dL Creatinine 0.59 (0.52-1.04) mg/dL Estimated GFR > 60.0 ML/MIN Glucose 190 H (74-106) mg/dL Calcium 9.5 (8.4-10.2) mg/dL Troponin I < 0.012 (0.000-0.034) ng/mL SARS-CoV-2 (PCR) (NEGATIVE) 08/16/20 08/16/20 08/15/20 Range/Units 04:08 00:50 22:40 WBC (4.0-10.5) K/mm3 RBC (4.1-5.4) M/mm3 Hgb (12.0-16.0) gm/dl Hct (35-47) % MCV (78-100) fl MCH (26-32) pg MCHC (32-36) g/dl RDW (11.5-14.0) % Plt Count (150-450) K/mm3 MPV (7.5-11.0) fl Sodium (137-145) mmol/L Potassium (3.5-5.1) mmol/L Chloride (98-107) mmol/L Carbon Dioxide (22-30) mmol/L Anion Gap (5-15) MEQ/L BUN (7-17) mg/dL Creatinine (0.52-1.04) mg/dL Estimated GFR ML/MIN Glucose (74-106) mg/dL Calcium (8.4-10.2) mg/dL Troponin I < 0.012 < 0.012 < 0.012 (0.000-0.034) ng/mL SARS-CoV-2 (PCR) (NEGATIVE) 08/15/20 08/15/20 Range/Units 19:15 18:15 WBC (4.0-10.5) K/mm3 RBC (4.1-5.4) M/mm3 Hgb (12.0-16.0) gm/dl Hct (35-47) % MCV (78-100) fl MCH (26-32) pg MCHC (32-36) g/dl RDW (11.5-14.0) % Plt Count (150-450) K/mm3 MPV (7.5-11.0) fl Sodium (137-145) mmol/L Potassium (3.5-5.1) mmol/L Chloride (98-107) mmol/L Carbon Dioxide (22-30) mmol/L Anion Gap (5-15) MEQ/L BUN (7-17) mg/dL Creatinine (0.52-1.04) mg/dL Estimated GFR ML/MIN Glucose (74-106) mg/dL Calcium (8.4-10.2) mg/dL Troponin I < 0.012 (0.000-0.034) ng/mL SARS-CoV-2 (PCR) NEGATIVE (NEGATIVE) Orders (Last 24 Hours) Category Date Time Status Up With Assistance ROUTINE Activity 08/15/20 21:23 Active Code Status Order ROUTINE Care 08/15/20 21:23 Active IV Care Q6H Care 08/15/20 21:[address] in Observation ROUTINE Care 08/15/20 21:23 Active Adis Joe, Apply ROUTINE Care 08/15/20 21:23 Active Telemetry Q12H Care 08/15/20 21:23 Active Weight,Daily 0600 Care 08/15/20 21:23 Active Albuterol 2.5 mg/3 ml Neb [Proventil 2.5 mg/3 ml Neb Med 08/16/20 07:00 Active ] 2.5 mg IH BIDRT Albuterol/Ipratropium 3ml Neb* [DUONEB 0.5-3 MG/3 ml Med 08/15/20 22:10 Active Neb] 3 ml IH Q4HPRN PRN Cyclobenzaprine HCl 10 mg [Cyclobenzaprine 10 MG] Med 08/15/20 22:30 Active 5 mg PO HS Furosemide 20 mg [Lasix 20 mg] Med 08/16/20 10:00 Active 20 mg PO DAILY Gabapentin 300 mg [Neurontin 300 mg] Med 08/15/20 22:30 Active 300 mg PO BID Ibuprofen 400 mg [Motrin 400 mg] Med 08/15/20 22:08 Active 800 mg PO TIDP PRN Lisinopril 5 mg [Zestril 5 MG] Med 08/16/20 10:00 Active 10 mg PO DAILY Methylprednis Sod Succ 125 mg* [solu-MEDROL 125 MG] Med 08/16/20 04:00 Active 80 mg IV Q8H Montelukast Sodium 10 mg [Singulair 10 MG] Med 08/16/20 10:00 Active 10 mg PO DAILY Morphine Sulfate 4 mg Inj Med 08/16/20 16:45 Active 4 mg IV Q4H PRN PRN Ondansetron ODT 4 MG [Zofran Odt 4 mg] Med 08/15/20 22:08 Active 4 mg PO TID PRN PRN Patient Own Med [Patient Own Medication] Med 08/16/20 08:15 Active 0 each IH DAILY Patient Own Med [Patient Own Medication] Med 08/16/20 07:00 Active 0 each IH Q4HPRN PRN Tiotropium [place] Inhaler [Spiriva 18 Mcg/Cap Med 08/16/20 10:00 Active Inhaler] 1 ea IH DAILY Pulse Oximetry Q4H RT 08/15/20 21:23 Active Respiratory Therapy Assessment DAILY RT 08/15/20 20:54 Active Nursing Notes (Last 12 hours) 08/16/20 16:47 SBAR Note by Selina Valente SITUATION I am calling about IVANNA MONOM the patient's code status is Full Code The problem I am calling about is: pt reports pain is not any better and she is now having dizziness. ctni was negative ASSESSMENT RECOMMENDATION Physician notified at [id number] New Orders received: morphine 4mg iv q4hprn Vital Signs (Last 4 hours) Temp Pulse Resp BP Pulse Ox 08/16/20 16:00 97.2 F 111 H 16 94/45 98 08/16/20 13:31 107 H 20 97 Diagnois, Code Status Date of Arrival on Unit 08/15/20 Admitted From Emergency Dept Diagnosis ASTHMA, SHORTNESS OF BREATH Resucitation Status Full Code Intake and Output 24 Hours 08/16/20 08/17/20 06:59 06:59 Intake Total 840 960 Balance 840 960 Weight 139.9 kg Intake: Intake, Oral Amount 840 960 Other: Number of Voids 1 Physical Assessment Anxiety Level None,at ease,Awake,Calm Mental Status Alert Patient Orientation Person,Place,Time Coma Scale Total 15 Breath Sounds [Anterior/ Clear Posterior Bilateral Throughout ] Cardiac Rhythm-[facility] Sinus Rhythm Change from Baseline: No Bowel Sounds [All Quadrants] Present,Active Abdomen Description Soft,Large,Non-Tender Urine Appearance Not Assessed Skin Color [place] Skin Temperature Warm Pain Scale (Last 24 Hours) Pain Intensity 7 Pain Intensity 4 Pain Intensity 7 Pain Intensity 7 Pain Intensity 0 Pain Intensity 0 Pain Intensity 0 Pain Intensity 5 Pain Intensity 5 Pain Intensity 3 Pain Intensity 5 Pain Intensity 7 Pain Intensity 7 Pain Intensity 7 Pain Intensity 7 PAST MEDICAL HISTORY Neurological History No Pertinent History ENT History No Pertinent History Endocrine Medical History No Pertinent History Respiratory History Asthma,Bronchitis,Sleep Apnea Cardiac History Congenital Heart Disease,Hypertension GI Medical History No Pertinent History History No Pertinent History Reproductive Disorders No Pertinent History Pyscho-Social History No Pertinent History Communicable Disease No Pertinent History Comment OPEN HEART WITH REPAIR OF HOLE--4 yrs old anemia Diet Order (Last 24 Hours) 08/15/20 Dinner House Regular Diet Lab Results (Last 24 Hours) 08/16/20 08/16/20 08/16/20 Range/Units 14:42 04:08 04:08 WBC 10.6 H (4.0-10.5) K/mm3 RBC 4.99 (4.1-5.4) M/mm3 Hgb 12.9 (12.0-16.0) gm/dl Hct 40.5 (35-47) % MCV 81.2 (78-100) fl MCH 25.9 L (26-32) pg MCHC 31.9 L (32-36) g/dl RDW 14.9 H (11.5-14.0) % Plt Count 352 (150-450) K/mm3 MPV 9.1 (7.5-11.0) fl Sodium 135 L (137-145) mmol/L Potassium 4.3 (3.5-5.1) mmol/L Chloride 104 (98-107) mmol/L Carbon Dioxide 23 (22-30) mmol/L Anion Gap 12.0 (5-15) MEQ/L BUN 10 (7-17) mg/dL Creatinine 0.59 (0.52-1.04) mg/dL Estimated GFR > 60.0 ML/MIN Glucose 190 H (74-106) mg/dL Calcium 9.5 (8.4-10.2) mg/dL Troponin I < 0.012 (0.000-0.034) ng/mL SARS-CoV-2 (PCR) (NEGATIVE) 08/16/20 08/16/20 08/15/20 Range/Units 04:08 00:50 22:40 WBC (4.0-10.5) K/mm3 RBC (4.1-5.4) M/mm3 Hgb (12.0-16.0) gm/dl Hct (35-47) % MCV (78-100) fl MCH (26-32) pg MCHC (32-36) g/dl RDW (11.5-14.0) % Plt Count (150-450) K/mm3 MPV (7.5-11.0) fl Sodium (137-145) mmol/L Potassium (3.5-5.1) mmol/L Chloride (98-107) mmol/L Carbon Dioxide (22-30) mmol/L Anion Gap (5-15) MEQ/L BUN (7-17) mg/dL Creatinine (0.52-1.04) mg/dL Estimated GFR ML/MIN Glucose (74-106) mg/dL Calcium (8.4-10.2) mg/dL Troponin I < 0.012 < 0.012 < 0.012 (0.000-0.034) ng/mL SARS-CoV-2 (PCR) (NEGATIVE) 08/15/20 08/15/20 Range/Units 19:15 18:15 WBC (4.0-10.5) K/mm3 RBC (4.1-5.4) M/mm3 Hgb (12.0-16.0) gm/dl Hct (35-47) % MCV (78-100) fl MCH (26-32) pg MCHC (32-36) g/dl RDW (11.5-14.0) % Plt Count (150-450) K/mm3 MPV (7.5-11.0) fl Sodium (137-145) mmol/L Potassium (3.5-5.1) mmol/L Chloride (98-107) mmol/L Carbon Dioxide (22-30) mmol/L Anion Gap (5-15) MEQ/L BUN (7-17) mg/dL Creatinine (0.52-1.04) mg/dL Estimated GFR ML/MIN Glucose (74-106) mg/dL Calcium (8.4-10.2) mg/dL Troponin I < 0.012 (0.000-0.034) ng/mL SARS-CoV-2 (PCR) NEGATIVE (NEGATIVE) Orders (Last 24 Hours) Category Date Time Status Up With Assistance ROUTINE Activity 08/15/20 21:23 Active Code Status Order ROUTINE Care 08/15/20 21:23 Active IV Care Q6H Care 08/15/20 21:[address] in Observation ROUTINE Care 08/15/20 21:23 Active Catarina Alarcon ROUTINE Care 08/15/20 21:23 Active Telemetry Q12H Care 08/15/20 21:23 Active Weight,Daily 0600 Care 08/15/20 21:23 Active House Regular Diet Diet 08/15/20 Dinner Active Albuterol 2.5 mg/3 ml Neb [Proventil 2.5 mg/3 ml Neb Med 08/16/20 07:00 Active ] 2.5 mg IH BIDRT Albuterol/Ipratropium 3ml Neb* [DUONEB 0.5-3 MG/3 ml Med 08/15/20 22:10 Active Neb] 3 ml IH Q4HPRN PRN Cyclobenzaprine HCl 10 mg [Cyclobenzaprine 10 MG] Med 08/15/20 22:30 Active 5 mg PO HS Furosemide 20 mg [Lasix 20 mg] Med 08/16/20 10:00 Active 20 mg PO DAILY Gabapentin 300 mg [Neurontin 300 mg] Med 08/15/20 22:30 Active 300 mg PO BID Ibuprofen 400 mg [Motrin 400 mg] Med 08/15/20 22:08 Active 800 mg PO TIDP PRN Lisinopril 5 mg [Zestril 5 MG] Med 08/16/20 10:00 Active 10 mg PO DAILY Methylprednis Sod Succ 125 mg* [solu-MEDROL 125 MG] Med 08/16/20 04:00 Active 80 mg IV Q8H Montelukast Sodium 10 mg [Singulair 10 MG] Med 08/16/20 10:00 Active 10 mg PO DAILY Morphine Sulfate 4 mg Inj Med 08/16/20 16:45 Ordered 4 mg IV Q4H PRN PRN Ondansetron ODT 4 MG [Zofran Odt 4 mg] Med 08/15/20 22:08 Active 4 mg PO TID PRN PRN Patient Own Med [Patient Own Medication] Med 08/16/20 08:15 Active 0 each IH DAILY Patient Own Med [Patient Own Medication] Med 08/16/20 07:00 Active 0 each IH Q4HPRN PRN Tiotropium [place] Inhaler [Spiriva 18 Mcg/Cap Med 08/16/20 10:00 Active Inhaler] 1 ea IH DAILY Pulse Oximetry Q4H RT 08/15/20 21:23 Active Respiratory Therapy Assessment DAILY RT 08/15/20 20:54 Active Nursing Notes (Last 12 hours) 08/16/20 14:36 Nursing Note by Selina Valente pt c/o heaviness in chest that radiates up left neck. pt reports her heart is pounding and she is short of breath. 115/56, 119, 95% on ra. ekg and troponin ordered stat. ekg faxed to dr. carrera's office and doesn't appear to have any changes from previous one. reported all symptoms and interventions to dr. latif it and new order obtained for toradol 30mg iv 1xonly Initialized on 08/16/20 14:36 - END OF NOTE 08/16/20 14:25 Nursing Note by Tessa Vazquez I FAXED EKG TO OFFICE AT [place]. Initialized on 08/16/20 14:25 - END OF NOTE Active Visit Medications Generic Name Dose Route Start Last Admin Trade Name Freq PRN Reason Stop Dose Admin Albuterol Sulfate 2.5 mg 08/16/20 07:00 08/16/20 07:05 Proventil 2.5 Mg/3 Ml Neb IH 09/15/20 06:59 2.5 mg BIDRT TIM Administration Albuterol/Ipratropium 3 ml 08/15/20 22:10 08/16/20 13:30 Duoneb 0.5-3 Mg/3 Ml Neb IH 09/14/20 22:09 3 ml Q4HPRN PRN Administration SHORTNESS OF BREATH/WHEEZING Cyclobenzaprine HCl 5 mg 08/15/20 22:30 08/15/20 22:50 Cyclobenzaprine 10 Mg PO 09/14/20 22:29 5 mg HS TIM Administration Furosemide 20 mg 08/16/20 10:00 08/16/20 11:11 Lasix 20 Mg PO 09/15/20 09:59 20 mg DAILY TIM Administration Gabapentin 300 mg 08/15/20 22:30 08/16/20 11:11 Neurontin 300 Mg PO 09/14/20 22:29 300 mg BID TIM Administration Ibuprofen 800 mg 08/15/20 22:08 08/16/20 07:46 Motrin 400 Mg PO 09/14/20 22:07 800 mg TIDP PRN Administration PAIN Lisinopril 10 mg 08/16/20 10:00 08/16/20 11:12 Zestril 5 Mg PO 09/15/20 09:59 10 mg DAILY TIM Administration Methylprednisolone Sodium Succinate 80 mg 08/16/20 04:00 08/16/20 11:15 Solu-Medrol 125 Mg IV 09/15/20 03:59 80 mg Q8H TIM Administration Montelukast Sodium 10 mg 08/16/20 10:00 08/16/20 11:12 Singulair 10 Mg PO 09/15/20 09:59 10 mg DAILY TIM Administration Morphine Sulfate 4 mg 08/16/20 16:45 Morphine Sulfate 4 Mg Inj IV 08/21/20 16:44 Q4H PRN PRN PAIN Ondansetron HCl 4 mg 08/15/20 22:08 Zofran Odt 4 Mg PO 09/14/20 22:07 TID PRN PRN NAUSEA/VOMITING Patient Own Med ( 0 each 08/16/20 07:00 Albuterol) 09/15/20 06:59 Q4HPRN PRN SHORTNESS OF BREATH Patient Own Med ( 0 each 08/16/20 08:15 Synbicort) 09/15/20 06:59 DAILY [facility] Tiotropium [place] 1 ea 08/16/20 10:00 Spiriva 18 Mcg/Cap Inhaler 09/15/20 09:59 DAILY [facility] Home Medications Medication Instructions Recorded Confirmed Last Taken Type Albuterol/Ipratropium 3ml Neb* 1 neb IH BID 08/15/20 08/15/20 08/15/20 History [DUONEB 0.5-3 MG/3 ml Neb] Budesonide/Formoterol Fumarate 1 puff IH DAILY 08/15/20 08/15/20 08/15/20 History [Symbicort 160-4.5 Mcg Inhaler] Ondansetron HCl [Zofran] 4 mg PO TIDPRN PRN 08/15/20 08/15/20 Unknown History Initialized on 08/16/20 16:47 - END OF NOTE 08/16/20 14:36 Nursing Note by Selina Valente pt c/o heaviness in chest that radiates up left neck. pt reports her heart is pounding and she is short of breath. 115/56, 119, 95% on ra. ekg and troponin ordered stat. ekg faxed to dr. carrera's office and doesn't appear to have any changes from previous one. reported all symptoms and interventions to dr. carrera and new order obtained for toradol 30mg iv 1xonly Initialized on 08/16/20 14:36 - END OF NOTE 08/16/20 14:25 Nursing Note by Tessa Vazquez I FAXED EKG TO OFFICE AT [place]. Initialized on 08/16/20 14:25 - END OF NOTE Active Visit Medications Generic Name Dose Route Start Last Admin Trade Name Freq PRN Reason Stop Dose Admin Albuterol Sulfate 2.5 mg 08/16/20 07:00 08/16/20 07:05 Proventil 2.5 Mg/3 Ml Neb IH 09/15/20 06:59 2.5 mg BIDRT TIM Administration Albuterol/Ipratropium 3 ml 08/15/20 22:10 08/16/20 13:30 Duoneb 0.5-3 Mg/3 Ml Neb IH 09/14/20 22:09 3 ml Q4HPRN PRN Administration SHORTNESS OF BREATH/WHEEZING Cyclobenzaprine HCl 5 mg 08/15/20 22:30 08/15/20 22:50 Cyclobenzaprine 10 Mg PO 09/14/20 22:29 5 mg HS TIM Administration Furosemide 20 mg 08/16/20 10:00 08/16/20 11:11 Lasix 20 Mg PO 09/15/20 09:59 20 mg DAILY TIM Administration Gabapentin 300 mg 08/15/20 22:30 08/16/20 11:11 Neurontin 300 Mg PO 09/14/20 22:29 300 mg BID TIM Administration Ibuprofen 800 mg 08/15/20 22:08 08/16/20 07:46 Motrin 400 Mg PO 09/14/20 22:07 800 mg TIDP PRN Administration PAIN Lisinopril 10 mg 08/16/20 10:00 08/16/20 11:12 Zestril 5 Mg PO 09/15/20 09:59 10 mg DAILY TIM Administration Methylprednisolone Sodium Succinate 80 mg 08/16/20 04:00 08/16/20 11:15 Solu-Medrol 125 Mg IV 09/15/20 03:59 80 mg Q8H TIM Administration Montelukast Sodium 10 mg 08/16/20 10:00 08/16/20 11:12 Singulair 10 Mg PO 09/15/20 09:59 10 mg DAILY TIM Administration Morphine Sulfate 4 mg 08/16/20 16:45 08/16/20 17:03 Morphine Sulfate 4 Mg Inj IV 08/21/20 16:44 4 mg Q4H PRN PRN Administration PAIN Ondansetron HCl 4 mg 08/15/20 22:08 Zofran Odt 4 Mg PO 09/14/20 22:07 TID PRN PRN NAUSEA/VOMITING Patient Own Med ( 0 each 08/16/20 07:00 Albuterol) 09/15/20 06:59 Q4HPRN PRN SHORTNESS OF BREATH Patient Own Med ( 0 each 08/16/20 08:15 Synbicort) 09/15/20 06:59 DAILY [facility] Tiotropium [place] 1 ea 08/16/20 10:00 Spiriva 18 Mcg/Cap Inhaler 09/15/20 09:59 DAILY [facility] Home Medications Medication Instructions Recorded Confirmed Last Taken Type Albuterol/Ipratropium 3ml Neb* 1 neb IH BID 08/15/20 08/15/20 08/15/20 History [DUONEB 0.5-3 MG/3 ml Neb] Budesonide/Formoterol Fumarate 1 puff IH DAILY 08/15/20 08/15/20 08/15/20 History [Symbicort 160-4.5 Mcg Inhaler] Ondansetron HCl [Zofran] 4 mg PO TIDPRN PRN 08/15/20 08/15/20 Unknown History Initialized on 08/16/20 17:58 - END OF NOTE 08/16/20 16:47 SBAR Note by Selina Valente SITUATION I am calling about IVANNA STEIN the patient's code status is Full Code The problem I am calling about is: pt reports pain is not any better and she is now having dizziness. ctni was negative ASSESSMENT RECOMMENDATION Physician notified at 1647 New Orders received: morphine 4mg iv q4hprn Vital Signs (Last 4 hours) Temp Pulse Resp BP Pulse Ox 08/16/20 16:00 97.2 F 111 H 16 94/45 98 08/16/20 13:31 107 H 20 97 Diagnois, Code Status Date of Arrival on Unit 08/15/20 Admitted From Emergency Dept Diagnosis ASTHMA, SHORTNESS OF BREATH Resucitation Status Full Code Intake and Output 24 Hours 08/16/20 08/17/20 06:59 06:59 Intake Total 840 960 Balance 840 960 Weight 139.9 kg Intake: Intake, Oral Amount 840 960 Other: Number of Voids 1 Physical Assessment Anxiety Level None,at ease,Awake,Calm Mental Status Alert Patient Orientation Person,Place,Time Coma Scale Total 15 Breath Sounds [Anterior/ Clear Posterior Bilateral Throughout ] Cardiac Rhythm-[facility] Sinus Rhythm Change from Baseline: No Bowel Sounds [All Quadrants] Present,Active Abdomen Description Soft,Large,Non-Tender Urine Appearance Not Assessed Skin Color [place] Skin Temperature Warm Pain Scale (Last 24 Hours) Pain Intensity 7 Pain Intensity 4 Pain Intensity 7 Pain Intensity 7 Pain Intensity 0 Pain Intensity 0 Pain Intensity 0 Pain Intensity 5 Pain Intensity 5 Pain Intensity 3 Pain Intensity 5 Pain Intensity 7 Pain Intensity 7 Pain Intensity 7 Pain Intensity 7 PAST MEDICAL HISTORY Neurological History No Pertinent History ENT History No Pertinent History Endocrine Medical History No Pertinent History Respiratory History Asthma,Bronchitis,Sleep Apnea Cardiac History Congenital Heart Disease,Hypertension GI Medical History No Pertinent History History No Pertinent History Reproductive Disorders No Pertinent History Pyscho-Social History No Pertinent History Communicable Disease No Pertinent History Comment OPEN HEART WITH REPAIR OF HOLE--4 yrs old anemia Diet Order (Last 24 Hours) 08/15/20 Dinner House Regular Diet Lab Results (Last 24 Hours) 08/16/20 08/16/20 08/16/20 Range/Units 14:42 04:08 04:08 WBC 10.6 H (4.0-10.5) K/mm3 RBC 4.99 (4.1-5.4) M/mm3 Hgb 12.9 (12.0-16.0) gm/dl Hct 40.5 (35-47) % MCV 81.2 (78-100) fl MCH 25.9 L (26-32) pg MCHC 31.9 L (32-36) g/dl RDW 14.9 H (11.5-14.0) % Plt Count 352 (150-450) K/mm3 MPV 9.1 (7.5-11.0) fl Sodium 135 L (137-145) mmol/L Potassium 4.3 (3.5-5.1) mmol/L Chloride 104 (98-107) mmol/L Carbon Dioxide 23 (22-30) mmol/L Anion Gap 12.0 (5-15) MEQ/L BUN 10 (7-17) mg/dL Creatinine 0.59 (0.52-1.04) mg/dL Estimated GFR > 60.0 ML/MIN Glucose 190 H (74-106) mg/dL Calcium 9.5 (8.4-10.2) mg/dL Troponin I < 0.012 (0.000-0.034) ng/mL SARS-CoV-2 (PCR) (NEGATIVE) 08/16/20 08/16/20 08/15/20 Range/Units 04:08 00:50 22:40 WBC (4.0-10.5) K/mm3 RBC (4.1-5.4) M/mm3 Hgb (12.0-16.0) gm/dl Hct (35-47) % MCV (78-100) fl MCH (26-32) pg MCHC (32-36) g/dl RDW (11.5-14.0) % Plt Count (150-450) K/mm3 MPV (7.5-11.0) fl Sodium (137-145) mmol/L Potassium (3.5-5.1) mmol/L Chloride (98-107) mmol/L Carbon Dioxide (22-30) mmol/L Anion Gap (5-15) MEQ/L BUN (7-17) mg/dL Creatinine (0.52-1.04) mg/dL Estimated GFR ML/MIN Glucose (74-106) mg/dL Calcium (8.4-10.2) mg/dL Troponin I < 0.012 < 0.012 < 0.012 (0.000-0.034) ng/mL SARS-CoV-2 (PCR) (NEGATIVE) 08/15/20 08/15/20 Range/Units 19:15 18:15 WBC (4.0-10.5) K/mm3 RBC (4.1-5.4) M/mm3 Hgb (12.0-16.0) gm/dl Hct (35-47) % MCV (78-100) fl MCH (26-32) pg MCHC (32-36) g/dl RDW (11.5-14.0) % Plt Count (150-450) K/mm3 MPV (7.5-11.0) fl Sodium (137-145) mmol/L Potassium (3.5-5.1) mmol/L Chloride (98-107) mmol/L Carbon Dioxide (22-30) mmol/L Anion Gap (5-15) MEQ/L BUN (7-17) mg/dL Creatinine (0.52-1.04) mg/dL Estimated GFR ML/MIN Glucose (74-106) mg/dL Calcium (8.4-10.2) mg/dL Troponin I < 0.012 (0.000-0.034) ng/mL SARS-CoV-2 (PCR) NEGATIVE (NEGATIVE) Orders (Last 24 Hours) Category Date Time Status Up With Assistance ROUTINE Activity 08/15/20 21:23 Active Code Status Order ROUTINE Care 08/15/20 21:23 Active IV Care Q6H Care 08/15/20 21:[address] in Observation ROUTINE Care 08/15/20 21:23 Active Catarina Alarcon ROUTINE Care 08/15/20 21:23 Active Telemetry Q12H Care 08/15/20 21:23 Active Weight,Daily 0600 Care 08/15/20 21:23 Active House Regular Diet Diet 08/15/20 Dinner Active Albuterol 2.5 mg/3 ml Neb [Proventil 2.5 mg/3 ml Neb Med 08/16/20 07:00 Active ] 2.5 mg IH BIDRT Albuterol/Ipratropium 3ml Neb* [DUONEB 0.5-3 MG/3 ml Med 08/15/20 22:10 Active Neb] 3 ml IH Q4HPRN PRN Cyclobenzaprine HCl 10 mg [Cyclobenzaprine 10 MG] Med 08/15/20 22:30 Active 5 mg PO HS Furosemide 20 mg [Lasix 20 mg] Med 08/16/20 10:00 Active 20 mg PO DAILY Gabapentin 300 mg [Neurontin 300 mg] Med 08/15/20 22:30 Active 300 mg PO BID Ibuprofen 400 mg [Motrin 400 mg] Med 08/15/20 22:08 Active 800 mg PO TIDP PRN Lisinopril 5 mg [Zestril 5 MG] Med 08/16/20 10:00 Active 10 mg PO DAILY Methylprednis Sod Succ 125 mg* [solu-MEDROL 125 MG] Med 08/16/20 04:00 Active 80 mg IV Q8H Montelukast Sodium 10 mg [Singulair 10 MG] Med 08/16/20 10:00 Active 10 mg PO DAILY Morphine Sulfate 4 mg Inj Med 08/16/20 16:45 Ordered 4 mg IV Q4H PRN PRN Ondansetron ODT 4 MG [Zofran Odt 4 mg] Med 08/15/20 22:08 Active 4 mg PO TID PRN PRN Patient Own Med [Patient Own Medication] Med 08/16/20 08:15 Active 0 each IH DAILY Patient Own Med [Patient Own Medication] Med 08/16/20 07:00 Active 0 each IH Q4HPRN PRN Tiotropium [place] Inhaler [Spiriva 18 Mcg/Cap Med 08/16/20 10:00 Active Inhaler] 1 ea IH DAILY Pulse Oximetry Q4H RT 08/15/20 21:23 Active Respiratory Therapy Assessment DAILY RT 08/15/20 20:54 Active Nursing Notes (Last 12 hours) 08/16/20 14:36 Nursing Note by Selina Valente pt c/o heaviness in chest that radiates up left neck. pt reports her heart is pounding and she is short of breath. 115/56, 119, 95% on ra. ekg and troponin ordered stat. ekg faxed to dr. carrera's office and doesn't appear to have any changes from previous one. reported all symptoms and interventions to dr. carrera and new order obtained for toradol 30mg iv 1xonly Initialized on 08/16/20 14:36 - END OF NOTE 08/16/20 14:25 Nursing Note by Tessa Vazquez I FAXED EKG TO OFFICE AT [place]. Initialized on 08/16/20 14:25 - END OF NOTE Active Visit Medications Generic Name Dose Route Start Last Admin Trade Name Freq PRN Reason Stop Dose Admin Albuterol Sulfate 2.5 mg 08/16/20 07:00 08/16/20 07:05 Proventil 2.5 Mg/3 Ml Neb IH 09/15/20 06:59 2.5 mg BIDRT TIM Administration Albuterol/Ipratropium 3 ml 08/15/20 22:10 08/16/20 13:30 Duoneb 0.5-3 Mg/3 Ml Neb IH 09/14/20 22:09 3 ml Q4HPRN PRN Administration SHORTNESS OF BREATH/WHEEZING Cyclobenzaprine HCl 5 mg 08/15/20 22:30 08/15/20 22:50 Cyclobenzaprine 10 Mg PO 09/14/20 22:29 5 mg HS TIM Administration Furosemide 20 mg 08/16/20 10:00 08/16/20 11:11 Lasix 20 Mg PO 09/15/20 09:59 20 mg DAILY TIM Administration Gabapentin 300 mg 08/15/20 22:30 08/16/20 11:11 Neurontin 300 Mg PO 09/14/20 22:29 300 mg BID TIM Administration Ibuprofen 800 mg 08/15/20 22:08 08/16/20 07:46 Motrin 400 Mg PO 09/14/20 22:07 800 mg TIDP PRN Administration PAIN Lisinopril 10 mg 08/16/20 10:00 08/16/20 11:12 Zestril 5 Mg PO 09/15/20 09:59 10 mg DAILY TIM Administration Methylprednisolone Sodium Succinate 80 mg 08/16/20 04:00 08/16/20 11:15 Solu-Medrol 125 Mg IV 09/15/20 03:59 80 mg Q8H TIM Administration Montelukast Sodium 10 mg 08/16/20 10:00 08/16/20 11:12 Singulair 10 Mg PO 09/15/20 09:59 10 mg DAILY TIM Administration Morphine Sulfate 4 mg 08/16/20 16:45 Morphine Sulfate 4 Mg Inj IV 08/21/20 16:44 Q4H PRN PRN PAIN Ondansetron HCl 4 mg 08/15/20 22:08 Zofran Odt 4 Mg PO 09/14/20 22:07 TID PRN PRN NAUSEA/VOMITING Patient Own Med ( 0 each 08/16/20 07:00 Albuterol) 09/15/20 06:59 Q4HPRN PRN SHORTNESS OF BREATH Patient Own Med ( 0 each 08/16/20 08:15 Synbicort) 09/15/20 06:59 DAILY [facility] Tiotropium [place] 1 ea 08/16/20 10:00 Spiriva 18 Mcg/Cap Inhaler IH 09/15/20 09:59 DAILY [facility] Home Medications Medication Instructions Recorded Confirmed Last Taken Type Albuterol/Ipratropium 3ml Neb* 1 neb IH BID 08/15/20 08/15/20 08/15/20 History [DUONEB 0.5-3 MG/3 ml Neb] Budesonide/Formoterol Fumarate 1 puff IH DAILY 08/15/20 08/15/20 08/15/20 History [Symbicort 160-4.5 Mcg Inhaler] Ondansetron HCl [Zofran] 4 mg PO TIDPRN PRN 08/15/20 08/15/20 Unknown History Initialized on 08/16/20 16:47 - END OF NOTE 08/16/20 16:46 [employer] Note by Alisson Rush Patient got on callight requesting help walking to bathroom states shes weak RN comes in the room also . Initialized on 08/16/20 16:46 - END OF NOTE 08/16/20 14:36 Nursing Note by Selina Valente pt c/o heaviness in chest that radiates up left neck. pt reports her heart is pounding and she is short of breath. 115/56, 119, 95% on ra. ekg and troponin ordered stat. ekg faxed to dr. carrera's office and doesn't appear to have any c hanges from previous one. reported all symptoms and interventions to dr. carrera and new order obtained for toradol 30mg iv 1xonly Initialized on 08/16/20 14:36 - END OF NOTE 08/16/20 14:25 Nursing Note by Tessa Vazquez I FAXED EKG TO OFFICE AT [place]. Initialized on 08/16/20 14:25 - END OF NOTE - Vitals & Intake/Output Vital Signs: Vital Signs Temperature 98.6 F 08/17/20 07:00 Pulse Rate 98 H 08/17/20 07:00 Respiratory Rate 16 08/17/20 07:00 Blood Pressure 115/62 08/17/20 07:00 O2 Sat by Pulse Oximetry 97 08/17/20 07:35 Intake & Output: Intake & Output 08/14/20 08/15/20 08/16/20 08/17/20 11:59 11:59 11:59 11:59 Intake Total 1320 2400 Output Total 400 Balance 1320 2000 Weight 139.9 kg 140.5 kg - Lab Result Diagrams: 08/17/20 09:06 08/17/20 09:06 Lab Results-Last 24 Hrs: Lab Results-Last 24 Hours 08/16/20 08/17/20 08/17/20 Range/Units 14:42 09:06 09:06 WBC 19.8 H (4.0-10.5) K/mm3 RBC 4.63 (4.1-5.4) M/mm3 Hgb 12.3 (12.0-16.0) gm/dl Hct 39.0 (35-47) % MCV 84.2 (78-100) fl MCH 26.6 (26-32) pg MCHC 31.5 L (32-36) g/dl RDW 15.3 H (11.5-14.0) % Plt Count 389 (150-450) K/mm3 MPV 9.3 (7.5-11.0) fl D-Dimer (215-500) ng/mL Sodium 139 (137-145) mmol/L Potassium 4.6 (3.5-5.1) mmol/L Chloride 109 H (98-107) mmol/L Carbon Dioxide 22 (22-30) mmol/L Anion Gap 13.7 (5-15) MEQ/L BUN 16 (7-17) mg/dL Creatinine 0.61 (0.52-1.04) mg/dL Estimated GFR > 60.0 ML/MIN Glucose 199 H (74-106) mg/dL Calcium 9.1 (8.4-10.2) mg/dL Total Bilirubin 0.20 (0.2-1.3) mg/dL AST 18 (14-36) U/L ALT 24 (0-35) U/L Alkaline Phosphatase 74 (38-126) U/L Troponin I < 0.012 (0.000-0.034) ng/mL Serum Total Protein 7.5 (6.3-8.2) g/dL Albumin 4.0 (3.5-5.0) g/dL 08/17/20 Range/Units 09:06 WBC (4.0-10.5) K/mm3 RBC (4.1-5.4) M/mm3 Hgb (12.0-16.0) gm/dl Hct (35-47) % MCV (78-100) fl MCH (26-32) pg MCHC (32-36) g/dl RDW (11.5-14.0) % Plt Count (150-450) K/mm3 MPV (7.5-11.0) fl D-Dimer < 215 L (215-500) ng/mL Sodium (137-145) mmol/L Potassium (3.5-5.1) mmol/L Chloride (98-107) mmol/L Carbon Dioxide (22-30) mmol/L Anion Gap (5-15) MEQ/L BUN (7-17) mg/dL Creatinine (0.52-1.04) mg/dL Estimated GFR ML/MIN Glucose (74-106) mg/dL Calcium (8.4-10.2) mg/dL Total Bilirubin (0.2-1.3) mg/dL AST (14-36) U/L ALT (0-35) U/L Alkaline Phosphatase (38-126) U/L Troponin I (0.000-0.034) ng/mL Serum Total Protein (6.3-8.2) g/dL Albumin (3.5-5.0) g/dL - Radiology Exams Ordered Rad Exams-Entire Visit: Radiology Procedures Category Date Time Status CHEST 1 VIEW (PORTABLE) Stat Exams 08/15/20 15:42 Completed CHEST W/WO CONTRAST [CT] Urgent Exams 08/17/20 09:[address]/CHEST W/WO CONTRAST Indication: Left chest pain, short of breath, and lightheaded. Multiple contiguous axial images obtained through the chest prior to and following 80 cc Isovue 370 contrast as ordered. Comparison: None Lungs are inflated and clear. Heart is not enlarged. Aorta is normal in course and caliber. No pathologic mediastinal lymphadenopathy. Bony thorax intact with incidental sternotomy wires. Limited upper abdomen demonstrates fatty hepatomegaly and 15 cm splenomegaly. Impression: 1. Incidental fatty hepatomegaly and splenomegaly. 2. Remaining CT chest with and without contrast exam is negative. - Procedures and Test Procedures and Tests throughout Hospitalization: Therapy Orders & Screens 08/15/20 20:54 Respiratory Therapy Assessment DAILY Comment: 08/16/20 14:04 EKG ROUTINE Comment: Diagnosis: ASTHMA, SHORTNESS OF BREATH 08/17/20 07:00 Respiratory MDI BID Comment: ALBUTEROL 2 PUFFS BID, PT'S HOME MDI Diagnosis: ASTHMA, SHORTNESS OF BREATH Discharge Exam General Appearance: no apparent distress, alert Neurologic Exam: alert, oriented x 3, cooperative, normal mood/affect, nml cerebellar function, sensation nml, No motor deficits Eye Exam: PERRL, EOMI, eyes nml inspection Ears, Nose, Throat Exam: normal ENT inspection, pharynx normal, moist mucous membranes Neck Exam: normal inspection, non-tender, supple, full range of motion Respiratory Exam: normal breath sounds, lungs clear, No respiratory distress Cardiovascular Exam: regular rate/rhythm, normal heart sounds Gastrointestinal/Abdomen Exam: soft, No tenderness, No mass Pelvic Exam: deferred Rectal Exam: deferred Back Exam: normal inspection, normal range of motion, No CVA tenderness, No vertebral tenderness Extremity Exam: normal inspection, normal range of motion Skin Exam: normal color, warm, dry Final Diagnosis/Problem List - Final Discharge Diagnosis/Problem (1) Asthma exacerbation Current Visit: Yes Status: Resolved Priority: High Code(s): J45.901 - UNSPECIFIED ASTHMA WITH (ACUTE) EXACERBATION (2) SOB (shortness of breath) Current Visit: Yes Status: Resolved Code(s): R06.02 - SHORTNESS OF BREATH (3) Pleurisy Current Visit: Yes Status: Acute Priority: High Code(s): R09.1 - PLEURISY - Discharge Discharge Date: 08/17/20 Disposition: Home, Self-Care Condition: Stable Prescriptions: New Methylprednisolone Packet [Medrol Dosepack] 4 mg PO UD #30 packet Azithromycin [Zithromax Tri-Danny] 500 mg PO DAILY #3 tablet Continue Albuterol Sulfate [Albuterol Sulfate Hfa] 2 puff IH Q4HPRN PRN PRN Reason: Shortness Of Breath Tiotropium [place] [Spiriva Respimat] 2 puff IH DAILY lisinopriL [Lisinopril] 10 mg PO DAILY Furosemide [Lasix] 20 mg PO DAILY Ibuprofen 800 mg PO TIDPRN PRN PRN Reason: Pain Gabapentin 300 tab PO BID Montelukast Sodium 10 mg [Singulair 10 MG] 10 mg PO DAILY Cyclobenzaprine HCl 5 mg PO HS Budesonide/Formoterol Fumarate [Symbicort 160-4.5 Mcg Inhaler] 1 puff IH DAILY Ondansetron HCl [Zofran] 4 mg PO TIDPRN PRN PRN Reason: Nausea/Vomiting Albuterol/Ipratropium 3ml Neb* [DUONEB 0.5-3 MG/3 ml Neb] 1 neb IH BID Follow up with: JOSE CARRERA MD [Primary Care Provider] - 08/26/20 3:00 pm
[2020-08-17 11:43] VITALS: BP 135/80
== END 2020-08-17 12:10 | disposition home or self-care (01) ==
LOC: ED 15:33 → MED SURG 20:44 → EEVIPCON 20:44
PROVIDERS: ADMIT General Practice; ATTEND General Practice
DX: J45.901 Unspecified asthma with (acute) exacerbation (principal); R07.9 Chest pain, unspecified; G47.30 Sleep apnea, unspecified; R06.02 Shortness of breath; Z87.74 Personal history of (corrected) congenital malformations of heart and circulatory system; Z79.899 Other long term (current) drug therapy; I10 Essential (primary) hypertension; R09.1 Pleurisy
CPT/HCPCS: 36000; 36415; 71045; 71270; 80048; 80053; 80307; 81001; 83735; 84484; 85025; 85027; 85379; 93005; 93041; 94640; 94760; 96374; 99285; U0003; 93268; J0696; J1885; J2060; J2270; J2930; J7609; A9270-GY; G0378

== ENCOUNTER 2020-09-13 13:18 | Emergency (ER) | payer OTHER ==
[2020-09-13 14:44] LABS: ALKALINE PHOSPHATASE 69 U/L (38-126); ANION GAP 11.7 MEQ/L (5-15); BLOOD UREA NITROGEN 9 mg/dL (7-17); CHLORIDE 104 mmol/L (98-107); Calcium 9.2 mg/dL (8.4-10.2); Carbon Dioxide 24 mmol/L (22-30); Creatinine 1 0.66 mg/dL (0.52-1.04); EST GLOMERULAR FILTRATION RATE > 60.0 ML/MIN; Glucose 119 mg/dL (74-106); Potassium 4.1 mmol/L (3.5-5.1); SGOT/AST 32 U/L (14-36); SGPT/ALT 30 U/L (0-35); SODIUM 136 mmol/L (137-145); Total Protein 7.5 g/dL (6.3-8.2)
[2020-09-13 16:13] LABS: Absolute Neutrophil Ct (ANC) 5.28 (1.4-6.9); BASOPHIL % 0.3 % (0.0-0.4); Basophil (Absolute #) 0.02 (0-0.4); Eosinophil % 2.2 % (0.00-5.0); Eosinophil (Absolute #) 0.16 (0-0.5); Hematocrit 39.7 % (35-47); Hemoglobin 12.6 gm/dl (12.0-16.0); Lymphocyte (Absolute #) 1.48 (1.0-4.6); Lymphocytes % 20.1 % (24.0-44.0); Mean Corpuscular Hgb Concent. 31.7 g/dl (32-36); Mean Platelet Volume 9.3 fl (7.5-11.0); Monocyte (Absolute #) 0.41 (0.0-1.3); Monocytes % 5.6 % (0.0-12.0); Neutrophil % 71.8 % (36.0-66.0); Platelet Count 295 K/mm3 (150-450); Red Blood Count 4.84 M/mm3 (4.1-5.4); Red Cell Distribution Width 15.3 % (11.5-14.0); White Blood Count 7.4 K/mm3 (4.0-10.5)
--- NOTE | 2020-09-13 16:29 | XRAY ---
Indication: Left eye pain, swelling, erythema, and "watering." Comparison: August 15, 2020. Portable chest demonstrates normal heart and lungs. Bony thorax intact again with sternotomy wires. No new/acute findings.
--- NOTE | 2020-09-13 16:34 | XRAY ---
Indication: Left eye pain, swelling, erythema, and "watering"one week. Multiple contiguous axial images obtained through the orbits prior to and following 80 cc Isovue 370 contrast as ordered. Comparison: None Orbits are bilaterally symmetric demonstrating proptosis. No suspicious retro-orbital mass. Optic nerves and extraocular muscles are unremarkable. No acute fracture, suspicious bony lesions, or radiopaque foreign body. Visualized paranasal sinuses and nasal passages are clear with incidental minimal left nasal septal deviation. Remaining visualized soft tissues including the base of the brain are unremarkable. Impression: 1. Bilateral orbital globe proptosis. Rule out thyroid ophthalmopathy/Graves' disease. 2. Remaining CT orbits with and without contrast exam is negative.
[2020-09-13 16:49] LABS: Appearance SLIGHTLY CLOUDY (CLEAR); Bilirubin NEGATIVE (NEGATIVE); Blood NEGATIVE Ery/ul (0-5); Epithelial Cells RARE /HPF (FEW); Glucose NEGATIVE (NEGATIVE); Ketones NEGATIVE (NEGATIVE); Leukocyte Esterase NEGATIVE (NEGATIVE); Mucus SLIGHT /HPF (NEGATIVE); Nitrite NEGATIVE (NEGATIVE); Protein,Urine Dip NEGATIVE (Negative); RBC 0-2 /HPF (0-2); Specific Gravity 1.018 (1.005-1.025); Urobilinogen NEGATIVE mg/dL (0-1)
--- NOTE | 2020-09-13 16:51 | ERPHSYRPT ---
- History of Present Illness Time Seen by Provider: 09/13/20 14:00 Patient Subjective Stated Complaint: Pt was in [facility] a couple of weeks ago and was told that her lymph nodes in her neck and chest were swollen, pt comes today with a swollen left eye that she states began with pain in the back of her eye about 1 week ago, pt's tonsils are severely swollen and she hasn't been able to eat in several days Triage Nursing Assessment: Pt was brought to the ER by her , hypertensive, pulses normal, tonsils enlarged, left eye swollen, rates pain as 8/10, pt appears very uncomfortable Physician History: -year-old female who has a history of tetralogy of Fallot repaired who was admitted to the hospital in late July for what was thought to be pneumonia she was treated for a couple of days and then asked to be sent to [facility] where 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 She was kept there for a couple of days was seen by rheumatology cardiology oncology hematology etc. the work-up remains unclear the findings consist primarily of adenopathy in the left side of the neck and left area. She presents tonight because of swelling of the left side of her face and pain in the left eye. Pain in the left eye has been getting worse for the past 7 days. Timing/Duration: week(s) (43) Location: left eye Severity: moderate Apparent Injury: no Associated Symptoms: pain, sensitivity to light, decreased vision Visual Assistive Devices: None Chemical Exposure: No Trauma: No Welding Arc/Tanning Bed Exposure: No Allergies/Adverse Reactions: No Known Drug Allergies Allergy (Verified 09/13/20 13:48) Home Medications: Albuterol Sulfate [Albuterol Sulfate Hfa] 2 puff IH Q4HPRN PRN 08/14/19 [History] Tiotropium [place] [Spiriva Respimat] 2 puff IH DAILY 08/14/19 [History] Furosemide [Lasix] 20 mg PO DAILY 11/17/19 [History] Ibuprofen 800 mg PO TIDPRN PRN 11/17/19 [History] lisinopriL [Lisinopril] 10 mg PO DAILY 11/17/19 [History] Gabapentin 300 tab PO BID 04/06/20 [History] Cyclobenzaprine HCl 5 mg PO HS 04/12/20 [History] Montelukast Sodium 10 mg [Singulair 10 MG] 10 mg PO DAILY 04/12/20 [History] Albuterol/Ipratropium 3ml Neb* [DUONEB 0.5-3 MG/3 ml Neb] 1 neb IH BID 08/15/20 [History] Budesonide/Formoterol Fumarate [Symbicort 160-4.5 Mcg Inhaler] 1 puff IH DAILY 08/15/20 [History] Diltiazem HCl [Diltiazem 24Hr ER] 120 mg PO DAILY 09/13/20 [History] Levofloxacin [Levofloxacin 500 MG Tablet] 500 mg PO DAILY 09/13/20 [History] Potassium Chloride 10 Meq Tab* [Klor Con 10 MEQ] 10 meq PO DAILY 09/13/20 [History] Tramadol HCl 50 mg [Ultram 50 mg] 50 mg PO BID PRN 09/13/20 [History] Hx Tetanus, Diphtheria Vaccination/Date Given: Yes Hx Influenza Vaccination/Date Given: No Hx Pneumococcal Vaccination/Date Given: No Travel Risk - International Travel Have you traveled outside of the country in past 3 weeks: No - Coronavirus Screening Are you exhibiting any of the following symptoms?: No Close contact with a COVID-19 positive Pt in past 14-21 Days: No - Review of Systems Constitutional: No Fever, No Chills Eyes: Eye Pain, Eye Redness, Tearing, Vision Changes Ears, Nose, & Throat: No Symptoms Respiratory: Cough, No Dyspnea Cardiac: Chest Pain, No Edema, No Syncope Abdominal/Gastrointestinal: No Abdominal Pain, No Nausea, No Vomiting, No Diarrh ea Genitourinary Symptoms: No Dysuria Musculoskeletal: No Back Pain, No Neck Pain Skin: No Rash Neurological: No Dizziness, No Focal Weakness, No Sensory Changes Psychological: No Symptoms Endocrine: No Symptoms All Other Systems: Reviewed and Negative - Past Medical History Pertinent Past Medical History: Yes Neurological History: No Pertinent History ENT History: No Pertinent History Cardiac History: Congenital Heart Disease, Hypertension Respiratory History: Asthma, Bronchitis, Sleep Apnea Endocrine Medical History: No Pertinent History Musculoskeletal History: Osteoarthritis, Other GI Medical History: No Pertinent History History: No Pertinent History Psycho-Social History: No Pertinent History Female Reproductive Disorders: No Pertinent History Other Medical History: OPEN HEART WITH REPAIR OF HOLE--4 yrs old. anemia - Past Surgical History Past Surgical History: Yes Neuro Surgical History: No Pertinent History Cardiac: Other Respiratory: No Pertinent History Gastrointestinal: No Pertinent History Genitourinary: No Pertinent History Musculoskeletal: No Pertinent History Female Surgical History: Dilation & Curettage, Section, Tubal Ligation Other Surgical History: REPAIR OF HOLE IN THE HEART - Social History Smoking Status: Never smoker Exposure to second hand smoke: No Drug Use: none Patient Lives Alone: No - Female History Hx Now: No - Nursing Vital Signs Nursing Vital Signs: Initial Vital Signs Temperature 99.5 F 09/13/20 13:32 Pulse Rate 99 H 09/13/20 13:32 Blood Pressure 162/95 09/13/20 13:32 O2 Sat by Pulse Oximetry 99 09/13/20 13:32 Pain Scale Pain Intensity 8 - Physical Exam General Appearance: moderate distress, other ([place]) Intraocular Pressure ([place]): left (41) Eye Exam: left eye: conjunctival inflammation, eyelid inflammation Neck Exam: lymphadenopathy Respiratory Exam: normal breath sounds, lungs clear Cardiovascular Exam: regular rate/rhythm, normal heart sounds Gastrointestinal Exam: soft, normal bowel sounds Extremity Exam: normal inspection Neurologic: alert, oriented x 3 Skin Exam: normal color Lymphatic: adenopathy (Clavicular area) SpO2 Interpretation: normal SpO2: 97 O2 Delivery: Room Air - Course Nursing assessment & vital signs reviewed: Yes - CT Exams Maxillofacial Bones CT Interpretation: Other (CT of both orbits show both eyes to be proptotic but no retro-orbital masses or abscesses) Ordered Tests: Active Orders 24 hr Category Date Time Status CHEST 1 VIEW (PORTABLE) Stat Exams 09/13/20 13:48 Completed ORBITS W/W0 CONTRAST [CT] Stat Exams 09/13/20 13:46 Completed BLOOD CULTURE Stat Lab 09/13/20 14:20 Received CBC W DIFF Stat Lab 09/13/20 14:17 Completed CMP Stat Lab 09/13/20 14:17 Completed HCG,QUALITATIVE URINE Stat Lab 09/13/20 15:23 Completed Lactic Acid Stat Lab 09/13/20 13:47 Completed Lactic Acid Stat Lab 09/13/20 16:23 Received [place] Screen Stat Lab 09/13/20 14:17 Completed TSH [TSH, 3RD Generation] Stat Lab 09/13/20 14:17 Completed UA W/RFX UR CULTURE Stat Lab 09/13/20 15:23 Completed Lab/Rad Data: Laboratory Result Diagrams 09/13/20 14:17 09/13/20 14:17 Laboratory Results 09/13/20 09/13/20 09/13/20 Range/Units 15:23 15:23 14:17 WBC (4.0-10.5) K/mm3 RBC (4.1-5.4) M/mm3 Hgb (12.0-16.0) gm/dl Hct (35-47) % MCV (78-100) fl MCH (26-32) pg MCHC (32-36) g/dl RDW (11.5-14.0) % Plt Count (150-450) K/mm3 MPV (7.5-11.0) fl Gran % (36.0-66.0) % Eos # (Auto) (0-0.5) Absolute Lymphs (auto) (1.0-4.6) Absolute Monos (auto) (0.0-1.3) Lymphocytes % (24.0-44.0) % Monocytes % (0.0-12.0) % Eosinophils % (0.00-5.0) % Basophils % (0.0-0.4) % Absolute Granulocytes (1.4-6.9) Basophils # (0-0.4) Sodium (137-145) mmol/L Potassium (3.5-5.1) mmol/L Chloride (98-107) mmol/L Carbon Dioxide (22-30) mmol/L Anion Gap (5-15) MEQ/L BUN (7-17) mg/dL Creatinine (0.52-1.04) mg/dL Estimated GFR ML/MIN Glucose (74-106) mg/dL Lactic Acid (0.4-2.0) Calcium (8.4-10.2) mg/dL Total Bilirubin (0.2-1.3) mg/dL AST (14-36) U/L ALT (0-35) U/L Alkaline Phosphatase (38-126) U/L Serum Total Protein (6.3-8.2) g/dL Albumin (3.5-5.0) g/dL TSH 3rd Generation 2.230 (0.47-4.68) mIU/L Urine Color YELLOW (YELLOW) Urine Appearance SLIGHTLY CLOUDY (CLEAR) Urine pH 6.0 (5-6) Ur Specific [place] 1.018 (1.005-1.025) Urine Protein NEGATIVE (Negative) Urine Ketones NEGATIVE (NEGATIVE) Urine Blood NEGATIVE (0-5) Dalton/ul Urine Nitrite NEGATIVE (NEGATIVE) Urine Bilirubin NEGATIVE (NEGATIVE) Urine Urobilinogen NEGATIVE (0-1) mg/dL Ur Leukocyte Esterase NEGATIVE (NEGATIVE) Urine WBC (Auto) 3-5 (0-5) /HPF Urine RBC (Auto) 0-2 (0-2) /HPF U Hyaline Cast (Auto) 6-10 (0-2) /LPF U Epithel Cells (Auto) RARE (FEW) /HPF Urine Bacteria (Auto) NONE (NEGATIVE) /HPF Urine Mucus (Auto) SLIGHT (NEGATIVE) /HPF Urine Culture Reflexed NO (NO) Urine Glucose NEGATIVE (NEGATIVE) mg/dL Urine HCG, Qual NEGATIVE (Negative) Monoscreen (Negative) Group A Strep Antibody (NEGATIVE) 09/13/20 09/13/20 09/13/20 Range/Units 14:17 14:17 14:17 WBC (4.0-10.5) K/mm3 RBC (4.1-5.4) M/mm3 Hgb (12.0-16.0) gm/dl Hct (35-47) % MCV (78-100) fl MCH (26-32) pg MCHC (32-36) g/dl RDW (11.5-14.0) % Plt Count (150-450) K/mm3 MPV (7.5-11.0) fl Gran % (36.0-66.0) % Eos # (Auto) (0-0.5) Absolute Lymphs (auto) (1.0-4.6) Absolute Monos (auto) (0.0-1.3) Lymphocytes % (24.0-44.0) % Monocytes % (0.0-12.0) % Eosinophils % (0.00-5.0) % Basophils % (0.0-0.4) % Absolute Granulocytes (1.4-6.9) Basophils # (0-0.4) Sodium 136 L (137-145) mmol/L Potassium 4.1 (3.5-5.1) mmol/L Chloride 104 (98-107) mmol/L Carbon Dioxide 24 (22-30) mmol/L Anion Gap 11.7 (5-15) MEQ/L BUN 9 (7-17) mg/dL Creatinine 0.66 (0.52-1.04) mg/dL Estimated GFR > 60.0 ML/MIN Glucose 119 H (74-106) mg/dL Lactic Acid (0.4-2.0) Calcium 9.2 (8.4-10.2) mg/dL Total Bilirubin 0.30 (0.2-1.3) mg/dL AST 32 (14-36) U/L ALT 30 (0-35) U/L Alkaline Phosphatase 69 (38-126) U/L Serum Total Protein 7.5 (6.3-8.2) g/dL Albumin 4.0 (3.5-5.0) g/dL TSH 3rd Generation (0.47-4.68) mIU/L Urine Color (YELLOW) Urine Appearance (CLEAR) Urine pH (5-6) Ur Specific [place] (1.005-1.025) Urine Protein (Negative) Urine Ketones (NEGATIVE) Urine Blood (0-5) Dalton/ul Urine Nitrite (NEGATIVE) Urine Bilirubin (NEGATIVE) Urine Urobilinogen (0-1) mg/dL Ur Leukocyte Esterase (NEGATIVE) Urine WBC (Auto) (0-5) /HPF Urine RBC (Auto) (0-2) /HPF U Hyaline Cast (Auto) (0-2) /LPF U Epithel Cells (Auto) (FEW) /HPF Urine Bacteria (Auto) (NEGATIVE) /HPF Urine Mucus (Auto) (NEGATIVE) /HPF Urine Culture Reflexed (NO) Urine Glucose (NEGATIVE) mg/dL Urine HCG, Qual (Negative) Monoscreen NEGATIVE (Negative) Group A Strep Antibody NOT DETECTED (NEGATIVE) 09/13/20 09/13/20 Range/Units 14:17 13:47 WBC 7.4 (4.0-10.5) K/mm3 RBC 4.84 (4.1-5.4) M/mm3 Hgb 12.6 (12.0-16.0) gm/dl Hct 39.7 (35-47) % MCV 82.0 (78-100) fl MCH 26.0 (26-32) pg MCHC 31.7 L (32-36) g/dl RDW 15.3 H (11.5-14.0) % Plt Count 295 (150-450) K/mm3 MPV 9.3 (7.5-11.0) fl Gran % 71.8 H (36.0-66.0) % Eos # (Auto) 0.16 (0-0.5) Absolute Lymphs (auto) 1.48 (1.0-4.6) Absolute Monos (auto) 0.41 (0.0-1.3) Lymphocytes % 20.1 L (24.0-44.0) % Monocytes % 5.6 (0.0-12.0) % Eosinophils % 2.2 (0.00-5.0) % Basophils % 0.3 (0.0-0.4) % Absolute Granulocytes 5.28 (1.4-6.9) Basophils # 0.02 (0-0.4) Sodium (137-145) mmol/L Potassium (3.5-5.1) mmol/L Chloride (98-107) mmol/L Carbon Dioxide (22-30) mmol/L Anion Gap (5-15) MEQ/L BUN (7-17) mg/dL Creatinine (0.52-1.04) mg/dL Estimated GFR ML/MIN Glucose (74-106) mg/dL Lactic Acid 2.0 (0.4-2.0) Calcium (8.4-10.2) mg/dL Total Bilirubin (0.2-1.3) mg/dL AST (14-36) U/L ALT (0-35) U/L Alkaline Phosphatase (38-126) U/L Serum Total Protein (6.3-8.2) g/dL Albumin (3.5-5.0) g/dL TSH 3rd Generation (0.47-4.68) mIU/L Urine Color (YELLOW) Urine Appearance (CLEAR) Urine pH (5-6) Ur Specific [place] (1.005-1.025) Urine Protein (Negative) Urine Ketones (NEGATIVE) Urine Blood (0-5) Dalton/ul Urine Nitrite (NEGATIVE) Urine Bilirubin (NEGATIVE) Urine Urobilinogen (0-1) mg/dL Ur Leukocyte Esterase (NEGATIVE) Urine WBC (Auto) (0-5) /HPF Urine RBC (Auto) (0-2) /HPF U Hyaline Cast (Auto) (0-2) /LPF U Epithel Cells (Auto) (FEW) /HPF Urine Bacteria (Auto) (NEGATIVE) /HPF Urine Mucus (Auto) (NEGATIVE) /HPF Urine Culture Reflexed (NO) Urine Glucose (NEGATIVE) mg/dL Urine HCG, Qual (Negative) Monoscreen (Negative) Group A Strep Antibody (NEGATIVE) - Progress Progress: unchanged Progress Note: 09/13/20 17:[address] Ruiz and with Dr. Melvin Hunter who agreed to accept the patient in transfer for further evaluation. - Departure Departure Disposition: Transfer Clinical Impression: Adenopathy Condition: Stable Critical Care Time: No Referrals: JOSE ROQUE MD [Primary Care Provider] - Instructions: Lymphedema (DC)
[2020-09-13 17:28] VITALS: PULSE 90
[2020-09-13 19:26] VITALS: BP 122/90; O2SAT 99
== END 2020-09-13 19:50 | disposition short-term general hospital (02) ==
LOC: ED 13:18
DX: H57.12 Ocular pain, left eye (principal); R59.9 Enlarged lymph nodes, unspecified; H54.7 Unspecified visual loss; I10 Essential (primary) hypertension; Z79.899 Other long term (current) drug therapy
CPT/HCPCS: 36415; 70482; 71045; 80053; 81001; 83605; 84443; 84703; 85025; 86308; 87040; 87651; 99284

== ENCOUNTER 2021-02-14 11:54 | Emergency (ER) | payer OTHER ==
[2021-02-14] MEDS ORDERED: MORPHINE SULFATE 4 MG INJ IV ONE (12:20)
[2021-02-14] MEDS ORDERED: Sodium Chloride 0.9% 1000 ML 1,000 ML IV STA (12:20)
[2021-02-14] MEDS ORDERED: Zofran 4 MG/2 ML VIAL IV ONE (12:20)
--- NOTE | 2021-02-14 12:27 | ERPHSYRPT ---
- History of Present Illness Time Seen by Provider: 02/14/21 12:14 Historian: patient Exam Limitations: no limitations Patient Subjective Stated Complaint: abd pain/ flank pain x 2 weeks Triage Nursing Assessment: pt to ED c/o "UTI symptoms" x 2 weeks. states she was taking OTC azo for possible UTI with no relief. states pain is now working aroun d both flank to lower abd 8/10. difficulty with urination and freq urination reported. also reports CT scan last week showing "dormant" kidney stones. Physician History: 30 years old morbidly obese female presented in the ER with chief complaint of bilateral flank pain and urinary symptoms. Patient reports she is having 2 weeks history of increased frequency, burning, mild urgency, have taken [id number] Azo pills with no significant relief at all. Later on she started to have right flank pain moderate to severe intensity, dull aching, radiating to right groin without any significant aggravating or relieving factors and associated with multiple episodes of nonprojectile, nonbilious vomiting with no hematemesis. Patient reports currently she is having pain in the both flanks radiating to the lower abdomen. Denies any incontinence of stool or loss of bladder control. She was seen outpatient last week, CT done showed no acute ureteral stones, obstruction. Timing/Duration: week(s) (2), intermittent, gradual onset, worse Activities at Onset: rest Quality: aching, dullness Abdominal Pain Onset Location: suprapubic, flank Pain Radiation: groin Severity of Pain-Max: severe Severity of Pain-Current: moderate Modifying Factors: Improves With: nothing Previous symptoms: no prior history Allergies/Adverse Reactions: No Known Drug Allergies Allergy (Verified 02/14/21 12:10) Home Medications: lisinopriL [Lisinopril] 20 mg PO DAILY 11/17/19 [History] Hx Tetanus, Diphtheria Vaccination/Date Given: Yes Hx Influenza Vaccination/Date Given: Yes Hx Pneumococcal Vaccination/Date Given: No Immunizations Up to Date: Yes Travel Risk - International Travel Have you traveled outside of the country in past 3 weeks: No - Coronavirus Screening Are you exhibiting any of the following symptoms?: No Close contact with a COVID-19 positive Pt in past 14-21 Days: No - Vaccine Status Have you recieved a Covid-19 vaccination: No - Review of Systems Constitutional: No Symptoms Eyes: No Symptoms Ears, Nose, & Throat: No Symptoms Respiratory: No Symptoms Cardiac: No Symptoms Abdominal/Gastrointestinal: Abdominal Pain, Nausea, Vomiting Genitourinary Symptoms: Dysuria, Frequency, Hesitancy, Urgency Musculoskeletal: No Symptoms Skin: No Symptoms Neurological: No Symptoms Psychological: No Symptoms Endocrine: No Symptoms Hematologic/Lymphatic: No Symptoms Immunological/Allergic: No Symptoms - Past Medical History Pertinent Past Medical History: Yes Neurological History: No Pertinent History ENT History: No Pertinent History Cardiac History: Congenital Heart Disease, Hypertension Respiratory History: Asthma, Bronchitis, Sleep Apnea Endocrine Medical History: No Pertinent History Musculoskeletal History: Osteoarthritis, Other GI Medical History: No Pertinent History History: No Pertinent History Psycho-Social History: No Pertinent History Female Reproductive Disorders: No Pertinent History Other Medical History: OPEN HEART WITH REPAIR OF HOLE--4 yrs old. anemia. cirrohosis of liver, pulmonary HTN - Past Surgical History Past Surgical History: Yes Neuro Surgical History: No Pertinent History Cardiac: Other Respiratory: No Pertinent History Gastrointestinal: No Pertinent History Genitourinary: No Pertinent History Musculoskeletal: No Pertinent History Female Surgical History: Dilation & Curettage, Section, Tubal Ligation Other Surgical History: REPAIR OF HOLE IN THE HEART - Social History Smoking Status: Never smoker Exposure to second hand smoke: No Drug Use: none Patient Lives Alone: No - Female History Hx Now: No - Nursing Vital Signs Nursing Vital Signs: Initial Vital Signs Temperature 97.4 F 02/14/21 12:03 Pulse Rate 97 H 02/14/21 12:03 Respiratory Rate 18 02/14/21 12:03 Blood Pressure 152/85 02/14/21 12:03 O2 Sat by Pulse Oximetry 98 02/14/21 12:03 Pain Scale Pain Intensity 6 - Physical Exam General Appearance: no apparent distress, alert Eye Exam: PERRL/EOMI, eyes nml inspection Ears, Nose, Throat Exam: normal ENT inspection, TMs normal, pharynx normal Neck Exam: normal inspection, non-tender, supple, full range of motion Respiratory Exam: normal breath sounds, lungs clear Cardiovascular Exam: regular rate/rhythm, normal heart sounds, murmur Back Exam: normal inspection Extremity Exam: normal inspection, normal range of motion, pelvis stable Neurologic Exam: alert, oriented x 3, cooperative Skin Exam: normal color SpO2 Interpretation: normal SpO2: 98 O2 Delivery: Room Air Ordered Tests: Active Orders 24 hr Category Date Time Status IV Insertion STAT Care 02/14/21 12:20 Active NPO (ED) STAT Care 02/14/21 12:20 Active ABDOMEN AND PELVIS W/0 CONTRAS [CT] Stat Exams 02/14/21 12:21 Completed CBC W DIFF Stat Lab 02/14/21 12:15 Completed CMP Stat Lab 02/14/21 12:15 Completed HCG,QUALITATIVE URINE Stat Lab 02/14/21 12:51 Completed LIPASE Stat Lab 02/14/21 12:15 Completed UA W/RFX UR CULTURE Stat Lab 02/14/21 12:51 Completed Medication Summary Discontinued Medications Generic Name Dose Route Start Last Admin Trade Name Freq PRN Reason Stop Dose Admin Sodium Chloride 1,000 mls @ 999 mls/hr 02/14/21 12:20 02/14/21 13:51 Sodium Chloride 0.9% 1000 Ml IV 02/14/21 13:20 Infused .Q1H1M STA Infusion Sodium Chloride Confirm 02/14/21 12:46 Sodium Chloride 0.9% 1000 Ml Administered 02/14/21 12:47 Dose 1,000 mls @ ud .ROUTE .STK-MED ONE Morphine Sulfate 4 mg 02/14/21 12:20 02/14/21 12:47 Morphine Sulfate 4 Mg Inj IV 02/14/21 12:21 4 mg STAT ONE Administration Morphine Sulfate Confirm 02/14/21 12:46 Morphine Sulfate 4 Mg Inj Administered 02/14/21 12:47 Dose 4 mg .ROUTE .STK-MED ONE Ondansetron HCl 4 mg 02/14/21 12:20 02/14/21 12:48 Zofran 4 Mg/2 Ml Vial IV 02/14/21 12:21 4 mg STAT ONE Administration Ondansetron HCl Confirm 02/14/21 12:46 Zofran 4 Mg/2 Ml Vial Administered 02/14/21 12:47 Dose 4 mg .ROUTE .STK-MED ONE Lab/Rad Data: Laboratory Result Diagrams 02/14/21 12:15 02/14/21 12:15 Laboratory Results 02/14/21 02/14/21 02/14/21 Range/Units 12:51 12:51 12:15 WBC (4.0-10.5) K/mm3 RBC (4.1-5.4) M/mm3 Hgb (12.0-16.0) gm/dl Hct (35-47) % MCV (78-100) fl MCH (26-32) pg MCHC (32-36) g/dl RDW (11.5-14.0) % Plt Count (150-450) K/mm3 MPV (7.5-11.0) fl Gran % (36.0-66.0) % Eos # (Auto) (0-0.5) Absolute Lymphs (auto) (1.0-4.6) Absolute Monos (auto) (0.0-1.3) Lymphocytes % (24.0-44.0) % Monocytes % (0.0-12.0) % Eosinophils % (0.00-5.0) % Basophils % (0.0-0.4) % Absolute Granulocytes (1.4-6.9) Basophils # (0-0.4) Sodium 139 (137-145) mmol/L Potassium 4.0 (3.5-5.1) mmol/L Chloride 104 (98-107) mmol/L Carbon Dioxide 24 (22-30) mmol/L Anion Gap 14.9 (5-15) MEQ/L BUN 11 (7-17) mg/dL Creatinine 0.78 (0.52-1.04) mg/dL Estimated GFR > 60.0 ML/MIN Glucose 100 (74-106) mg/dL Calcium 9.3 (8.4-10.2) mg/dL Total Bilirubin 0.30 (0.2-1.3) mg/dL AST 29 (14-36) U/L ALT 27 (0-35) U/L Alkaline Phosphatase 87 (38-126) U/L Serum Total Protein 7.9 (6.3-8.2) g/dL Albumin 4.4 (3.5-5.0) g/dL Lipase 82 (23-300) U/L Urine Color YELLOW (YELLOW) Urine Appearance SLIGHTLY CLOUDY (CLEAR) Urine pH 5.0 (5-6) Ur Specific [place] 1.026 (1.005-1.025) Urine Protein NEGATIVE (Negative) Urine Ketones NEGATIVE (NEGATIVE) Urine Blood NEGATIVE (0-5) Dalton/ul Urine Nitrite NEGATIVE (NEGATIVE) Urine Bilirubin NEGATIVE (NEGATIVE) Urine Urobilinogen NEGATIVE (0-1) mg/dL Ur Leukocyte Esterase NEGATIVE (NEGATIVE) Urine WBC (Auto) 0-2 (0-5) /HPF Urine RBC (Auto) 3-5 (0-2) /HPF U Epithel Cells (Auto) FEW (FEW) /HPF Urine Bacteria (Auto) RARE (NEGATIVE) /HPF Urine Mucus (Auto) SLIGHT (NEGATIVE) /HPF Urine Culture Reflexed NO (NO) Urine Glucose NEGATIVE (NEGATIVE) mg/dL Urine HCG, Qual NEGATIVE (Negative) 02/14/21 Range/Units 12:15 WBC 8.8 (4.0-10.5) K/mm3 RBC 5.02 (4.1-5.4) M/mm3 Hgb 12.9 (12.0-16.0) gm/dl Hct 40.8 (35-47) % MCV 81.3 (78-100) fl MCH 25.7 L (26-32) pg MCHC 31.6 L (32-36) g/dl RDW 15.4 H (11.5-14.0) % Plt Count 346 (150-450) K/mm3 MPV 9.2 (7.5-11.0) fl Gran % 74.9 H (36.0-66.0) % Eos # (Auto) 0.16 (0-0.5) Absolute Lymphs (auto) 1.68 (1.0-4.6) Absolute Monos (auto) 0.37 (0.0-1.3) Lymphocytes % 19.0 L (24.0-44.0) % Monocytes % 4.2 (0.0-12.0) % Eosinophils % 1.8 (0.00-5.0) % Basophils % 0.1 (0.0-0.4) % Absolute Granulocytes 6.60 (1.4-6.9) Basophils # 0.01 (0-0.4) Sodium (137-145) mmol/L Potassium (3.5-5.1) mmol/L Chloride (98-107) mmol/L Carbon Dioxide (22-30) mmol/L Anion Gap (5-15) MEQ/L BUN (7-17) mg/dL Creatinine (0.52-1.04) mg/dL Estimated GFR ML/MIN Glucose (74-106) mg/dL Calcium (8.4-10.2) mg/dL Total Bilirubin (0.2-1.3) mg/dL AST (14-36) U/L ALT (0-35) U/L Alkaline Phosphatase (38-126) U/L Serum Total Protein (6.3-8.2) g/dL Albumin (3.5-5.0) g/dL Lipase (23-300) U/L Urine Color (YELLOW) Urine Appearance (CLEAR) Urine pH (5-6) Ur Specific [place] (1.005-1.025) Urine Protein (Negative) Urine Ketones (NEGATIVE) Urine Blood (0-5) Dalton/ul Urine Nitrite (NEGATIVE) Urine Bilirubin (NEGATIVE) Urine Urobilinogen (0-1) mg/dL Ur Leukocyte Esterase (NEGATIVE) Urine WBC (Auto) (0-5) /HPF Urine RBC (Auto) (0-2) /HPF U Epithel Cells (Auto) (FEW) /HPF Urine Bacteria (Auto) (NEGATIVE) /HPF Urine Mucus (Auto) (NEGATIVE) /HPF Urine Culture Reflexed (NO) Urine Glucose (NEGATIVE) mg/dL Urine HCG, Qual (Negative) - Progress Progress: improved, re-examined Progress Note: 02/14/21 14:11 30 years old is evaluated for right flank pain. She is given symptomatic asuncion tment along with fluid bolus, on reevaluation feeling better. Work-up showed no elevated white count, grossly unremarkable chemistries. No UTI. I have obtained CT abdomen pelvis without contrast which showed no obstructive uropathy/pyelonephritis/colitis/acute appendicitis. Does have a small 2 cm cyst in the right ovary. This cyst could be causing pain but it is not very likely. At this point I do not know the exact cause of her flank pain but have ruled out all the major emergencies. She is advised to take Tylenol as needed and outpatient follow-up. Discussed signs symptoms of worsening needing return to ER which she seems understanding. Counseled pt/family regarding: lab results, diagnosis, need for follow-up, rad results - Departure Departure Disposition: Home Clinical Impression: Flank pain Ovarian cyst Qualifiers: Laterality: right Qualified Code(s): N83.201 - Unspecified ovarian cyst, right side Condition: Stable Critical Care Time: No Referrals: JOSE ROQUE MD [Primary Care Provider] - Follow Up with PCP/3 days CHENCHO ARAUZ DO [ACTIVE STAFF] - (1-2 days for reevaluation of cyst in right ovary) Instructions: Flank Pain, Ovarian Cyst (DC) Additional Instructions: Take Tylenol as needed for pain. Follow-up with primary care in [facility] [place] for reevaluation. Return to ER for intractable pain/vomiting/fever chills etc.
[2021-02-14] MEDS ORDERED: Zofran 4 MG/2 ML VIAL ONE (12:46)
[2021-02-14] MEDS ORDERED: MORPHINE SULFATE 4 MG INJ ONE (12:46)
[2021-02-14] MEDS ORDERED: Sodium Chloride 0.9% 1000 ML 1,000 ML ONE (12:46)
[2021-02-14 13:09] LABS: BASOPHIL % 0.1 % (0.0-0.4); Basophil (Absolute #) 0.01 (0-0.4); Eosinophil % 1.8 % (0.00-5.0); Eosinophil (Absolute #) 0.16 (0-0.5); Hematocrit 40.8 % (35-47); Hemoglobin 12.9 gm/dl (12.0-16.0); Lymphocyte (Absolute #) 1.68 (1.0-4.6); Mean Cell Volume 81.3 fl (78-100); Mean Corpuscular Hemoglobin 25.7 pg (26-32); Mean Corpuscular Hgb Concent. 31.6 g/dl (32-36); Mean Platelet Volume 9.2 fl (7.5-11.0); Monocyte (Absolute #) 0.37 (0.0-1.3); Monocytes % 4.2 % (0.0-12.0); Neutrophil % 74.9 % (36.0-66.0); Platelet Count 346 K/mm3 (150-450); Red Blood Count 5.02 M/mm3 (4.1-5.4); Red Cell Distribution Width 15.4 % (11.5-14.0); White Blood Count 8.8 K/mm3 (4.0-10.5)
[2021-02-14 13:12] LABS: Appearance SLIGHTLY CLOUDY (CLEAR); Bacteria RARE /HPF (NEGATIVE); Bilirubin NEGATIVE (NEGATIVE); Blood NEGATIVE Ery/ul (0-5); Epithelial Cells FEW /HPF (FEW); Glucose NEGATIVE (NEGATIVE); Ketones NEGATIVE (NEGATIVE); Leukocyte Esterase NEGATIVE (NEGATIVE); Mucus SLIGHT /HPF (NEGATIVE); Nitrite NEGATIVE (NEGATIVE); Protein,Urine Dip NEGATIVE (Negative); Specific Gravity 1.026 (1.005-1.025); Urobilinogen NEGATIVE mg/dL (0-1); WBC 0-2 /HPF (0-5)
[2021-02-14 13:34] LABS: ALBUMIN 4.4 g/dL (3.5-5.0); ALKALINE PHOSPHATASE 87 U/L (38-126); ANION GAP 14.9 MEQ/L (5-15); BLOOD UREA NITROGEN 11 mg/dL (7-17); CHLORIDE 104 mmol/L (98-107); Calcium 9.3 mg/dL (8.4-10.2); Carbon Dioxide 24 mmol/L (22-30); Creatinine 1 0.78 mg/dL (0.52-1.04); EST GLOMERULAR FILTRATION RATE > 60.0 ML/MIN; Glucose 100 mg/dL (74-106); LIPASE 82 U/L (23-300); SGOT/AST 29 U/L (14-36); SGPT/ALT 27 U/L (0-35); SODIUM 139 mmol/L (137-145); Total Protein 7.9 g/dL (6.3-8.2)
--- NOTE | 2021-02-14 13:38 | XRAY ---
Indication: Right flank pain. History stones. Multiple contiguous axial images obtained through the abdomen and pelvis without contrast using renal stone protocol. Comparison: None Lung bases are clear. Heart not enlarged. No renal calculus or evidence for obstructive uropathy in either system. Noncontrasted stomach and bowel loops appear nonobstructed. Normal appendix. 2 cm right ovary cyst. No free fluid/air. Fatty hepatomegaly measuring 22.7 cm and splenomegaly measuring 14.9 cm. Remaining liver, gallbladder, pancreas, spleen, adrenal glands, kidneys, ureters, bladder, uterus, and aorta are unremarkable for noncontrast exam. Osseous structures intact. No ventral or inguinal hernias. Impression: 1. Negative renal calculus or evidence for obstructive uropathy. 2. Incidental 2 cm right ovary cyst, fatty hepatomegaly, and splenomegaly. 3. Remaining CT abdomen/pelvis without contrast exam is negative.
[2021-02-14 14:11] VITALS: BP 136/70; PULSE 82
[2021-02-14 14:14] VITALS: O2SAT 98
== END 2021-02-14 14:30 | disposition home or self-care (01) ==
LOC: ED 11:54
DX: R10.9 Unspecified abdominal pain (principal); N83.201 Unspecified ovarian cyst, right side; Z79.899 Other long term (current) drug therapy; R30.0 Dysuria; R11.2 Nausea with vomiting, unspecified
CPT/HCPCS: 36000; 36415; 74176; 80053; 81001; 83690; 84703; 85025; 96360; 96374; 96375; 99284; J2270; J2405

== ENCOUNTER 2021-02-22 23:02 | Emergency (ER) | payer OTHER ==
[2021-02-23] MEDS ORDERED: Sodium Chloride 0.9% 1000 ML 1,000 ML IV STA (00:41)
[2021-02-23] MEDS ORDERED: MORPHINE SULFATE 2 MG INJ IV ONE (00:41)
[2021-02-23 01:22] LABS: Appearance SLIGHTLY CLOUDY (CLEAR); Bilirubin NEGATIVE (NEGATIVE); Blood SMALL Ery/ul (0-5); Epithelial Cells FEW /HPF (FEW); Glucose NEGATIVE (NEGATIVE); Ketones NEGATIVE (NEGATIVE); Leukocyte Esterase LARGE (NEGATIVE); Mucus SLIGHT /HPF (NEGATIVE); Nitrite NEGATIVE (NEGATIVE); Protein,Urine Dip NEGATIVE (Negative); Specific Gravity 1.016 (1.005-1.025); Urobilinogen NEGATIVE mg/dL (0-1)
[2021-02-23 01:33] LABS: Absolute Neutrophil Ct (ANC) 4.53 (1.4-6.9); BASOPHIL % 0.1 % (0.0-0.4); Basophil (Absolute #) 0.01 (0-0.4); Eosinophil % 1.9 % (0.00-5.0); Eosinophil (Absolute #) 0.13 (0-0.5); Hematocrit 33.2 % (35-47); Hemoglobin 10.5 gm/dl (12.0-16.0); Lymphocyte (Absolute #) 1.82 (1.0-4.6); Lymphocytes % 26.1 % (24.0-44.0); Mean Cell Volume 81.4 fl (78-100); Mean Corpuscular Hemoglobin 25.7 pg (26-32); Mean Corpuscular Hgb Concent. 31.6 g/dl (32-36); Mean Platelet Volume 9.5 fl (7.5-11.0); Monocyte (Absolute #) 0.47 (0.0-1.3); Monocytes % 6.8 % (0.0-12.0); Neutrophil % 65.1 % (36.0-66.0); Platelet Count 256 K/mm3 (150-450); Red Blood Count 4.08 M/mm3 (4.1-5.4); Red Cell Distribution Width 15.4 % (11.5-14.0)
[2021-02-23 01:44] LABS: ALBUMIN 3.7 g/dL (3.5-5.0); ALKALINE PHOSPHATASE 78 U/L (38-126); ANION GAP 11.3 MEQ/L (5-15); BILIRUBIN,TOTAL < 0.10 mg/dL (0.2-1.3); BLOOD UREA NITROGEN 8 mg/dL (7-17); CHLORIDE 105 mmol/L (98-107); Calcium 8.8 mg/dL (8.4-10.2); Carbon Dioxide 26 mmol/L (22-30); Creatinine 1 0.76 mg/dL (0.52-1.04); EST GLOMERULAR FILTRATION RATE > 60.0 ML/MIN; Glucose 102 mg/dL (74-106); LIPASE 120 U/L (23-300); Potassium 3.5 mmol/L (3.5-5.1); SGOT/AST 30 U/L (14-36); SGPT/ALT 30 U/L (0-35); SODIUM 139 mmol/L (137-145); Total Protein 6.8 g/dL (6.3-8.2)
[2021-02-23] MEDS ORDERED: Sodium Chloride 0.9% 1000 ML 1,000 ML ONE (02:02)
[2021-02-23] MEDS ORDERED: MORPHINE SULFATE 2 MG INJ ONE (02:02)
--- NOTE | 2021-02-23 02:34 | ERPHSYRPT ---
- History of Present Illness Time Seen by Provider: 02/22/21 23:55 Historian: patient Exam Limitations: no limitations Patient Subjective Stated Complaint: pt states "I'm still having rt side pain." Triage Nursing Assessment: pt ambulated into the er; pt is axo x4; c/o rt side/ abd pain; states 8/10 pain to rt rib region; pt states that she was at [facility] yesterday; pt states that she was told she has a mass in her colon behind her liver; pt states that she feels like she has a yeast infection due to all the antibiotic she received; pt states that she has had this pain for the past few months; pt states that the pain has been in severe pain for the past 4 days; pt abd is round, soft, nontender; pt states N/V/D for the past few days; vitals wnl Physician History: Patient is a 30-year-old female presents to our ED with complaints of right flank pain. Pain started approximately 4 days ago. Patient was in [facility] yesterday for the same. Patient was worked up and was advised she had a colon mass. Patient has not followed up with anybody at this point. Patient's pain is rated 8 out of 10. Pain is localized. No radiation. Pain is primarily at the right flank and right lower rib cage. Patient currently on antibiotics. Patient states she may have yeast infection. No associated nausea or vomiting. No diarrhea. No rash. Patient has no other complaints at this time. Timing/Duration: day(s) (4 days) Activities at Onset: none Quality: aching Abdominal Pain Onset Location: flank Pain Radiation: no radiation Severity of Pain-Max: moderate Severity of Pain-Current: mild Modifying Factors: Improves With: palpation Associated Symptoms: No chest pain, No diarrhea, No fever/chills, No shortness of breath, No syncope, No vomiting Previous symptoms: no prior history Allergies/Adverse Reactions: No Known Drug Allergies Allergy (Verified 02/22/21 23:45) Home Medications: lisinopriL [Lisinopril] 20 mg PO DAILY 11/17/19 [History] Hx Tetanus, Diphtheria Vaccination/Date Given: Yes Hx Influenza Vaccination/Date Given: Yes Hx Pneumococcal Vaccination/Date Given: No Travel Risk - International Travel Have you traveled outside of the country in past 3 weeks: No - Coronavirus Screening Are you exhibiting any of the following symptoms?: No Close contact with a COVID-19 positive Pt in past 14-21 Days: No - Vaccine Status Have you recieved a Covid-19 vaccination: No - Review of Systems Constitutional: No Symptoms, No Fever, No Chills Eyes: No Symptoms Ears, Nose, & Throat: No Symptoms Respiratory: No Symptoms, No Cough, No Dyspnea Cardiac: No Symptoms, No Chest Pain, No Edema, No Syncope Abdominal/Gastrointestinal: No Symptoms, No Abdominal Pain, No Nausea, No Vomiting, No Diarrhea Genitourinary Symptoms: No Symptoms, No Dysuria Musculoskeletal: No Symptoms, No Back Pain, No Neck Pain Skin: No Symptoms, No Rash Neurological: No Symptoms, No Dizziness, No Focal Weakness, No Sensory Changes Psychological: No Symptoms Endocrine: No Symptoms Hematologic/Lymphatic: No Symptoms Immunological/Allergic: No Symptoms All Other Systems: Reviewed and Negative - Past Medical History Pertinent Past Medical History: Yes Neurological History: No Pertinent History ENT History: No Pertinent History Cardiac History: Congenital Heart Disease, Hypertension Respiratory History: Asthma, Bronchitis, Sleep Apnea Endocrine Medical History: No Pertinent History Musculoskeletal History: Osteoarthritis, Other GI Medical History: No Pertinent History History: No Pertinent History Psycho-Social History: No Pertinent History Female Reproductive Disorders: No Pertinent History Other Medical History: OPEN HEART WITH REPAIR OF HOLE--4 yrs old. anemia. cirrohosis of liver, pulmonary HTN - Past Surgical History Past Surgical History: Yes Neuro Surgical History: No Pertinent History Cardiac: Other Respiratory: No Pertinent History Gastrointestinal: No Pertinent History Genitourinary: No Pertinent History Musculoskeletal: No Pertinent History Female Surgical History: Dilation & Curettage, Section, Tubal Ligation Other Surgical History: REPAIR OF HOLE IN THE HEART - Social History Smoking Status: Never smoker Exposure to second hand smoke: No Drug Use: none Patient Lives Alone: No - Female History Hx Now: No - Nursing Vital Signs Nursing Vital Signs: Initial Vital Signs Temperature 98.9 F 02/22/21 23:45 Pulse Rate 77 02/22/21 23:45 Respiratory Rate 18 02/22/21 23:45 Blood Pressure 145/64 02/22/21 23:45 O2 Sat by Pulse Oximetry 98 02/22/21 23:45 Pain Scale Pain Intensity 4 - Physical Exam General Appearance: no apparent distress, alert Eye Exam: PERRL/EOMI, eyes nml inspection Ears, Nose, Throat Exam: normal ENT inspection, pharynx normal, moist mucous membranes Neck Exam: normal inspection, non-tender, supple, full range of motion Respiratory Exam: normal breath sounds, lungs clear, No respiratory distress Cardiovascular Exam: regular rate/rhythm, normal heart sounds Gastrointestinal/Abdomen Exam: soft, other (Tenderness palpation right flank. Overlying soft tissue intact. No signs of trauma.), No tenderness, No mass Back Exam: normal inspection, normal range of motion, No CVA tenderness, No vertebral tenderness Extremity Exam: normal inspection, normal range of motion, pelvis stable Neurologic Exam: alert, oriented x 3, cooperative, normal mood/affect, sensation nml, No motor deficits Skin Exam: normal color, warm, dry Lymphatic Exam: adenopathy SpO2 Interpretation: normal SpO2: 98 O2 Delivery: Room Air - Course Nursing assessment & vital signs reviewed: Yes Ordered Tests: Active Orders 24 hr Category Date Time Status IV Insertion STAT Care 02/23/21 00:41 Active ABDOMEN AND PELVIS W CONTRAST [CT] Stat Exams 02/23/21 00:42 Taken CBC W DIFF Stat Lab 02/23/21 01:20 Completed CMP Stat Lab 02/23/21 01:20 Completed CULTURE,URINE Stat Lab 02/23/21 00:57 Received HCG,QUALITATIVE URINE Stat Lab 02/23/21 00:57 Completed LIPASE Stat Lab 02/23/21 01:20 Completed TROPONIN Q3H Lab 02/23/21 01:20 Completed TROPONIN Q3H Lab 02/23/21 04:28 Received TROPONIN Q3H Lab 02/23/21 06:45 Ordered TROPONIN Q3H Lab 02/23/21 09:45 Ordered TROPONIN Q3H Lab 02/23/21 12:45 Ordered UA W/RFX UR CULTURE Stat Lab 02/23/21 00:57 Completed Medication Summary Discontinued Medications Generic Name Dose Route Start Last Admin Trade Name Freq PRN Reason Stop Dose Admin Sodium Chloride 1,000 mls @ 999 mls/hr 02/23/21 00:41 02/23/21 02:07 Sodium Chloride 0.9% 1000 Ml IV 02/23/21 01:41 999 mls/hr .Q1H1M STA Administration Sodium Chloride Confirm 02/23/21 02:02 Sodium Chloride 0.9% 1000 Ml Administered 02/23/21 02:03 Dose 1,000 mls @ ud .ROUTE .STK-MED ONE Morphine Sulfate 2 mg 02/23/21 00:41 02/23/21 02:07 Morphine Sulfate 2 Mg Inj IV 02/23/21 00:42 2 mg STAT ONE Administration Morphine Sulfate Confirm 02/23/21 02:02 Morphine Sulfate 2 Mg Inj Administered 02/23/21 02:03 Dose 2 mg .ROUTE .STK-MED ONE Nitrofurantoin Macrocrystals 100 mg 02/23/21 04:34 Macrobid 100mg Capsule PO 02/23/21 04:35 ONCE STA Lab/Rad Data: Laboratory Result Diagrams 02/23/21 01:20 02/23/21 01:20 Laboratory Results 02/23/21 02/23/21 02/23/21 Range/Units 01:20 01:20 01:20 WBC 7.0 (4.0-10.5) K/mm3 RBC 4.08 L (4.1-5.4) M/mm3 Hgb 10.5 L (12.0-16.0) gm/dl Hct 33.2 L (35-47) % MCV 81.4 (78-100) fl MCH 25.7 L (26-32) pg MCHC 31.6 L (32-36) g/dl RDW 15.4 H (11.5-14.0) % Plt Count 256 (150-450) K/mm3 MPV 9.5 (7.5-11.0) fl Gran % 65.1 (36.0-66.0) % Eos # (Auto) 0.13 (0-0.5) Absolute Lymphs (auto) 1.82 (1.0-4.6) Absolute Monos (auto) 0.47 (0.0-1.3) Lymphocytes % 26.1 (24.0-44.0) % Monocytes % 6.8 (0.0-12.0) % Eosinophils % 1.9 (0.00-5.0) % Basophils % 0.1 (0.0-0.4) % Absolute Granulocytes 4.53 (1.4-6.9) Basophils # 0.01 (0-0.4) Sodium 139 (137-145) mmol/L Potassium 3.5 (3.5-5.1) mmol/L Chloride 105 (98-107) mmol/L Carbon Dioxide 26 (22-30) mmol/L Anion Gap 11.3 (5-15) MEQ/L BUN 8 (7-17) mg/dL Creatinine 0.76 (0.52-1.04) mg/dL Estimated GFR > 60.0 ML/MIN Glucose 102 (74-106) mg/dL Calcium 8.8 (8.4-10.2) mg/dL Total Bilirubin < 0.10 L (0.2-1.3) mg/dL AST 30 (14-36) U/L ALT 30 (0-35) U/L Alkaline Phosphatase 78 (38-126) U/L Troponin I < 0.012 (0.000-0.034) ng/mL Serum Total Protein 6.8 (6.3-8.2) g/dL Albumin 3.7 (3.5-5.0) g/dL Lipase 120 (23-300) U/L Urine Color (YELLOW) Urine Appearance (CLEAR) Urine pH (5-6) Ur Specific [place] (1.005-1.025) Urine Protein (Negative) Urine Ketones (NEGATIVE) Urine Blood (0-5) Dalton/ul Urine Nitrite (NEGATIVE) Urine Bilirubin (NEGATIVE) Urine Urobilinogen (0-1) mg/dL Ur Leukocyte Esterase (NEGATIVE) Urine WBC (Auto) (0-5) /HPF Urine RBC (Auto) (0-2) /HPF U Epithel Cells (Auto) (FEW) /HPF Urine Bacteria (Auto) (NEGATIVE) /HPF Urine Mucus (Auto) (NEGATIVE) /HPF Urine Culture Reflexed (NO) Urine Glucose (NEGATIVE) mg/dL Urine HCG, Qual (Negative) 02/23/21 02/23/21 Range/Units 00:57 00:57 WBC (4.0-10.5) K/mm3 RBC (4.1-5.4) M/mm3 Hgb (12.0-16.0) gm/dl Hct (35-47) % MCV (78-100) fl MCH (26-32) pg MCHC (32-36) g/dl RDW (11.5-14.0) % Plt Count (150-450) K/mm3 MPV (7.5-11.0) fl Gran % (36.0-66.0) % Eos # (Auto) (0-0.5) Absolute Lymphs (auto) (1.0-4.6) Absolute Monos (auto) (0.0-1.3) Lymphocytes % (24.0-44.0) % Monocytes % (0.0-12.0) % Eosinophils % (0.00-5.0) % Basophils % (0.0-0.4) % Absolute Granulocytes (1.4-6.9) Basophils # (0-0.4) Sodium (137-145) mmol/L Potassium (3.5-5.1) mmol/L Chloride (98-107) mmol/L Carbon Dioxide (22-30) mmol/L Anion Gap (5-15) MEQ/L BUN (7-17) mg/dL Creatinine (0.52-1.04) mg/dL Estimated GFR ML/MIN Glucose (74-106) mg/dL Calcium (8.4-10.2) mg/dL Total Bilirubin (0.2-1.3) mg/dL AST (14-36) U/L ALT (0-35) U/L Alkaline Phosphatase (38-126) U/L Troponin I (0.000-0.034) ng/mL Serum Total Protein (6.3-8.2) g/dL Albumin (3.5-5.0) g/dL Lipase (23-300) U/L Urine Color YELLOW (YELLOW) Urine Appearance SLIGHTLY CLOUDY (CLEAR) Urine pH 5.0 (5-6) Ur Specific [place] 1.016 (1.005-1.025) Urine Protein NEGATIVE (Negative) Urine Ketones NEGATIVE (NEGATIVE) Urine Blood SMALL (0-5) Dalton/ul Urine Nitrite NEGATIVE (NEGATIVE) Urine Bilirubin NEGATIVE (NEGATIVE) Urine Urobilinogen NEGATIVE (0-1) mg/dL Ur Leukocyte Esterase LARGE (NEGATIVE) Urine WBC (Auto) 3-5 (0-5) /HPF Urine RBC (Auto) 3-5 (0-2) /HPF U Epithel Cells (Auto) FEW (FEW) /HPF Urine Bacteria (Auto) NONE (NEGATIVE) /HPF Urine Mucus (Auto) SLIGHT (NEGATIVE) /HPF Urine Culture Reflexed YES (NO) Urine Glucose NEGATIVE (NEGATIVE) mg/dL Urine HCG, Qual NEGATIVE (Negative) - Progress Progress: improved Progress Note: Patient reassessed. She feels well. Laboratory work-up essentially nonremarkable. CT abdomen pelvis essentially unremarkable for acute pathology. UA suggestive of possible UTI. UA reflex to culture. Patient received a dose of Macrobid in our ED. A prescription for the same was forwarded to patient's pharmacy. Vital stable. Will discharge home. Patient agrees to follow-up with her primary care doctor within 48 hours for reevaluation. 02/23/21 04:44 Counseled pt/family regarding: lab results, diagnosis, need for follow-up, rad results - Departure Departure Disposition: Home Clinical Impression: Abdominal pain, Splenomegaly, Fatty liver, Normocytic anemia, Microscopic hematuria, UTI (urinary tract infection) Condition: Stable Critical Care Time: No Referrals: JOSE ROQUE MD [Primary Care Provider] - Prescriptions: Nitrofurantoin Macro 100 mg [Macrobid 100MG Capsule] 100 mg PO BID 7 Days #14 capsule
[2021-02-23] MEDS ORDERED: Macrobid 100MG Capsule PO STA (04:34)
[2021-02-23] MEDS ORDERED: Macrobid 100MG Capsule ONE (04:44)
[2021-02-23 04:55] VITALS: BP 113/75; PULSE 71; O2SAT 97
--- NOTE | 2021-02-23 08:58 | XRAY ---
Indication: Right upper quadrant pain, nausea, vomiting, and diarrhea. History kidney stones. Multiple contiguous axial images obtained through the abdomen and pelvis using 80 cc Isovue 370 contrast. Comparison: February 14, 2021. Lung bases remain clear. Heart is not enlarged. Noncontrasted stomach and bowel loops nonobstructed again with normal appendix. There is again fatty hepatomegaly measuring 24.5 cm and 16 cm splenomegaly. No free fluid/air. Remaining liver, gallbladder, pancreas, spleen, adrenal glands, kidneys, ureters, bladder, uterus, and aorta are unremarkable. No pathologic retroperitoneal lymphadenopathy. Osseous structures intact. Impression: 1. Again fatty hepatomegaly and splenomegaly. 2. Remaining CT abdomen/pelvis with contrast exam is again negative. Comment: Preliminary interpretation made by C. No critical discrepancy.
== END 2021-02-23 04:55 | disposition home or self-care (01) ==
LOC: ED 23:02
DX: R10.9 Unspecified abdominal pain (principal); R16.1 Splenomegaly, not elsewhere classified; K76.0 Fatty (change of) liver, not elsewhere classified; D64.9 Anemia, unspecified; R31.29 Other microscopic hematuria; N39.0 Urinary tract infection, site not specified; I10 Essential (primary) hypertension
CPT/HCPCS: 36000; 36415; 74177; 80053; 81001; 83690; 84484; 84703; 85025; 87086; 96360; 96374; 99284; J2270; A9270-GY

== ENCOUNTER 2021-04-16 14:52 | Emergency (ER) | payer OTHER ==
[2021-04-16] MEDS ORDERED: VENTOLIN COMMON CANISTER IH ONE (14:55)
[2021-04-16 15:26] LABS: Hematocrit 37.9 % (35-47); Hemoglobin 12.5 gm/dl (12.0-16.0); Mean Cell Volume 80.1 fl (78-100); Mean Corpuscular Hemoglobin 26.4 pg (26-32); Mean Platelet Volume 8.9 fl (7.5-11.0); Platelet Count 302 K/mm3 (150-450); Red Blood Count 4.73 M/mm3 (4.1-5.4); Red Cell Distribution Width 15.4 % (11.5-14.0); White Blood Count 7.6 K/mm3 (4.0-10.5)
--- NOTE | 2021-04-16 15:26 | ERPHSYRPT ---
- History of Present Illness Time Seen by Provider: 04/16/21 15:24 Source: patient Exam Limitations: no limitations Patient Subjective Stated Complaint: SOB- Covid Positive Triage Nursing Assessment: Patient ambulated back to ED and transferred self to bed. Patient A+O X3. Patient's skin pink, warm and dry. Patient noted to have labored respirations. Patient states she had vomiting and diarrhea 3 days ago and woke up today with occasional chest tightness and SOB. Patient states she is COVID positive as of today from [facility]. Lungs clear A/P edgardo. Physician History: atient states she had vomiting and diarrhea 3 days ago and woke up today with occasional chest tightness and SOB. Patient states she is COVID positive as of today from [facility]. Associated Symptoms: vomiting, shortness of breath Allergies/Adverse Reactions: No Known Drug Allergies Allergy (Verified 04/16/21 14:58) Home Medications: lisinopriL [Lisinopril] 20 mg PO DAILY 11/17/19 [History] Hx Tetanus, Diphtheria Vaccination/Date Given: Yes Hx Influenza Vaccination/Date Given: Yes Hx Pneumococcal Vaccination/Date Given: No Immunizations Up to Date: Yes Travel Risk - International Travel Have you traveled outside of the country in past 3 weeks: No - Coronavirus Screening Are you exhibiting any of the following symptoms?: Yes Symptoms: Fever, Cough: New Onset, Shortness of Breath, Headaches/Body Aches/Fatigue Close contact with a COVID-19 positive Pt in past 14-21 Days: No - Vaccine Status Have you recieved a Covid-19 vaccination: No - Review of Systems Constitutional: No Fever, No Chills Eyes: No Symptoms Ears, Nose, & Throat: No Symptoms Respiratory: No Cough, No Dyspnea Cardiac: No Chest Pain, No Edema, No Syncope Abdominal/Gastrointestinal: Vomiting, Diarrhea, No Abdominal Pain, No Nausea Genitourinary Symptoms: No Dysuria Musculoskeletal: No Back Pain, No Neck Pain Skin: No Rash Neurological: No Dizziness, No Focal Weakness, No Sensory Changes Psychological: No Symptoms Endocrine: No Symptoms All Other Systems: Reviewed and Negative - Past Medical History Pertinent Past Medical History: Yes Neurological History: No Pertinent History ENT History: No Pertinent History Cardiac History: Congenital Heart Disease, Hypertension Respiratory History: Asthma, Bronchitis, Sleep Apnea Endocrine Medical History: No Pertinent History Musculoskeletal History: Osteoarthritis, Other GI Medical History: No Pertinent History History: No Pertinent History Psycho-Social History: No Pertinent History Female Reproductive Disorders: No Pertinent History Other Medical History: OPEN HEART WITH REPAIR OF HOLE--4 yrs old. anemia. cirrohosis of liver, pulmonary HTN - Past Surgical History Past Surgical History: Yes Neuro Surgical History: No Pertinent History Cardiac: Other Respiratory: No Pertinent History Gastrointestinal: No Pertinent History Genitourinary: No Pertinent History Musculoskeletal: No Pertinent History Female Surgical History: Dilation & Curettage, Section, Tubal Ligation Other Surgical History: REPAIR OF HOLE IN THE HEART - Social History Smoking Status: Never smoker Exposure to second hand smoke: No Drug Use: none Patient Lives Alone: No - Female History Hx Last Menstrual Period: two weeks ago Hx Now: No - Nursing Vital Signs Nursing Vital Signs: Initial Vital Signs Pulse Rate 102 H 04/16/21 14:59 Respiratory Rate 21 04/16/21 14:59 Blood Pressure 150/100 04/16/21 14:59 O2 Sat by Pulse Oximetry 100 04/16/21 14:59 Pain Scale Pain Intensity 0 - Physical Exam General Appearance: no apparent distress, alert Eye Exam: PERRL/EOMI, eyes nml inspection Ears, Nose, Throat Exam: normal ENT inspection, TMs normal, pharynx normal, moist mucous membranes Neck Exam: normal inspection, non-tender, supple, full range of motion Respiratory Exam: diminished breath sounds, wheezing, No respiratory distress Cardiovascular Exam: regular rate/rhythm, normal heart sounds, normal peripheral pulses Gastrointestinal/Abdomen Exam: soft, normal bowel sounds, No tenderness, No mass Back Exam: normal inspection, normal range of motion, No CVA tenderness, No vertebral tenderness Extremity Exam: normal inspection, normal range of motion, pelvis stable Neurologic Exam: alert, oriented x 3, cooperative, normal mood/affect, nml cerebellar function, nml station & gait, sensation nml, No motor deficits Skin Exam: normal color, warm, dry, No rash Lymphatic Exam: No adenopathy SpO2 Interpretation: normal SpO2: 100 O2 Delivery: Room Air - Course Nursing assessment & vital signs reviewed: Yes Ordered Tests: Active Orders 24 hr Category Date Time Status EKG-ER Only STAT Care 04/16/21 14:55 Active Isolation, Initiate & Maintain STAT Care 04/16/21 14:56 Active Oxygen-ED Only High Flow per RT 50% Care 04/16/21 14:55 Active CHEST 1 VIEW (PORTABLE) Stat Exams 04/16/21 14:57 Taken CBC Stat Lab 04/16/21 13:10 Completed CMP Stat Lab 04/16/21 13:10 Completed D-DIMER QUANTITATIVE Stat Lab 04/16/21 13:10 Completed Ferritin Stat Lab 04/16/21 13:10 Received LDH-LACTATE DEHYDROGENASE Stat Lab 04/16/21 13:10 Completed TROPONIN Stat Lab 04/16/21 13:10 Completed Respiratory MDI STAT RT 04/16/21 14:58 Completed Respiratory Therapy Assessment ONCE RT 04/16/21 15:32 Completed Medication Summary Discontinued Medications Generic Name Dose Route Start Last Admin Trade Name Freq PRN Reason Stop Dose Admin Albuterol Sulfate 4 puff 04/16/21 14:55 04/16/21 15:25 Ventolin Common Canister IH 04/16/21 14:56 4 puff STAT ONE Administration Lab/Rad Data: Laboratory Result Diagrams 04/16/21 13:10 04/16/21 13:10 Laboratory Results 04/16/21 04/16/21 04/16/21 Range/Units 13:10 13:10 13:10 WBC 7.6 (4.0-10.5) K/mm3 RBC 4.73 (4.1-5.4) M/mm3 Hgb 12.5 (12.0-16.0) gm/dl Hct 37.9 (35-47) % MCV 80.1 (78-100) fl MCH 26.4 (26-32) pg MCHC 33.0 (32-36) g/dl RDW 15.4 H (11.5-14.0) % Plt Count 302 (150-450) K/mm3 MPV 8.9 (7.5-11.0) fl D-Dimer 244 (215-500) ng/mL Sodium 139 (137-145) mmol/L Potassium 4.2 (3.5-5.1) mmol/L Chloride 106 (98-107) mmol/L Carbon Dioxide 21 L (22-30) mmol/L Anion Gap 16.8 H (5-15) MEQ/L BUN 10 (7-17) mg/dL Creatinine 0.65 (0.52-1.04) mg/dL Estimated GFR > 60.0 ML/MIN Glucose 113 H (74-106) mg/dL Calcium 9.3 (8.4-10.2) mg/dL Total Bilirubin 0.40 (0.2-1.3) mg/dL AST 32 (14-36) U/L ALT 27 (0-35) U/L Alkaline Phosphatase 88 (38-126) U/L Lactate Dehydrogenase 186 (120-246) U/L Troponin I < 0.012 (0.000-0.034) ng/mL Serum Total Protein 7.5 (6.3-8.2) g/dL Albumin 4.1 (3.5-5.0) g/dL - Progress Progress: improved Counseled pt/family regarding: lab results, diagnosis, need for follow-up, rad results - Departure Departure Disposition: Home Clinical Impression: COVID-19 virus detected Condition: Stable Critical Care Time: No Referrals: JOSE ROQUE MD [Primary Care Provider] - Instructions: Coronavirus Disease 2019 (COVID-19) (DC) Additional Instructions: Discharge/Care Plan IVANNA STEIN was seen on 04/16/21 in the Emergency Room. The patient was counseled regarding Diagnosis,Lab results, Imaging studies, need for follow up and when to return to the Emergency Room. Prescriptions given: Discharge Note I have spoken with the patient and/or caregivers. I have explained the patient's condition, diagnosis and treatment plan based on the information available to me at this time. I have answered the patient's and/or caregiver's questions and addressed any concerns. The patient and/or caregivers have as good understanding of the patient's diagnosis, condition and treatment plan as can be expected at this point. The vital signs have been stable. The patient's condition is stable and appropriate for discharge from the emergency department. The patient will pursue further outpatient evaluation with the primary care physician or other designated or consulting physician as outlined in the discharge instructions. The patient and/or caregivers are agreeable to this plan of care and follow-up instructions have been explained in detail. The patient and/or caregivers have received these instruction. The patient/and or caregivers are aware that any significant change in condition or worsening of symptoms should prompt an immediate return to this or the closest emergency department or call 911. IVANNA STEIN was seen on 04/16/21 n the Emergency Room. At that time you were treated for an emergent condition, during your visit Laboratory, Radiology and/or other procedures may have been ordered. It is very important that you follow-up with your Primary Care Physician JOSE ROQUE within the next 24-48 hours to review your Emergency Room visit and the final results of testing that was ordered. Some test results such as Urine Cultures, Blood Cultures, and other cultures if ordered will not be finalized for 24-48 hours. If you do not have a Primary Care Provider please call the medical records department at [phone] to obtain a copy of your results or you may sign into our patient portal to obtain these results by visiting us @ [email or web address] and completing the following steps: 1. Click on the Patient Portal link 2. Click the Patient Self Enrollment Link to complete the enrollment form and entering your 3. Once the enrollment form is completed you will receive an email with a temporary ID and password at the email address you provided. 4. Next choose a user name and password. Your user name must be at least 4 characters long and your password must be at least 4 characters long. 5. Choose a security question from the list and provide your answer to the question. If you already have signed into the Health Portal you may access your Health Care Information 11/03 by the following steps: 1. Login to our website @ [email or web address] 2. Enter your original user name and password. FAQS The [facility] Health Portal is an online tool that contains your Lab Results, Radiology Reports, Visit History, Discharge Instructions and Health Summary Lab and Radiology Results will not be available for 72 hours on the portal. The Portal is a secure site, passwords are encryted and URLs are re-written so they cannot be copied and pasted. You and authorized family members are the only ones who can access your Portal. Also there is a timeout feature that protects your information if you leave the Portal page open. If you have technical difficulty please use the Contact Us link on the page this will allow you to submit any questions you have regarding the Portal or you may contact the Medical Record Department at [phone].
[2021-04-16 15:36] VITALS: PULSE 88
[2021-04-16 15:57] LABS: ALBUMIN 4.1 g/dL (3.5-5.0); ALKALINE PHOSPHATASE 88 U/L (38-126); ANION GAP 16.8 MEQ/L (5-15); BLOOD UREA NITROGEN 10 mg/dL (7-17); CHLORIDE 106 mmol/L (98-107); Calcium 9.3 mg/dL (8.4-10.2); Carbon Dioxide 21 mmol/L (22-30); Creatinine 1 0.65 mg/dL (0.52-1.04); EST GLOMERULAR FILTRATION RATE > 60.0 ML/MIN; Glucose 113 mg/dL (74-106); LDH-LACTATE DEHYDROGENASE 186 U/L (120-246); Potassium 4.2 mmol/L (3.5-5.1); SGOT/AST 32 U/L (14-36); SGPT/ALT 27 U/L (0-35); SODIUM 139 mmol/L (137-145); TROPONIN < 0.012 ng/mL (0.000-0.034); Total Protein 7.5 g/dL (6.3-8.2)
[2021-04-16 16:26] VITALS: BP 125/89; O2SAT 98
--- NOTE | 2021-04-16 18:56 | XRAY ---
Indication: Cough. Positive covid 19. Comparison: September 13, 2020 Portable chest remains clear. Heart not enlarged. Bony thorax intact again with sternotomy wires. No new/acute findings.
== END 2021-04-16 16:30 | disposition home or self-care (01) ==
LOC: ED 14:52
DX: U07.1 COVID-19 (principal); R06.02 Shortness of breath
CPT/HCPCS: 36000; 36415; 71045; 80053; 82728; 83615; 84484; 85027; 85379; 93005; 94640; 99284

== ENCOUNTER 2022-02-10 14:45 | Emergency (ER) | payer OTHER | END 2022-02-10 15:00 | disposition left against medical advice (07) | LOC: ED 14:45 | DX: Z53.21 Procedure and treatment not carried out due to patient leaving prior to being seen by health care provider (principal) | CPT/HCPCS: 99281 ==

== ENCOUNTER 2022-02-27 18:44 | Emergency (ER) | payer OTHER ==
[2022-02-27] MEDS ORDERED: Sodium Chloride 0.9% 1000 ML 1,000 ML IV SCH (20:00)
--- NOTE | 2022-02-27 20:03 | ERPHSYRPT ---
- History of Present Illness Time Seen by Provider: 02/27/22 19:20 Source: patient Exam Limitations: no limitations Patient Subjective Stated Complaint: pt states she had open heart pulmoary valve replacement, at [facility] on february 02 2022.pt has dressing over open heart post surgical wound. Pt was put on coumadin following surgery is on 5mg and 7mg every other day. states INR was 2.1 yesterday. Pt states she now has black stools today. Triage Nursing Assessment: pt is alert and oriented, has some abdominal discomfort but no pain Physician History: Patient is a 32-year-old female presents to our ED for evaluation of black tarry stools. Patient is on Coumadin due to a pulmonary valve replacement back in back in January. Surgery date was 02/02/2022. Patient states the surgical wound became infected with Pseudomonas and she is currently on Levaquin. Patient is on Coumadin daily. She takes 5 mg followed by 7 mg alternating days. Patient's last INR was yesterday and 2.1. Patient otherwise feels well. No pain. No nausea or vomiting. No diarrhea. No rash. Patient is concerned with the black tarry stools. Patient states her primary care doctor sent her to our ED to recheck her INR. Patient otherwise feels well. She voices no other complaints or concerns at this time. Portions of this note were created with voice recognition technology. There may be grammatical, spelling, punctuation or sound alike errors Timing/Duration: today Severity: mild Modifying Factors: Improves With: nothing Associated Symptoms: denies symptoms Allergies/Adverse Reactions: No Known Drug Allergies Allergy (Verified 04/16/21 14:58) Home Medications: lisinopriL [Lisinopril] 20 mg PO DAILY 11/17/19 [History] Hx Tetanus, Diphtheria Vaccination/Date Given: Yes Hx Influenza Vaccination/Date Given: Yes Hx Pneumococcal Vaccination/Date Given: No Travel Risk - International Travel Have you traveled outside of the country in past 3 weeks: No - Coronavirus Screening Are you exhibiting any of the following symptoms?: No Symptoms: Fever Close contact with a COVID-19 positive Pt in past 14-21 Days: No - Vaccine Status Have you recieved a Covid-19 vaccination: No - Review of Systems Constitutional: No Symptoms, No Fever, No Chills Eyes: No Symptoms Ears, Nose, & Throat: No Symptoms Respiratory: No Symptoms, No Cough, No Dyspnea Cardiac: No Symptoms, No Chest Pain, No Edema, No Syncope Abdominal/Gastrointestinal: No Symptoms, No Abdominal Pain, No Nausea, No Vomiting, No Diarrhea Genitourinary Symptoms: No Symptoms, No Dysuria Musculoskeletal: No Symptoms, No Back Pain, No Neck Pain Skin: No Symptoms, No Rash Neurological: No Symptoms, No Dizziness, No Focal Weakness, No Sensory Changes Psychological: No Symptoms Endocrine: No Symptoms Hematologic/Lymphatic: No Symptoms Immunological/Allergic: No Symptoms All Other Systems: Reviewed and Negative - Past Medical History Pertinent Past Medical History: Yes Neurological History: No Pertinent History ENT History: No Pertinent History Cardiac History: Congenital Heart Disease, Hypertension Respiratory History: Asthma, Bronchitis, Sleep Apnea Endocrine Medical History: No Pertinent History Musculoskeletal History: Osteoarthritis, Other GI Medical History: No Pertinent History History: No Pertinent History Psycho-Social History: No Pertinent History Female Reproductive Disorders: No Pertinent History Other Medical History: OPEN HEART WITH REPAIR OF HOLE--4 yrs old. anemia. cirrohosis of liver, pulmonary HTN - Past Surgical History Past Surgical History: Yes Neuro Surgical History: No Pertinent History Cardiac: Other Respiratory: No Pertinent History Gastrointestinal: No Pertinent History Genitourinary: No Pertinent History Musculoskeletal: No Pertinent History Female Surgical History: Dilation & Curettage, Section, Tubal Ligation Other Surgical History: REPAIR OF HOLE IN THE HEART, open heart pulmonary valve replacemnt - Social History Smoking Status: Never smoker Exposure to second hand smoke: No Drug Use: none Patient Lives Alone: No - Female History Hx Now: No - Nursing Vital Signs Nursing Vital Signs: Initial Vital Signs Temperature 97.5 F 02/27/22 19:12 Pulse Rate 83 02/27/22 19:12 Respiratory Rate 18 02/27/22 19:12 Blood Pressure 126/54 02/27/22 19:12 O2 Sat by Pulse Oximetry 99 02/27/22 19:12 Pain Scale Pain Intensity 0 - Physical Exam General Appearance: no apparent distress, alert Eye Exam: PERRL/EOMI, eyes nml inspection Ears, Nose, Throat Exam: normal ENT inspection, TMs normal, pharynx normal, moist mucous membranes Neck Exam: normal inspection, non-tender, supple, full range of motion Respiratory Exam: normal breath sounds, lungs clear, airway intact, No respiratory distress Cardiovascular Exam: regular rate/rhythm, normal heart sounds, normal peripheral pulses, other (Full surgical scar appears to be healing well. Patient states it was infected with Pseudomonas as is currently being treated with Levaquin. Clinically no cellulitis observed. No dehiscence) Gastrointestinal/Abdomen Exam: soft, normal bowel sounds, No tenderness, No mass Back Exam: normal inspection, normal range of motion, No CVA tenderness, No vertebral tenderness Extremity Exam: normal inspection, normal range of motion, pelvis stable Neurologic Exam: alert, oriented x 3, cooperative, normal mood/affect, nml cerebellar function, nml station & gait, sensation nml, No motor deficits Skin Exam: normal color, warm, dry, No rash Lymphatic Exam: No adenopathy SpO2 Interpretation: normal SpO2: 99 O2 Delivery: Room Air - Course Nursing assessment & vital signs reviewed: Yes Ordered Tests: Active Orders 24 hr Category Date Time Status Clinical Statistical Programmer STAT Care 02/27/22 19:51 Active IV Insertion STAT Care 02/27/22 19:50 Active Pulse Oximetry (ED) STAT Care 02/27/22 19:50 Active CBC W DIFF Stat Lab 02/27/22 20:10 Completed CMP Stat Lab 02/27/22 20:10 Completed PROTIME WITH INR Stat Lab 02/27/22 20:10 Completed PTT Stat Lab 02/27/22 20:10 Completed UA W/RFX CULTURE Stat Lab 02/27/22 20:02 Completed Medication Summary Generic Name Dose Route Start Last Admin Trade Name Freq PRN Reason Stop Dose Admin Sodium Chloride 1,000 mls @ 100 mls/hr 02/27/22 20:00 02/27/22 20:14 Sodium Chloride 0.9% 1000 Ml IV 03/29/22 19:59 100 mls/hr .Q10H TIM Administration Lab/Rad Data: Laboratory Result Diagrams 02/27/22 20:10 02/27/22 20:10 Laboratory Results 02/27/22 02/27/22 02/27/22 Range/Units 20:10 20:10 20:10 WBC 6.3 (4.0-10.5) x10^3/uL RBC 3.91 L (4.1-5.4) x10^6/uL Hgb 9.4 L (12.0-16.0) g/dL Hct 31.2 L (35-47) % MCV 79.8 (78-100) fL MCH 24.0 L (26-32) pg MCHC 30.1 L (32-36) g/dL RDW 14.9 H (11.5-14.0) % Plt Count 331 (150-450) x10^3/uL MPV 8.4 (7.5-11.0) fL Gran % 70.8 H (36.0-66.0) % Immature Gran % (Auto) 0.3 (0.00-0.4) % Nucleat RBC Rel Count 0.0 (0.00-0.1) % Eos # (Auto) 0.22 (0-0.5) x10^3/uL Immature Gran # (Auto) 0.02 (0.00-0.03) x10^3u/L Absolute Lymphs (auto) 1.27 (1.0-4.6) x10^3/uL Absolute Monos (auto) 0.29 (0.0-1.3) x10^3/uL Absolute Nucleated RBC 0.00 (0.00-0.01) x10^3u/L Lymphocytes % 20.3 L (24.0-44.0) % Monocytes % 4.6 (0.0-12.0) % Eosinophils % 3.5 (0.00-5.0) % Basophils % 0.5 (0.0-0.4) % Absolute Granulocytes 4.42 (1.4-6.9) x10^3/uL Basophils # 0.03 (0-0.4) x10^3/uL PT 21.4 H (9.4-12.5) SECONDS INR 2.17 (0.8-3.0) APTT 32.6 (25.1-36.5) SECONDS Sodium 140 (137-145) mmol/L Potassium 4.1 (3.5-5.1) mmol/L Chloride 103 (98-107) mmol/L Carbon Dioxide 26 (22-30) mmol/L Anion Gap 15.4 H (5-15) MEQ/L BUN 9 (7-17) mg/dL Creatinine 0.70 (0.52-1.04) mg/dL Estimated GFR > 60.0 ML/MIN Glucose 91 (74-106) mg/dL Calcium 9.2 (8.4-10.2) mg/dL Total Bilirubin 0.20 (0.2-1.3) mg/dL AST 35 (14-36) U/L ALT 30 (0-35) U/L Alkaline Phosphatase 82 (38-126) U/L Serum Total Protein 7.8 (6.3-8.2) g/dL Albumin 4.1 (3.5-5.0) g/dL Urinalys Dipstick Clnc Urine Color (YELLOW) Urine Appearance (CLEAR) Urine pH (5-6) Ur Specific [place] (1.005-1.025) POC Urine Protein Conf (Negative) Urine Ketones (NEGATIVE) Urine Nitrite (NEGATIVE) Urine Bilirubin (NEGATIVE) Urine Urobilinogen (0-1) mg/dL Urine Leukocytes (NEGATIVE) Urine WBC (Auto) (0-5) /HPF Urine RBC (Auto) (0-2) /HPF U Epithel Cells (Auto) (FEW) /HPF Urine Bacteria (Auto) (NEGATIVE) /HPF Urine RBC (0-5) Dalton/ul Ur Culture Indicated? Urine Glucose (NEGATIVE) mg/dL 02/27/22 Range/Units 20:02 WBC (4.0-10.5) x10^3/uL RBC (4.1-5.4) x10^6/uL Hgb (12.0-16.0) g/dL Hct (35-47) % MCV (78-100) fL MCH (26-32) pg MCHC (32-36) g/dL RDW (11.5-14.0) % Plt Count (150-450) x10^3/uL MPV (7.5-11.0) fL Gran % (36.0-66.0) % Immature Gran % (Auto) (0.00-0.4) % Nucleat RBC Rel Count (0.00-0.1) % Eos # (Auto) (0-0.5) x10^3/uL Immature Gran # (Auto) (0.00-0.03) x10^3u/L Absolute Lymphs (auto) (1.0-4.6) x10^3/uL Absolute Monos (auto) (0.0-1.3) x10^3/uL Absolute Nucleated RBC (0.00-0.01) x10^3u/L Lymphocytes % (24.0-44.0) % Monocytes % (0.0-12.0) % Eosinophils % (0.00-5.0) % Basophils % (0.0-0.4) % Absolute Granulocytes (1.4-6.9) x10^3/uL Basophils # (0-0.4) x10^3/uL PT (9.4-12.5) SECONDS INR (0.8-3.0) APTT (25.1-36.5) SECONDS Sodium (137-145) mmol/L Potassium (3.5-5.1) mmol/L Chloride (98-107) mmol/L Carbon Dioxide (22-30) mmol/L Anion Gap (5-15) MEQ/L BUN (7-17) mg/dL Creatinine (0.52-1.04) mg/dL Estimated GFR ML/MIN Glucose (74-106) mg/dL Calcium (8.4-10.2) mg/dL Total Bilirubin (0.2-1.3) mg/dL AST (14-36) U/L ALT (0-35) U/L Alkaline Phosphatase (38-126) U/L Serum Total Protein (6.3-8.2) g/dL Albumin (3.5-5.0) g/dL Urinalys Dipstick Clnc MAIN LAB Urine Color YELLOW (YELLOW) Urine Appearance CLEAR (CLEAR) Urine pH 6.5 (5-6) Ur Specific [place] 1.025 (1.005-1.025) POC Urine Protein Conf NEGATIVE (Negative) Urine Ketones NEGATIVE (NEGATIVE) Urine Nitrite NEGATIVE (NEGATIVE) Urine Bilirubin NEGATIVE (NEGATIVE) Urine Urobilinogen 0.2 (0-1) mg/dL Urine Leukocytes NEGATIVE (NEGATIVE) Urine WBC (Auto) 0-2 (0-5) /HPF Urine RBC (Auto) NONE SEEN (0-2) /HPF U Epithel Cells (Auto) RARE (FEW) /HPF Urine Bacteria (Auto) NONE (NEGATIVE) /HPF Urine RBC NEGATIVE (0-5) Dalton/ul Ur Culture Indicated? NO Urine Glucose NEGATIVE (NEGATIVE) mg/dL - Progress Progress: improved Progress Note: Patient reassessed. She is asymptomatic. No bowel movement in our ED. Vital stable. Patient was concerned with dark stools today. We rechecked her INR to reassess that it was not elevated. INR today is 2.17. Case discussed with Dr. Roque who feels patient is appropriate for discharge. Plan of care discussed with patient. She agrees to follow-up with Dr. Roque within 48 hours for evaluation. Portions of this note were created with voice recognition technology. There may be grammatical, spelling, punctuation or sound alike errors 02/27/22 21:[address] Neo Will see patient in: office Counseled pt/family regarding: lab results, diagnosis, need for follow-up - Departure Departure Disposition: Home Clinical Impression: Dark stools, Encounter for medical screening examination, INR check Condition: Stable Critical Care Time: No Referrals: JOSE ROQUE MD [Primary Care Provider] - Follow up/PCP as directed Additional Instructions: Discharge/Care Plan IVANNA STEIN was seen on 02/27/22 in the Emergency Room. The patient was counseled regarding Diagnosis,Lab results, Imaging studies, need for follow up and when to return to the Emergency Room. Prescriptions given: Discharge Note I have spoken with the patient and/or caregivers. I have explained the patient's condition, diagnosis and treatment plan based on the information available to me at this time. I have answered the patient's and/or caregiver's questions and addressed any concerns. The patient and/or caregivers have as good understanding of the patient's diagnosis, condition and treatment plan as can be expected at this point. The vital signs have been stable. The patient's condition is stable and appropriate for discharge from the emergency department. The patient will pursue further outpatient evaluation with the primary care physician or other designated or consulting physician as outlined in the discharge instructions. The patient and/or caregivers are agreeable to this plan of care and follow-up instructions have been explained in detail. The patient and/or caregivers have received these instruction. The patient/and or caregivers are aware that any significant change in condition or worsening of symptoms should prompt an immediate return to this or the closest emergency department or call 911.
[2022-02-27] MEDS ORDERED: Sodium Chloride 0.9% 1000 ML 1,000 ML ONE (20:11)
[2022-02-27 20:20] LABS: Absolute Neutrophil Ct (ANC) 4.42 x10^3/uL (1.4-6.9); Basophil (Absolute #) 0.03 x10^3/uL (0-0.4); Eosinophil % 3.5 % (0.00-5.0); Eosinophil (Absolute #) 0.22 x10^3/uL (0-0.5); Hematocrit 31.2 % (35-47); Hemoglobin 9.4 g/dL (12.0-16.0); Lymphocyte (Absolute #) 1.27 x10^3/uL (1.0-4.6); Lymphocytes % 20.3 % (24.0-44.0); Mean Cell Volume 79.8 fL (78-100); Mean Corpuscular Hgb Concent. 30.1 g/dL (32-36); Mean Platelet Volume 8.4 fL (7.5-11.0); Monocyte (Absolute #) 0.29 x10^3/uL (0.0-1.3); Monocytes % 4.6 % (0.0-12.0); Neutrophil % 70.8 % (36.0-66.0); Platelet Count 331 x10^3/uL (150-450); Red Blood Count 3.91 x10^6/uL (4.1-5.4); Red Cell Distribution Width 14.9 % (11.5-14.0); White Blood Count 6.3 x10^3/uL (4.0-10.5)
[2022-02-27 20:30] LABS: Appearance CLEAR (CLEAR); Bilirubin NEGATIVE (NEGATIVE); Dipstick done @ ? MAIN LAB; Glucose NEGATIVE (NEGATIVE); Ketones NEGATIVE (NEGATIVE); Nitrite NEGATIVE (NEGATIVE); Ph 6.5 (5-6); Protein,Urine Dip NEGATIVE (Negative); RBC NEGATIVE Ery/ul (0-5); Specific Gravity 1.025 (1.005-1.025); Urobilinogen 0.2 mg/dL (0-1)
[2022-02-27 20:31] LABS: ALBUMIN 4.1 g/dL (3.5-5.0); ALKALINE PHOSPHATASE 82 U/L (38-126); ANION GAP 15.4 MEQ/L (5-15); BLOOD UREA NITROGEN 9 mg/dL (7-17); CHLORIDE 103 mmol/L (98-107); Calcium 9.2 mg/dL (8.4-10.2); Carbon Dioxide 26 mmol/L (22-30); EST GLOMERULAR FILTRATION RATE > 60.0 ML/MIN; Glucose 91 mg/dL (74-106); Potassium 4.1 mmol/L (3.5-5.1); SGOT/AST 35 U/L (14-36); SGPT/ALT 30 U/L (0-35); SODIUM 140 mmol/L (137-145); Total Protein 7.8 g/dL (6.3-8.2)
[2022-02-27 20:44] LABS: Epithelial Cells RARE /HPF (FEW); WBC 0-2 /HPF (0-5)
[2022-02-27 20:45] LABS: RBC NONE SEEN /HPF (0-2); Urine Cultured Indicated? NO
[2022-02-27 20:48] LABS: INR 2.17 (0.8-3.0); PROTIME 21.4 SECONDS (9.4-12.5); PTT 32.6 SECONDS (25.1-36.5)
[2022-02-27 21:32] VITALS: BP 117/68; PULSE 78; O2SAT 97
== END 2022-02-27 21:33 | disposition home or self-care (01) ==
LOC: ED 18:44
DX: Z04.89 Encounter for examination and observation for other specified reasons (principal); R19.5 Other fecal abnormalities; Z79.01 Long term (current) use of anticoagulants; I10 Essential (primary) hypertension; Z79.899 Other long term (current) drug therapy; Z28.310 Unvaccinated for COVID-19
CPT/HCPCS: 36000; 36415; 80053; 81015; 85025; 85610; 85730; 93041; 94760; 99284; G0328; 82274

== ENCOUNTER 2022-03-07 18:19 | Emergency (ER) | payer OTHER ==
--- NOTE | 2022-03-07 18:47 | ERPHSYRPT ---
- History of Present Illness Source: patient Timing/Duration: week(s) (6) Severity: moderate Modifying Factors: Improves With: nothing Associated Symptoms: diaphoresis, chills, fever, headaches, loss of appetite, malaise, weakness Hx Tetanus, Diphtheria Vaccination/Date Given: Yes Hx Influenza Vaccination/Date Given: Yes Hx Pneumococcal Vaccination/Date Given: No <JIGNA DRAPER - Last Filed: 03/07/22 18:42> <PAYAL GARZA - Last Filed: 03/07/22 21:12> - History of Present Illness Time Seen by Provider: 03/07/22 18:42 Physician History: Patient is a 32-year-old female who presents with a general complaint of weakness and headache. She had some open heart surgery as a child and in January at the [facility] had a another valve replacement which was approximately 6 weeks ago her sternotomy incision got infected with Pseudomonas and she was back in the hospital for a week and just finished her Levaquin 5 days ago the wound is covered at present but she feels that it is much improved. Her complaint now is that she is tired weak she has a headache she has fever she has night sweats she has no menses for 2 months and she is leaking milk. She has had a tubal so is felt to be not likely. (JIGNA DRAPER) Allergies/Adverse Reactions: No Known Drug Allergies Allergy (Verified 03/07/22 18:50) Home Medications: lisinopriL [Lisinopril] 5 mg PO DAILY 11/17/19 [History] Metoprolol Tartrate 25 mg [Lopressor 25MG Tab] 25 mg PO BID 03/07/22 [History] Warfarin Sodium 5 mg PO UD 03/07/22 [History] Warfarin Sodium 7 mg PO UD 03/07/22 [History] Travel Risk - Vaccine Status Have you recieved a Covid-19 vaccination: No <JIGNA DRAPER - Last Filed: 03/07/22 18:42> - Review of Systems Constitutional: Fever, Chills, Night Sweats Eyes: No Symptoms Ears, Nose, & Throat: No Symptoms Respiratory: No Cough, No Dyspnea Cardiac: No Chest Pain, No Edema, No Syncope Abdominal/Gastrointestinal: No Abdominal Pain, No Nausea, No Vomiting, No Diarrhea Genitourinary Symptoms: No Dysuria Musculoskeletal: Arthralgias, Myalgias Skin: No Rash Neurological: Headache Psychological: No Symptoms Endocrine: Other () Hematologic/Lymphatic: No Symptoms Immunological/Allergic: No Symptoms All Other Systems: Reviewed and Negative <ASHLEYJIGNA PIPER - Last Filed: 03/07/22 18:42> - Past Medical History Pertinent Past Medical History: Yes Neurological History: No Pertinent History ENT History: No Pertinent History Cardiac History: Congenital Heart Disease, Hypertension Respiratory History: Asthma, Bronchitis, Sleep Apnea Endocrine Medical History: No Pertinent History Musculoskeletal History: Osteoarthritis, Other GI Medical History: No Pertinent History History: No Pertinent History Psycho-Social History: No Pertinent History Female Reproductive Disorders: No Pertinent History Other Medical History: OPEN HEART WITH REPAIR OF HOLE--4 yrs old. anemia. cirrohosis of liver, pulmonary HTN - Past Surgical History Past Surgical History: Yes Neuro Surgical History: No Pertinent History Cardiac: Other Respiratory: No Pertinent History Gastrointestinal: No Pertinent History Genitourinary: No Pertinent History Musculoskeletal: No Pertinent History Female Surgical History: Dilation & Curettage, Section, Tubal Ligation Other Surgical History: REPAIR OF HOLE IN THE HEART, open heart pulmonary valve replacemnt - Social History Smoking Status: Never smoker Exposure to second hand smoke: No Drug Use: none Patient Lives Alone: No - Female History Hx Now: No <ASHLEYVERONIQUEJIGNA - Last Filed: 03/07/22 18:42> - Physical Exam General Appearance: mild distress, alert Eye Exam: PERRL/EOMI, eyes nml inspection Ears, Nose, Throat Exam: normal ENT inspection, TMs normal, pharynx normal, moist mucous membranes Neck Exam: normal inspection, non-tender, supple, full range of motion Respiratory Exam: normal breath sounds, lungs clear, No respiratory distress Cardiovascular Exam: regular rate/rhythm, normal heart sounds, normal peripheral pulses, other (Sternotomy car dressed with sterile dressing) Gastrointestinal/Abdomen Exam: soft, normal bowel sounds, No tenderness, No mass Back Exam: normal inspection, normal range of motion, No CVA tenderness, No vertebral tenderness Extremity Exam: normal inspection, normal range of motion, pelvis stable Neurologic Exam: alert, oriented x 3, cooperative, normal mood/affect, nml cerebellar function, nml station & gait, sensation nml, No motor deficits Skin Exam: normal color, warm, dry, No rash Lymphatic Exam: No adenopathy <ASHLEYVERONIQUEJIGNA - Last Filed: 03/07/22 18:42> - Nursing Vital Signs Nursing Vital Signs: Initial Vital Signs Temperature 98.4 F 03/07/22 18:27 Pulse Rate 99 H 03/07/22 18:27 Respiratory Rate 16 03/07/22 18:27 Blood Pressure 126/86 03/07/22 18:27 O2 Sat by Pulse Oximetry 100 03/07/22 18:27 Pain Scale Pain Intensity 7 - Course Nursing assessment & vital signs reviewed: Yes <JIGNA DRAPER - Last Filed: 03/07/22 18:42> Ordered Tests: Active Orders 24 hr Category Date Time Status EKG-ER Only STAT Care 03/07/22 18:37 Active IV Insertion STAT Care 03/07/22 18:37 Active CHEST 1 VIEW (PORTABLE) Stat Exams 03/07/22 18:37 Taken BLOOD CULTURE Stat Lab 03/07/22 19:10 Received CBC W DIFF Stat Lab 03/07/22 19:00 Completed CMP Stat Lab 03/07/22 19:00 Completed HCG QUALITATIVE,SERUM Stat Lab 03/07/22 19:00 Completed LIPASE Stat Lab 03/07/22 19:00 Completed Lactic Acid Stat Lab 03/07/22 18:37 Completed PROTIME WITH INR Stat Lab 03/07/22 19:00 Completed SED RATE [Erythrocyte Sedimentation Rate] Stat Lab 03/07/22 19:00 Completed TROPONIN Q3H Lab 03/07/22 19:00 Completed TROPONIN Q3H Lab 03/07/22 21:45 Ordered TROPONIN Q3H Lab 03/08/22 00:45 Ordered TROPONIN Q3H Lab 03/08/22 03:45 Ordered TROPONIN Q3H Lab 03/08/22 06:45 Ordered UA W/RFX CULTURE Stat Lab 03/07/22 18:49 Completed Medication Summary Generic Name Dose Route Start Last Admin Trade Name Freq PRN Reason Stop Dose Admin Sodium Chloride 1,000 mls @ 150 mls/hr 03/07/22 18:45 03/07/22 18:57 Sodium Chloride 0.9% 1000 Ml IV 04/06/22 18:44 150 mls/hr .[id number] TIM Administration Discontinued Medications Generic Name Dose Route Start Last Admin Trade Name Freq PRN Reason Stop Dose Admin Fentanyl Citrate 75 mcg 03/07/22 18:49 03/07/22 18:57 Fentanyl Citrate 100 Mcg/2 Ml* Vial IV 03/07/22 18:50 75 mcg STAT ONE Administration Fentanyl Citrate Confirm 03/07/22 18:55 Fentanyl Citrate 100 Mcg/2 Ml* Vial Administered 03/07/22 18:56 Dose 100 mcg .ROUTE .STK-MED ONE Ondansetron HCl 4 mg 03/07/22 20:39 03/07/22 20:42 Ondansetron Hcl 4 Mg/2 Ml Vial IV 03/07/22 20:40 4 mg STAT ONE Administration Ondansetron HCl Confirm 03/07/22 20:42 Ondansetron Hcl 4 Mg/2 Ml Vial Administered 03/07/22 20:43 Dose 4 mg .ROUTE .STK-MED ONE Lab/Rad Data: Laboratory Result Diagrams 03/07/22 19:00 03/07/22 19:00 Laboratory Results 03/07/22 03/07/22 03/07/22 Range/Units 19:10 19:00 19:00 WBC (4.0-10.5) x10^3/uL RBC (4.1-5.4) x10^6/uL Hgb (12.0-16.0) g/dL Hct (35-47) % MCV (78-100) fL MCH (26-32) pg MCHC (32-36) g/dL RDW (11.5-14.0) % Plt Count (150-450) x10^3/uL MPV (7.5-11.0) fL Gran % (36.0-66.0) % Immature Gran % (Auto) (0.00-0.4) % Nucleat RBC Rel Count (0.00-0.1) % Eos # (Auto) (0-0.5) x10^3/uL Immature Gran # (Auto) (0.00-0.03) x10^3u/L Absolute Lymphs (auto) (1.0-4.6) x10^3/uL Absolute Monos (auto) (0.0-1.3) x10^3/uL Absolute Nucleated RBC (0.00-0.01) x10^3u/L Lymphocytes % (24.0-44.0) % Monocytes % (0.0-12.0) % Eosinophils % (0.00-5.0) % Basophils % (0.0-0.4) % Absolute Granulocytes (1.4-6.9) x10^3/uL Basophils # (0-0.4) x10^3/uL ESR 11 (0-20) mm/hr PT (9.4-12.5) SECONDS INR (0.8-3.0) Sodium (137-145) mmol/L Potassium (3.5-5.1) mmol/L Chloride (98-107) mmol/L Carbon Dioxide (22-30) mmol/L Anion Gap (5-15) MEQ/L BUN (7-17) mg/dL Creatinine (0.52-1.04) mg/dL Estimated GFR ML/MIN Glucose (74-106) mg/dL Lactic Acid (0.4-2.0) Calcium (8.4-10.2) mg/dL Total Bilirubin (0.2-1.3) mg/dL AST (14-36) U/L ALT (0-35) U/L Alkaline Phosphatase (38-126) U/L Troponin I (0.000-0.034) ng/mL Serum Total Protein (6.3-8.2) g/dL Albumin (3.5-5.0) g/dL Lipase (23-300) U/L Serum , Qual NEGATIVE (Negative) Urinalys Dipstick Clnc Urine Color (YELLOW) Urine Appearance (CLEAR) Urine pH (5-6) Ur Specific [place] (1.005-1.025) POC Urine Protein Conf (Negative) Urine Ketones (NEGATIVE) Urine Nitrite (NEGATIVE) Urine Bilirubin (NEGATIVE) Urine Urobilinogen (0-1) mg/dL Urine Leukocytes (NEGATIVE) Urine WBC (Auto) (0-5) /HPF Urine RBC (Auto) (0-2) /HPF U Hyaline Cast (Auto) (0-2) /LPF U Epithel Cells (Auto) (FEW) /HPF Urine Bacteria (Auto) (NEGATIVE) /HPF Urine RBC (0-5) Dalton/ul Urine Mucus (Auto) (NEGATIVE) /HPF Ur Culture Indicated? Urine Glucose (NEGATIVE) mg/dL Influenza Type A Ag NEGATIVE (NEGATIVE) Influenza Type B Ag NEGATIVE (NEGATIVE) RSV (PCR) NEGATIVE (Negative) SARS-CoV-2 (PCR) POSITIVE A (NEGATIVE) 03/07/22 03/07/22 03/07/22 Range/Units 19:00 19:00 19:00 WBC (4.0-10.5) x10^3/uL RBC (4.1-5.4) x10^6/uL Hgb (12.0-16.0) g/dL Hct (35-47) % MCV (78-100) fL MCH (26-32) pg MCHC (32-36) g/dL RDW (11.5-14.0) % Plt Count (150-450) x10^3/uL MPV (7.5-11.0) fL Gran % (36.0-66.0) % Immature Gran % (Auto) (0.00-0.4) % Nucleat RBC Rel Count (0.00-0.1) % Eos # (Auto) (0-0.5) x10^3/uL Immature Gran # (Auto) (0.00-0.03) x10^3u/L Absolute Lymphs (auto) (1.0-4.6) x10^3/uL Absolute Monos (auto) (0.0-1.3) x10^3/uL Absolute Nucleated RBC (0.00-0.01) x10^3u/L Lymphocytes % (24.0-44.0) % Monocytes % (0.0-12.0) % Eosinophils % (0.00-5.0) % Basophils % (0.0-0.4) % Absolute Granulocytes (1.4-6.9) x10^3/uL Basophils # (0-0.4) x10^3/uL ESR (0-20) mm/hr PT 19.8 H (9.4-12.5) SECONDS INR 1.99 (0.8-3.0) Sodium 138 (137-145) mmol/L Potassium 3.9 (3.5-5.1) mmol/L Chloride 105 (98-107) mmol/L Carbon Dioxide 22 (22-30) mmol/L Anion Gap 15.0 (5-15) MEQ/L BUN 7 (7-17) mg/dL Creatinine 0.62 (0.52-1.04) mg/dL Estimated GFR > 60.0 ML/MIN Glucose 94 (74-106) mg/dL Lactic Acid (0.4-2.0) Calcium 9.2 (8.4-10.2) mg/dL Total Bilirubin 0.30 (0.2-1.3) mg/dL AST 22 (14-36) U/L ALT 20 (0-35) U/L Alkaline Phosphatase 82 (38-126) U/L Troponin I < 0.012 (0.000-0.034) ng/mL Serum Total Protein 7.9 (6.3-8.2) g/dL Albumin 4.1 (3.5-5.0) g/dL Lipase 147 (23-300) U/L Serum , Qual (Negative) Urinalys Dipstick Clnc Urine Color (YELLOW) Urine Appearance (CLEAR) Urine pH (5-6) Ur Specific [place] (1.005-1.025) POC Urine Protein Conf (Negative) Urine Ketones (NEGATIVE) Urine Nitrite (NEGATIVE) Urine Bilirubin (NEGATIVE) Urine Urobilinogen (0-1) mg/dL Urine Leukocytes (NEGATIVE) Urine WBC (Auto) (0-5) /HPF Urine RBC (Auto) (0-2) /HPF U Hyaline Cast (Auto) (0-2) /LPF U Epithel Cells (Auto) (FEW) /HPF Urine Bacteria (Auto) (NEGATIVE) /HPF Urine RBC (0-5) Dalton/ul Urine Mucus (Auto) (NEGATIVE) /HPF Ur Culture Indicated? Urine Glucose (NEGATIVE) mg/dL Influenza Type A Ag (NEGATIVE) Influenza Type B Ag (NEGATIVE) RSV (PCR) (Negative) SARS-CoV-2 (PCR) (NEGATIVE) 03/07/22 03/07/22 03/07/22 Range/Units 19:00 18:49 18:37 WBC 7.2 (4.0-10.5) x10^3/uL RBC 4.27 (4.1-5.4) x10^6/uL Hgb 10.1 L (12.0-16.0) g/dL Hct 33.0 L (35-47) % MCV 77.3 L (78-100) fL MCH 23.7 L (26-32) pg MCHC 30.6 L (32-36) g/dL RDW 15.1 H (11.5-14.0) % Plt Count 311 (150-450) x10^3/uL MPV 9.1 (7.5-11.0) fL Gran % 68.9 H (36.0-66.0) % Immature Gran % (Auto) 0.1 (0.00-0.4) % Nucleat RBC Rel Count 0.0 (0.00-0.1) % Eos # (Auto) 0.19 (0-0.5) x10^3/uL Immature Gran # (Auto) 0.01 (0.00-0.03) x10^3u/L Absolute Lymphs (auto) 1.45 (1.0-4.6) x10^3/uL Absolute Monos (auto) 0.55 (0.0-1.3) x10^3/uL Absolute Nucleated RBC 0.00 (0.00-0.01) x10^3u/L Lymphocytes % 20.2 L (24.0-44.0) % Monocytes % 7.6 (0.0-12.0) % Eosinophils % 2.6 (0.00-5.0) % Basophils % 0.6 (0.0-0.4) % Absolute Granulocytes 4.95 (1.4-6.9) x10^3/uL Basophils # 0.04 (0-0.4) x10^3/uL ESR (0-20) mm/hr PT (9.4-12.5) SECONDS INR (0.8-3.0) Sodium (137-145) mmol/L Potassium (3.5-5.1) mmol/L Chloride (98-107) mmol/L Carbon Dioxide (22-30) mmol/L Anion Gap (5-15) MEQ/L BUN (7-17) mg/dL Creatinine (0.52-1.04) mg/dL Estimated GFR ML/MIN Glucose (74-106) mg/dL Lactic Acid 1.1 (0.4-2.0) Calcium (8.4-10.2) mg/dL Total Bilirubin (0.2-1.3) mg/dL AST (14-36) U/L ALT (0-35) U/L Alkaline Phosphatase (38-126) U/L Troponin I (0.000-0.034) ng/mL Serum Total Protein (6.3-8.2) g/dL Albumin (3.5-5.0) g/dL Lipase (23-300) U/L Serum , Qual (Negative) Urinalys Dipstick Clnc MAIN LAB Urine Color YELLOW (YELLOW) Urine Appearance CLEAR (CLEAR) Urine pH 6.5 (5-6) Ur Specific [place] 1.015 (1.005-1.025) POC Urine Protein Conf NEGATIVE (Negative) Urine Ketones NEGATIVE (NEGATIVE) Urine Nitrite NEGATIVE (NEGATIVE) Urine Bilirubin NEGATIVE (NEGATIVE) Urine Urobilinogen 0.2 (0-1) mg/dL Urine Leukocytes SMALL (NEGATIVE) Urine WBC (Auto) NONE (0-5) /HPF Urine RBC (Auto) 0-2 (0-2) /HPF U Hyaline Cast (Auto) 0-2 (0-2) /LPF U Epithel Cells (Auto) RARE (FEW) /HPF Urine Bacteria (Auto) NONE (NEGATIVE) /HPF Urine RBC NEGATIVE (0-5) Dalton/ul Urine Mucus (Auto) SLIGHT (NEGATIVE) /HPF Ur Culture Indicated? NO Urine Glucose NEGATIVE (NEGATIVE) mg/dL Influenza Type A Ag (NEGATIVE) Influenza Type B Ag (NEGATIVE) RSV (PCR) (Negative) SARS-CoV-2 (PCR) (NEGATIVE) <JIGNA DRAPER - Last Filed: 03/07/22 18:42> - Progress Discussed with : Neo Counseled pt/family regarding: lab results, diagnosis, need for follow-up <PAYAL GARZA - Last Filed: 03/07/22 21:12> - Progress Progress Note: 03/07/22 18:46 Patient will be turned over to Dr. Garza the combination of symptoms and an artificial valve would make 1 suspicious of endocarditis and cultures will be done. (JIGNA DRAPER) 03/07/22 21:10 Medical decision making: This patient's presentation complaints are weakness and headache. Her COVID test is positive. She is not . She does not have a urinary tract infection. Her hemoglobin is mildly low at 10.1. Patient does have nausea symptoms. She has not had any vomiting. Her weakness and headache could be secondary to the COVID-19 infection. I spoke with Dr. Roque, the patient's primary care provider and he feels that the patient can receive intravenous fluid and be discharged to home. I will also add Zofran prescription so the patient can continue oral intake at home. (PAYAL GARZA) - Departure Departure Disposition: Home Critical Care Time: No <JIGNA DRAPER - Last Filed: 03/07/22 18:42> <PAYAL GARZA - Last Filed: 03/07/22 21:12> - Departure Clinical Impression: Weakness, Headache, Fever, COVID-19 virus infection Condition: Stable Referrals: JOSE ROQUE MD [Primary Care Provider] - Follow up/PCP as directed Additional Instructions: Drink plenty of liquids. Call your primary care physician tomorrow morning to make arranges for follow-up appointment. Prescriptions: Ondansetron ODT 4 MG [Zofran Odt 4 mg] 4 mg PO Q6H PRN PRN #10 tablet PRN Reason: Vomiting
[2022-03-07] MEDS ORDERED: SUBLIMAZE 100 MCG/2 ML ONE (18:55)
[2022-03-07] MEDS ORDERED: Sodium Chloride 0.9% 1000 ML 1,000 ML ONE (18:55)
[2022-03-07] MEDS: Sodium Chloride 0.9% 1000 ML 1,000 ML IV SCH (18:57)
[2022-03-07] MEDS: SUBLIMAZE 100 MCG/2 ML IV ONE (18:57)
[2022-03-07 19:19] LABS: Absolute Neutrophil Ct (ANC) 4.95 x10^3/uL (1.4-6.9); Basophil (Absolute #) 0.04 x10^3/uL (0-0.4); Eosinophil % 2.6 % (0.00-5.0); Eosinophil (Absolute #) 0.19 x10^3/uL (0-0.5); Hemoglobin 10.1 g/dL (12.0-16.0); Lymphocyte (Absolute #) 1.45 x10^3/uL (1.0-4.6); Lymphocytes % 20.2 % (24.0-44.0); Mean Cell Volume 77.3 fL (78-100); Mean Corpuscular Hemoglobin 23.7 pg (26-32); Mean Corpuscular Hgb Concent. 30.6 g/dL (32-36); Mean Platelet Volume 9.1 fL (7.5-11.0); Monocyte (Absolute #) 0.55 x10^3/uL (0.0-1.3); Monocytes % 7.6 % (0.0-12.0); Neutrophil % 68.9 % (36.0-66.0); Platelet Count 311 x10^3/uL (150-450); Red Blood Count 4.27 x10^6/uL (4.1-5.4); Red Cell Distribution Width 15.1 % (11.5-14.0); White Blood Count 7.2 x10^3/uL (4.0-10.5)
[2022-03-07 19:28] LABS: ALBUMIN 4.1 g/dL (3.5-5.0); ALKALINE PHOSPHATASE 82 U/L (38-126); BLOOD UREA NITROGEN 7 mg/dL (7-17); CHLORIDE 105 mmol/L (98-107); Calcium 9.2 mg/dL (8.4-10.2); Carbon Dioxide 22 mmol/L (22-30); Creatinine 1 0.62 mg/dL (0.52-1.04); EST GLOMERULAR FILTRATION RATE > 60.0 ML/MIN; Glucose 94 mg/dL (74-106); LIPASE 147 U/L (23-300); Potassium 3.9 mmol/L (3.5-5.1); SGOT/AST 22 U/L (14-36); SGPT/ALT 20 U/L (0-35); SODIUM 138 mmol/L (137-145); Total Protein 7.9 g/dL (6.3-8.2)
[2022-03-07 19:29] LABS: INR 1.99 (0.8-3.0); PROTIME 19.8 SECONDS (9.4-12.5)
[2022-03-07 19:47] LABS: Appearance CLEAR (CLEAR)
[2022-03-07 19:49] LABS: Bilirubin NEGATIVE (NEGATIVE); Dipstick done @ ? MAIN LAB; Glucose NEGATIVE (NEGATIVE); Ketones NEGATIVE (NEGATIVE); Nitrite NEGATIVE (NEGATIVE); Ph 6.5 (5-6); Protein,Urine Dip NEGATIVE (Negative); RBC NEGATIVE Ery/ul (0-5); Specific Gravity 1.015 (1.005-1.025); Urobilinogen 0.2 mg/dL (0-1)
[2022-03-07 19:58] LABS: Epithelial Cells RARE /HPF (FEW); Hyaline Casts 0-2 /LPF (0-2); Mucus SLIGHT /HPF (NEGATIVE); RBC 0-2 /HPF (0-2)
[2022-03-07 19:59] LABS: Urine Cultured Indicated? NO
[2022-03-07 20:11] LABS: INFLUENZA A NEGATIVE (NEGATIVE); INFLUENZA B NEGATIVE (NEGATIVE); RESPIRATORY SYNCTIAL VIRUS NEGATIVE (Negative)
[2022-03-07 20:24] LABS: SARS-CoV-2 Xpert Express POSITIVE (NEGATIVE)
[2022-03-07] MEDS: Zofran 4 MG/2 ML VIAL IV ONE (20:42)
[2022-03-07] MEDS ORDERED: Zofran 4 MG/2 ML VIAL ONE (20:42)
[2022-03-07 21:06] VITALS: O2SAT 100
[2022-03-07 21:41] VITALS: BP 118/62; PULSE 89
--- NOTE | 2022-03-08 08:37 | XRAY ---
Indication: Short of breath. Comparison: May 02, 2021 Portable chest remains inflated and clear. Heart not enlarged for AP portable technique. Bony thorax intact with new sternotomy wires. Impression: Continued nonacute chest.
== END 2022-03-07 21:51 | disposition home or self-care (01) ==
LOC: ED 18:19
DX: U07.1 COVID-19 (principal); R51.9 Headache, unspecified; R53.1 Weakness; R50.9 Fever, unspecified; N91.2 Amenorrhea, unspecified; N64.3 Galactorrhea not associated with childbirth; I10 Essential (primary) hypertension; Z79.01 Long term (current) use of anticoagulants; Z79.899 Other long term (current) drug therapy; Z28.310 Unvaccinated for COVID-19
CPT/HCPCS: 0241U; 36000; 36415; 71045; 80053; 81015; 83605; 83690; 84484; 84703; 85025; 85610; 85652; 87040; 93005; 96374; 96375; 99284; J2405; J3010

== ENCOUNTER 2022-03-14 18:02 | Emergency (ER) | payer OTHER ==
--- NOTE | 2022-03-14 19:30 | ERPHSYRPT ---
- History of Present Illness Source: patient Exam Limitations: no limitations Patient Subjective Stated Complaint: Patient fell at home today and hit her head and back. Here for back pain. Patient takes coumadin and took 7mg yesterday. She has not taken a dose today. INR per patient this am was 1.6 Triage Nursing Assessment: Patient ambulated back to ED. She is alert and oriented. No SOB. Patient showing s/s of pain. No skin alterations noted to back or head at this time. Physician History: 32 yo wf w recent CV19 infection presents to ER after falling in shower. Pt complains of VALLE(denies LOC but was dazed), cervical pain, and lumbar pain. 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 Pt stated that she just got weak in the shower. Chest pain/Focal weakness/Fever/dyspnea all denied. also denied. Occurred: just prior to arrival Reason for Fall: lightheaded Injuries/Pain Location: head, neck, back Loss of Consciousness: dazed Quality: aching Severity of Pain-Max: moderate Severity of Pain-Current: moderate Modifying Factors: Improves With: movement Associated Symptoms (Fall): headache, lightheadedness, No abdominal pain, No back pain, No confusion, No chest pain, No dizziness, No extremity injury, No muscle spasms, No nausea, No neck pain, No ringing in ears, No seizures, No shortness of breath, No slurred speech, No trouble walking, No vomiting, No vision changes Allergies/Adverse Reactions: No Known Drug Allergies Allergy (Verified 03/14/22 18:58) Home Medications: lisinopriL [Lisinopril] 5 mg PO DAILY 11/17/19 [History] Metoprolol Tartrate 25 mg [Lopressor 25MG Tab] 25 mg PO BID 03/07/22 [History] Warfarin Sodium 5 mg PO UD 03/07/22 [History] Warfarin Sodium 7 mg PO UD 03/07/22 [History] Hx Tetanus, Diphtheria Vaccination/Date Given: Yes Hx Influenza Vaccination/Date Given: Yes Hx Pneumococcal Vaccination/Date Given: No Immunizations Up to Date: Yes Travel Risk - International Travel Have you traveled outside of the country in past 3 weeks: No - Coronavirus Screening Are you exhibiting any of the following symptoms?: Yes Symptoms: Headaches/Body Aches/Fatigue Close contact with a COVID-19 positive Pt in past 14-21 Days: No - Vaccine Status Have you recieved a Covid-19 vaccination: No - Review of Systems Constitutional: No Symptoms, Malaise, Weakness Eyes: No Symptoms Ears, Nose, & Throat: No Symptoms Respiratory: No Symptoms Cardiac: No Symptoms Abdominal/Gastrointestinal: No Symptoms Genitourinary Symptoms: No Symptoms Musculoskeletal: No Symptoms, Back Pain, Neck Pain Skin: No Symptoms Neurological: No Symptoms, Headache, No Dizziness, No Focal Weakness, No Gait Changes Psychological: No Symptoms Endocrine: No Symptoms Hematologic/Lymphatic: No Symptoms Immunological/Allergic: No Symptoms - Past Medical History Pertinent Past Medical History: Yes Neurological History: No Pertinent History ENT History: No Pertinent History Cardiac History: Congenital Heart Disease, Hypertension Respiratory History: Asthma, Bronchitis, Sleep Apnea Endocrine Medical History: No Pertinent History Musculoskeletal History: Osteoarthritis, Other GI Medical History: No Pertinent History History: No Pertinent History Psycho-Social History: No Pertinent History Female Reproductive Disorders: No Pertinent History Other Medical History: OPEN HEART WITH REPAIR OF HOLE--4 yrs old, COVID IN FEBRUARY 2022, anemia, cirrohosis of liver, pulmonary HTN - Past Surgical History Past Surgical History: Yes Neuro Surgical History: No Pertinent History Cardiac: Other Respiratory: No Pertinent History Gastrointestinal: No Pertinent History Genitourinary: No Pertinent History Musculoskeletal: No Pertinent History Female Surgical History: Dilation & Curettage, Section, Tubal Ligation Other Surgical History: REPAIR OF HOLE IN THE HEART, open heart pulmonary valve replacemnt - Social History Smoking Status: Never smoker Exposure to second hand smoke: No Drug Use: none Patient Lives Alone: No - Female History Hx Last Menstrual Period: NOW Hx Now: No - Nursing Vital Signs Nursing Vital Signs: Initial Vital Signs Temperature 98 F 03/14/22 19:04 Pulse Rate 76 03/14/22 19:04 Respiratory Rate 18 03/14/22 19:04 Blood Pressure 141/110 03/14/22 19:04 O2 Sat by Pulse Oximetry 99 03/14/22 19:04 Pain Scale Pain Intensity 8 Hypertensive - Irvin Coma Score Best Eye Response (Irvin): (4) open spontaneously Best Verbal Response (Umbarger): (5) oriented Best Motor Response (Irvin): (6) obeys commands Irvin Total: 15 - Physical Exam General Appearance: no apparent distress Head Injury: tenderness (Mild occipital TTP wo hematoma or palpable fx) Eye Exam: PERRL/EOMI, eyes nml inspection ENT Exam: airway nml, No evidence of ENT injury, No clear fluid (ears), No clear fluid (nose) Neck Exam: supple, trachea midline, full range of motion, tenderness (C-spine T TP) Respiratory/Chest Exam: normal breath sounds, No chest tenderness, No r espiratory distress Cardiovascular Exam: normal heart sounds, regular rate/rhythm, murmur (3/6 LEIA) Gastrointestinal Exam: soft, normal bowel sounds, No tenderness Back Exam: vertebral tenderness (L-spine TTP), No CVA tenderness Extremity Exam: normal inspection, normal range of motion, capillary refill <3 sec, pelvis stable Peripheral Pulses: carotid (R): 2+, carotid (L): 2+ Neurologic Exam: alert, oriented x 3, 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, 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 as tested, normal mood/affect, sensation nml Skin Exam: normal color, warm, dry SpO2 Interpretation: normal SpO2: 99 O2 Delivery: Room Air - Course Nursing assessment & vital signs reviewed: Yes EKG Interpreted by Me: RATE (NSR/RBBB/Normal QT/prolonged QTc/Possible old inferior WI) - CT Exams Lumbar Spine CT Interpretation: Discussed w/radiologist (NAD) Head CT Interpretation: Discussed w/radiologist (CT head NAD per Rad) Cervical Spine CT Interpretation: Discussed w/radiologist (CT C-spine neg per Rad) Ordered Tests: Active Orders 24 hr Category Date Time Status EKG-ER Only STAT Care 03/14/22 21:24 Completed CERVICAL SPINE WO CONTRAST [CT] Stat Exams 03/14/22 19:22 Taken HEAD WITHOUT CONTRAST [CT] Stat Exams 03/14/22 19:21 Taken LUMBAR SPINE W/O [CT] Stat Exams 03/14/22 19:22 Taken CBC W DIFF Stat Lab 03/14/22 19:45 Completed CMP Stat Lab 03/14/22 19:45 Completed D-DIMER QUANTITATIVE Stat Lab 03/14/22 19:45 Completed HCG QUALITATIVE,SERUM Stat Lab 03/14/22 19:45 Completed PROTIME WITH INR Stat Lab 03/14/22 19:45 Completed PTT Stat Lab 03/14/22 19:45 Completed TROPONIN Q3H Lab 03/14/22 19:45 Completed Medication Summary Discontinued Medications Generic Name Dose Route Start Last Admin Trade Name Dhara PRN Reason Stop Dose Admin Hydrocodone Bitart/Acetaminophen 2 tab 03/14/22 22:24 03/14/22 22:27 Hydrocodone/Apap 5/325 Mg Tablet PO 03/14/22 22:25 2 tab SENT HOME W/ PATIENT ONE Administration Hydrocodone Bitart/Acetaminophen Confirm 03/14/22 22:26 Hydrocodone/Apap 5/325 Mg Tablet Administered 03/14/22 22:27 Dose 2 tab .ROUTE .STK-MED ONE Ketorolac Tromethamine 30 mg 03/14/22 21:23 03/14/22 21:39 Ketorolac Tromethamine 30 Mg/Ml Inj IM 03/14/22 21:24 30 mg STAT ONE Administration Ketorolac Tromethamine Confirm 03/14/22 21:36 Ketorolac Tromethamine 30 Mg/Ml Inj Administered 03/14/22 21:37 Dose 30 mg .ROUTE .STK-MED ONE Ondansetron HCl 4 mg 03/14/22 21:23 03/14/22 21:39 Zofran 4 Mg/Udtablet Orally Disintegrating PO 03/14/22 21:24 4 mg STAT ONE Administration Ondansetron HCl Confirm 03/14/22 21:36 Zofran 4 Mg/Udtablet Orally Disintegrating Administered 03/14/22 21:37 Dose 4 mg .ROUTE .STK-MED ONE Lab/Rad Data: Laboratory Result Diagrams 03/14/22 19:45 03/14/22 19:45 Laboratory Results 03/14/22 03/14/22 03/14/22 Range/Units 19:45 19:45 19:45 WBC (4.0-10.5) x10^3/uL RBC (4.1-5.4) x10^6/uL Hgb (12.0-16.0) g/dL Hct (35-47) % MCV (78-100) fL MCH (26-32) pg MCHC (32-36) g/dL RDW (11.5-14.0) % Plt Count (150-450) x10^3/uL MPV (7.5-11.0) fL Gran % (36.0-66.0) % Immature Gran % (Auto) (0.00-0.4) % Nucleat RBC Rel Count (0.00-0.1) % Eos # (Auto) (0-0.5) x10^3/uL Immature Gran # (Auto) (0.00-0.03) x10^3u/L Absolute Lymphs (auto) (1.0-4.6) x10^3/uL Absolute Monos (auto) (0.0-1.3) x10^3/uL Absolute Nucleated RBC (0.00-0.01) x10^3u/L Lymphocytes % (24.0-44.0) % Monocytes % (0.0-12.0) % Eosinophils % (0.00-5.0) % Basophils % (0.0-0.4) % Absolute Granulocytes (1.4-6.9) x10^3/uL Basophils # (0-0.4) x10^3/uL PT 17.0 H (9.4-12.5) SECONDS INR 1.68 (0.8-3.0) APTT 30.8 (25.1-36.5) SECONDS D-Dimer 0.43 (0.0-0.50) mg/L Sodium (137-145) mmol/L Potassium (3.5-5.1) mmol/L Chloride (98-107) mmol/L Carbon Dioxide (22-30) mmol/L Anion Gap (5-15) MEQ/L BUN (7-17) mg/dL Creatinine (0.52-1.04) mg/dL Estimated GFR ML/MIN Glucose (74-106) mg/dL Calcium (8.4-10.2) mg/dL Total Bilirubin (0.2-1.3) mg/dL AST (14-36) U/L ALT (0-35) U/L Alkaline Phosphatase (38-126) U/L Troponin I < 0.012 (0.000-0.034) ng/mL Serum Total Protein (6.3-8.2) g/dL Albumin (3.5-5.0) g/dL Serum , Qual NEGATIVE (Negative) 03/14/22 03/14/22 Range/Units 19:45 19:45 WBC 6.8 (4.0-10.5) x10^3/uL RBC 4.49 (4.1-5.4) x10^6/uL Hgb 10.6 L (12.0-16.0) g/dL Hct 33.8 L (35-47) % MCV 75.3 L (78-100) fL MCH 23.6 L (26-32) pg MCHC 31.4 L (32-36) g/dL RDW 15.3 H (11.5-14.0) % Plt Count 317 (150-450) x10^3/uL MPV 9.1 (7.5-11.0) fL Gran % 68.0 H (36.0-66.0) % Immature Gran % (Auto) 0.3 (0.00-0.4) % Nucleat RBC Rel Count 0.0 (0.00-0.1) % Eos # (Auto) 0.18 (0-0.5) x10^3/uL Immature Gran # (Auto) 0.02 (0.00-0.03) x10^3u/L Absolute Lymphs (auto) 1.49 (1.0-4.6) x10^3/uL Absolute Monos (auto) 0.47 (0.0-1.3) x10^3/uL Absolute Nucleated RBC 0.00 (0.00-0.01) x10^3u/L Lymphocytes % 21.8 L (24.0-44.0) % Monocytes % 6.9 (0.0-12.0) % Eosinophils % 2.6 (0.00-5.0) % Basophils % 0.4 (0.0-0.4) % Absolute Granulocytes 4.64 (1.4-6.9) x10^3/uL Basophils # 0.03 (0-0.4) x10^3/uL PT (9.4-12.5) SECONDS INR (0.8-3.0) APTT (25.1-36.5) SECONDS D-Dimer (0.0-0.50) mg/L Sodium 138 (137-145) mmol/L Potassium 3.9 (3.5-5.1) mmol/L Chloride 102 (98-107) mmol/L Carbon Dioxide 25 (22-30) mmol/L Anion Gap 15.1 H (5-15) MEQ/L BUN 7 (7-17) mg/dL Creatinine 0.63 (0.52-1.04) mg/dL Estimated GFR > 60.0 ML/MIN Glucose 89 (74-106) mg/dL Calcium 9.6 (8.4-10.2) mg/dL Total Bilirubin 0.40 (0.2-1.3) mg/dL AST 24 (14-36) U/L ALT 21 (0-35) U/L Alkaline Phosphatase 93 (38-126) U/L Troponin I (0.000-0.034) ng/mL Serum Total Protein 7.4 (6.3-8.2) g/dL Albumin 4.1 (3.5-5.0) g/dL Serum , Qual (Negative) - Progress Progress Note: 03/14/22 22:22 30mg IM Toradol/4mg Zofran odt wo improvement Pt driving so will send home pain meds 03/14/22 22:47 No evidence of focal weakness/syncope/chest pain/fever/dyspnea in ER Counseled pt/family regarding: lab results, diagnosis, need for follow-up, rad results - Departure Departure Disposition: Home Clinical Impression: Minor head injury, Cervical strain, Lumbar strain Condition: Stable Critical Care Time: No Referrals: JOSE ROQUE MD [Primary Care Provider] - Follow up/PCP as directed Instructions: Contusion (DC), Minor Head Injury (DC), Cervical Muscle Strain (DC) Additional Instructions: Ice to contused areas for 12-24 hours Pain meds as needed Return to ER for focal weakness/shortness of breath/worsening headache
[2022-03-14 19:50] LABS: Absolute Neutrophil Ct (ANC) 4.64 x10^3/uL (1.4-6.9); Basophil (Absolute #) 0.03 x10^3/uL (0-0.4); Eosinophil % 2.6 % (0.00-5.0); Eosinophil (Absolute #) 0.18 x10^3/uL (0-0.5); Hematocrit 33.8 % (35-47); Hemoglobin 10.6 g/dL (12.0-16.0); Lymphocyte (Absolute #) 1.49 x10^3/uL (1.0-4.6); Lymphocytes % 21.8 % (24.0-44.0); Mean Cell Volume 75.3 fL (78-100); Mean Corpuscular Hemoglobin 23.6 pg (26-32); Mean Corpuscular Hgb Concent. 31.4 g/dL (32-36); Mean Platelet Volume 9.1 fL (7.5-11.0); Monocyte (Absolute #) 0.47 x10^3/uL (0.0-1.3); Monocytes % 6.9 % (0.0-12.0); Platelet Count 317 x10^3/uL (150-450); Red Blood Count 4.49 x10^6/uL (4.1-5.4); Red Cell Distribution Width 15.3 % (11.5-14.0); White Blood Count 6.8 x10^3/uL (4.0-10.5)
[2022-03-14 20:06] LABS: ALBUMIN 4.1 g/dL (3.5-5.0); ALKALINE PHOSPHATASE 93 U/L (38-126); ANION GAP 15.1 MEQ/L (5-15); BLOOD UREA NITROGEN 7 mg/dL (7-17); CHLORIDE 102 mmol/L (98-107); Calcium 9.6 mg/dL (8.4-10.2); Carbon Dioxide 25 mmol/L (22-30); Creatinine 1 0.63 mg/dL (0.52-1.04); EST GLOMERULAR FILTRATION RATE > 60.0 ML/MIN; Glucose 89 mg/dL (74-106); Potassium 3.9 mmol/L (3.5-5.1); SGOT/AST 24 U/L (14-36); SGPT/ALT 21 U/L (0-35); SODIUM 138 mmol/L (137-145); Total Protein 7.4 g/dL (6.3-8.2)
[2022-03-14 20:25] LABS: D-DIMER QUANTITATIVE 0.43 mg/L (0.0-0.50); INR 1.68 (0.8-3.0); PTT 30.8 SECONDS (25.1-36.5)
[2022-03-14] MEDS ORDERED: TORAdol 30 mg Injection ONE (21:36)
[2022-03-14] MEDS ORDERED: ZOFRAN ODT 4 MG ONE (21:36)
[2022-03-14] MEDS: ZOFRAN ODT 4 MG PO ONE (21:39)
[2022-03-14] MEDS: TORAdol 30 mg Injection IM ONE (21:39)
[2022-03-14 22:10] VITALS: BP 132/84; PULSE 88
[2022-03-14 22:26] VITALS: O2SAT 99
[2022-03-14] MEDS ORDERED: NORCO 5/325 MG ONE (22:26)
[2022-03-14] MEDS: NORCO 5/325 MG PO ONE (22:27)
--- NOTE | 2022-03-15 08:36 | XRAY ---
Indication: Posterior head injury following fall. Blood thinner therapy. Multiple contiguous axial images obtained through the head without contrast. Comparison: None Normal appearing brain parenchyma, ventricles, and bony calvarium for patient's age. 1 cm left maxilla sinus polyp/retention cyst. Remaining paranasal sinuses and mastoid air cells are clear. Impression: Small left maxillary sinus polyp/retention cyst. Remaining CT head without contrast exam is normal.
--- NOTE | 2022-03-15 08:38 | XRAY ---
Indication: Posterior head injury following fall. Blood thinner therapy. Multiple contiguous axial images obtained through the cervical spine. Sagittal and coronal reformatted images obtained. Comparison: None Axial images negative for acute fracture, suspicious bony lesions, or spinal canal stenosis. Facets are symmetric. Sagittal and coronal reformatted images demonstrates normal alignment with vertebral body heights/disc spaces obtained. No acute fracture, subluxation, or jumped facet. Normal appearing craniocervical junction. Visualized noncontrasted soft tissues demonstrates 1 cm right thyroid hypodense nodule/cyst. Impression: Small right thyroid hypodense nodule/cyst better evaluated with sonogram if clinically warranted. Normal CT cervical spine.
--- NOTE | 2022-03-15 08:40 | XRAY ---
Indication: Pain following fall. Blood thinner therapy. Multiple contiguous axial images obtained through the lumbar spine. Sagittal and coronal reformatted images obtained. Comparison: CT abdomen/pelvis February 23, 2021. Axial images negative for acute fracture, suspicious bony lesions, or spinal canal stenosis. Facets are symmetric. Sagittal and coronal reformatted images demonstrates normal lumbar alignment with vertebral body heights/disc spaces maintained. No acute fracture or subluxation. Visualized noncontrasted soft tissues are unremarkable. Impression: Normal CT lumbar spine.
== END 2022-03-14 22:35 | disposition home or self-care (01) ==
LOC: ED 18:02
DX: S09.90XA Unspecified injury of head, initial encounter (principal); S16.1XXA Strain of muscle, fascia and tendon at neck level, initial encounter; S39.012A Strain of muscle, fascia and tendon of lower back, initial encounter; W18.2XXA Fall in (into) shower or empty bathtub, initial encounter; Y93.E1 Activity, personal bathing and showering; Y92.002 Bathroom of unspecified non-institutional (private) residence as the place of occurrence of the external cause; R51.9 Headache, unspecified; R42 Dizziness and giddiness; I10 Essential (primary) hypertension; Z79.01 Long term (current) use of anticoagulants; Z79.899 Other long term (current) drug therapy; Z28.310 Unvaccinated for COVID-19; Z86.16 Personal history of COVID-19
CPT/HCPCS: 36415; 70450; 72125; 72131; 80053; 84484; 84703; 85025; 85379; 85610; 85730; 93005; 96372; 99284; J1885; Q0162; A9270-GY